=== PATIENT | male | born 1950 | race Caucasian/White ===

== ENCOUNTER 2016-05-10 15:39 | Inpatient (IN) | payer MEDICARE, BC, OTHER ==
[2016-05-10 16:14] LABS: Glucose,Whole Blood 120 mg/dL (75-99)
[2016-05-10 16:14] LABS: Anisocytosis Slight; Basophils # (A) 0.1 k/uL (0-0.2); Basophils % (A) 1 %; CH 34.3; CHCM 34.1; Eosinophils # (A) 0.4 k/uL (0-0.7); Eosinophils % (A) 4 %; HCT 32.7 % (39.0-53.0); HDW 3.28; HGB 10.9 gm/dL (13.0-17.5); Luc # (Auto) 0.22; Luc % (Auto) 2; Lymphocytes % (A) 28 %; MCHC 33.5 g/dL (31.0-37.0); MCV 101.4 fL (80.0-100.0); Macrocytosis Moderate; Mean Platelet Volume 7.7; Monocytes # (A) 0.9 k/uL (0-1.0); Monocytes % (A) 8 %; Neutrophils # (A) 6.2 k/uL (1.3-7.7); Neutrophils % (A) 57 %; RBC 3.22 m/uL (4.30-5.90); RDW 17.3 % (11.5-15.5); WBC 10.8 k/uL (3.8-10.6); WBC (Perox) 11.79
[2016-05-10] MEDS ORDERED: DOCUSATE 100 MG CAP PO PRN (16:26)
[2016-05-10] MEDS ORDERED: NALOXONE 0.4 MG/ML 1 ML VIAL IV PRN (16:26)
[2016-05-10 16:28] LABS: Calcium 9.7 mg/dL (8.4-10.2); Magnesium 2.4 mg/dL (1.6-2.3); Potassium 5.1 mmol/L (3.5-5.1); Total Bilirubin 0.7 mg/dL (0.2-1.3); Total Protein 8.8 g/dL (6.3-8.2)
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
[2016-05-10] MEDS ORDERED: LORazepam 0.5 MG TAB PO PRN (18:02)
[2016-05-10] MEDS ORDERED: BISACODYL 5 MG TABLET.DR PO PRN (18:02)
[2016-05-10] MEDS ORDERED: ALPRAZolam 0.25 MG TAB PO PRN (18:04)
[2016-05-10] MEDS ORDERED: ACETAMINOPHEN TAB 500 MG TAB PO PRN (18:04)
[2016-05-10] MEDS ORDERED: LIDOCAINE-PRILOCAINE 2.5-2.5% CREAM 5 GM TUBE TOPICAL PRN (18:15)
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
[2016-05-10] MEDS ORDERED: LEVOFLOXACIN 500MG-D5W PMX 500 MG in DEXTROSE/WATER 1 100ML.BAG IVPB SCH (19:00)
[2016-05-10] MEDS ORDERED: VANCOMYCIN 1,000 MG in SODIUM CHLORIDE 0.9% 250 ML IVPB STA (20:49)
[2016-05-10] MEDS: INSULIN NPH/REG INSULIN 70/30 300 UNIT/3 ML VIAL SQ SCH (21:06)
[2016-05-10] MEDS: HYDROcodone/APAP 5-325MG 1 EACH TAB PO SCH ×2 (21:06→22:56)
[2016-05-10] MEDS: MELATONIN 3 MG TABLET PO SCH (21:08)
[2016-05-10] MEDS: MONTELUKAST 10 MG TAB PO SCH (21:08)
[2016-05-10] MEDS: FINASTERIDE 5 MG TAB PO SCH (21:08)
[2016-05-10] MEDS: FUROSEMIDE 40 MG TAB PO SCH (21:08)
[2016-05-10] MEDS: GABAPENTIN 300 MG CAP PO SCH (21:09)
[2016-05-10] MEDS: DIVALPROEX SPRINKLE 125 MG CAP.SPRINK PO SCH (21:09)
[2016-05-10 21:10] LABS: Glucose,Whole Blood 142 mg/dL (75-99)
[2016-05-11 04:29] LABS: Anisocytosis Slight; Basophils # (A) 0.1 k/uL (0-0.2); Basophils % (A) 1 %; CH 33.9; CHCM 32.7; Eosinophils # (A) 0.6 k/uL (0-0.7); Eosinophils % (A) 6 %; HCT 28.9 % (39.0-53.0); HDW 3.22; Luc # (Auto) 0.28; Luc % (Auto) 3; Lymphocytes % (A) 20 %; MCH 33.5 pg (25.0-35.0); MCHC 32.1 g/dL (31.0-37.0); MCV 104.4 fL (80.0-100.0); Macrocytosis Moderate; Mean Platelet Volume 7.4; Monocytes % (A) 10 %; Neutrophils % (A) 60 %; RBC 2.77 m/uL (4.30-5.90); RDW 17.4 % (11.5-15.5); WBC 9.9 k/uL (3.8-10.6); WBC (Perox) 9.63
[2016-05-11 04:33] LABS: HGB 9.3 gm/dL (13.0-17.5)
[2016-05-11 05:19] LABS: Calcium 9.5 mg/dL (8.4-10.2); Potassium 5.1 mmol/L (3.5-5.1)
[2016-05-11] MEDS: INSULIN NPH/REG INSULIN 70/30 300 UNIT/3 ML VIAL SQ SCH ×2 (06:21→17:02)
[2016-05-11 06:50] LABS: Glucose,Whole Blood 137 mg/dL (75-99)
--- NOTE | 2016-05-11 08:10 | XR ---
EXAMINATION TYPE: XR chest 1V portable DATE OF EXAM: 05/11/2016 8:05 AM CLINICAL HISTORY: Difficulty breathing progress and CHF study. TECHNIQUE: Single AP portable frontal view of the chest is obtained. COMPARISON: Outside Chest x-ray from one day earlier and older study August 07, 2015 FINDINGS: There is right apical scarring and left basilar atelectasis. No suspicious focal infiltrat e, pleural effusion, or pneumothorax is seen bilaterally. Cardiac silhouette size is within normal li mits with atherosclerotic change in the aortic knob. Osseous structures are intact. IMPRESSION: Right apical scarring and/or atelectasis with left basilar atelectasis. No cardiomegaly o r significant congestion identified.
--- NOTE | 2016-05-11 08:12 | US ---
EXAMINATION TYPE: US carotid duplex BILAT DATE OF EXAM: 05/11/2016 7:58 AM COMPARISON: NONE CLINICAL HISTORY: stroke. Acute onset weakness. EXAM MEASUREMENTS: RIGHT: Peak Systolic Velocity (PSV) cm/sec ----- Right CCA: 77.3 ----- Right ICA: 84.0 ----- Right ECA: 80.6 ICA/CCA ratio: 1.1 RIGHT: End Diastole cm/sec ----- Right CCA: 15.2 ----- Right ICA: 20.9 ----- Right ECA: 0.0 LEFT: Peak Systolic Velocity (PSV) cm/sec ----- Left CCA: 80.1 ----- Left ICA: 102.8 ----- Left ECA: 70.9 ICA/CCA ratio: 1.3 LEFT: End Diastole cm/sec ----- Left CCA: 21.9 ----- Left ICA: 33.0 ----- Left ECA: 0.0 VERTEBRALS (direction of flow): Right Vertebral: Antegrade Left Vertebral: Antegrade TECHNOLOGIST IMPRESSION: Patient has high bifurcation of vessels and at times had trouble holding st ill for examiner. Mild plaque and no significant velocity elevations. Exam suboptimal due to high bifurcation of the carotid bulb bilaterally as well as patient noncoopera tion difficulty holding still. There is mild eccentric mixed plaque at right carotid bulb on grayscal e images. Mild eccentric cord plaque is seen at left carotid bulb. Velocity measurements and ratios r emain within normal limits bilaterally. IMPRESSION: There is no hemodynamically significant stenosis seen in either internal carotid artery.
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
[2016-05-11] MEDS: ASPIRIN 81 MG CHEW PO SCH (08:52)
[2016-05-11] MEDS: SERTRALINE 50 MG TAB PO SCH (08:52)
[2016-05-11] MEDS: HYDROcodone/APAP 5-325MG 1 EACH TAB PO SCH ×4 (08:52→23:09)
[2016-05-11] MEDS: ARIPiprazole 15 MG TAB PO SCH (08:53)
[2016-05-11] MEDS: FUROSEMIDE 40 MG TAB PO SCH ×2 (08:53→16:07)
[2016-05-11] MEDS: GABAPENTIN 300 MG CAP PO SCH ×3 (08:53→20:37)
[2016-05-11] MEDS: FAMOTIDINE 20 MG TAB PO SCH (08:53)
[2016-05-11] MEDS: DIVALPROEX SPRINKLE 125 MG CAP.SPRINK PO SCH ×3 (08:53→20:36)
[2016-05-11] MEDS: SEVELAMER 800 MG TAB PO SCH (08:54)
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
[2016-05-11 11:07] LABS: Glucose,Whole Blood 156 mg/dL (75-99)
[2016-05-11 11:30] LABS: Hemoglobin A1C 5.4 % (4.2-6.1)
[2016-05-11] MEDS: THIAMINE 100 MG TAB PO SCH (12:43)
[2016-05-11] MEDS: MULTIVITAMINS, THERA 1 EACH TAB PO SCH (12:43)
[2016-05-11] MEDS: FOLIC ACID 1 MG TAB PO SCH (12:43)
--- NOTE | 2016-05-11 13:41 | CT ---
EXAMINATION TYPE: CT brain wo con DATE OF EXAM: 05/11/2016 1:25 PM COMPARISON: Prior head CT December HISTORY: Syncope CT DLP: 1121 mGycm Automated exposure control for dose reduction was used. Helical imaging through the brain FINDINGS: There is no acute intracranial hemorrhage, mass effect, or midline shift identified. The ventricles and sulci are within normal limits in size. Cortical atrophy is present. Cerebral vascular calcificat ions are present. White matter demyelination is present in the periventricular location, suspect lacu harshad infarct within the basal ganglia on the left as on prior exam The globes are intact and the visu alized sinuses are remarkable for inflammatory change in the maxillary sinus, ethmoid air cells, post op change noted to the sinus. IMPRESSION: No acute intracranial hemorrhage, mass effect, or midline shift is seen. Age-related atrophy and geochemical manager anna small vessel ischemia suspected. Sinus disease. Follow-up as indicated
--- NOTE | 2016-05-11 14:59 | ECHOF ---
Referral Reason:Stroke MEASUREMENTS -------- HEIGHT: 170.2 cm WEIGHT: 82.1 kg BP: RVIDd: 2.9 cm (< 3.3) IVSd: 1.3 cm (0.6 - 1.1) LVIDd: 3.3 cm (3.9 - 5.3) LVPWd: 1.4 cm (0.6 - 1.1) IVSs: 1.6 cm LVIDs: 2.5 cm LVPWs: 1.3 cm LA Diam: 3.6 cm (2.7 - 3.8) Ao Diam: 3.5 cm (2.0 - 3.7) AV Cusp: 2.4 cm (1.5 - 2.6) LA Diam: 3.1 cm (2.7 - 3.8) MV E Garry: 0.45 m/s MV DecT: 297 ms MV A Garry: 1.11 m/s MV E/A Ratio: 0.41 RAP: 5.00 mmHg RVSP: 15.92 mmHg FINDINGS -------- Sinus rhythm. Pt. not compliant. There is mild concentric left ventricular hypertrophy. Overall left ventricular systolic function is low-normal with, an EF between 50 - 55 %. The right ventricle is normal in size. The left atrial size is normal. The right atrial size is normal. There is mild aortic valve sclerosis. There is no evidence of aortic regurgitation. Mild mitral annular calcification present. Mild mitral regurgitation is present. Mild tricuspid regurgitation present. There is no evidence of pulmonary hypertension. The right ventricular systolic pressure, as measured by Doppler, is 15.92mmHg. There is no pulmonic regurgitation present. There is no pericardial effusion. CONCLUSIONS -------- 1. Pt. not compliant. 2. There is mild concentric left ventricular hypertrophy. 3. Overall left ventricular systolic function is low-normal with, an EF between 50 - 55 %. 4. There is mild aortic valve sclerosis. 5. Mild mitral annular calcification present. 6. Mild mitral regurgitation is present. 7. Mild tricuspid regurgitation present. 8. There is no evidence of pulmonary hypertension. 9. The right ventricular systolic pressure, as measured by Doppler, is 15.92mmHg. POULTRY FEED SUPERVISOR: Colette Durán RDCS
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
[2016-05-11 16:48] LABS: Glucose,Whole Blood 140 mg/dL (75-99)
[2016-05-11 20:29] LABS: Glucose,Whole Blood 152 mg/dL (75-99)
[2016-05-11] MEDS: FINASTERIDE 5 MG TAB PO SCH (20:35)
[2016-05-11] MEDS: LEVOFLOXACIN 250 MG TAB PO SCH (20:35)
[2016-05-11] MEDS: MONTELUKAST 10 MG TAB PO SCH (20:36)
--- NOTE | 2016-05-11 20:38 | PN ---
DATE OF SERVICE: 05/11/2016 This 66-year-old gentleman admitted with syncope as well as hypotension due to hemodialysis, being closely monitored. Cardiology is following the patient closely at this time. Otherwise, the patient is not orthostatically hypertensive, even though the blood pressure systolic is around 100. The patient is being closely monitored. The patient also underwent a carotid Doppler study showed no hemodynamically significant stenosis and a CAT scan of the brain which showed no other acute abnormality also. PAST MEDICAL HISTORY: Reviewed. REVIEW OF SYSTEMS: CARDIOVASCULAR: No angina or palpitations. RESPIRATORY: As mentioned earlier. GI: As mentioned earlier. : No dysuria. NERVOUS: As mentioned earlier. The current medications are reviewed and include: 1. Tylenol 500 mg every 6 hours p.r.n. 2. [place] 5 mg q.8 p.r.n. 3. Xanax 0.25 t.i.d. 5. Aspirin 160 mg daily. 7. Depakote 500 mg daily. 8. Colace 100 mg b.i.d. 9. Pepcid 20 mg q.a.m. 10. Proscar 5 mg q.h.s. 11. Lasix. 12. Neurontin. 13. Humulin 70/30 60 units b.i.d. 14. Ativan 0.5 mg every 6 hours p.r.n. 15. Singulair 10 mg q.h.s. 16. Multivitamin 1 p.o. daily. 17. Narcan 0.2 q.2 p.r.n. 18. Zoloft 150 mg p.o. daily. 20. Vitamin B 100 mg p.o. daily. PHYSICAL EXAM: Patient alert and oriented x3. Pulse 90, blood pressure is 140/60, respirations 12, temperature is 97.8, pulse ox 93% on room air. HEENT: Conjunctivae normal. NECK: No jugular venous distension. CARDIAC: S1 and S2 muffled. RESPIRATORY: Breath sounds diminished at the bases. A few scattered rhonchi. No crackles. Abdomen is soft, nontender. No mass palpable. LEGS: No edema. NERVOUS SYSTEM: Higher functions as mentioned. Moves all 4 limbs. No focal motor or sensory deficits. LYMPHATICS: No lymph nodes palpable in axillae or groin. SKIN: No ulcer, rash or bleeding. LABS: WBC 9.8, hemoglobin is 9.3. Creatinine is 1. Plasma lactic acid is 2.4. ASSESSMENT: 1. Syncope for evaluation, possibly hypotension related to hemodialysis, rule out cardiac arrhythmia. 2. Increased plasma lactic acid. 3. Increased WBC. Rule out sepsis. 4. Anemia, microcytic, possibly secondary to renal failure. 5. Chronic renal failure, chronic kidney disease, staged on hemodialysis. 6. History of atrial fibrillation, chronic. 7. History of coronary artery disease. 8. History of congestive heart failure. 9. History of chronic obstructive pulmonary disease. 10. History of cerebrovascular accident and transient ischemic attack. 11. History of dementia. 12. History of diabetes mellitus type 2. 13. Hypertension. 14. Hyperlipidemia. 15. History of memory impairment. 16. History of degenerative joint disease. 17. Sleep apnea. 18. History of head injury and closed head injury, dizziness. 19. History of right foot diabetic ulcer. 20. History of methicillin-resistant Staphylococcus aureus. 21. History of laparoscopic cholecystectomy. 22. History of anxiety. 23. History of gait dysfunction. 24. FULL CODE. RECOMMENDATIONS AND DISCUSSION: In this 66-year-old gentleman who presented with multiple complex medical issues, we will monitor the patient closely, continue the current medications, continue symptomatic treatment. Otherwise at this time, I would recommend monitoring the blood pressure closely. The white count is normal, 9.9. Cultures are negative so far; however, will continue the current medications, including empiric antibiotics and the rest of the medications and dose of vancomycin was also given by Nephrology. Guarded prognosis because of multiple complex medical issues. Further recommendations to follow. DARNELLD
[2016-05-11] MEDS: MELATONIN 3 MG TABLET PO SCH ×2 (22:19→22:22)
[2016-05-12 06:21] LABS: Anisocytosis Slight; Basophils # (A) 0.1 k/uL (0-0.2); Basophils % (A) 1 %; CH 33.5; CHCM 32.2; Eosinophils # (A) 0.8 k/uL (0-0.7); Eosinophils % (A) 10 %; HCT 27.9 % (39.0-53.0); HDW 3.17; HGB 9.2 gm/dL (13.0-17.5); Hypochromasia Slight; Luc # (Auto) 0.34; Luc % (Auto) 4; Lymphocytes # (A) 2.9 k/uL (1.0-4.8); Lymphocytes % (A) 36 %; MCH 34.5 pg (25.0-35.0); MCHC 32.9 g/dL (31.0-37.0); Macrocytosis Moderate; Mean Platelet Volume 6.8; Monocytes # (A) 0.8 k/uL (0-1.0); Monocytes % (A) 9 %; Neutrophils # (A) 3.2 k/uL (1.3-7.7); Neutrophils % (A) 40 %; RBC 2.66 m/uL (4.30-5.90); RDW 17.5 % (11.5-15.5); WBC (Perox) 8.19
[2016-05-12 06:26] LABS: Glucose,Whole Blood 91 mg/dL (75-99)
[2016-05-12 06:31] LABS: Calcium 9.5 mg/dL (8.4-10.2)
[2016-05-12 06:39] LABS: Potassium 6.3 mmol/L (3.5-5.1)
[2016-05-12] MEDS ORDERED: SODIUM POLYSTYRENE SULFONATE 15 GM/60 ML BOTTLE PO STA (06:56)
[2016-05-12] MEDS: INSULIN NPH/REG INSULIN 70/30 300 UNIT/3 ML VIAL SQ SCH ×2 (07:05→17:24)
--- NOTE | 2016-05-12 09:46 | P.PN ---
Subjective Principal diagnosis: This is a 66-year-old male, ESRD on dialysis Friday who had a syncopal episode during dialysis on Friday to 2016. He was brought into the emergency room after having had some resuscitation performed in the dialysis unit. I spoke with the dialysis nurse at [facility] dialysis unit, he became unresponsive, BP at the time of the event was 113/89 at 11:49 AM. At this time he had 2300 mL taken off. He was unresponsive although his pressure was a stable. Subsequently his pressure went down to 70. Then the pulse was lost and he had a 32 second CPR with return of pulse and blood pressure 94/57 at 11:54 AM CPR was terminated. He was given 850 mL of fluid. He was transferred here to the emergency room. He was brought in with normal vital signs and normal mentation. He is continuing to do very well since then over the weekend and the on Friday today he is awake alert. He has dementia. He is able to identify the hospital but unable to tell me the month year or date. He was able to substract 10 from 100. He says he has a good appetite has no complaints at all. No chest pain dizziness cough fever chills shortness of breath nausea vomiting diarrhea abdominal pain. Workup has shown no positive blood cultures, troponins have been normal. There has been no significant electrolyte abnormalities on his admission labs He is known with dementia, atrial fibrillation, coronary artery disease, COPD, diabetes and sleep apnea on BiPAP. His has had a fall and close head injury in 2001 and has had problems with his mental status since then. Objective - Vital Signs Vital signs: Vital Signs Temp 97.7 F 05/12/16 04:00 Pulse 76 05/12/16 04:00 Resp 18 05/12/16 04:00 BP 120/58 05/12/16 04:00 Pulse Ox 100 05/12/16 04:00 Intake & Output 05/11/16 05/12/16 05/12/16 18:59 06:59 18:59 Intake Total 970 200 Balance 970 200 Weight 79.5 kg Intake: Oral 970 200 Other: # Voids 0 0 Currently on exam he is awake alert but somewhat disoriented as described above. He was sitting out on a chair at the time of this exam HEENT exam no JVP is noted at is supple no facial asymmetry. No card bruit. Carotid Doppler was unremarkable as well. Lungs are clear to auscultation percussion good air entry bilaterally. Chest x-ray was unremarkable. Heart sounds are unremarkable for any murmur rub gallop. Abdomen soft nontender Extremity exam was no edema Neurologically awake alert but disoriented. No focal motor deficit - Labs CBC & Chem 7: 05/12/16 05:33 05/12/16 05:33 Labs: Abnormal Lab Results - Last 24 Hours (Table) 05/11/16 05/11/16 05/11/16 Range/Units 11:04 16:30 20:11 RBC (4.30-5.90) m/uL Hgb (13.0-17.5) gm/dL Hct (39.0-53.0) % MCV (80.0-100.0) fL RDW (11.5-15.5) % Eosinophils # (0-0.7) k/uL Potassium (3.5-5.1) mmol/L Carbon Dioxide (22-30) mmol/L BUN (9-20) mg/dL Creatinine (0.66-1.25) mg/dL Glucose (74-99) mg/dL POC Glucose (mg/dL) 156 H 140 H 152 H (75-99) mg/dL 05/12/16 05/12/16 Range/Units 05:33 05:33 RBC 2.66 L (4.30-5.90) m/uL Hgb 9.2 L (13.0-17.5) gm/dL Hct 27.9 L (39.0-53.0) % MCV 105.0 H (80.0-100.0) fL RDW 17.5 H (11.5-15.5) % Eosinophils # 0.8 H (0-0.7) k/uL Potassium 6.3 H* (3.5-5.1) mmol/L Carbon Dioxide 18 L (22-30) mmol/L BUN 54 H (9-20) mg/dL Creatinine 10.30 H* (0.66-1.25) mg/dL Glucose 103 H (74-99) mg/dL POC Glucose (mg/dL) (75-99) mg/dL Assessment and Plan Plan: Impression. 1. Syncopal episode during dialysis. Although his pressure is documented to be normal and 113/89 with heart rate in the 70s likely this is a cerebrovascular perfusion issue with possible vasovagal. His troponins have been normal. His carotid study is normal and his white count and clinical course is not suggestive of any sepsis. Blood cultures so far negative. Blood cultures are so far negative and troponins are normal 2. ESRD on dialysis Friday. Earlier this week on Friday he missed his dialysis as he was not feeling well. Supposedly, came on Friday was dialyzed with blood pressure going down needing emergency room visit where he was given IV fluid. 3 Recent problems with access bleeding. Under the care of [facility] surgeon and going for further surgery. 4. History of diabetes, atrial fibrillation, COPD BiPAP, dementia, 5. History of dementia after a fall in 2001 secondary to closed head injury. 6. longterm resident. 7. Anemia with hemoglobin of 9.3, etiology is ESRD and possible iron deficiency. 8. Hyperkalemia today potassium went up to 6.3. Blood sugar is 103. Because of hyperkalemia is from diet and ESRD Recommendation. We will give him Kayexalate 15 g now and 15 g 6 hours later. I would recommend that we dialyze him tomorrow here in the hospital before discharging so that we can monitor him closely
[2016-05-12] MEDS: HYDROcodone/APAP 5-325MG 1 EACH TAB PO SCH ×2 (11:04→17:24)
[2016-05-12] MEDS: ARIPiprazole 15 MG TAB PO SCH (11:37)
[2016-05-12] MEDS: DIVALPROEX SPRINKLE 125 MG CAP.SPRINK PO SCH ×4 (11:38→22:31)
[2016-05-12] MEDS: ASPIRIN 81 MG CHEW PO SCH (11:38)
[2016-05-12] MEDS: FAMOTIDINE 20 MG TAB PO SCH (11:39)
[2016-05-12] MEDS: FUROSEMIDE 40 MG TAB PO SCH ×2 (11:39→17:25)
[2016-05-12] MEDS: GABAPENTIN 300 MG CAP PO SCH ×4 (11:39→22:32)
[2016-05-12] MEDS: SERTRALINE 50 MG TAB PO SCH (11:39)
[2016-05-12] MEDS: FOLIC ACID 1 MG TAB PO SCH (11:40)
[2016-05-12] MEDS: THIAMINE 100 MG TAB PO SCH (11:40)
[2016-05-12] MEDS: SEVELAMER 800 MG TAB PO SCH (11:40)
[2016-05-12] MEDS: MULTIVITAMINS, THERA 1 EACH TAB PO SCH (11:40)
[2016-05-12 12:17] LABS: Glucose,Whole Blood 158 mg/dL (75-99)
[2016-05-12] MEDS ORDERED: SODIUM POLYSTYRENE SULFONATE 15 GM/60 ML BOTTLE PO ONE (13:00)
--- NOTE | 2016-05-12 14:07 | PN ---
A gentleman who is 66 years of age, end-stage renal disease, doing well today. Blood pressure is better controlled. No evidence of any syncope or arrhythmia. He has previous history of paroxysmal A. fib. He is now on Eliquis. I am recommending that we continue current medical regimen. Nephrology feels he should go home after dialysis tomorrow which is fine. Cardiac-mejia no intervention. Vital signs are stable. S1, S2 heard normally. Short systolic murmur noted. Lungs reveal improved air entry. Abdomen and lower extremity exam is unchanged. The patient can be discharged tomorrow after dialysis and advised to be on apixaban 2.5 mg b.i.d.
[2016-05-12 17:35] LABS: Glucose,Whole Blood 102 mg/dL (75-99)
[2016-05-12 20:41] LABS: Glucose,Whole Blood 143 mg/dL (75-99)
[2016-05-12] MEDS: MELATONIN 3 MG TABLET PO SCH (22:19)
[2016-05-12] MEDS: FINASTERIDE 5 MG TAB PO SCH (22:21)
[2016-05-12] MEDS: MONTELUKAST 10 MG TAB PO SCH (22:28)
[2016-05-12] MEDS: APIXABAN 2.5 MG TABLET PO SCH (22:28)
[2016-05-13 06:18] LABS: Anisocytosis Slight; Basophils # (A) 0.1 k/uL (0-0.2); Basophils % (A) 1 %; CH 33.7; CHCM 32.2; Eosinophils # (A) 0.7 k/uL (0-0.7); Eosinophils % (A) 9 %; HDW 3.11; Luc # (Auto) 0.27; Luc % (Auto) 4; Lymphocytes # (A) 2.6 k/uL (1.0-4.8); Lymphocytes % (A) 34 %; MCH 33.9 pg (25.0-35.0); MCHC 32.1 g/dL (31.0-37.0); MCV 105.4 fL (80.0-100.0); Macrocytosis Moderate; Mean Platelet Volume 6.8; Monocytes # (A) 0.6 k/uL (0-1.0); Monocytes % (A) 8 %; Neutrophils # (A) 3.4 k/uL (1.3-7.7); Neutrophils % (A) 45 %; RBC 2.66 m/uL (4.30-5.90); RDW 17.6 % (11.5-15.5); WBC 7.7 k/uL (3.8-10.6); WBC (Perox) 8.33
[2016-05-13 06:24] LABS: Calcium 9.2 mg/dL (8.4-10.2); Potassium 5.2 mmol/L (3.5-5.1)
[2016-05-13 07:01] LABS: Glucose,Whole Blood 105 mg/dL (75-99)
[2016-05-13] MEDS: INSULIN NPH/REG INSULIN 70/30 300 UNIT/3 ML VIAL SQ SCH ×2 (07:02→17:13)
[2016-05-13] MEDS: HYDROcodone/APAP 5-325MG 1 EACH TAB PO SCH ×4 (07:02→16:17)
[2016-05-13] MEDS: APIXABAN 2.5 MG TABLET PO SCH ×2 (08:30→22:00)
[2016-05-13] MEDS: GABAPENTIN 300 MG CAP PO SCH ×4 (08:34→22:01)
[2016-05-13] MEDS: ARIPiprazole 15 MG TAB PO SCH (08:34)
[2016-05-13] MEDS: SERTRALINE 50 MG TAB PO SCH (08:34)
[2016-05-13] MEDS: SEVELAMER 800 MG TAB PO SCH (08:34)
[2016-05-13] MEDS: FOLIC ACID 1 MG TAB PO SCH (08:34)
[2016-05-13] MEDS: ASPIRIN 81 MG CHEW PO SCH (08:35)
[2016-05-13] MEDS: FUROSEMIDE 40 MG TAB PO SCH ×3 (08:35→16:18)
[2016-05-13] MEDS: THIAMINE 100 MG TAB PO SCH (08:35)
[2016-05-13] MEDS: MULTIVITAMINS, THERA 1 EACH TAB PO SCH (08:36)
[2016-05-13] MEDS: FAMOTIDINE 20 MG TAB PO SCH (08:36)
[2016-05-13] MEDS: DIVALPROEX SPRINKLE 125 MG CAP.SPRINK PO SCH ×4 (08:36→22:02)
--- NOTE | 2016-05-13 09:46 | PN ---
DATE OF SERVICE: 05/12/2016 This 66-year-old gentleman with a past medical history of multiple medical problems admitted with syncope, possibly hypotension. The patient is being closely monitored. The patient also had hyperkalemia also. Nephrology is following the patient closely. PAST MEDICAL HISTORY: Reviewed. REVIEW OF SYSTEMS: CARDIOVASCULAR: No angina, no palpitations. RESPIRATORY: As mentioned earlier. GI: As mentioned earlier. : No dysuria. NERVOUS SYSTEM: No numbness or weakness. Current medications are: 1. Tylenol 500 mg q.6 p.r.n. 2. [place] 5 mg q.8. 3. Xanax 0.5 t.i.d. 4. Eliquis 2.5 mg daily. 5. Ability 50 mg. 6. Aspirin 162 mg daily. 7. Dulcolax. 8. Depakote. 9. Colace. 10. Pepcid. 11. Proscar. 12. Folic acid. 13. Lasix. 14. Neurontin. 15. Humulin 70/30 sixteen units a.c. t.i.d. 16. Levaquin. 17. Ativan. 18. Melatonin. 19. Singular. 20. Narcan. 21. Zoloft. 22. Renvela. 23. Vitamin B1. PHYSICAL EXAMINATION: Patient is alert and oriented x3. Pulse 76, blood pressure 103/62, respirations 12, temperature 98.1, pulse ox 98% on room air. HEENT: Conjunctivae normal. NECK: No jugular venous distension. CARDIOVASCULAR SYSTEM: S1, S2, muffled. RESPIRATORY: Breath sounds diminished at the bases. A few bilateral scattered rhonchi, no crackles. Abdomen is soft, nontender. No mass palpable. EXTREMITIES: Legs no edema, no swelling. NERVOUS SYSTEM: Higher functions as mentioned, moves all 4 limbs, no motor or sensory deficits. LYMPHATICS: No lymph node enlargement in the neck, axillae or groin. SKIN: No ulcer, rash or bleeding. LABS: WBC 8, hemoglobin 9.2, sodium 138, potassium 6.3, creatinine is 10.3. ASSESSMENT: 1. Syncope for evaluation, possibly hypotension related to hemodialysis, rule out cardiac arrhythmia. 2. Increased plasma lactic acid. 3. Increased WBC, rule out sepsis. 4. Anemia, microcytic, possibly secondary to renal failure. 5. Chronic renal failure, chronic kidney disease, stage V on hemodialysis. 6. History for atrial fibrillation, chronic, on Eliquis. 7. History of coronary artery disease. 8. History of congestive heart failure, chronic obstructive pulmonary disease. 9. Cerebrovascular accident, transient ischemic attack. 10. History of dementia. 11. History of diabetes mellitus type 2. 12. Hypertension. 13. Hyperlipidemia. 14. Memory impairment. 15. History of degenerative joint disease. 16. History of sleep apnea. 17. History of closed head injury and dizziness. 18. History of right foot diabetic ulcer. 19. History of methicillin-resistant Staphylococcus aureus. 20. History of laparoscopic cholecystectomy. 21. History of anxiety. 22. History of gait dysfunction. 23. Congestive heart failure with chronic diastolic dysfunction, ejection fraction 50% to 55%. 24. FULL CODE. RECOMMENDATION AND DISCUSSION: Recommend to continue with current medications, continue with symptomatic treatment. Will continue with empiric antibiotics. The cultures are negative so far. Low potassium diet, Kayexalate has been given. Otherwise, repeat labs. Hemodialysis. Guarded prognosis because of multiple complex medical issues. Further recommendations to follow.
[2016-05-13 12:08] LABS: Glucose,Whole Blood 81 mg/dL (75-99)
--- NOTE | 2016-05-13 16:00 | PN ---
Patient is seen for follow-up for end-stage renal disease. He is maintained on a Friday, Friday, Friday schedule. He will be dialyzed today. On examination, the patient is comfortable. Blood pressure 124/55, heart rate 76 per minute. He is afebrile. Examination of the heart S1 and S2. Examination of the lungs: Bilateral breath sounds are heard. ABDOMEN: Soft, nontender. Examination of lower extremities shows no significant edema. Labs show potassium 5.2. Hemoglobin 9.0 g/dL. ASSESSMENT: 1. End-stage renal disease on hemodialysis on a Friday, Friday, Friday schedule, patient will be dialyzed today. 2. Status post, syncope and significant hypotension at the dialysis unit, status post short CPR and unclear if he actually had a cardiac arrest. 3. Type 2 diabetes. 4. Underlying dementia. PLAN: Hemodialysis today, need to adjust dry weight at the dialysis unit and try to avoid hypotension. No evidence of ongoing infection at this time. Blood pressures still remain slightly on the lower side. He is not on any significant antihypertensive medications. He may need Midodrine prior to treatment on dialysis days. We will start this as outpatient, depending on his blood pressures.
--- NOTE | 2016-05-13 16:06 | DS ---
DATE OF ADMISSION: 05/12/2016 DATE OF DISCHARGE: FINAL DIAGNOSES: 1. Syncope for evaluation possibly hypotension related to hemodialysis, cardiac arrhythmia ruled out. 2. Increased plasma lactic acid, possible sepsis on empiric antibiotics. No source identified. 3. Increased WBC improved. 4. Anemia, macrocytic, possibly secondary to renal failure. 5. Chronic renal failure with chronic kidney disease, stage V on hemodialysis. 6. History of atrial fibrillation, chronic on Eliquis. 7. History of coronary artery disease. 8. History of congestive heart failure. 9. History of chronic obstructive pulmonary disease. 10. History of cerebrovascular accident, transient ischemic attack. 11. Dementia. 12. History of diabetes type 2. 13. Hypertension. 14. Hyperlipidemia. 15. History of memory impairment. 16. History of degenerative joint disease . 17. History of sleep apnea. 18. History of closed head injury and dizziness. 19. Right foot diabetic ulcer. 20. History of Methicillin-resistant Staph aureus. 21. History of laparoscopic cholecystectomy. 22. History of anxiety. 23. History of gait dysfunction. 24. History of congestive heart failure with chronic diastolic dysfunction, ejection fraction 50 to 55%. 25. FULL CODE. DISCHARGE DISPOSITION: The patient will be discharged in stable condition with guarded prognosis. Total time taken 35 minutes. HISTORY OF PRESENT ILLNESS: This 66-year-old gentleman with a past history of multiple medical problems was admitted with syncope. The patient was thought to have orthostatic hypotension. The blood pressure was fluctuating at this time. Otherwise, cardiac arrhythmias are not noted. The patient was seen by cardiology and nephrology and neurology, recommended outpatient follow-up. On exam, vitals are stable. CARDIOVASCULAR SYSTEM: S1, S2 muffled. RESPIRATORY: A few rhonchi. ABDOMEN: Soft. Nervous system: No focal deficits. LABS: Potassium 5.2, hemoglobin is 9, creatinine is 12.8. DISCHARGE ADVICE AND MEDICATIONS: 1. Discharge diet is cardiac low potassium, renal. 2. Activity limited until follow up. 3. Follow-up CBC, BMP in 2 to [address] [facility] [address] Jesus Ordaz. 4. Follow up with nephrology as advised. 5. Follow with cardiology and neurology as advised. 6. Renvela 2.4 daily. 7. Xanax 0.25 t.i.d. p.r.n. 8. Abilify 50 mg p.o. daily. 9. Tylenol 500 mg q.6 p.r.n. 10. Eliquis 2.5 mg b.i.d. 11. Aspirin 160 mg p.o. daily. 12. Dulcolax 10 mg p.o. daily. 13. Depakote 500 mg p.o. t.i.d. 14. Pepcid 20 mg p.o. daily. 15. Proscar 5 mg q.h.s. 16. Folic acid 1 mg p.o. daily. 17. Lasix 40 mg p.o. b.i.d. 18. Neurontin 300 mg p.o. t.i.d. 19. Hydrocodone 5 mg q.8 p.r.n. 20. Humalog scale 1 to 200 = 2 units, 201 to 250 = 4 units, 250 to 300 6 units, 301 to 350 8 units, 350 to 400 10 units; more than 400 call. 21. Insulin NPH 16 units subcu b.i.d. 22. Ativan 0.5 mg q.6 p.r.n. 23. Levaquin 250 mg q.48 hours for 4 more days. 24. Emla cream one application topically daily. 25. Singulair 10 mg q.h.s. 26. Multivitamins one p.o. daily. 27. Zoloft 150 mg p.o. daily. 28. Vitamin B 100 mg p.o. daily. One again, the patient will be discharged in stable condition with guarded prognosis.
[2016-05-13 16:44] LABS: Glucose,Whole Blood 107 mg/dL (75-99)
--- NOTE | 2016-05-13 17:01 | P.PN ---
Subjective Principal diagnosis: Syncope This is a 66-year-old male continuing be evaluated by the neurology service for a syncopal episode during his dialysis. He's had no recurrence during his admission. At the time my exam he is undergoing dialysis. Recall that he is currently on Depakote for a distant history of seizures and for mood stabilization. He and his deny significant seizure activity for many years. CT of the brain showed no acute intracranial abnormalities. An EEG was normal. His carotid Doppler showed no hemodynamically significant stenosis. Cardiology has evaluated and given a diagnosis of likely vasovagal syncope. Objective - Vital Signs Vital signs: Vital Signs Temp 97.8 F 05/13/16 16:00 Pulse 75 05/13/16 16:00 Resp 16 05/13/16 16:00 BP 104/47 05/13/16 16:00 Pulse Ox 98 05/13/16 16:00 Intake & Output 05/12/16 05/13/16 05/13/16 18:59 06:59 18:59 Intake Total 660 Output Total 0 Balance 0 660 Weight 79.5 kg Intake: Oral 660 Output: Urine 0 Other: # Voids 0 0 - Constitutional General appearance: Present: cooperative, no acute distress - EENT Eyes: Present: EOMI, PERRLA. Absent: abnormal pupil, ptosis ENT: Present: hearing grossly normal - Neck Neck: Present: normal ROM - Respiratory Respiratory: negative: prolonged expiration, prolonged inspiration - Cardiovascular Rhythm: regular - Neurologic Neurologic Comment(s): Is alert awake and oriented 2, as he continues to have problems with the date. There is no facial asymmetry. Speech-language are normal. There is no lateralizing weakness. There is no tremor or seizure-like activity seen. He is currently undergoing dialysis. - Labs CBC & Chem 7: 05/13/16 05:36 05/13/16 05:36 Labs: Abnormal Lab Results - Last 24 Hours (Table) 05/12/16 05/12/16 05/13/16 Range/Units 17:15 20:39 05:36 RBC 2.66 L (4.30-5.90) m/uL Hgb 9.0 L (13.0-17.5) gm/dL Hct 28.0 L (39.0-53.0) % MCV 105.4 H (80.0-100.0) fL RDW 17.6 H (11.5-15.5) % Potassium (3.5-5.1) mmol/L Carbon Dioxide (22-30) mmol/L BUN (9-20) mg/dL Creatinine (0.66-1.25) mg/dL Glucose (74-99) mg/dL POC Glucose (mg/dL) 102 H 143 H (75-99) mg/dL 05/13/16 05/13/16 05/13/16 Range/Units 05:36 06:47 16:42 RBC (4.30-5.90) m/uL Hgb (13.0-17.5) gm/dL Hct (39.0-53.0) % MCV (80.0-100.0) fL RDW (11.5-15.5) % Potassium 5.2 H (3.5-5.1) mmol/L Carbon Dioxide 19 L (22-30) mmol/L BUN 71 H (9-20) mg/dL Creatinine 12.80 H* (0.66-1.25) mg/dL Glucose 105 H (74-99) mg/dL POC Glucose (mg/dL) 105 H 107 H (75-99) mg/dL Assessment and Plan (1) Head injury Status: Chronic (2) Episode of syncope Status: Acute (3) Renal failure, chronic Status: Chronic (4) Atrial fib/flutter, transient Status: Chronic (5) Confusion Status: Chronic (6) Diabetes Status: Chronic (7) Seizure disorder Status: Acute Plan: His episode was likely cardiogenic in nature. Continue workup and treatment from cardiology standpoint. His EEG was normal. Continue neurological checks. We may be consulted on as-needed basis for any changes neurological condition. I have reviewed the history and physical on the above patient. I have reviewed the above note, and agree.
[2016-05-13] MEDS ORDERED: GELATIN SPONGE,ABSORB (SMALL) 1 EACH SPONGE ONE (19:00)
[2016-05-13 20:50] LABS: Glucose,Whole Blood 102 mg/dL (75-99)
[2016-05-13 21:05] VITALS: RESP 18
[2016-05-13] MEDS: FINASTERIDE 5 MG TAB PO SCH (22:01)
[2016-05-13] MEDS: LEVOFLOXACIN 250 MG TAB PO SCH (22:01)
[2016-05-14 03:58] VITALS: TEMP 97.4
[2016-05-14 05:59] LABS: Anisocytosis Slight; Basophils # (A) 0.1 k/uL (0-0.2); Basophils % (A) 1 %; CH 33.8; CHCM 32.4; Eosinophils # (A) 0.5 k/uL (0-0.7); Eosinophils % (A) 9 %; HCT 29.8 % (39.0-53.0); HDW 3.15; HGB 9.4 gm/dL (13.0-17.5); Luc # (Auto) 0.25; Luc % (Auto) 4; Lymphocytes % (A) 33 %; MCH 33.2 pg (25.0-35.0); MCHC 31.7 g/dL (31.0-37.0); MCV 104.8 fL (80.0-100.0); Macrocytosis Moderate; Mean Platelet Volume 6.6; Monocytes # (A) 0.6 k/uL (0-1.0); Monocytes % (A) 9 %; Neutrophils # (A) 2.8 k/uL (1.3-7.7); Neutrophils % (A) 45 %; RBC 2.84 m/uL (4.30-5.90); RDW 17.4 % (11.5-15.5); WBC 6.2 k/uL (3.8-10.6); WBC (Perox) 6.95
[2016-05-14 06:09] LABS: Glucose,Whole Blood 111 mg/dL (75-99)
[2016-05-14 06:10] LABS: Calcium 9.6 mg/dL (8.4-10.2)
[2016-05-14] MEDS: MONTELUKAST 10 MG TAB PO SCH (06:54)
[2016-05-14] MEDS: MELATONIN 3 MG TABLET PO SCH (06:54)
[2016-05-14] MEDS: HYDROcodone/APAP 5-325MG 1 EACH TAB PO SCH ×2 (06:54→08:10)
[2016-05-14] MEDS: INSULIN NPH/REG INSULIN 70/30 300 UNIT/3 ML VIAL SQ SCH (07:29)
[2016-05-14] MEDS: APIXABAN 2.5 MG TABLET PO SCH (08:10)
[2016-05-14] MEDS: SEVELAMER 800 MG TAB PO SCH (08:14)
[2016-05-14] MEDS: DIVALPROEX SPRINKLE 125 MG CAP.SPRINK PO SCH (08:14)
[2016-05-14] MEDS: ARIPiprazole 15 MG TAB PO SCH (08:15)
[2016-05-14] MEDS: MULTIVITAMINS, THERA 1 EACH TAB PO SCH (08:15)
[2016-05-14] MEDS: SERTRALINE 50 MG TAB PO SCH (08:15)
[2016-05-14] MEDS: FOLIC ACID 1 MG TAB PO SCH (08:15)
[2016-05-14] MEDS: FAMOTIDINE 20 MG TAB PO SCH (08:16)
[2016-05-14] MEDS: THIAMINE 100 MG TAB PO SCH (08:16)
[2016-05-14] MEDS: GABAPENTIN 300 MG CAP PO SCH (08:16)
[2016-05-14] MEDS: FUROSEMIDE 40 MG TAB PO SCH (08:16)
[2016-05-14] MEDS: ASPIRIN 81 MG CHEW PO SCH (08:16)
[2016-05-14 09:50] VITALS: BP 94/52; PULSE 80
--- NOTE | 2016-05-14 10:41 | PN ---
DATE OF SERVICE: 05/13/2016 This 66-year-old gentleman who was admitted with syncope possibly hypotension related to dialysis, being closely monitored. No chest pain or palpitation. No fever. On exam, alert and oriented x3. Pulse is 75, blood pressure 104/47, respirations 16., temperature 97.8, pulse ox 98% on room air. HEENT: Conjunctivae normal. NECK: No jugular venous distention. CARDIOVASCULAR: S1 and S2, muffled. RESPIRATORY: Breath sounds diminished at the bases. A few scattered rhonchi and crackles. ABDOMEN: Soft, nontender. LEGS: No edema, no swelling. NERVOUS SYSTEM: No focal deficits. LABS: Hemoglobin 9. Creatinine is 12.80. ASSESSMENT: 1. Syncope for evaluation, possible hypotension related to hemodialysis. 2. Increased plasma lactic acidosis. 3. Possible sepsis on empiric IV antibiotics. 4. Increased WBC. 5. Anemia microcytic, possibly secondary to renal failure. 6. Chronic renal failure and chronic kidney disease stage V on hemodialysis. 7. History of atrial fibrillation, chronic on Eliquis. 8. History of coronary artery disease. 9. History of congestive heart failure. 10. History of chronic obstructive pulmonary disease. 11. History of cerebrovascular accident, transient ischemic attack. 12. Dementia. 13. History of diabetes mellitus type 2. 14. Hypertension. 15. Hyperlipidemia. 16. Memory impairment. 17. History of degenerative joint disease. 18. History of sleep apnea. 19. History of closed head injury and dizziness. 20. Right foot diabetic ulcer. 21. History of methicillin-resistant Staphylococcus aureus. 22. History of laparoscopic cholecystectomy. 23. History of anxiety. 24. History of gait dysfunction. 25. History of congestive heart failure with chronic diastolic dysfunction with ejection fraction 50% to 55% . 26. FULL CODE. RECOMMENDATIONS AND DISCUSSION: In this 66-year-old gentleman who presented with multiple complex medical issues, we will monitor the patient closely. Continue the current medications. Will provide hemodialysis this afternoon and continue to monitor. Guarded prognosis. Further recommendations to follow.
--- NOTE | 2016-05-14 11:05 | EEG ---
DATE OF SERVICE: 05/13/2016 REASON FOR TESTING: Altered mental status. AGE: 66Y DESCRIPTION OF THE PROCEDURE: This EEG was performed using a 21-channel digital electroencephalograph, following the international 10 to 20 system. DESCRIPTION OF THE RECORDING: From the beginning of the tracing, and with the patient's eyes closed, the background rhythm was mostly consisting of 8 to 9 Hz alpha frequency in the posterior occipital leads. No obvious asymmetry is seen. Photic stimulation was performed with a minimal driving response seen. No pathological waves were elicited. Hyperventilation was not performed. Rare movement and muscle artifacts are seen. The patient does reach stage II of sleep during the tracing and occasional sleep spindles are seen. No epileptiform discharges were noticed. His EKG lead showed a regular rate and rhythm. INTERPRETATION: This asleep and awake EEG can be considered within normal limits. There was no asymmetry seen. No epileptiform discharges were noticed. The absence of epileptiform discharges does not rule out the diagnosis of epilepsy, therefore, clinical correlation is recommended.
--- NOTE | 2016-05-14 13:39 | PN ---
Patient is seen for followup for end-stage renal disease. He is dialyzed on a Friday, Friday, Friday schedule. He is probably going to be discharged today. He is comfortable, not in any acute distress. On examination, blood pressure is 118/61, heart rate is 79 per minute. He is afebrile. EXAMINATION OF THE HEART: S1 and S2. EXAMINATION OF THE LUNGS: Bilateral breath sounds are heard. ABDOMEN: Soft, nontender. Examination of the lower extremities shows no evidence of edema. 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 Patient is moving all 4 extremities. Labs are reviewed. Hemoglobin 9.4. Potassium is 5.0. ASSESSMENT: 1. End-stage renal disease on hemodialysis on a Friday, Friday, Friday schedule. 2. Status post syncope with hypotension. 3. Baseline dementia. 4. History of atrial fibrillation on Eliquis. 5. History of coronary artery disease. 6. Type 2 diabetes. PLAN: The patient is stable for discharge from nephrology standpoint. Follow up as outpatient for hemodialysis tomorrow.
--- NOTE | 2016-05-15 10:37 | DS ---
DATE OF ADMISSION: 05/12/2016 DATE OF DISCHARGE: 05/14/2016 This 66-year-old gentleman who was admitted with syncope, possibly hypotension during dialysis, was monitored closely, treated symptomatically. The patient improved significantly. Recommended to continue the hemodialysis, follow closely with Dr. Jesus Ordaz. Otherwise, the patient improved significantly. On exam, vitals are stable. CARDIOVASCULAR: S1 and S2 muffled. ABDOMEN: Soft. NERVOUS SYSTEM: No focal deficits. Please see my previous dictation and previous notes for list of medications and list of diagnoses. The prognosis guarded. The patient improved significantly. Total time taken 35 mts. MTDD
== END 2016-05-14 10:54 | DRG 312 ==
LOC: EC 15:39 → 6SEL 16:29 → OBSVTOIN 05-12 15:45
PROVIDERS: ADMIT Internal Medicine; ATTEND Internal Medicine
PROC: 5A1D00Z (ICD-10-PCS; principal; 2016-05-13)
DX: I95.3 Hypotension of hemodialysis (principal); I13.2 Hypertensive heart and chronic kidney disease with heart failure and with stage 5 chronic kidney disease, or end stage renal disease; A41.9 Sepsis, unspecified organism; E87.2 Acidosis; N18.6 End stage renal disease; I27.2 Other secondary pulmonary hypertension; E11.22 Type 2 diabetes mellitus with diabetic chronic kidney disease; I50.32 Chronic diastolic (congestive) heart failure; J98.11 Atelectasis; F03.90 Unspecified dementia, unspecified severity, without behavioral disturbance, psychotic disturbance, mood disturbance, and anxiety; I48.0 Paroxysmal atrial fibrillation; I48.2 Chronic atrial fibrillation; E87.5 Hyperkalemia; G47.30 Sleep apnea, unspecified; I25.10 Atherosclerotic heart disease of native coronary artery without angina pectoris; D53.9 Nutritional anemia, unspecified; E78.5 Hyperlipidemia, unspecified; D50.9 Iron deficiency anemia, unspecified; J44.9 Chronic obstructive pulmonary disease, unspecified; I67.9 Cerebrovascular disease, unspecified; G40.909 Epilepsy, unspecified, not intractable, without status epilepticus; R53.1 Weakness; D63.1 Anemia in chronic kidney disease; F41.9 Anxiety disorder, unspecified; R26.9 Unspecified abnormalities of gait and mobility; M19.90 Unspecified osteoarthritis, unspecified site; Z86.14 Personal history of Methicillin resistant Staphylococcus aureus infection; Z99.2 Dependence on renal dialysis; Z87.820 Personal history of traumatic brain injury; Z90.49 Acquired absence of other specified parts of digestive tract; Z86.73 Personal history of transient ischemic attack (TIA), and cerebral infarction without residual deficits; Z82.49 Family history of ischemic heart disease and other diseases of the circulatory system; Z79.82 Long term (current) use of aspirin; Z87.891 Personal history of nicotine dependence; Z87.828 Personal history of other (healed) physical injury and trauma; Z83.3 Family history of diabetes mellitus; Z91.14 Patient's other noncompliance with medication regimen; Z16.24 Resistance to multiple antibiotics; Z79.4 Long term (current) use of insulin; Z79.891 Long term (current) use of opiate analgesic; Z79.899 Other long term (current) drug therapy; Z91.81 History of falling
CPT/HCPCS: 36415; 70450; 71010; 80048; 80053; 80164; 83036; 83605; 83735; 84484; 85025; 87040; 90935; 93306; 93880; 95819; 96365; 96366; 96375; 99285

== ENCOUNTER 2016-05-24 00:17 | Inpatient (IN) | payer MEDICARE, BC, OTHER ==
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
[2016-05-24] MEDS ORDERED: LORazepam 0.5 MG TAB PO PRN (02:15)
[2016-05-24] MEDS ORDERED: ERGOCALCIFEROL 50,000 UNIT CAP PO SCH (02:15)
[2016-05-24] MEDS ORDERED: LEVOFLOXACIN 250 MG TAB PO SCH (02:15)
[2016-05-24] MEDS ORDERED: LORazepam 2 MG/ML SYRINGE IM PRN (02:15)
[2016-05-24] MEDS ORDERED: ACETAMINOPHEN IV (For NPO) 1,000 MG in EMPTY BAG 1 BAG IVPB STA (03:04)
[2016-05-24 05:42] LABS: Glucose,Whole Blood 235 mg/dL (75-99)
[2016-05-24] MEDS ORDERED: INSULIN REGULAR 100 UNIT/ML VIAL IV ONE (05:44)
[2016-05-24] MEDS ORDERED: CALCIUM GLUCONATE 1,000 MG in SODIUM CHLORIDE 0.9% 100 ML IVPB ONE (05:45)
[2016-05-24] MEDS: SODIUM CHLORIDE 0.9% 1,000 ML IV SCH (06:00)
[2016-05-24] MEDS: HYDROcodone/APAP 5-325MG 1 EACH TAB PO SCH ×3 (06:01→18:31)
[2016-05-24] MEDS: FUROSEMIDE 10 MG/ML 4 ML VIAL IV SCH ×3 (06:04→17:06)
[2016-05-24 06:52] LABS: Glucose,Whole Blood 208 mg/dL (75-99)
[2016-05-24 07:18] LABS: Anisocytosis Slight; Basophils % (A) 0 %; CH 32.9; CHCM 31.6; Eosinophils % (A) 0 %; HCT 26.2 % (39.0-53.0); HDW 3.15; HGB 8.3 gm/dL (13.0-17.5); Hypochromasia Slight; Luc # (Auto) 0.29; Luc % (Auto) 2; Lymphocytes # (A) 1.5 k/uL (1.0-4.8); Lymphocytes % (A) 11 %; MCHC 31.5 g/dL (31.0-37.0); MCV 104.6 fL (80.0-100.0); Macrocytosis Moderate; Monocytes # (A) 1.2 k/uL (0-1.0); Monocytes % (A) 9 %; Neutrophils # (A) 10.6 k/uL (1.3-7.7); Neutrophils % (A) 78 %; RDW 16.1 % (11.5-15.5); WBC 13.6 k/uL (3.8-10.6)
[2016-05-24 07:31] LABS: Calcium 9.3 mg/dL (8.4-10.2); Potassium 5.8 mmol/L (3.5-5.1)
[2016-05-24] MEDS ORDERED: PIPERACILLIN-TAZOBACTAM 3.375 GM in DEXTROSE/WATER 1 50ML.BAG IVPB SCH (08:00)
--- NOTE | 2016-05-24 09:44 | CONS ---
DATE OF CONSULTATION: 05/24/2016 REASON FOR CONSULTATION: End-stage renal disease. HISTORY OF PRESENT ILLNESS: Patient is a 66-year-old white male with history of end-stage renal disease on hemodialysis on a Friday, Friday, Friday schedule. He was admitted to the hospital with history of shortness of breath, altered mentation with hypoxia and some drooling noted at the detention for which he was taken to [facility]. Patient was transferred from [facility] to [facility]. At the dialysis unit, patient had issues with blood pressure and therefore we had decreased ultrafiltration to avoid significant hypotension. Patient's potassium this admission was at 6.8 mEq/L. He has received IV medications. It is now down to 5.8. His chest x-ray shows showed evidence of CHF pulmonary vascular congestion. Currently patient is maintained on BiPAP. I have discussed with his regarding hospice in view of recurrent hospitalizations and poor quality of life. She stated that she has discussed it with her daughter and they will reach a final decision after further discussion with their sons. At least to start with no code, no CPR code status. PAST MEDICAL HISTORY: End-stage renal disease, CKD bone mineral disorder, hypertension, diabetes, neuropathy, dementia, recent pneumonia. Medications at home include Depakote, Dulcolax, Abilify, aspirin, Pepcid, insulin, Zoloft, vitamin D, Lasix, midodrine, Singulair, Proscar, Eliquis, Ativan, Levaquin. ALLERGIES: None. On examination, the patient is comfortable. He is arousable, but does not communicate much. He is not in any acute distress. Blood pressure 117/56, heart rate 92 per minute. He is afebrile. EXAMINATION OF THE HEART: S1 and S2. EXAMINATION OF THE LUNGS: Bilateral breath sounds are heard. Examination of lower extremities shows edema 1+ bilaterally. REPAIR MILLER exam is not easily examined today. Labs show potassium 5.8, sodium 138, creatinine 9.0. Plasma lactic acid 2.8. ASSESSMENT: 1. End-stage renal disease on hemodialysis on a Friday, Friday, Friday schedule at [place]. Patient missed his dialysis on Friday. He is currently being dialyzed. We will dialyze him again tomorrow. 2. Severe hyperkalemia secondary to noncompliance with dialysis expect improvement with treatment today. 3. Fever on admission, rule out underlying infection, possible pneumonia. 4. Anemia of chronic disease. No active bleeding noted. Previous hemoglobin was about 9.4 g/dL. 5. Congestive heart failure, volume overload. We will dialyze him again tomorrow with goal UF of about 2 L as tolerated. The pressure remains on the lower side. PLAN: Repeat dialysis tomorrow. Further discussion regarding hospice care or at least no code, no intubation code status with the family after they decide among themselves. Thank you for this consultation. SURESH
[2016-05-24 10:32] LABS: Hemoglobin A1C 5.2 % (4.2-6.1)
[2016-05-24] MEDS: INSULIN NPH/REG INSULIN 70/30 300 UNIT/3 ML VIAL SQ SCH ×2 (10:48→22:46)
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
[2016-05-24] MEDS ORDERED: IPRATROPIUM-ALBUTEROL 3 ML NEB INHALATION PRN (10:56)
[2016-05-24] MEDS ORDERED: GELATIN SPONGE,ABSORB (SMALL) 1 EACH SPONGE ONE (11:15)
[2016-05-24 11:23] VITALS: BMI 31.7
[2016-05-24 12:00] LABS: Glucose,Whole Blood 124 mg/dL (75-99)
[2016-05-24] MEDS: IPRATROPIUM-ALBUTEROL 3 ML NEB INHALATION SCH ×3 (12:09→20:11)
[2016-05-24] MEDS: ARIPiprazole 15 MG TAB PO SCH (14:39)
[2016-05-24] MEDS: APIXABAN 2.5 MG TABLET PO SCH ×2 (14:39→22:17)
[2016-05-24] MEDS: DIVALPROEX 500 MG TABLET.DR PO SCH ×3 (14:40→22:18)
[2016-05-24] MEDS: FAMOTIDINE 20 MG TAB PO SCH (14:40)
[2016-05-24] MEDS: NITROGLYCERIN OINT 1 INCH/GM PACKET TOPICAL SCH ×3 (14:40→22:18)
[2016-05-24] MEDS: SERTRALINE 50 MG TAB PO SCH (14:40)
[2016-05-24] MEDS: ASPIRIN 81 MG CHEW PO SCH (14:40)
[2016-05-24] MEDS: GABAPENTIN 300 MG CAP PO SCH ×3 (14:40→22:18)
[2016-05-24] MEDS: SEVELAMER 800 MG TAB PO SCH (14:41)
--- NOTE | 2016-05-24 14:58 | XR ---
EXAMINATION TYPE: XR chest 1V portable DATE OF EXAM: 05/24/2016 11:53 AM COMPARISON: Prior chest x-ray 11 May 2016 HISTORY: Congestive heart failure, shortness of breath TECHNIQUE: Single frontal view of the chest is obtained. FINDINGS: There is no focal air space opacity, pleural effusion, or pneumothorax seen. The cardiac silhouette size is within normal limits. Old posterior rib fracture on the right at the fourth and f ifth, sixth and seventh ribs are again noted. Patient is rotated. There are overlying cardiac leads a nd artifact. These appear healed. The osseous structures are otherwise intact. IMPRESSION: No acute process.
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
[2016-05-24 16:58] LABS: Glucose,Whole Blood 179 mg/dL (75-99)
[2016-05-24 20:38] LABS: Glucose,Whole Blood 223 mg/dL (75-99)
[2016-05-24] MEDS: FINASTERIDE 5 MG TAB PO SCH (22:17)
[2016-05-24] MEDS: MONTELUKAST 10 MG TAB PO SCH (22:17)
[2016-05-24] MEDS: PIPERACILLIN-TAZOBACTAM 3.375 GM in DEXTROSE/WATER 1 50ML.BAG IVPB SCH (22:46)
[2016-05-25] MEDS: FUROSEMIDE 10 MG/ML 4 ML VIAL IV SCH ×3 (04:10→17:30)
[2016-05-25] MEDS: HYDROcodone/APAP 5-325MG 1 EACH TAB PO SCH ×3 (04:10→09:37)
[2016-05-25] MEDS: SODIUM CHLORIDE 0.9% 1,000 ML IV SCH (04:17)
[2016-05-25 06:05] LABS: Glucose,Whole Blood 121 mg/dL (75-99)
[2016-05-25 06:40] LABS: Calcium 9.2 mg/dL (8.4-10.2); Potassium 4.9 mmol/L (3.5-5.1); Total Bilirubin 0.6 mg/dL (0.2-1.3)
[2016-05-25 06:43] LABS: Aty Lym Flag Slight; CH 32.8; CHCM 31.7; HCT 23.9 % (39.0-53.0); HDW 3.22; HGB 7.5 gm/dL (13.0-17.5); Hypochromasia Slight; MCH 32.5 pg (25.0-35.0); MCHC 31.2 g/dL (31.0-37.0); MCV 104.1 fL (80.0-100.0); Macrocytosis Moderate; Mean Platelet Volume 7.1; RDW 15.8 % (11.5-15.5); WBC 11.7 k/uL (3.8-10.6); WBC (Perox) 12.38
[2016-05-25 07:20] LABS: Add Differential Manual Differential
[2016-05-25 07:22] LABS: Manual Review Performed; Nucleated Red Blood Cells 0 /100 WBC (0-0); Total Cells Counted 100
--- NOTE | 2016-05-25 07:56 | XR ---
EXAMINATION TYPE: XR chest 1V portable DATE OF EXAM: 05/25/2016 7:12 AM COMPARISON: 05/24/2016 INDICATION: CHF, difficulty breathing TECHNIQUE: Single frontal view of the chest is obtained. FINDINGS: The heart size is normal. The pulmonary vasculature is normal. The lungs are clear. IMPRESSION: 1. No acute pulmonary process.
[2016-05-25] MEDS: IPRATROPIUM-ALBUTEROL 3 ML NEB INHALATION SCH ×4 (07:59→19:51)
[2016-05-25] MEDS: ARIPiprazole 15 MG TAB PO SCH (08:21)
[2016-05-25] MEDS: SERTRALINE 50 MG TAB PO SCH (08:22)
[2016-05-25] MEDS: APIXABAN 2.5 MG TABLET PO SCH ×4 (08:22→22:12)
[2016-05-25] MEDS: NITROGLYCERIN OINT 1 INCH/GM PACKET TOPICAL SCH (08:23)
[2016-05-25] MEDS: FAMOTIDINE 20 MG TAB PO SCH (08:26)
[2016-05-25] MEDS: ASPIRIN 81 MG CHEW PO SCH (08:26)
[2016-05-25] MEDS: GABAPENTIN 300 MG CAP PO SCH ×3 (08:27→19:58)
[2016-05-25] MEDS: INSULIN NPH/REG INSULIN 70/30 300 UNIT/3 ML VIAL SQ SCH ×2 (08:27→21:35)
[2016-05-25] MEDS: DIVALPROEX 500 MG TABLET.DR PO SCH ×3 (08:27→19:58)
[2016-05-25] MEDS: SEVELAMER 800 MG TAB PO SCH (08:29)
[2016-05-25] MEDS: PIPERACILLIN-TAZOBACTAM 3.375 GM in DEXTROSE/WATER 1 50ML.BAG IVPB SCH (09:32)
--- NOTE | 2016-05-25 10:29 | P.PN ---
Subjective She does seen in follow-up for end-stage renal disease. He is maintained on hemodialysis on a Friday schedule. Patient presented with dyspnea. He did miss his dialysis on Friday. He underwent hemodialysis yesterday and is scheduled to undergo hemodialysis today as well. He is not a very reliable historian. Currently resting in bed. Denies any active chest pain or shortness of breath. Vital signs are stable. General: The patient appeared well nourished and normally developed. HEENT: Head exam is unremarkable. Neck is without jugular venous distension. LUNGS: Lungs are clear to auscultation and percussion. Breath sounds decreased. HEART: Rate and Rhythm are regular. First and second heart sounds normal. No murmurs, rubs or gallops. ABDOMEN: Abdominal exam reveals normal bowel sounds. Non-tender and non- distended. No evidence of peritonitis. EXTREMITITES: Trace edema. Objective - Vital Signs Vital signs: Vital Signs Temp 99.9 F H 05/25/16 08:00 Pulse 83 05/25/16 08:00 Resp 18 05/25/16 08:00 BP 108/51 05/25/16 08:00 Pulse Ox 92 L 05/25/16 08:00 Intake & Output 05/24/16 05/25/16 05/25/16 18:59 06:59 18:59 Intake Total 270 350 488 Balance 270 350 488 Weight 92 kg 86.5 kg Intake: IV 488 Invasive Line 1 438 Piperacillin-Tazobactam 3 50 .375 gm In Dextrose/Water 1 50ml.bag @ 12.5 mls/hr IVPB Q12HR [facility] Rx#: [id number] Intake, IV Titration 150 Amount Calcium Gluconate 1,000 100 mg In Sodium Chloride 0.9 % 100 ml @ 100 mls/hr IVPB ONCE ONE Rx#: [id number] Piperacillin-Tazobactam 3 50 .375 gm In Dextrose/Water 1 50ml.bag @ 12.5 mls/hr IVPB Q12HR [facility] Rx#: [id number] Oral 120 350 Other: Voiding Method Toilet Diaper Diaper Diaper Incontinent Incontinent Incontinent # Voids 1 - Labs CBC & Chem 7: 05/25/16 05:33 05/25/16 05:33 Labs: Abnormal Lab Results - Last 24 Hours (Table) 05/24/16 05/24/16 05/24/16 Range/Units 11:58 16:57 20:37 WBC (3.8-10.6) k/uL RBC (4.30-5.90) m/uL Hgb (13.0-17.5) gm/dL Hct (39.0-53.0) % MCV (80.0-100.0) fL RDW (11.5-15.5) % Monocytes # (Manual) (0-1.0) k/uL BUN (9-20) mg/dL Creatinine (0.66-1.25) mg/dL Glucose (74-99) mg/dL POC Glucose (mg/dL) 124 H 179 H 223 H (75-99) mg/dL Total Protein (6.3-8.2) g/dL Albumin (3.5-5.0) g/dL 05/25/16 05/25/16 05/25/16 Range/Units 05:33 05:33 06:04 WBC 11.7 H (3.8-10.6) k/uL RBC 2.30 L (4.30-5.90) m/uL Hgb 7.5 L (13.0-17.5) gm/dL Hct 23.9 L (39.0-53.0) % MCV 104.1 H (80.0-100.0) fL RDW 15.8 H (11.5-15.5) % Monocytes # (Manual) 1.9 H (0-1.0) k/uL BUN 39 H (9-20) mg/dL Creatinine 7.29 H* (0.66-1.25) mg/dL Glucose 114 H (74-99) mg/dL POC Glucose (mg/dL) 121 H (75-99) mg/dL Total Protein 6.0 L (6.3-8.2) g/dL Albumin 3.1 L (3.5-5.0) g/dL Assessment and Plan Plan: Assessment: #1. End-stage renal disease maintained on hemodialysis on a Friday schedule. #2. Hyperkalemia secondary to missed dialysis. Improved. #3. Anemia of chronic kidney disease. #4. Chronic kidney disease mineral bone disease. #5. Dyspnea related to fluid overload. Questionable pneumonia. Improved. Plan: Hemodialysis today with goal 2 L ultrafiltration. Check iron studies. Start Aranesp. Check phosphorus level. Maintain Renvela with meals.
[2016-05-25] MEDS ORDERED: DARBEPOETIN ALFA 40 MCG/0.4 ML SYRINGE SQ SCH (11:00)
[2016-05-25 11:01] LABS: Phosphorous 5.3 mg/dL (2.5-4.5)
--- NOTE | 2016-05-25 11:07 | P.PN ---
Subjective Principal diagnosis: Acute on chronic diastolic congestive heart failure and fluid overload secondary to end-stage renal disease and missed dialysis. This is a 66-year-old gentleman who resides at [facility]. He has a history of closed head injury, end-stage renal failure receiving dialysis Friday. He also has a history of coronary artery disease, atrial fibrillation anticoagulated with apixaban, diastolic congestive heart failure, chronic obstructive pulmonary disease, obstructive sleep apnea utilizing CPAP in the outpatient setting, CVA/TIA, dementia, diabetes mejia, hypertension. He was recently discharged from here on 05/14/2016 after being treated for the syncope secondary to hypotension during dialysis. He re- presented here yesterday from [facility] after being transferred there from [facility] as staff found him short of breath and some frothing at the mouth. He had undergone a fistulogram yesterday and was short of breath since that time. He is found to be hyperkalemic with a potassium of 6.8. Creatinine 9.03. White count 13.6. He's had a T-max of 101.8. He's been hemodynamically stable. He was treated for fluid volume overload and is maintained on BiPAP currently at 35% FiO2. A chest x-ray from [place] revealed evidence of congestive heart failure with pulmonary vascular congestion.. He is seen on the selective care unit in consultation today. He does arouse to verbal stimuli. He is currently receiving hemodialysis with the plans to take 2-2-1/2 L today and repeat dialysis tomorrow. Patient was seen today on 05/25/2016, doing much better, had apparently dialysis yesterday, and denies any specific pulmonary symptoms. No cough no wheezing no shortness of breath. Labs were reviewed WBC count is 11.7 hemoglobin is 7.5 electrolytes were reviewed BUN is 39 creatinine is 7.29. Objective - Vital Signs Vital signs: Vital Signs Temp 99.9 F H 05/25/16 08:00 Pulse 83 05/25/16 08:00 Resp 18 05/25/16 08:00 BP 108/51 05/25/16 08:00 Pulse Ox 92 L 05/25/16 08:00 Intake & Output 05/24/16 05/25/16 05/25/16 18:59 06:59 18:59 Intake Total 270 350 488 Balance 270 350 488 Weight 92 kg 86.5 kg Intake: IV 488 Invasive Line 1 438 Piperacillin-Tazobactam 3 50 .375 gm In Dextrose/Water 1 50ml.bag @ 12.5 mls/hr IVPB Q12HR [facility] Rx#: [id number] Intake, IV Titration 150 Amount Calcium Gluconate 1,000 100 mg In Sodium Chloride 0.9 % 100 ml @ 100 mls/hr IVPB ONCE ONE Rx#: [id number] Piperacillin-Tazobactam 3 50 .375 gm In Dextrose/Water 1 50ml.bag @ 12.5 mls/hr IVPB Q12HR [facility] Rx#: [id number] Oral 120 350 Other: Voiding Method Toilet Diaper Diaper Diaper Incontinent Incontinent Incontinent # Voids 1 - Exam GENERAL EXAM: Obese. Arousable, appears comfortable in no apparent distress. HEAD: Normocephalic. EYES: Normal reaction of pupils, equal size. NOSE: Clear with pink turbinates. THROAT: There is crowding of the posterior pharynx. No erythema or exudates. NECK: Short. No masses, no JVD. CHEST: No chest wall deformity. LUNGS: Equal air entry with crackles in the posterior bases. CVS: S1 and S2 normal with no audible murmurs, regular rhythm. ABDOMEN: Soft, normal bowel sounds, no guarding or rigidity. Extremities: There is 1-2+ lower extremity peripheral edema. No clubbing, no cyanosis. Peripheral pulses are intact. - Labs CBC & Chem 7: 05/25/16 05:33 05/25/16 05:33 Labs: Abnormal Lab Results - Last 24 Hours (Table) 05/24/16 05/24/16 05/24/16 Range/Units 11:58 16:57 20:37 WBC (3.8-10.6) k/uL RBC (4.30-5.90) m/uL Hgb (13.0-17.5) gm/dL Hct (39.0-53.0) % MCV (80.0-100.0) fL RDW (11.5-15.5) % Monocytes # (Manual) (0-1.0) k/uL BUN (9-20) mg/dL Creatinine (0.66-1.25) mg/dL Glucose (74-99) mg/dL POC Glucose (mg/dL) 124 H 179 H 223 H (75-99) mg/dL Total Protein (6.3-8.2) g/dL Albumin (3.5-5.0) g/dL 05/25/16 05/25/16 05/25/16 Range/Units 05:33 05:33 06:04 WBC 11.7 H (3.8-10.6) k/uL RBC 2.30 L (4.30-5.90) m/uL Hgb 7.5 L (13.0-17.5) gm/dL Hct 23.9 L (39.0-53.0) % MCV 104.1 H (80.0-100.0) fL RDW 15.8 H (11.5-15.5) % Monocytes # (Manual) 1.9 H (0-1.0) k/uL BUN 39 H (9-20) mg/dL Creatinine 7.29 H* (0.66-1.25) mg/dL Glucose 114 H (74-99) mg/dL POC Glucose (mg/dL) 121 H (75-99) mg/dL Total Protein 6.0 L (6.3-8.2) g/dL Albumin 3.1 L (3.5-5.0) g/dL Assessment and Plan Plan: #1 Acute exacerbation of diastolic congestive heart failure secondary to fluid volume overload from possible missed dialysis. #2 Hyperkalemia secondary to renal failure. #3 End-stage renal failure requiring hemodialysis on a Friday schedule. #4 Febrile illness of unclear etiology. #5 History of closed head injury. #6 Obstructive sleep apnea, utilizing CPAP in the outpatient setting. #7 Morbid obesity. #8 Atrial fibrillation, anticoagulated with apixaban. #9 History of CVA/TIA. #10 Hyperlipidemia. #11 Hypertension. #12 Diabetes mellitus. #13 History of MRSA infection in the right foot. #14 Poor overall functional performance based on the above-mentioned multiple comorbidities. Recommendation: Continue present treatment plan, patient is presently on room air, denying any shortness of breath, continue bronchodilators, continue dialysis, continue antibiotics, discharge planning probably in the next 2 days, we'll see the patient on when necessary basis. Time with Patient: Less than 30
[2016-05-25 11:10] LABS: % Iron Saturation 20.3 % (20-50)
[2016-05-25 11:48] LABS: Glucose,Whole Blood 145 mg/dL (75-99)
--- NOTE | 2016-05-25 12:24 | P.PN ---
Subjective Mr Abdiel Currently resides at [facility] due to a closed head injury, ESRD, COPD, advanced dementia is sent to the hospital due to syncope from hypotension during hemodialysis. Patient was apparently not very arousable and sent into the hospital for further care. Patient apparently had a fistulogram and has been short of breath since then. Patient was noted to be hyperkalemic and slight degree of fluid overload on the chest x-ray and initial physical exam findings. Patient was started on BiPAP. During the time of my examination patient was arousable with verbal stimuli patient is seen status post dialysis in inpatient setting. Is currently on 35% FiO2 with a pressure support of 10 on BiPAP. So the history is obtained from chart review. Patient does have multiple comorbidities 05/25/2016 Patient is more awake today answering questions appropriately. Patient undergoing hemodialysis at this time. Patient's blood pressure was slightly suboptimal. However patient had a nitro patch placed which was started for accelerated hypertension on admission.. Denies having any cough dizziness chest pain difficulty breathing abdominal pain urinary urgency or frequency or change in bowel habits. Objective - Vital Signs Vital signs: Vital Signs Temp 99.9 F H 05/25/16 08:00 Pulse 83 05/25/16 08:00 Resp 18 05/25/16 08:00 BP 108/51 05/25/16 08:00 Pulse Ox 92 L 05/25/16 08:00 Intake & Output 05/24/16 05/25/16 05/25/16 18:59 06:59 18:59 Intake Total 270 350 488 Balance 270 350 488 Weight 92 kg 86.5 kg Intake: IV 488 Invasive Line 1 438 Piperacillin-Tazobactam 3 50 .375 gm In Dextrose/Water 1 50ml.bag @ 12.5 mls/hr IVPB Q12HR [facility] Rx#: [id number] Intake, IV Titration 150 Amount Calcium Gluconate 1,000 100 mg In Sodium Chloride 0.9 % 100 ml @ 100 mls/hr IVPB ONCE ONE Rx#: [id number] Piperacillin-Tazobactam 3 50 .375 gm In Dextrose/Water 1 50ml.bag @ 12.5 mls/hr IVPB Q12HR [facility] Rx#: [id number] Oral 120 350 Other: Voiding Method Toilet Diaper Diaper Diaper Incontinent Incontinent Incontinent # Voids 1 - Exam Physical exam Gen. Answers questions appropriately more alert Neck is supple Left arm palpable thrill Lungs good air entry clear to auscultation no rhonchi or wheezing Heart S1-S2 heard regular rate and rhythm no murmurs appreciated Abdomen is soft nontender no organomegaly bowel sounds are intact Neurologically cranial nerves II-12 grossly intact no focal motor or sensory deficits noted Skin no abnormalities appreciated - Labs CBC & Chem 7: 05/25/16 05:33 05/25/16 05:33 Labs: Abnormal Lab Results - Last 24 Hours (Table) 05/24/16 05/24/16 05/25/16 Range/Units 16:57 20:37 05:33 WBC 11.7 H (3.8-10.6) k/uL RBC 2.30 L (4.30-5.90) m/uL Hgb 7.5 L (13.0-17.5) gm/dL Hct 23.9 L (39.0-53.0) % MCV 104.1 H (80.0-100.0) fL RDW 15.8 H (11.5-15.5) % Monocytes # (Manual) 1.9 H (0-1.0) k/uL BUN (9-20) mg/dL Creatinine (0.66-1.25) mg/dL Glucose (74-99) mg/dL POC Glucose (mg/dL) 179 H 223 H (75-99) mg/dL Phosphorus (2.5-4.5) mg/dL Iron (49-181) ug/dL TIBC (261-462) ug/dL Ferritin (18-464) ng/mL Total Protein (6.3-8.2) g/dL Albumin (3.5-5.0) g/dL 05/25/16 05/25/16 05/25/16 Range/Units 05:33 05:33 06:04 WBC (3.8-10.6) k/uL RBC (4.30-5.90) m/uL Hgb (13.0-17.5) gm/dL Hct (39.0-53.0) % MCV (80.0-100.0) fL RDW (11.5-15.5) % Monocytes # (Manual) (0-1.0) k/uL BUN 39 H (9-20) mg/dL Creatinine 7.29 H* (0.66-1.25) mg/dL Glucose 114 H (74-99) mg/dL POC Glucose (mg/dL) 121 H (75-99) mg/dL Phosphorus 5.3 H (2.5-4.5) mg/dL Iron 40 L (49-181) ug/dL TIBC 197 L (261-462) ug/dL Ferritin 625 H (18-464) ng/mL Total Protein 6.0 L (6.3-8.2) g/dL Albumin 3.1 L (3.5-5.0) g/dL 05/25/16 Range/Units 11:46 WBC (3.8-10.6) k/uL RBC (4.30-5.90) m/uL Hgb (13.0-17.5) gm/dL Hct (39.0-53.0) % MCV (80.0-100.0) fL RDW (11.5-15.5) % Monocytes # (Manual) (0-1.0) k/uL BUN (9-20) mg/dL Creatinine (0.66-1.25) mg/dL Glucose (74-99) mg/dL POC Glucose (mg/dL) 145 H (75-99) mg/dL Phosphorus (2.5-4.5) mg/dL Iron (49-181) ug/dL TIBC (261-462) ug/dL Ferritin (18-464) ng/mL Total Protein (6.3-8.2) g/dL Albumin (3.5-5.0) g/dL Assessment and Plan Plan: Acute Exacerbation of diastolic heart failure secondary to volume overload from hemodialysis. 2. HyperKalemia is secondary to above #3 ESRD and hemodialysis #4 fever of unknown origin #5.Obstructive sleep apnea on CPAP #6 history of MRSA infection of the right foot #7 dyslipidemia #8 hypertension. #9 history of CVA. #10 atrial fibrillation that is chronic and currently on anticoagulation #11 chronic anemia likely secondary to ESRD Plan Significantly improved. Continue ongoing care. Monitor hemoglobin. Iron studies were ordered. Undergoing hemodialysis at this time. We'll discontinue antibiotics at this time. Patient will likely be clearly discharged in the next 24 hours.
[2016-05-25] MEDS: FOLIC ACID-VIT B COMPLEX-VIT C 1 CAP PO SCH (14:25)
[2016-05-25] MEDS: HYDROcodone/APAP 5-325MG 1 EACH TAB PO PRN ×2 (15:44→20:18)
[2016-05-25 16:31] LABS: Glucose,Whole Blood 206 mg/dL (75-99)
[2016-05-25] MEDS: FINASTERIDE 5 MG TAB PO SCH (19:57)
[2016-05-25] MEDS: MONTELUKAST 10 MG TAB PO SCH (19:58)
[2016-05-25] MEDS ORDERED: DILTIAZEM 5 MG/ML 5 ML VIAL IVP STA (20:54)
[2016-05-25] MEDS ORDERED: MORPHINE SULFATE 2 MG/ML SYRINGE IVP PRN (20:55)
[2016-05-25 21:30] LABS: Glucose,Whole Blood 290 mg/dL (75-99)
[2016-05-25] MEDS ORDERED: DILTIAZEM 125 MG in SODIUM CHLORIDE 0.9% 100 ML IV SCH (21:30)
[2016-05-25] MEDS: LORazepam 2 MG/ML SYRINGE IV PRN (21:33)
[2016-05-26] MEDS: FUROSEMIDE 10 MG/ML 4 ML VIAL IV SCH ×3 (02:51→18:55)
[2016-05-26] MEDS: SODIUM CHLORIDE 0.9% 1,000 ML IV SCH (02:53)
[2016-05-26 06:23] LABS: Aty Lym Flag Slight; CH 32.9; CHCM 31.6; HCT 24.3 % (39.0-53.0); HDW 3.39; HGB 7.6 gm/dL (13.0-17.5); Hypochromasia Slight; MCH 32.5 pg (25.0-35.0); MCHC 31.1 g/dL (31.0-37.0); MCV 104.4 fL (80.0-100.0); Macrocytosis Moderate; Mean Platelet Volume 6.9; RBC 2.33 m/uL (4.30-5.90); RDW 15.7 % (11.5-15.5); WBC (Perox) 10.03
[2016-05-26 06:30] LABS: Calcium 8.9 mg/dL (8.4-10.2); Potassium 4.1 mmol/L (3.5-5.1); Total Bilirubin 0.4 mg/dL (0.2-1.3); Total Protein 6.1 g/dL (6.3-8.2)
[2016-05-26 06:36] LABS: Glucose,Whole Blood 80 mg/dL (75-99)
[2016-05-26] MEDS: LORazepam 2 MG/ML SYRINGE IV PRN (07:02)
[2016-05-26 07:03] LABS: Add Differential Manual Differential
[2016-05-26 07:07] LABS: Manual Review Performed; Nucleated Red Blood Cells 1 /100 WBC (0-0); Polychromasia Present; Total Cells Counted 200; WBC 9.3 k/uL (3.8-10.6)
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
[2016-05-26] MEDS: IPRATROPIUM-ALBUTEROL 3 ML NEB INHALATION SCH ×5 (08:42→19:25)
--- NOTE | 2016-05-26 08:45 | P.PN ---
Subjective She does seen in follow-up for end-stage renal disease. He is maintained on hemodialysis on a Friday schedule. Patient presented with dyspnea. He did miss his dialysis on Friday. He underwent hemodialysis the past 2 days and tolerated it well. He is not a very reliable historian. Currently resting in bed. Denies any active chest pain or shortness of breath. Vital signs are stable. General: The patient appeared well nourished and normally developed. HEENT: Head exam is unremarkable. Neck is without jugular venous distension. LUNGS: Lungs are clear to auscultation and percussion. Breath sounds decreased. HEART: Rate and Rhythm are regular. First and second heart sounds normal. No murmurs, rubs or gallops. ABDOMEN: Abdominal exam reveals normal bowel sounds. Non-tender and non- distended. No evidence of peritonitis. EXTREMITITES: Trace edema. Objective - Vital Signs Vital signs: Vital Signs Temp 97.7 F 05/26/16 04:00 Pulse 76 05/26/16 04:00 Resp 16 05/26/16 04:00 BP 118/58 05/26/16 04:00 Pulse Ox 95 05/26/16 04:00 Intake & Output 05/25/16 05/26/16 05/26/16 18:59 06:59 18:59 Intake Total 1092 370 360 Balance 1092 370 360 Weight 83.5 kg Intake: IV 612 120 120 Invasive Line 1 438 Piperacillin-Tazobactam 3 174 .375 gm In Dextrose/Water 1 50ml.bag @ 12.5 mls/hr IVPB Q12HR [facility] Rx#: [id number] Sodium Chloride 0.9% 1, 120 120 000 ml @ 20 mls/hr IV . Q24H [facility] Rx#:[id number] Oral 480 250 240 Other: Voiding Method Diaper Diaper Incontinent Incontinent # Voids 2 - Labs CBC & Chem 7: 05/26/16 05:34 05/26/16 05:34 Labs: Abnormal Lab Results - Last 24 Hours (Table) 05/25/16 05/25/16 05/25/16 Range/Units 05:33 11:46 16:29 RBC (4.30-5.90) m/uL Hgb (13.0-17.5) gm/dL Hct (39.0-53.0) % MCV (80.0-100.0) fL RDW (11.5-15.5) % Monocytes # (Manual) (0-1.0) k/uL Eosinophils # (Manual) (0-0.7) k/uL Nucleated RBCs (0-0) /100 WBC BUN (9-20) mg/dL Creatinine (0.66-1.25) mg/dL POC Glucose (mg/dL) 145 H 206 H (75-99) mg/dL Phosphorus 5.3 H (2.5-4.5) mg/dL Iron 40 L (49-181) ug/dL TIBC 197 L (261-462) ug/dL Ferritin 625 H (18-464) ng/mL Total Protein (6.3-8.2) g/dL Albumin (3.5-5.0) g/dL 05/25/16 05/26/16 05/26/16 Range/Units 21:28 05:34 05:34 RBC 2.33 L (4.30-5.90) m/uL Hgb 7.6 L (13.0-17.5) gm/dL Hct 24.3 L (39.0-53.0) % MCV 104.4 H (80.0-100.0) fL RDW 15.7 H (11.5-15.5) % Monocytes # (Manual) 1.9 H (0-1.0) k/uL Eosinophils # (Manual) 0.8 H (0-0.7) k/uL Nucleated RBCs 1 H (0-0) /100 WBC BUN 29 H (9-20) mg/dL Creatinine 6.00 H* (0.66-1.25) mg/dL POC Glucose (mg/dL) 290 H (75-99) mg/dL Phosphorus (2.5-4.5) mg/dL Iron (49-181) ug/dL TIBC (261-462) ug/dL Ferritin (18-464) ng/mL Total Protein 6.1 L (6.3-8.2) g/dL Albumin 3.2 L (3.5-5.0) g/dL Assessment and Plan Plan: Assessment: #1. End-stage renal disease maintained on hemodialysis on a Friday schedule. #2. Hyperkalemia secondary to missed dialysis. Improved. #3. Anemia of chronic kidney disease. Iron deficiency present as well. #4. Chronic kidney disease mineral bone disease. #5. Dyspnea related to fluid overload. Questionable pneumonia. Improved. Plan: Hemodialysis tomorrow with goal 2 L ultrafiltration. IV Ferrlecit 125 mg IV daily for 3 days. Maintain Aranesp. Maintain Renvela with meals. Stable to be discharged from nephrology standpoint.
[2016-05-26] MEDS ORDERED: ERGOCALCIFEROL 50,000 UNIT CAP PO SCH (09:00)
[2016-05-26] MEDS: SODIUM FERRIC GLUCONAT-SUCROSE 125 MG in SODIUM CHLORIDE 0.9% 100 ML IVPB SCH (09:35)
[2016-05-26] MEDS: APIXABAN 2.5 MG TABLET PO SCH ×2 (09:41→23:45)
[2016-05-26] MEDS: METOPROLOL TARTRATE 12.5 MG TAB PO SCH ×2 (09:41→23:45)
[2016-05-26] MEDS: INSULIN NPH/REG INSULIN 70/30 300 UNIT/3 ML VIAL SQ SCH ×2 (09:41→23:44)
[2016-05-26] MEDS: SEVELAMER 800 MG TAB PO SCH (09:43)
[2016-05-26] MEDS: ARIPiprazole 15 MG TAB PO SCH (09:44)
[2016-05-26] MEDS: DIVALPROEX 500 MG TABLET.DR PO SCH ×3 (09:44→23:45)
[2016-05-26] MEDS: FAMOTIDINE 20 MG TAB PO SCH (09:45)
[2016-05-26] MEDS: SERTRALINE 50 MG TAB PO SCH (09:45)
[2016-05-26] MEDS: GABAPENTIN 300 MG CAP PO SCH ×3 (09:45→23:45)
[2016-05-26 11:51] LABS: Glucose,Whole Blood 122 mg/dL (75-99)
[2016-05-26] MEDS: FOLIC ACID-VIT B COMPLEX-VIT C 1 CAP PO SCH (12:24)
--- NOTE | 2016-05-26 15:26 | P.PN ---
Subjective Mr Abdiel Currently resides at [facility] due to a closed head injury, ESRD, COPD, advanced dementia is sent to the hospital due to syncope from hypotension during hemodialysis. Patient was apparently not very arousable and sent into the hospital for further care. Patient apparently had a fistulogram and has been short of breath since then. Patient was noted to be hyperkalemic and slight degree of fluid overload on the chest x-ray and initial physical exam findings. Patient was started on BiPAP. During the time of my examination patient was arousable with verbal stimuli patient is seen status post dialysis in inpatient setting. Is currently on 35% FiO2 with a pressure support of 10 on BiPAP. So the history is obtained from chart review. Patient does have multiple comorbidities 05/25/2016 Patient is more awake today answering questions appropriately. Patient undergoing hemodialysis at this time. Patient's blood pressure was slightly suboptimal. However patient had a nitro patch placed which was started for accelerated hypertension on admission.. Denies having any cough dizziness chest pain difficulty breathing abdominal pain urinary urgency or frequency or change in bowel habits. 05/26/2069 Patient awake denies having any additional problems at this time. Hemoglobin is stable no new overnight events reported. Objective - Vital Signs Vital signs: Vital Signs Temp 98.5 F 05/26/16 12:00 Pulse 85 05/26/16 12:00 Resp 16 05/26/16 12:00 BP 129/61 05/26/16 12:00 Pulse Ox 97 05/26/16 12:00 Intake & Output 05/25/16 05/26/16 05/26/16 18:59 06:59 18:59 Intake Total 1092 370 893 Balance 1092 370 893 Weight 83.5 kg Intake: IV 612 120 533 Invasive Line 1 438 Piperacillin-Tazobactam 3 174 38 .375 gm In Dextrose/Water 1 50ml.bag @ 12.5 mls/hr IVPB Q12HR [facility] Rx#: [id number] Sodium Chloride 0.9% 1, 120 495 000 ml @ 20 mls/hr IV . Q24H [facility] Rx#:[id number] Oral 480 250 360 Other: Voiding Method Diaper Diaper Diaper Incontinent Incontinent Incontinent # Voids 2 - Exam Physical exam Gen. Answers questions appropriately more alert Neck is supple Left arm palpable thrill Lungs good air entry clear to auscultation no rhonchi or wheezing Heart S1-S2 heard regular rate and rhythm no murmurs appreciated Abdomen is soft nontender no organomegaly bowel sounds are intact Neurologically cranial nerves II-12 grossly intact no focal motor or sensory deficits noted Skin no abnormalities appreciated - Labs CBC & Chem 7: 05/26/16 05:34 05/26/16 05:34 Labs: Abnormal Lab Results - Last 24 Hours (Table) 05/25/16 05/25/16 05/26/16 Range/Units 16:29 21:28 05:34 RBC 2.33 L (4.30-5.90) m/uL Hgb 7.6 L (13.0-17.5) gm/dL Hct 24.3 L (39.0-53.0) % MCV 104.4 H (80.0-100.0) fL RDW 15.7 H (11.5-15.5) % Monocytes # (Manual) 1.9 H (0-1.0) k/uL Eosinophils # (Manual) 0.8 H (0-0.7) k/uL Nucleated RBCs 1 H (0-0) /100 WBC BUN (9-20) mg/dL Creatinine (0.66-1.25) mg/dL POC Glucose (mg/dL) 206 H 290 H (75-99) mg/dL Total Protein (6.3-8.2) g/dL Albumin (3.5-5.0) g/dL 05/26/16 05/26/16 Range/Units 05:34 11:50 RBC (4.30-5.90) m/uL Hgb (13.0-17.5) gm/dL Hct (39.0-53.0) % MCV (80.0-100.0) fL RDW (11.5-15.5) % Monocytes # (Manual) (0-1.0) k/uL Eosinophils # (Manual) (0-0.7) k/uL Nucleated RBCs (0-0) /100 WBC BUN 29 H (9-20) mg/dL Creatinine 6.00 H* (0.66-1.25) mg/dL POC Glucose (mg/dL) 122 H (75-99) mg/dL Total Protein 6.1 L (6.3-8.2) g/dL Albumin 3.2 L (3.5-5.0) g/dL Assessment and Plan Plan: Acute Exacerbation of diastolic heart failure secondary to volume overload from hemodialysis. 2. HyperKalemia is secondary to above #3 ESRD and hemodialysis #4 fever of unknown origin #5.Obstructive sleep apnea on CPAP #6 history of MRSA infection of the right foot #7 dyslipidemia #8 hypertension. #9 history of CVA. #10 atrial fibrillation that is chronic and currently on anticoagulation #11 chronic anemia likely secondary to ESRD Plan Likely be discharged tomorrow after hemodialysis. 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 Repeat labs and discharge to [facility] in the am
[2016-05-26 16:33] LABS: Glucose,Whole Blood 107 mg/dL (75-99)
[2016-05-26 20:30] LABS: Glucose,Whole Blood 136 mg/dL (75-99)
[2016-05-26] MEDS: FINASTERIDE 5 MG TAB PO SCH (23:45)
[2016-05-26] MEDS: MONTELUKAST 10 MG TAB PO SCH (23:45)
[2016-05-27] MEDS: FUROSEMIDE 10 MG/ML 4 ML VIAL IV SCH ×2 (03:00→10:24)
[2016-05-27 06:05] VITALS: RESP 18
[2016-05-27 06:38] LABS: Glucose,Whole Blood 57 mg/dL (75-99)
[2016-05-27] MEDS: SODIUM CHLORIDE 0.9% 1,000 ML IV SCH (06:59)
[2016-05-27 08:08] LABS: Glucose,Whole Blood 75 mg/dL (75-99)
[2016-05-27 08:08] LABS: Glucose,Whole Blood 65 mg/dL (75-99)
[2016-05-27 08:08] LABS: Glucose,Whole Blood 61 mg/dL (75-99)
[2016-05-27] MEDS: IPRATROPIUM-ALBUTEROL 3 ML NEB INHALATION SCH ×3 (08:26→16:19)
[2016-05-27] MEDS: INSULIN NPH/REG INSULIN 70/30 300 UNIT/3 ML VIAL SQ SCH (09:07)
[2016-05-27] MEDS: SEVELAMER 800 MG TAB PO SCH (09:08)
[2016-05-27] MEDS: METOPROLOL TARTRATE 12.5 MG TAB PO SCH (09:08)
[2016-05-27] MEDS: ARIPiprazole 15 MG TAB PO SCH (09:08)
[2016-05-27] MEDS: DIVALPROEX 500 MG TABLET.DR PO SCH ×2 (09:09→15:59)
[2016-05-27] MEDS: SERTRALINE 50 MG TAB PO SCH (09:09)
[2016-05-27] MEDS: APIXABAN 2.5 MG TABLET PO SCH (09:09)
[2016-05-27] MEDS: FAMOTIDINE 20 MG TAB PO SCH (09:09)
[2016-05-27] MEDS: GABAPENTIN 300 MG CAP PO SCH ×2 (09:10→15:59)
[2016-05-27] MEDS: SODIUM FERRIC GLUCONAT-SUCROSE 125 MG in SODIUM CHLORIDE 0.9% 100 ML IVPB SCH (09:12)
[2016-05-27 09:17] LABS: CH 32.7; CHCM 31.7; HCT 28.2 % (39.0-53.0); HDW 3.39; HGB 8.9 gm/dL (13.0-17.5); Hypochromasia Slight; MCH 32.8 pg (25.0-35.0); MCHC 31.6 g/dL (31.0-37.0); Macrocytosis Moderate; Mean Platelet Volume 7.8; RBC 2.71 m/uL (4.30-5.90); RDW 15.8 % (11.5-15.5); WBC 13.4 k/uL (3.8-10.6)
[2016-05-27 09:43] LABS: Calcium 9.1 mg/dL (8.4-10.2); Potassium 4.7 mmol/L (3.5-5.1)
[2016-05-27 11:40] LABS: Glucose,Whole Blood 120 mg/dL (75-99)
[2016-05-27] MEDS ORDERED: GELATIN SPONGE,ABSORB (SMALL) 1 EACH SPONGE ONE (13:00)
--- NOTE | 2016-05-27 14:36 | P.PN ---
Subjective Principal diagnosis: This is a pleasant 66-year-old gentleman with past medical history for end-stage renal disease on hemodialysis, diabetes, hyperlipidemia, hypertension, sleep apnea, COPD, prior CVA, obstructive sleep apnea, paroxysmal atrial fibrillation, on Eliquis, Alzheimer's dementia, prior closed head injury , who was transferred here from [facility]. Patient was recently discharged home from the hospital on May 14 after being admitted to the hospital for syncope secondary to hypotension during dialysis. Readmitted to the hospital with symptoms of shortness of breath. Patient continues to be on IV Lasix, he did receive dialysis again today. Breathing is improving every day. BUN this morning 41, creatinine 8.8. Hemoglobin 8.9. Objective - Vital Signs Vital signs: Vital Signs Temp 97.1 F L 05/27/16 08:00 Pulse 66 05/27/16 11:26 Resp 18 05/27/16 11:26 BP 146/61 05/27/16 11:26 Pulse Ox 99 05/27/16 11:26 Intake & Output 05/26/16 05/27/16 05/27/16 18:59 06:59 18:59 Intake Total 1191 540 Balance 1191 540 Weight 82.6 kg Intake: IV 711 80 Piperacillin-Tazobactam 3 38 .375 gm In Dextrose/Water 1 50ml.bag @ 12.5 mls/hr IVPB Q12HR [facility] Rx#: [id number] Sodium Chloride 0.9% 1, 673 80 000 ml @ 20 mls/hr IV . Q24H [facility] Rx#:[id number] Intake, IV Titration 100 Amount Sodium Ferric Gluconat- 100 Sucrose 125 mg In Sodium Chloride 0.9% 100 ml @ 100 mls/hr IVPB DAILY [facility] Rx#:[id number] Oral 480 360 Other: Voiding Method Diaper Diaper Diaper Incontinent Incontinent Incontinent # Voids 2 # Bowel Movements 2 0 - Exam PHYSICAL EXAMINATION: HEENT: Head is atraumatic, normocephalic. Pupils equal, round. Neck is supple. There is no elevated jugular venous pressure. HEART EXAMINATION: Heart S1 and S2 systolic murmur is heard. CHEST EXAMINATION: Lungs reveal coarse crackles bilaterally. ABDOMEN: Soft, nontender. Bowel sounds are heard. No organomegaly noted. EXTREMITIES: 2+ peripheral pulses with 1+ evidence of peripheral edema and no calf tenderness noted. NEUROLOGIC patient is awake, alert and oriented -2. - Labs CBC & Chem 7: 05/27/16 09:00 05/27/16 08:57 Labs: Abnormal Lab Results - Last 24 Hours (Table) 05/26/16 05/26/16 05/27/16 Range/Units 16:32 20:26 06:27 WBC (3.8-10.6) k/uL RBC (4.30-5.90) m/uL Hgb (13.0-17.5) gm/dL Hct (39.0-53.0) % MCV (80.0-100.0) fL RDW (11.5-15.5) % BUN (9-20) mg/dL Creatinine (0.66-1.25) mg/dL Glucose (74-99) mg/dL POC Glucose (mg/dL) 107 H 136 H 57 L (75-99) mg/dL 05/27/16 05/27/16 05/27/16 Range/Units 07:11 07:33 08:57 WBC (3.8-10.6) k/uL RBC (4.30-5.90) m/uL Hgb (13.0-17.5) gm/dL Hct (39.0-53.0) % MCV (80.0-100.0) fL RDW (11.5-15.5) % BUN 41 H (9-20) mg/dL Creatinine 8.83 H* (0.66-1.25) mg/dL Glucose 151 H (74-99) mg/dL POC Glucose (mg/dL) 61 L 65 L (75-99) mg/dL 05/27/16 05/27/16 Range/Units 09:00 11:30 WBC 13.4 H (3.8-10.6) k/uL RBC 2.71 L (4.30-5.90) m/uL Hgb 8.9 L (13.0-17.5) gm/dL Hct 28.2 L (39.0-53.0) % MCV 104.0 H (80.0-100.0) fL RDW 15.8 H (11.5-15.5) % BUN (9-20) mg/dL Creatinine (0.66-1.25) mg/dL Glucose (74-99) mg/dL POC Glucose (mg/dL) 120 H (75-99) mg/dL Assessment and Plan Plan: Assessment and plan #1 diastolic congestive heart failure acute on chronic. Most recent echocardiogram with Doppler study was performed last month which revealed an ejection fraction of 50-55%. #2 end-stage renal disease on hemodialysis #3 hypertension #4 diabetes # 5 hyperlipidemia #6 paroxysmal atrial fibrillation on Eliquis #7 history of CVA/TIA #8 history of closed head injury #9 obstructive sleep apnea, on CPAP as an outpatient Plan From cardiology's perspective, we will recommend to continue current medications. Lasix dosing as per nephrology. Upon discharge and make the patient discharge. DNP note has been reviewed, I agree with a documented findings and plan of care. Patient was seen and examined.
[2016-05-27] MEDS: FOLIC ACID-VIT B COMPLEX-VIT C 1 CAP PO SCH (14:41)
[2016-05-27 15:56] VITALS: BP 157/72; TEMP 98.2
--- NOTE | 2016-05-27 16:23 | P.DS ---
Providers Date of admission: 05/24/16 02:11 Attending physician: Titus Farnsworth Consults: 05/24/16 02:12 Consult Physician Routine Consulting Provider: Shyanne Mireles Consult Reason/Comments: Dialysis Do you want consulting provider notified?: Yes 05/24/16 08:26 Consult Physician Routine Consulting Provider: Darron Benedict Consult Reason/Comments: decrease oxcygenation requiring bipap Do you want consulting provider notified?: Yes 05/25/16 20:56 Consult Physician Routine Consulting Provider: [facility] Consult Reason/Comments: paroxysmal a-fib Do you want consulting provider notified?: Yes, Notify in am Primary care physician: Jesus Ordaz [facility] Course: leslie Meadows Currently resides at [facility] due to a closed head injury, ESRD, COPD, advanced dementia is sent to the hospital due to syncope from hypotension during hemodialysis. Patient was apparently not very arousable and sent into the hospital for further care. Patient apparently had a fistulogram and has been short of breath since then. Patient was noted to be hyperkalemic and slight degree of fluid overload on the chest x-ray and initial physical exam findings. Patient was started on BiPAP. During the time of my examination patient was arousable with verbal stimuli patient is seen status post dialysis in inpatient setting. Is currently on 35% FiO2 with a pressure support of 10 on BiPAP. So the history is obtained from chart review. Patient does have multiple comorbidities 05/25/2016 Patient is more awake today answering questions appropriately. Patient undergoing hemodialysis at this time. Patient's blood pressure was slightly suboptimal. However patient had a nitro patch placed which was started for accelerated hypertension on admission.. Denies having any cough dizziness chest pain difficulty breathing abdominal pain urinary urgency or frequency or change in bowel habits. 05/26/2069 Patient awake denies having any additional problems at this time. Hemoglobin is stable no new overnight events reported. 05/27/2069 Patient is awake and is able to answer questions appropriately Patient is status post hemodialysis status post 2 L of ultrafiltration. Vitals are stable. No overnight events on telemetry. - Exam Physical exam Gen. Answers questions appropriately more alert Neck is supple Left arm palpable thrill Lungs good air entry clear to auscultation no rhonchi or wheezing Heart S1-S2 heard regular rate and rhythm no murmurs appreciated Abdomen is soft nontender no organomegaly bowel sounds are intact Neurologically cranial nerves II-12 grossly intact no focal motor or sensory deficits noted Skin no abnormalities appreciated Assessment and Plan Plan: Acute Exacerbation of diastolic heart failure secondary to volume overload from hemodialysis. 2. HyperKalemia is secondary to above #3 ESRD and hemodialysis #4 fever of unknown origin #5.Obstructive sleep apnea on CPAP #6 history of MRSA infection of the right foot #7 dyslipidemia #8 hypertension. #9 history of CVA. #10 atrial fibrillation that is chronic and currently on anticoagulation #11 chronic anemia likely secondary to ESRD Discharge back to . No new medications. Patient Condition at Discharge: Stable Plan - Discharge Summary Discharge Medication List Finasteride [Proscar] 5 mg PO HS tab 06/23/14 [Rx] Lidocaine-Prilocaine Cream [Emla Cream 2.5%/2.5%] 1 applic TOPICAL MOWEFR [History] ARIPiprazole [Abilify] 15 mg PO DAILY@0900 05/10/16 [History] Aspirin 162 mg PO DAILY 05/10/16 [History] Bisacodyl [Dulcolax] 10 mg PO DAILY PRN 05/10/16 [History] Divalproex Sodium [Depakote Sprinkle] 500 mg PO TID@0700,1400,2100 05/10/16 [ History] Famotidine [Pepcid] 20 mg PO DAILY@0600 05/10/16 [History] Gabapentin [Neurontin] 300 mg PO BID@0900,2100 05/10/16 [History] Renvela 2.4gm/Packet 2.4 gm PO TID@0700,1100,1600 05/10/16 [History] Sertraline [Zoloft] 150 mg PO DAILY 05/10/16 [History] Apixaban [Eliquis] 2.5 mg PO BID tablet 05/13/16 [Rx] LORazepam [Ativan] 0.5 mg PO Q6H PRN #10 tab 05/13/16 [Rx] B Complex & C No.20/Folic Acid [Nephrocaps Softgel] 1 mg PO DAILY@1400 05/24/16 [History] Bisacodyl [Dulcolax] 10 mg RECTAL DAILY PRN 05/24/16 [History] Ergocalciferol [Vitamin D2 (DRISDOL)] 50,000 unit PO TH 05/24/16 [History] Folic Acid 1 mg PO DAILY 05/24/16 [History] Furosemide [Lasix] 40 mg PO DAILY@1700 05/24/16 [History] Furosemide [Lasix] 40 mg PO SUTUTHSA@0700 05/24/16 [History] HYDROcodone/APAP 5-325MG [[place] 5-325] 1 tab PO Q6HR PRN 05/24/16 [History] HYDROcodone/APAP 5-325MG [[place] 5-325] 1 tab PO TID@0900,1400,2100 05/24/16 [ History] Insulin NPH Hum/Reg Insulin Hm [humuLIN 70/30 Kwikpen] 16 unit SQ BID@0600,1700 05/24/16 [History] LORazepam Vial [Ativan Vial] 0.5 mg IM Q6H PRN 05/24/16 [History] LORazepam [Ativan] 0.5 mg PO MOWEFR@1030 05/24/16 [History] Loperamide HCl [Loperamide] 2 tab PO Q6HR PRN 05/24/16 [History] Magnesium Hydroxide [Milk of Magnesia] 2,400 mg PO DAILY PRN 05/24/16 [History] Midodrine HCl [ProAmatine] 5 mg PO MOWEFR PRN 05/24/16 [History] Montelukast [Singulair] 10 mg PO HS@2100 05/24/16 [History] Follow up Appointment(s)/Referral(s): Titus Farnsworth MD [STAFF PHYSICIAN] - 1-2 days Discharge Disposition: TRANSFER TO SNF/ECF
[2016-05-27 16:42] VITALS: PULSE 88
[2016-05-27] MEDS: LORazepam 2 MG/ML SYRINGE IV PRN (16:47)
[2016-05-27 16:58] LABS: Glucose,Whole Blood 150 mg/dL (75-99)
--- NOTE | 2016-05-27 20:09 | PN ---
Patient is seen on dialysis, tolerating his treatment fairly well. He is resting comfortably but has been arousable. On examination, blood pressure is 157/72, heart rate 78 per minute. He is afebrile. Examination shows patient has edema 1+ bilaterally in his lower extremities. Abdomen is soft, nontender. Breath sounds are decreased at the bases. Labs show hemoglobin 8.9, sodium 144, potassium 4.7. ASSESSMENT: End-stage renal disease, on hemodialysis on a Friday, Friday, Friday schedule, currently being dialyzed. Patient can be discharged and we will follow up as outpatient on dialysis with very cautious increase in ultrafiltration as tolerated to avoid significant hypotension.
== END 2016-05-27 17:53 | DRG 291 ==
LOC: EC 00:17 → 6SEL 02:11
PROVIDERS: ADMIT Internal Medicine; ATTEND Internal Medicine
DX: I13.2 Hypertensive heart and chronic kidney disease with heart failure and with stage 5 chronic kidney disease, or end stage renal disease (principal); N18.6 End stage renal disease; I95.3 Hypotension of hemodialysis; E11.22 Type 2 diabetes mellitus with diabetic chronic kidney disease; E87.5 Hyperkalemia; I50.33 Acute on chronic diastolic (congestive) heart failure; E11.40 Type 2 diabetes mellitus with diabetic neuropathy, unspecified; E66.01 Morbid (severe) obesity due to excess calories; I48.0 Paroxysmal atrial fibrillation; J44.9 Chronic obstructive pulmonary disease, unspecified; G30.9 Alzheimer's disease, unspecified; F02.80 Dementia in other diseases classified elsewhere, unspecified severity, without behavioral disturbance, psychotic disturbance, mood disturbance, and anxiety; Z99.2 Dependence on renal dialysis; Z66 Do not resuscitate; Z82.49 Family history of ischemic heart disease and other diseases of the circulatory system; I25.10 Atherosclerotic heart disease of native coronary artery without angina pectoris; E78.5 Hyperlipidemia, unspecified; Z86.73 Personal history of transient ischemic attack (TIA), and cerebral infarction without residual deficits; M19.90 Unspecified osteoarthritis, unspecified site; G47.33 Obstructive sleep apnea (adult) (pediatric); F41.9 Anxiety disorder, unspecified; D63.1 Anemia in chronic kidney disease; E61.1 Iron deficiency; Z71.3 Dietary counseling and surveillance; Z68.28 Body mass index [BMI] 28.0-28.9, adult; Z87.01 Personal history of pneumonia (recurrent); Z86.14 Personal history of Methicillin resistant Staphylococcus aureus infection; Z87.891 Personal history of nicotine dependence; Z79.01 Long term (current) use of anticoagulants; Z79.82 Long term (current) use of aspirin; Z79.4 Long term (current) use of insulin; Z79.891 Long term (current) use of opiate analgesic; Z79.899 Other long term (current) drug therapy
CPT/HCPCS: 71010; 80048; 80053; 82728; 83036; 83540; 83550; 83605; 84100; 84132; 85025; 85027; 90935; 93005; 94640; 94660; 96374; 99285

== ENCOUNTER 2016-07-29 18:06 | Inpatient (IN) | payer MEDICARE, BC, OTHER ==
[2016-07-29 20:37] VITALS: BMI 26.0
[2016-07-29] MEDS ORDERED: HYDROcodone/APAP 5-325MG 1 EACH TAB PO PRN (21:14)
[2016-07-29] MEDS ORDERED: ACETAMINOPHEN SUPPOSITORY 650 MG SUPP RECTAL PRN (21:14)
[2016-07-29 21:46] LABS: Anisocytosis Slight; CH 30.8; HCT 34.3 % (39.0-53.0); HDW 3.42; HGB 11.2 gm/dL (13.0-17.5); Immature Gran Flag Marked; MCH 30.4 pg (25.0-35.0); MCHC 32.6 g/dL (31.0-37.0); Mean Platelet Volume 6.5; Poikilocytosis Slight; RBC 3.67 m/uL (4.30-5.90); WBC (Perox) 16.42
[2016-07-29] MEDS: PIPERACILLIN-TAZOBACTAM 3.375 GM in DEXTROSE/WATER 1 50ML.BAG IVPB SCH (21:55)
[2016-07-29 21:57] LABS: MCV 93.4 fL (80.0-100.0)
[2016-07-29 21:58] LABS: Calcium 9.2 mg/dL (8.4-10.2); Potassium 4.5 mmol/L (3.5-5.1)
[2016-07-29 22:33] LABS: Add Differential Manual Differential
[2016-07-29 22:37] LABS: Large Platelets Present; Manual Review Performed; Nucleated Red Blood Cells 0 /100 WBC (0-0); Polychromasia Present; Total Cells Counted 200
[2016-07-30 00:05] LABS: Glucose,Whole Blood 335 mg/dL (75-99)
[2016-07-30] MEDS: INSULIN LISPRO (humaLOG) 300 UNIT/3 ML VIAL SQ SCH ×5 (00:17→21:30)
[2016-07-30 02:58] LABS: Hemoglobin A1C 5.7 % (4.2-6.1)
[2016-07-30 06:10] LABS: Glucose,Whole Blood 244 mg/dL (75-99)
[2016-07-30] MEDS ORDERED: BISACODYL 5 MG TABLET.DR PO PRN (08:23)
[2016-07-30] MEDS ORDERED: MIDODRINE 5 MG TAB PO PRN (08:23)
[2016-07-30] MEDS: GABAPENTIN 300 MG CAP PO SCH ×2 (09:40→21:26)
[2016-07-30] MEDS: APIXABAN 2.5 MG TABLET PO SCH ×2 (09:40→21:26)
[2016-07-30] MEDS: PIPERACILLIN-TAZOBACTAM 3.375 GM in DEXTROSE/WATER 1 50ML.BAG IVPB SCH ×2 (09:40→21:30)
[2016-07-30] MEDS: ASPIRIN 81 MG CHEW PO SCH (09:40)
[2016-07-30] MEDS: FOLIC ACID-VIT B COMPLEX-VIT C 1 CAP PO SCH (09:40)
[2016-07-30] MEDS: INSULIN NPH/REG INSULIN 70/30 300 UNIT/3 ML VIAL SQ SCH ×2 (09:55→21:27)
[2016-07-30] MEDS ORDERED: BISACODYL 10 MG SUPP RECTAL PRN (09:56)
[2016-07-30 10:16] LABS: CH 30.4; CHCM 31.8; HCT 33.5 % (39.0-53.0); HDW 3.23; HGB 10.8 gm/dL (13.0-17.5); Hypochromasia Slight; Immature Gran Flag Slight; MCHC 32.3 g/dL (31.0-37.0); MCV 95.8 fL (80.0-100.0); Mean Platelet Volume 7.7; RDW 15.9 % (11.5-15.5); WBC 18.9 k/uL (3.8-10.6); WBC (Perox) 19.02
--- NOTE | 2016-07-30 10:16 | XR ---
EXAMINATION TYPE: XR chest 1V portable DATE OF EXAM: 07/30/2016 10:09 AM COMPARISON: Prior chest x-ray four May 2016 HISTORY: Pneumonia TECHNIQUE: Single frontal view of the chest is obtained. FINDINGS: Lung volumes are low and the patient is rotated. Suspect the heart is enlarged. Patchy den sity present in the right upper lobe, perihilar region and retrocardiac region. No pneumothorax or pleural effusion. There are overlying cardiac leads. IMPRESSION: There may be atelectasis or pneumonia, correlate to exclude perihilar edema. Expiratory rotated exam. Follow-up recommended.
[2016-07-30 11:48] LABS: Glucose,Whole Blood 134 mg/dL (75-99)
[2016-07-30 12:03] LABS: Add Differential Manual Differential
[2016-07-30 12:07] LABS: Band Neutrophils % 14.5 %; Myelocytes % 0.5 %; Nucleated Red Blood Cells 0 /100 WBC (0-0); Total Cells Counted 200
[2016-07-30 12:08] LABS: Polychromasia Present; Toxic Granulation Present
--- NOTE | 2016-07-30 12:35 | CONS ---
DATE OF CONSULTATION: This is a 66-year-old male who apparently was transferred down from ( ) sometime last night. He was admitted with a diagnosis of possible pneumonia. He apparently had fever and maybe some chills up in that area. He apparently was undergoing dialysis at the time. The patient is completely inappropriate. Does not know where he is at, how he got here, completely confused. Awake and alert though. The patient is unable to tell me who his doctor is. He denies any complaints or symptoms at this time. I had to talk to the nurse to get all the information. There is no H&P on the chart at this time. Allergies are denied. His home medications apparently include Zoloft, Renvela, montelukast, midodrine, loperamide, Ativan, insulin, gabapentin, Lasix, folic acid, Proscar, Pepcid, vitamin D 2, Depakote, Dulcolax, B complex vitamin, Nephrocaps, aspirin, Eliquis and Abilify. Medical history is not known, but based on the medications I suspect it is end-stage renal disease requiring hemodialysis, diabetes with possible diabetic end-organ involvement, neuropathy, possibly from diabetes, gastroesophageal reflux disease. Again, I do not know any of his additional history. SOCIAL HISTORY, OCCUPATIONAL HISTORY, FAMILY HISTORY: All unknown or unable to be obtained. He apparently did have a previous admission with a consultation by my partner. According to Dr. Benedict's note and summary, he has a history of a closed head injury, end-stage renal disease requiring 3 time a week hemodialysis, history of CAD, atrial fibrillation, diastolic CHF, COPD, sleep apnea utilizing CPAP, CVA/TIA, dementia, diabetes, hypertension. Review of systems cannot be reliably obtained. Vital signs are reviewed. Temperature 97.6, heart rate 83, respirations 16, blood pressure 117/58, mean 77, room air saturation 96%. Appears in no acute distress. HEENT examination is grossly unremarkable. Nasal O2 in place. NECK: Supple. No adenopathy. Cardiovascular examination reveals ( ) rhythm and rate. Heart rate 83. Soft systolic murmur is heard. S1, S2 normal. Lungs reveal relatively clear breath sounds. No adventitious lung sounds. ABDOMEN: Soft. Bowel sounds are heard. Extremities are intact. There is no edema. Skin is without rash. Neurologic examination cannot be performed accurately. Lab data is reviewed. There was a white count of 18.9 up from 15, hemoglobin 10.8, hematocrit 33.5, platelet count 277,000. There is an electrolyte profile probably on admission, sodium 137, potassium 4.5, chloride 96, CO2 of 27. BUN and creatinine were 30 and 6.39. Glucose 202. Lactic acid was 2.3, then follow up was 1.9. N-terminal proBNP was 24,500. Chest x-ray shows small lung volumes. Small bilateral pleural effusion, some mild cephalization, some fluid in the minor fissure and possibly some atelectasis loculated fluid or infiltrates in the right perihilar right basilar area. Current medications are reviewed. In terms of antibiotics, he is on Zosyn as monotherapy, which I think is appropriate. ASSESSMENT: 1. Possible pneumonia right lung, although the history is very vague. 2. Probable component of fluid overload/congestive heart failure. 3. History of end-stage renal disease requiring 3 time a week hemodialysis at [facility]. 4. History of closed head injury. 5. History of coronary artery disease. 6. History of atrial fibrillation. 7. History of diastolic congestive heart failure. 8. History of chronic obstructive pulmonary disease. 9. History of sleep apnea, requiring CPAP. 10. History of cerebrovascular accident/transient ischemic attack. 11. History of dementia. 12. History of diabetes with diabetic end organ involvement. 13. History of essential hypertension. 14. Previous history of methicillin-resistant Staphylococcus aureus infection, right foot. PLAN: The antibiotic for now is fine. No additional recommendations are made. He probably needs to get back on his regular dialysis regimen. We will continue to follow. Blood cultures if not already done should have been done. No additional recommendations are made. He is currently on piperacillin tazobactam which is Zosyn, which is appropriate. This could represent an healthcare acquired pneumonia. In addition, the chest x-ray just could be consistent with asymmetric pulmonary edema and the appearance of an infiltrate at the right lung base.
--- NOTE | 2016-07-30 12:52 | CONS ---
DATE OF CONSULTATION: 07/30/16 REASON FOR CONSULTATION: Endstage renal disease. HISTORY OF PRESENT ILLNESS: Patient is a 66-year-old male with a history of endstage renal disease on hemodialysis on a Friday, Friday, Friday schedule at [facility] via left arm AV graft. Patient was admitted to the hospital with mental status changes and significant shaking movements, possibly chills. He did not really have significant elevation in his temperature. There was no significant drop in his blood pressure either. We have been using his arm which has not been red with no evidence of drainage. Patient had a Perm-A-Cath previously, it has now been discontinued. There was no significant abdominal pain, nausea, vomiting or diarrhea. Chest x-ray from this admission showed patchy density in the right upper lobe in the perihilar region and retrocardiac region. Currently patient is awake, comfortable. He is not in any acute distress. PAST MEDICAL HISTORY: Endstage renal disease, underlying dementia, coronary artery disease, CKD bone mineral disorder, history of A. fib, cardiomyopathy, COPD, CVA/TIA, hyperlipidemia, obstructive sleep apnea, history of diabetic ulcer with MRSA infection in his foot. PAST SURGICAL HISTORY: Laparoscopic cholecystectomy, rotator cuff surgery, AV graft placement, recent intervention on his left arm AV graft. Medications are reviewed. ALLERGIES: None. REVIEW OF SYSTEMS: As per HPI. Other systems negative. On examination, patient is comfortable, awake. He is not in any acute distress. Blood pressure is 117/58, heart rate 83 per minute, he is afebrile. Examination of the heart, S1 and S2. Examination of the lungs, decreased breath sounds at the bases. Abdomen is soft, nontender. Examination of lower extremities shows no evidence of edema. [employer] exam is grossly intact. Patient is moving all 4 extremities. Labs show hemoglobin 10.8, potassium was 4.5 yesterday, sodium 137. BNP was 24,500. ASSESSMENT: 1. Endstage renal disease on hemodialysis on a Friday, Friday, Friday schedule. Will arrange for hemodialysis in a.m. 2. Mild volume overload. Will increase UF as tolerated tomorrow with dialysis. 3. Anemia of chronic disease. 4. Possible pneumonia, maintained on antibiotics. 5. Dementia. 6. Chronic kidney disease bone mineral disorder, maintained on Renvela. 7. Atrial fibrillation, maintained on anticoagulation. 8. Benign prostatic hypertrophy, currently on Proscar. PLAN: Hemodialysis in a.m. Continue current medications. Continue empiric antibiotics. MTDD
[2016-07-30] MEDS: DIVALPROEX SPRINKLE 125 MG CAP.SPRINK PO SCH ×2 (12:56→21:27)
[2016-07-30] MEDS: SEVELAMER 800 MG TAB PO SCH ×2 (12:57→18:13)
[2016-07-30] MEDS: FOLIC ACID 1 MG TAB PO SCH (12:58)
[2016-07-30 16:33] LABS: Glucose,Whole Blood 170 mg/dL (75-99)
[2016-07-30] MEDS: PANTOPRAZOLE 40 MG TABLET PO SCH (18:13)
[2016-07-30 21:01] LABS: Glucose,Whole Blood 147 mg/dL (75-99)
[2016-07-30] MEDS: FINASTERIDE 5 MG TAB PO SCH (21:26)
[2016-07-30] MEDS: SERTRALINE 100 MG TAB PO SCH (21:27)
[2016-07-30] MEDS: SERTRALINE 50 MG TAB PO SCH (21:27)
[2016-07-30] MEDS: MONTELUKAST 10 MG TAB PO SCH (21:27)
--- NOTE | 2016-07-30 21:55 | HP ---
DATE OF ADMISSION: CHIEF COMPLAINT: Change in mental status and pneumonia. HISTORY OF PRESENT ILLNESS: This 66-year-old gentleman with a past medical history of atrial fibrillation, history of CAD, CHF, CVA, TIA, dementia, history of chronic kidney failure, on hemodialysis, history of cholecystectomy, history of DJD, being followed by Dr. Jesus Ordaz in [facility] [place], also sees Dr. Farnsworth as the family doctor. Currently the patient was sent to [facility] as a transfer and direct admission for some change in mental status as well as pneumonia, predominantly on the right side. The patient is admitted for further evaluation and treatment. The patient is confused, unable to give a coherent history. Most of the history was taken from my discussion with the staff as well as review of the chart. The patient was started on broad-spectrum IV antibiotics and also Dr. Jaramillo and nephrology evaluation in progress. There is no history of any fever, rigor, or chills. No history of any headache, loss of consciousness or trauma. PAST MEDICAL HISTORY: 1. History of atrial fibrillation. 2. History of CAD. 3. History of CHF. 4. CVA, TIA. 5. Dementia. 6. History of diabetes mellitus, type 2. 7. History of hemodialysis. 8. Hyperlipidemia. 9. Hypertension. 10. History of memory impairment. 11. Sleep apnea. HOME MEDICATIONS: 1. Zoloft 100 mg p.o. daily and 50 mg p.o. daily. 2. Renvela 2.4 grams p.o. t.i.d. 3. Singulair 10 mg at bedtime. 4. ProAmatine 10 mg Friday, Friday, Friday. 5. Loperamide 2 tablets q.6 p.r.n. 6. Ativan 0.5 mg q.6 p.r.n. and 0.5 mg Friday, Friday, Friday. 7. Ativan 0.5 mg q.6 p.r.n. 8. Insulin NPH 16 units subcutaneously b.i.d. 9. [place] 5 mg p.o. t.i.d. p.r.n. 10. Neurontin 300 mg p.o. b.i.d. 11. Lasix 40 mg Friday, Friday, , Friday. 12. Folic acid 1 mg p.o. daily. 13. Proscar 5 mg p.o. at bedtime. 14. Pepcid 20 mg p.o. daily. 15. D2 50,000 units p.o. . 16. Depakote Sprinkle 500 mg p.o. t.i.d. 17. Dulcolax 20 mg daily p.r.n. and 10 mg p.o. daily p.r.n. 18. Nephrocaps 1 capsule daily. 19. Aspirin 160 mg p.o. daily. 20. Eliquis 2.5 mg p.o. b.i.d. 21. Abilify 15 mg p.o. daily. ALLERGIES: NONE. FAMILY HISTORY: History of CAD, hypertension and aortic aneurysm. SOCIAL HISTORY: Previous history of smoking. No current smoking or alcohol intake. REVIEW OF SYSTEMS: Could not be taken because of the patient's mental status changes. PHYSICAL EXAMINATION: Pulse 71, blood pressure 121/50, respiratory rate 16, temperature 97.6, pulse ox 97% on 2 L. T-max 101.1. HEENT: Conjunctivae normal. Oral mucosa moist. NECK: No jugular venous distention. No carotid bruit. No lymph node enlargement. CARDIOVASCULAR SYSTEM: S1, S2 muffled. No S3. No S4. RESPIRATORY: Breath sounds diminished at the bases. Bilateral scattered rhonchi and crackles. Expiratory wheezing also present, especially on right lower part. ABDOMEN: Soft, nontender. No mass palpable. LEGS: No edema. No swelling. NERVOUS SYSTEM: Higher functions as mentioned earlier. Moves all 4 limbs. No focal motor or sensory deficit. LYMPHATICS: No lymph node palpable in neck, axillae or groin. SKIN: No ulcer, rash, bleeding. JOINTS: deforming arthropathy. LABS: WBC 18.9, hemoglobin 10.8. Sodium 137, potassium 4.5, creatinine 6.39. Accu-Cheks 335. Plasma lactic acid 2.3. ASSESSMENT: 1. Acute right lower lobe pneumonia, possibly aspiration with sepsis, present on admission. 2. Change in mental status, metabolic encephalopathy, possibly secondary to sepsis. 3. Increased white count, possibly secondary to sepsis. 4. Anemia, normocytic, possibly anemia of chronic disease. 5. Chronic renal failure. 6. Hemodialysis. 7. Increased plasma lactic acid. 8. History of atrial fibrillation, paroxysmal. 9. History of coronary artery disease. 10. History of congestive heart failure. 11. History of cerebrovascular accident, transient ischemic attack. 12. History of dementia. 13. History of diabetes mellitus, type 2. 14. History of chronic renal failure, on hemodialysis with chronic kidney disease, stage V. 15. Hypertension, essential. 16. Hyperlipidemia. 17. History of degenerative joint disease. 18. History of sleep apnea. 19. History of laparoscopic cholecystectomy. 20. History of orthopedic surgery. 21. Anxiety not otherwise specified. 22. Remote history of nicotine dependence. RECOMMENDATIONS AND DISCUSSION: In this 66-year-old gentleman who presented with multiple complex medical issues, we will monitor the patient closely, continue the symptomatic treatment, continue the broad-spectrum IV antibiotics and bronchodilators. Resume the home medications. Guarded prognosis because of multiple complex medical issues. Further recommendations to follow. A copy of this dictation is being forwarded to Dr. Jesus Ordaz, who is the primary physician, as well as Dr. Farnsworth. SURESH
[2016-07-31] MEDS ORDERED: FAMOTIDINE 20 MG TAB PO SCH (06:00)
[2016-07-31 06:18] LABS: Glucose,Whole Blood 99 mg/dL (75-99)
[2016-07-31] MEDS: INSULIN LISPRO (humaLOG) 300 UNIT/3 ML VIAL SQ SCH ×4 (06:31→21:57)
[2016-07-31 06:54] LABS: Anisocytosis Slight; Basophils # (A) 0.1 k/uL (0-0.2); Basophils % (A) 0 %; CH 30.9; CHCM 32.7; Eosinophils # (A) 1.8 k/uL (0-0.7); Eosinophils % (A) 12 %; HCT 32.3 % (39.0-53.0); HDW 3.22; HGB 10.6 gm/dL (13.0-17.5); Luc # (Auto) 0.27; Luc % (Auto) 2; Lymphocytes # (A) 1.6 k/uL (1.0-4.8); Lymphocytes % (A) 11 %; MCH 30.9 pg (25.0-35.0); MCHC 32.7 g/dL (31.0-37.0); MCV 94.6 fL (80.0-100.0); Mean Platelet Volume 6.6; Monocytes # (A) 0.8 k/uL (0-1.0); Monocytes % (A) 6 %; Neutrophils % (A) 69 %; RBC 3.41 m/uL (4.30-5.90); RDW 16.1 % (11.5-15.5); WBC 14.6 k/uL (3.8-10.6); WBC (Perox) 14.87
[2016-07-31 06:57] LABS: Calcium 9.6 mg/dL (8.4-10.2); Potassium 4.7 mmol/L (3.5-5.1)
[2016-07-31 11:56] LABS: Glucose,Whole Blood 186 mg/dL (75-99)
[2016-07-31] MEDS: SEVELAMER 800 MG TAB PO SCH ×3 (12:18→18:22)
[2016-07-31] MEDS: PANTOPRAZOLE 40 MG TABLET PO SCH (12:28)
[2016-07-31] MEDS: FOLIC ACID-VIT B COMPLEX-VIT C 1 CAP PO SCH (12:28)
[2016-07-31] MEDS: ASPIRIN 81 MG CHEW PO SCH (12:28)
[2016-07-31] MEDS: DIVALPROEX SPRINKLE 125 MG CAP.SPRINK PO SCH ×3 (12:29→21:56)
[2016-07-31] MEDS: APIXABAN 2.5 MG TABLET PO SCH ×2 (12:30→21:56)
[2016-07-31] MEDS: INSULIN NPH/REG INSULIN 70/30 300 UNIT/3 ML VIAL SQ SCH ×2 (12:30→21:57)
[2016-07-31] MEDS: FOLIC ACID 1 MG TAB PO SCH (12:30)
[2016-07-31] MEDS: GABAPENTIN 300 MG CAP PO SCH ×2 (12:30→21:57)
[2016-07-31] MEDS: PIPERACILLIN-TAZOBACTAM 3.375 GM in DEXTROSE/WATER 1 50ML.BAG IVPB SCH ×2 (12:32→22:12)
[2016-07-31] MEDS: ARIPiprazole 15 MG TAB PO SCH (12:32)
--- NOTE | 2016-07-31 14:14 | PN ---
Patient is seen on hemodialysis. He is tolerating his treatment fairly well. He is awake, comfortable, not in any acute distress. Blood pressure is 147/78, heart rate 85 per minute. Patient is afebrile. Examination of the heart, S1 and S2. Examination of lungs, bilateral breath sounds are heard. Abdomen is soft, nontender. Examination of the lower extremities shows no evidence of edema. [employer] exam shows patient is moving all 4 extremities. Labs show sodium 141, potassium 4.7, hemoglobin 10.6 g/dL. ASSESSMENT: 1. End-stage renal disease on hemodialysis on a Friday, Friday, Friday schedule via right arm AV fistula. 2. Possible pneumonia in the right upper lobe, maintained on antibiotics. 3. Mild fluid overload. Will try for about 2 to 3 L as tolerated with hemodialysis today. 4. Chronic kidney bone mineral disorder. PLAN: UF of about 2 to 3 L as tolerated for today. Currently, patient has been fairly well.
[2016-07-31 16:44] LABS: Glucose,Whole Blood 156 mg/dL (75-99)
--- NOTE | 2016-07-31 18:04 | PN ---
DATE OF PROCEDURE: This is a 66-year-old gentleman who I saw yesterday in consultation. He came in with a possible pneumonia right lung. Does not really appear that he has a significant pneumonia and I believe his chest x-ray findings are more consistent with asymmetric pulmonary edema. He does have a history of end-stage renal disease requiring 3 time a week hemodialysis at [facility]. Anyway, he is doing much better today. He is much more calm. Yesterday he was very agitated and angry. Not wearing any supplemental oxygen. In addition to history of the end-stage renal disease requiring 3 times a week hemodialysis, he has a history of closed head injury, CAD, atrial fibrillation, diastolic CHF, COPD, sleep apnea syndrome requiring CPAP, CVA/TIA, dementia, diabetes with diabetic and organ involvement, essential hypertension and a previous history of right foot infection secondary to MRSA. Again, anyway he is doing much better. Seems much better. Much more alert and awake. Denies any cough. No fever, no chills. No phlegm production. No shortness of breath. Temperature 97.1, heart rate 88, respirations 16, blood pressure 52/67, mean 95, room air saturation 98%. Appears in no acute distress. HEENT examination is grossly unremarkable. Mucous membranes are moist. No oral lesions. Neck is supple. Full range of motion. No adenopathy or thyromegaly. Neck veins are flat. Cardiovascular examination reveals regular rhythm rate. S1, S2 normal. No S3, S4 or murmur. Lungs reveal mostly clear breath sounds. A few scattered crackles. No rhonchi or wheezes. Abdomen is soft. Bowel sounds are heard. Extremities are intact. No cyanosis, clubbing or edema. Skin is without rash. Neurologic examination is nonfocal. Labs are reviewed. White count 14.6, hemoglobin 10.6, hematocrit 32.3, platelet count 283,000. Sodium 141, potassium 4.7, chloride 99, CO2 of 26, BUN and creatinine were 52 and 9.57 compared to 30 and 6.39 on the eighth. The rest of the labs are reviewed. His admission N-terminal proBNP was 24,500. Chest x-ray was noted on the ninth. Microbiology is currently pending or negative. Medications are reviewed. The patient is on Zosyn. ASSESSMENT: 1. Possible pneumonia right lung versus asymmetric pulmonary edema. 2. Fluid overload/congestive heart failure. 3. History of end-stage renal disease, requiring 3 time a week hemodialysis at [facility]. 4. History of closed head injury. 5. Coronary artery disease. 6. History of atrial fibrillation. 7. History of diastolic congestive heart failure. 8. History of chronic obstructive pulmonary disease. 9. History of sleep apnea requiring CPAP. 10. History of cerebrovascular accident/transient ischemic attack. 11. History of dementia. 12. History of diabetes mellitus with diabetic and organ involvement. 13. History of essential hypertension. 14. Previous history of methicillin-resistant Staphylococcus aureus infection involving the right foot. PLAN: Mr. Meadows is doing relatively well. Will continue to follow. He can be transitioned to an oral antibiotic on discharge. No additional recommendations are made. Prognosis is reasonable. He seems to have done very, very well known in the last 24 hours.
--- NOTE | 2016-07-31 19:09 | PN ---
DATE OF SERVICE: 07/31/2016 This 66-year-old gentleman who was admitted with change in mental status and as well as pneumonia had a possible acute right lower lobe pneumonia. The patient is mildly confused and complains weakness, but slightly better compared to yesterday. The patient is on broad spectrum IV antibiotics. The patient also received hemodynamics also. PAST MEDICAL HISTORY: Reviewed. REVIEW OF SYSTEMS: CARDIOVASCULAR: No angina. RESPIRATORY: As mentioned earlier. GI: As mentioned earlier. : No dysuria. NERVOUS SYSTEM: No numbness or weakness. Current medications are reviewed and include: 1. Tylenol 650 q.6 p.r.n. 2. [place] 5 mg b.i.d. 3. Eliquis 2.5 mg b.i.d. 5. Aspirin. 6. Dulcolax. 7. Depakote 500 mg t.i.d. 8. Vitamin D2 50,000 daily. 9. Proscar 5 mg daily. 10. Folic acid 1 mg b.i.d. 11. Lasix 40 mg. 12. Neurontin 300 mg p.o. b.i.d. 13. Novolin 70/30 60 units subcu b.i.d. 14. Humalog before meals and at bedtime. 15. ProAmatine 10 mg Friday, Friday and Friday. 16. Singulair 10 mg q.h.s. 17. Multivitamins. 18. Protonix 40 mg daily. 19. Zosyn 3.375 IV b.i.d. 20. Zoloft 100 mg p.o. daily. 21. Renvela 2.4 mg t.i.d. PHYSICAL EXAMINATION: Patient is alert and oriented x3. Pulse is 88, blood pressure 150/66, respirations 16 , temperature 97.1, pulse ox 93% on room air. HEENT: Conjunctivae normal. NECK: No jugular venous distention. CARDIOVASCULAR: S1, S2. RESPIRATORY: Breath sounds diminished in the bases. A few scattered rhonchi, no crackles. ABDOMEN: Soft, obese, nontender, no mass palpable. LEGS: Minimal edema. NERVOUS SYSTEM: Diffusely weak. LABS: WBC 14.5, hemoglobin 10.6. Creatinine 9.5. Cultures are pending. ASSESSMENT: 1. Acute right lower lobe pneumonia, possibly aspiration with sepsis, present on admission. 2. Change in mental status, metabolic encephalopathy, possibly secondary to sepsis. 3. Increased WBC, possibly secondary to sepsis. 4. Anemia, normocytic, possibly anemia of chronic disease. 5. Chronic kidney disease, stage V, on hemodialysis. 6. Increased plasma lactic acid. 7. History of atrial fibrillation, paroxysmal. 8. History of coronary artery disease. 9. History of congestive heart failure with chronic diastolic dysfunction, ejection fraction 50% to 55%. 10. History of cerebrovascular accident, transient ischemic attack. 11. History of dementia. 12. History of diabetes type 2. 13. Hypertension, essential. 14. Hyperlipidemia. 15. History of degenerative joint disease. 16. History of sleep apnea. 17. History of laparoscopic cholecystectomy. 18. History of orthopedic surgery. 19. Anxiety, not otherwise specified. 20. Remote history of nicotine dependence. 21. FULL CODE. RECOMMENDATIONS AND DISCUSSION: This 66-year-old gentleman who presented with multiple complex medical issues, we will monitor the patient closely. Continue the current medications. Continue symptomatic treatment. Continue with broad-spectrum IV antibiotics. I would also recommend barium swallow along with speech pathology. Otherwise, continue to monitor. Repeat labs. Broad-spectrum IV antibiotics as mentioned earlier. Continue bronchodilators, DVT prophylaxis. Prognosis guarded. Further recommendations to follow. [facility]
[2016-07-31 20:26] LABS: Glucose,Whole Blood 127 mg/dL (75-99)
[2016-07-31] MEDS: FINASTERIDE 5 MG TAB PO SCH (21:57)
[2016-07-31] MEDS: MONTELUKAST 10 MG TAB PO SCH (21:58)
[2016-07-31] MEDS: SERTRALINE 50 MG TAB PO SCH (21:58)
[2016-07-31] MEDS: SERTRALINE 100 MG TAB PO SCH (21:58)
[2016-08-01] MEDS: SEVELAMER 800 MG TAB PO SCH ×2 (06:28→12:33)
[2016-08-01] MEDS: DIVALPROEX SPRINKLE 125 MG CAP.SPRINK PO SCH (06:28)
[2016-08-01] MEDS ORDERED: FUROSEMIDE 40 MG TAB PO SCH (07:00)
[2016-08-01] MEDS: INSULIN LISPRO (humaLOG) 300 UNIT/3 ML VIAL SQ SCH ×2 (07:23→12:32)
[2016-08-01 07:32] LABS: Glucose,Whole Blood 72 mg/dL (75-99)
[2016-08-01 07:38] VITALS: BP 105/71; PULSE 103; RESP 20; TEMP 97.8
[2016-08-01] MEDS: APIXABAN 2.5 MG TABLET PO SCH (08:11)
[2016-08-01] MEDS: PANTOPRAZOLE 40 MG TABLET PO SCH (08:11)
[2016-08-01] MEDS: ASPIRIN 81 MG CHEW PO SCH (08:12)
[2016-08-01] MEDS: ARIPiprazole 15 MG TAB PO SCH (08:12)
[2016-08-01] MEDS: FOLIC ACID-VIT B COMPLEX-VIT C 1 CAP PO SCH (08:14)
[2016-08-01] MEDS: INSULIN NPH/REG INSULIN 70/30 300 UNIT/3 ML VIAL SQ SCH (08:15)
[2016-08-01] MEDS: GABAPENTIN 300 MG CAP PO SCH (08:15)
[2016-08-01 08:50] LABS: Basophils # (A) 0.1 k/uL (0-0.2); Basophils % (A) 1 %; CH 30.5; CHCM 32.7; Eosinophils # (A) 2.7 k/uL (0-0.7); Eosinophils % (A) 13 %; HCT 39.6 % (39.0-53.0); HDW 3.43; HGB 12.8 gm/dL (13.0-17.5); Hypochromasia Slight; Luc # (Auto) 0.31; Luc % (Auto) 2; Lymphocytes % (A) 10 %; MCH 30.3 pg (25.0-35.0); MCHC 32.3 g/dL (31.0-37.0); MCV 93.7 fL (80.0-100.0); Mean Platelet Volume 6.6; Monocytes # (A) 1.3 k/uL (0-1.0); Monocytes % (A) 6 %; Neutrophils % (A) 69 %; Poikilocytosis Slight; RBC 4.23 m/uL (4.30-5.90); RDW 15.9 % (11.5-15.5); WBC 20.4 k/uL (3.8-10.6); WBC (Perox) 18.95
[2016-08-01] MEDS ORDERED: ERGOCALCIFEROL 50,000 UNIT CAP PO SCH (09:00)
[2016-08-01 09:02] LABS: Calcium 10.3 mg/dL (8.4-10.2); Potassium 4.1 mmol/L (3.5-5.1)
[2016-08-01] MEDS: PIPERACILLIN-TAZOBACTAM 3.375 GM in DEXTROSE/WATER 1 50ML.BAG IVPB SCH (09:14)
--- NOTE | 2016-08-01 11:09 | XR ---
EXAMINATION TYPE: XR chest 1V portable DATE OF EXAM: 08/01/2016 11:01 AM COMPARISON: 07/30/2016 HISTORY: Follow-up CHF TECHNIQUE: Single frontal view of the chest is obtained. FINDINGS: Subsegmental changes are seen bilaterally. Heart is enlarged and atherosclerotic change ao rta with no pneumothorax. Perihilar interstitial changes are seen. IMPRESSION: 1. Subsegmental atelectasis or early infiltrate. No overt failure.
[2016-08-01] MEDS ORDERED: IPRATROPIUM-ALBUTEROL 3 ML NEB INHALATION SCH (12:00)
[2016-08-01 12:17] LABS: Glucose,Whole Blood 212 mg/dL (75-99)
[2016-08-01] MEDS: FOLIC ACID 1 MG TAB PO SCH (12:33)
--- NOTE | 2016-08-01 14:13 | PN ---
A 66-year-old gentleman transferred down from [facility]. He is there as a permanent resident. Has end-stage renal disease with Friday, Friday, Friday hemodialysis. Was transferred down on Friday for what appeared to be some mental status changes. The patient was thought to also have pneumonia in the right lung. In retrospect, probably some atelectasis and/or asymmetric pulmonary edema in the right lower lobe. He is doing well from the pulmonary standpoint. His room-air saturations are mid-90s. The patient looks well and he may be discharged back to [facility] either today or tomorrow. Not sure. He is feeling well. No major complaints. When I first saw him, he was very agitated and confused and very angry. In addition, he has a history of closed head injury, CAD, atrial fibrillation, diastolic CHF, COPD, sleep apnea syndrome, CVA, diabetes with diabetic and organ involvement, essential hypertension and a previous MRSA right foot infection. Current vital signs include temperature 97.8, heart rate 69, respiratory rate 17, blood pressure 105/71, mean 82, room air saturation 96%. Appears in no acute distress. HEENT examination is grossly unremarkable. Mucous membranes are moist. Neck is supple. Full range of motion. No adenopathy or thyromegaly. Neck veins are flat. Cardiovascular examination reveals regular rhythm and rate. S1, S2 normal. No S3, S4. A soft systolic murmur is noted. Lungs reveal mostly clear breath sounds. A few scattered mild rhonchi. No wheezes or crackles. Abdomen is soft. Bowel sounds are heard. No masses. Extremities are intact. No cyanosis, clubbing or edema. Skin is without rash. Neurologic examination is difficult to perform but appears to be nonfocal. Lab data is reviewed. White count 20.4, hemoglobin 12.8, hematocrit 39.6, platelet count 370,000. Sodium and potassium normal. Chloride is 94, CO2 of 29, BUN and creatinine were 36 and 8.01. Anion gap is 19. Calcium 10.4. Chest x-ray from 08/01 shows some minimal atelectasis at the right lung base. ASSESSMENT: 1. Atelectasis versus possible pneumonia versus asymmetric pulmonary edema, right lung base. 2. Fluid overload/congestive heart failure in a patient requiring 3-time a week hemodialysis for end-stage renal disease. 3. History of end-stage renal disease. 4. History of closed head injury. 5. Coronary artery disease. 6. History of atrial fibrillation. 7. History of diastolic congestive heart failure. 8. History of chronic obstructive pulmonary disease. 9. History of sleep apnea, requiring CPAP. 10. History of cerebrovascular accident/transient ischemic attack. 11. History of dementia. 12. History of diabetes with diabetic and organ involvement. 13. History of essential hypertension. 14. Previous history of methicillin-resistant Staphylococcus aureus infection involving the right foot. PLAN: Medications are reviewed. Possible discharge tomorrow. No additional recommendations are made. Will continue to follow. Prognosis is guarded.
--- NOTE | 2016-08-01 14:24 | DS ---
DATE OF ADMISSION: 07/29/2016 DATE OF DISCHARGE: FINAL DIAGNOSES: 1. Acute right lobe pneumonia, possibly aspiration with sepsis present on admission, improved. 2. Change in mental status with acute metabolic encephalopathy, possible secondary to sepsis. 3. Increased WBC possibly secondary to sepsis. 4. Anemia, normocytic, possibly anemia of chronic disease. 5. Chronic kidney disease stage V on hemodialysis. 6. Increased lactic acid. 7. History of atrial fibrillation, paroxysmal. 8. History of coronary artery disease. 9. History of congestive heart failure with chronic diastolic dysfunction, ejection fraction 50% to 55%. 10. History of cerebrovascular accident, transient ischemic attack. 11. History of dementia. 12. History of diabetes mellitus type 2. 13. Hypertension, essential. 14. Hyperlipidemia. 15. History of degenerative joint disease. 16. History of sleep apnea. 17. History of laparoscopic cholecystectomy. 18. Some anxiety, not otherwise specified. 19. Remote history of nicotine dependence. 20. FULL CODE. DISCHARGE DISPOSITION: The patient will be discharged in a stable condition with guarded prognosis. Total time taken 35 minutes. HISTORY OF PRESENT ILLNESS: This 66-year-old gentleman with a past medical history of multiple medical problems admitted with change in mental status, features of pneumonia, treated with antibiotics, hemodialysis continue. Patient improved significantly, bronchodilators added to the current regimen. On exam, vitals are stable. CARDIOVASCULAR SYSTEM: S1, S2. RESPIRATORY: A few scattered rhonchi. ABDOMEN: Soft. NERVOUS SYSTEM: No focal deficits. WBC 20.4, creatinine is 8.01. Recommend outpatient follow up. Dr. Jaramillo saw the patient and cleared patient for discharged. Discharge advice: 1. Diet is cardiac. 2. Activity limited until followup. 3. Follow up with Dr. Jesus Ordaz in 2 to 3 days. 4. CBC, BMP in 2 to 3 days. 5. Follow up with Dr. Mireles as advised. 6. Follow up with Dr. Jaramillo as recommended. The medications are: 1. Renvela 2.4 t.i.d. 2. Ability 15 mg daily. 3. Augmentin 875 mg p.o. b.i.d. for 5 days. 4. Eliquis 2.5 mg p.o. b.i.d. 5. Aspirin 162 mg p.o. daily. 6. Vitamin B complex 1 p.o. daily. 7. Dulcolax 10 mg p.o. daily and 20 mg rectally. 8. Depakote 500 mg p.o. t.i.d. 9. Vitamin D2 fifty thousand p.o. . 10. Pepcid 20 mg p.o. daily. 11. Proscar 5 mg p.o. q.h.s. 12. Folic acid 1 mg p.o. daily. 13. Lasix 40 mg Friday, Friday, , Friday as before. 14. Neurontin 300 mg p.o. b.i.d. 15. [place] 5 mg t.i.d. p.r.n. for pain. 16. Accu-Cheks a.c. and at bedtime. 17. NovoLog scale 150 to 200 = 2 units, 201 to 250 = 4 units, 251 to 300 = 6 units, 301 to 350 = 8 units, 351 to 400 = 10 units, more than 400 call. 18. Novolin 70/30 sixteen units subQ b.i.d. 19. Albuterol, Atrovent updrafts q.i.d. and p.r.n. 20. Ativan 0.5 mg q.6 p.r.n. 21. ProAmatine 10 mg Friday, Friday. 22. Singulair 10 mg q.h.s. 23. Zoloft 50 mg p.o. daily. 24. Zoloft 100 mg p.o. daily. Once again, the patient will be discharged in a stable condition with guarded prognosis.
--- NOTE | 2016-08-01 14:52 | FL ---
Modified barium swallow. HISTORY: Dysphagia. Modified barium swallow was performed with the department of speech pathology. The patient was prese nted with various consistencies of barium. There is no evidence for aspiration or penetration. Full report is to follow from the department of speech pathology. Impression: Normal study.
== END 2016-08-01 14:12 | DRG 871 ==
LOC: 6SEL 19:45 → 4MS4W 07-31 23:14
PROVIDERS: ADMIT Internal Medicine; ATTEND Internal Medicine
PROC: 5A1D00Z (ICD-10-PCS; principal; 2016-07-31)
DX: A41.9 Sepsis, unspecified organism (principal); G93.41 Metabolic encephalopathy; J69.0 Pneumonitis due to inhalation of food and vomit; I13.2 Hypertensive heart and chronic kidney disease with heart failure and with stage 5 chronic kidney disease, or end stage renal disease; N18.6 End stage renal disease; E11.40 Type 2 diabetes mellitus with diabetic neuropathy, unspecified; E11.22 Type 2 diabetes mellitus with diabetic chronic kidney disease; I42.9 Cardiomyopathy, unspecified; I50.32 Chronic diastolic (congestive) heart failure; D63.8 Anemia in other chronic diseases classified elsewhere; I48.0 Paroxysmal atrial fibrillation; F03.90 Unspecified dementia, unspecified severity, without behavioral disturbance, psychotic disturbance, mood disturbance, and anxiety; E78.5 Hyperlipidemia, unspecified; K21.9 Gastro-esophageal reflux disease without esophagitis; D72.829 Elevated white blood cell count, unspecified; M19.90 Unspecified osteoarthritis, unspecified site; R01.1 Cardiac murmur, unspecified; J44.9 Chronic obstructive pulmonary disease, unspecified; N40.0 Benign prostatic hyperplasia without lower urinary tract symptoms; G47.33 Obstructive sleep apnea (adult) (pediatric); F41.9 Anxiety disorder, unspecified; I25.10 Atherosclerotic heart disease of native coronary artery without angina pectoris; Z99.2 Dependence on renal dialysis; Z90.49 Acquired absence of other specified parts of digestive tract; Z86.73 Personal history of transient ischemic attack (TIA), and cerebral infarction without residual deficits; Z87.891 Personal history of nicotine dependence; Z79.01 Long term (current) use of anticoagulants; Z79.82 Long term (current) use of aspirin; Z79.4 Long term (current) use of insulin; Z79.899 Other long term (current) drug therapy; Z82.49 Family history of ischemic heart disease and other diseases of the circulatory system; Z86.14 Personal history of Methicillin resistant Staphylococcus aureus infection; Z79.891 Long term (current) use of opiate analgesic; Z87.820 Personal history of traumatic brain injury; Z86.19 Personal history of other infectious and parasitic diseases
CPT/HCPCS: 71010; 74230; 80048; 83036; 83605; 83880; 85025; 90935

== ENCOUNTER 2016-10-07 18:27 | Inpatient (IN) | payer MEDICARE, BC, OTHER ==
[2016-10-07] MEDS ORDERED: IV VANCOMYCIN PER PHARMACY 1 EACH MISC MISCELLANE PRN (20:36)
[2016-10-07] MEDS ORDERED: NALOXONE 0.4 MG/ML 1 ML VIAL IV PRN (20:37)
[2016-10-07] MEDS ORDERED: ONDANSETRON 4 MG/2 ML VIAL IVP PRN (20:37)
[2016-10-07] MEDS ORDERED: VANCOMYCIN 1,500 MG in SODIUM CHLORIDE 0.9% 250 ML IVPB STA (20:40)
[2016-10-07] MEDS ORDERED: SODIUM CHLORIDE 0.9% 1,000 ML IV SCH (20:45)
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
[2016-10-07] MEDS ORDERED: INSULIN NPH/REG INSULIN 70/30 300 UNIT/3 ML VIAL SQ SCH (21:00)
[2016-10-07] MEDS ORDERED: ACETAMINOPHEN TAB 325 MG TAB PO STA (21:16)
[2016-10-07 22:33] LABS: Glucose,Whole Blood 279 mg/dL (75-99)
--- NOTE | 2016-10-07 22:40 | XR ---
EXAM: XR Chest, 1 View CLINICAL HISTORY: Reason: Pain TECHNIQUE: Frontal view of the chest. COMPARISON: Chest radiograph 10/07/2016 at 1554 hrs. FINDINGS: Lungs: Mild increased opacity in the left retrocardiac region suggesting mild left lower lobe infiltrate or partial atelectasis. Pleural space: Findings suggesting minimal left pleural effusion. No pneumothorax identified. Heart: Heart size is within normal limits. Mediastinum: Mediastinal structures are unremarkable. Bones/joints: Increased opacity projecting to right upper lung zone most likely related to multiple old right posterior fourth through sixth rib fractures with associated callus formation. Lungs are otherwise clear. Tubes, lines and devices: Indwelling right-sided central venous catheter extending to region of superior vena cava with tip projecting to just above level of cavoatrial junction. IMPRESSION: Mild left lower lobe infiltrate or partial atelectasis. Minimal left pleural effusion. Multiple old right rib fractures.
[2016-10-07] MEDS ORDERED: INSULIN LISPRO (humaLOG) 300 UNIT/3 ML VIAL SQ ONE (23:02)
[2016-10-07] MEDS ORDERED: INSULIN GLARGINE 100 UNIT/ML 10 ML VIAL SQ ONE (23:09)
[2016-10-08] MEDS ORDERED: PIPERACILLIN-TAZOBACTAM 2.25 GM in DEXTROSE/WATER 1 50ML.BAG IVPB SCH
[2016-10-08 00:48] LABS: Glucose,Whole Blood 242 mg/dL (75-99)
[2016-10-08] MEDS: SODIUM CHLORIDE 0.9% 1,000 ML IV SCH ×2 (00:55→08:00)
[2016-10-08] MEDS: PIPERACILLIN-TAZOBACTAM 3.375 GM in DEXTROSE/WATER 1 50ML.BAG IVPB SCH ×2 (00:56→10:56)
[2016-10-08] MEDS: DIVALPROEX SPRINKLE 125 MG CAP.SPRINK PO SCH ×4 (01:06→22:49)
[2016-10-08] MEDS: ACETAMINOPHEN TAB 325 MG TAB PO SCH ×4 (01:06→23:02)
[2016-10-08 01:19] VITALS: BMI 27.5
[2016-10-08 04:01] LABS: Glucose,Whole Blood 150 mg/dL (75-99)
[2016-10-08 06:24] LABS: Glucose,Whole Blood 122 mg/dL (75-99)
[2016-10-08] MEDS: INSULIN LISPRO (humaLOG) 300 UNIT/3 ML VIAL SQ SCH ×4 (06:28→22:56)
[2016-10-08 06:44] LABS: Anisocytosis Slight; Basophils # (A) 0.1 k/uL (0-0.2); Basophils % (A) 0 %; CHCM 32.3; Eosinophils # (A) 0.7 k/uL (0-0.7); Eosinophils % (A) 3 %; HCT 33.6 % (39.0-53.0); HDW 3.34; Hypochromasia Slight; Luc # (Auto) 0.27; Luc % (Auto) 1; Lymphocytes # (A) 1.7 k/uL (1.0-4.8); Lymphocytes % (A) 9 %; MCH 30.5 pg (25.0-35.0); MCHC 32.7 g/dL (31.0-37.0); MCV 93.3 fL (80.0-100.0); Mean Platelet Volume 7.1; Monocytes # (A) 1.5 k/uL (0-1.0); Monocytes % (A) 8 %; Neutrophils # (A) 15.1 k/uL (1.3-7.7); Neutrophils % (A) 79 %; RDW 17.8 % (11.5-15.5); WBC 19.2 k/uL (3.8-10.6); WBC (Perox) 19.72
[2016-10-08 06:58] LABS: Calcium 9.6 mg/dL (8.4-10.2); Magnesium 2.6 mg/dL (1.6-2.3); Phosphorous 4.8 mg/dL (2.5-4.5); Total Bilirubin 0.6 mg/dL (0.2-1.3); Total Protein 6.2 g/dL (6.3-8.2)
[2016-10-08] MEDS: ARIPiprazole 15 MG TAB PO SCH (07:53)
[2016-10-08] MEDS: ASPIRIN 81 MG CHEW PO SCH (07:53)
[2016-10-08] MEDS ORDERED: INSULIN NPH/REG INSULIN 70/30 300 UNIT/3 ML VIAL SQ SCH (09:00)
[2016-10-08] MEDS ORDERED: VANCOMYCIN 1,500 MG in SODIUM CHLORIDE 0.9% 250 ML IVPB ONE (09:00)
[2016-10-08 11:54] LABS: Glucose,Whole Blood 220 mg/dL (75-99)
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
[2016-10-08 14:14] LABS: Hemoglobin A1C 6.5 % (4.2-6.1)
[2016-10-08] MEDS ORDERED: BISACODYL 5 MG TABLET.DR PO PRN (14:36)
[2016-10-08] MEDS ORDERED: LORazepam 0.5 MG TAB PO PRN ×2 (14:36)
[2016-10-08] MEDS ORDERED: HYDROcodone/APAP 5-325MG 1 EACH TAB PO PRN (14:36)
[2016-10-08] MEDS ORDERED: LORazepam 2 MG/ML SYRINGE IM PRN (14:36)
[2016-10-08] MEDS: HYDROcodone/APAP 5-325MG 1 EACH TAB PO SCH ×2 (16:12→23:02)
[2016-10-08] MEDS: SEVELAMER 800 MG TAB PO SCH (16:13)
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
[2016-10-08 16:44] LABS: Glucose,Whole Blood 160 mg/dL (75-99)
[2016-10-08 22:38] LABS: Glucose,Whole Blood 143 mg/dL (75-99)
[2016-10-08] MEDS: FINASTERIDE 5 MG TAB PO SCH (22:50)
[2016-10-08] MEDS: GABAPENTIN 300 MG CAP PO SCH (22:50)
[2016-10-08] MEDS: FAMOTIDINE 20 MG TAB PO SCH (22:50)
[2016-10-09 06:24] LABS: Glucose,Whole Blood 122 mg/dL (75-99)
[2016-10-09] MEDS: INSULIN LISPRO (humaLOG) 300 UNIT/3 ML VIAL SQ SCH ×4 (06:25→20:39)
[2016-10-09] MEDS: SEVELAMER 800 MG TAB PO SCH ×3 (06:26→17:42)
[2016-10-09] MEDS: SYMBICORT 80-4.5 MCG INHALER INHALATION SCH ×2 (09:16→20:12)
[2016-10-09] MEDS: SERTRALINE 50 MG TAB PO SCH (09:37)
[2016-10-09] MEDS: DIVALPROEX SPRINKLE 125 MG CAP.SPRINK PO SCH ×3 (09:37→20:38)
[2016-10-09] MEDS: SERTRALINE 100 MG TAB PO SCH (09:37)
[2016-10-09] MEDS: GABAPENTIN 300 MG CAP PO SCH ×2 (09:37→20:38)
[2016-10-09] MEDS: ARIPiprazole 15 MG TAB PO SCH (09:38)
[2016-10-09] MEDS: MIDODRINE 5 MG TAB PO SCH (09:38)
[2016-10-09] MEDS: ASPIRIN 81 MG CHEW PO SCH (09:38)
[2016-10-09] MEDS: ACETAMINOPHEN TAB 325 MG TAB PO SCH ×3 (09:38→20:36)
[2016-10-09] MEDS: HYDROcodone/APAP 5-325MG 1 EACH TAB PO SCH ×3 (09:38→20:37)
[2016-10-09 11:44] LABS: Anisocytosis Slight; CH 29.7; CHCM 32.6; HCT 29.4 % (39.0-53.0); HDW 3.44; Hypochromasia Slight; MCH 30.9 pg (25.0-35.0); MCHC 33.9 g/dL (31.0-37.0); MCV 91.3 fL (80.0-100.0); Mean Platelet Volume 7.1; Poikilocytosis Slight; RBC 3.22 m/uL (4.30-5.90); RDW 17.3 % (11.5-15.5); WBC 15.7 k/uL (3.8-10.6)
--- NOTE | 2016-10-09 11:47 | CONS ---
DATE OF SERVICE: 10/08/2016 REASON FOR CONSULTATION: Sepsis. HISTORY OF PRESENT ILLNESS: The patient is a 66-year-old male with past medical history significant for endstage renal disease on hemodialysis. Patient usually has dialysis through the left arm AV fistula. 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 Patient did get PermCath in the right chest wall and was getting dialysis through that. The patient apparently did have episode of hypertension during dialysis yesterday and subsequently when the patient went to long-term the patient started having rigors and chills along with fever. For these symptoms, the patient apparently was evaluated in the onsite facility and the patient did have blood cultures obtained. He received dose of Vancomycin and Zosyn and subsequently has been transferred to [facility] for further evaluation. On arrival to the ER, the patient did have a fever of 102 degrees Fahrenheit and did have elevated white count. The patient was continued on vancomycin and ID was consulted for further recommendations. The patient denies any headache and apparently no sore throat. No significant chest pain. No shortness of breath. Minimal cough. No abdominal pain and no diarrhea. the patient did have erythema and nonhealing wound to the left arm AV fistula site and apparently they were told that no further treatment could be done for the same fistula. REVIEW OF SYSTEM: CONSTITUTIONAL: Positive for weakness along with fever. EYES: No complaint. ENT: No complaint. RESPIRATORY: As per HPI. CARDIOVASCULAR: No complaint. GENITOURINARY: No complaint. GASTROINTESTINAL: No complaint. MUSCULOSKELETAL: No complaint. INTEGUMENTARY: As per HPI. PSYCHOLOGICAL: No complaint. ENDOCRINE: No complaint. NEUROLOGICAL: No complaint. PAST MEDICAL HISTORY: Significant for atrial fibrillation, coronary artery disease, heart failure, CVA, TIA, diabetes mellitus, endstage renal disease on hemodialysis, hypertension, hyperlipidemia, sleep apnea. PAST SURGICAL HISTORY: Left arm AV fistula status post ligation, laparoscopic cholecystectomy, bilateral rotator cuff repair, PermCath placement. SOCIAL HISTORY: Remote history of smoking. Occasional drinks. No drug use. , lives with . FAMILY HISTORY: Father with history of coronary artery disease and hypertension. ( ) aortic aneurysm. Mother with history of diabetes and hypertension. ALLERGIES: No known drug allergies. MEDICATIONS: The patient is currently on Tylenol, [place], Abilify, aspirin, Symbicort, Depakote, vitamin D2, Pepcid, Proscar, Lasix, Neurontin, Novolin 70/ 30, Ativan, vancomycin pharmacy to dose, Zofran, and Zoloft. On examination, blood pressure is 137/60 with pulse of 76. Temperature 96.7. He is 98% on 3-liters nasal cannula. General description is an elderly male lying in bed in no distress. No tachypnea or accessory muscle of respiration use. HEENT examination shows pallor. No scleral icterus. Oral mucosa membrane dry. NECK: Trachea central. No thyromegaly. LUNGS: Unlabored breathing. Clear to auscultation anteriorly. No wheeze or crackles. HEART: S1, S2 regular rate and rhythm. ABDOMEN: Soft, no tenderness. No guarding, no rigidity. EXTREMITIES: No edema feet. SKIN: No rash or masses palpable. NEUROLOGICAL: The patient is awake, alert, oriented. Mood and affect normal. Examination of the left upper extremity did show fistula which is swollen and red with some superficial wound. Cultures were obtained. LABS: Hemoglobin is 11, white count 19.2 with BUN 34, creatinine 7.7. DIAGNOSTIC IMPRESSION: Patient admitted to hospital with sepsis and patient did have fever of 102 degrees Fahrenheit and did have elevated white count of 19,000. Source likely left AV fistula site infection with question of possible abscess of patient's AV fistula status post ligation with redness and superficial ulceration and more likely positive Gram-positive skin carlos and especially need to cover for the ( ) MRSA. PLAN: 1. Wound culture has been obtained to guide the antibiotic therapy and blood culture already obtained. 2. Recommend obtaining Vascular Surgery evaluation for possible evaluation for possible exploration and drainage if underlying abscess. 3. Vancomycin pharmacy to dose, target of 15. 4. We will follow up on clinical condition and cultures to further adjust medications if needed. Thank you for this consultation. Will follow this patient along with you. SURESH
[2016-10-09] MEDS: FOLIC ACID 1 MG TAB PO SCH (11:51)
[2016-10-09 11:55] LABS: Glucose,Whole Blood 160 mg/dL (75-99)
[2016-10-09 11:55] LABS: Calcium 9.2 mg/dL (8.4-10.2); Potassium 5.6 mmol/L (3.5-5.1)
[2016-10-09 16:59] LABS: Glucose,Whole Blood 130 mg/dL (75-99)
--- NOTE | 2016-10-09 16:59 | P.PN ---
Subjective patient was admitted for possible sepsis secondary to central line infection as a dialysis catheter infection. So far blood cultures are negative. Patient on IV vancomycin. Wound cultures are negative as well. REVIEW OF SYSTEMS: CARDIOVASCULAR: No chest pain, no orthopnea, no PND, no palpitations. PULMONARY: Denied any shortness of breath. No cough or hemoptysis. GASTROINTESTINAL: No diarrhea, nausea or vomiting. No abdominal pain. Normoactive bowel sounds. NEUROLOGIC: No headaches, no weakness, no numbness. Objective - Vital Signs Vital signs: Vital Signs Temp 98.2 F 10/09/16 12:00 Pulse 79 10/09/16 12:00 Resp 18 10/09/16 12:00 BP 155/71 10/09/16 12:00 Pulse Ox 96 10/09/16 12:00 Intake & Output 10/08/16 10/09/16 10/09/16 18:59 06:59 18:59 Intake Total 718 0 418 Output Total 0 Balance 718 0 418 Weight 70 kg Intake: IV 0 Sodium Chloride 0.9% 1, 0 000 ml @ 100 mls/hr IV . Q10H [facility] Rx#:[id number] Intake, IV Titration 600 Amount Piperacillin-Tazobactam 3 50 .375 gm In Dextrose/Water 1 50ml.bag @ 12.5 mls/hr IVPB Q12HR [facility] Rx#: [id number] Sodium Chloride 0.9% 1, 250 000 ml @ 50 mls/hr IV . Q20H [facility] Rx#:[id number] Vancomycin 1,500 mg In 250 Sodium Chloride 0.9% 250 ml @ 125 mls/hr IVPB ONCE ONE Rx#:[id number] cefTRIAXone 1,000 mg In 50 Sodium Chloride 0.9% 50 ml @ 100 mls/hr IVPB Q24HR [facility] Rx#:[id number] Oral 118 418 Output: Urine 0 Other: # Bowel Movements 1 - Exam GENERAL: The patient is alert and oriented x3, not in any acute distress. Well developed, well nourished. The right-sided permacath along with left hand fistula with skin breakdown. HEENT: Pupils are round and equally reacting to light. EOMI. No scleral icterus. No conjunctival pallor. Normocephalic, atraumatic. No pharyngeal erythema. No thyromegaly. CARDIOVASCULAR: S1 and S2 present. No murmurs, rubs, or gallops. PULMONARY: Chest is clear to auscultation, no wheezing or crackles. ABDOMEN: Soft, nontender, nondistended, normoactive bowel sounds. No palpable organomegaly. MUSCULOSKELETAL: No joint swelling or deformity. EXTREMITIES: No cyanosis, clubbing, or pedal edema. NEUROLOGICAL: Gross neurological examination did not reveal any focal deficits. SKIN: No rashes. - Labs CBC & Chem 7: 10/09/16 11:31 10/09/16 11:31 Labs: Abnormal Lab Results - Last 24 Hours (Table) 10/08/16 10/09/16 10/09/16 Range/Units 22:36 06:22 11:31 WBC 15.7 H (3.8-10.6) k/uL RBC 3.22 L (4.30-5.90) m/uL Hgb 10.0 L (13.0-17.5) gm/dL Hct 29.4 L (39.0-53.0) % RDW 17.3 H (11.5-15.5) % Sodium (137-145) mmol/L Potassium (3.5-5.1) mmol/L Carbon Dioxide (22-30) mmol/L BUN (9-20) mg/dL Creatinine (0.66-1.25) mg/dL Glucose (74-99) mg/dL POC Glucose (mg/dL) 143 H 122 H (75-99) mg/dL 10/09/16 10/09/16 Range/Units 11:31 11:42 WBC (3.8-10.6) k/uL RBC (4.30-5.90) m/uL Hgb (13.0-17.5) gm/dL Hct (39.0-53.0) % RDW (11.5-15.5) % Sodium 134 L (137-145) mmol/L Potassium 5.6 H (3.5-5.1) mmol/L Carbon Dioxide 20 L (22-30) mmol/L BUN 53 H (9-20) mg/dL Creatinine 10.58 H* (0.66-1.25) mg/dL Glucose 157 H (74-99) mg/dL POC Glucose (mg/dL) 160 H (75-99) mg/dL Microbiology - Last 24 Hours (Table) 10/08/16 09:40 Gram Stain - Preliminary Arm - Left Wound Culture - Preliminary Presumptive MRSA Assessment and Plan Plan: #1 sepsis: Possibility of hemodialysis catheter line infection. Patient was started on Vancomycin blood cultures were obtained infectious disease was consulted. 2 end-stage renal disease hemodialysis on Friday and Friday 3 hypotension possibly due to sepsis as patient is hemodialysis patient his IV fluids were discontinued at this time patient blood pressure is doing okay now 4 history of atrial fibrillation on anti-coagulation at this time. #5 type 2 diabetes mellitus continue her home regimen titrate the insulin depending on his blood sugars #6 diabetes nephropathy and end-stage renal disease 7 coronary artery disease 8 hypertension patient is presently hypotensive secondary to sepsis 9 sleep apnea on CPAP machine which will be continued Severe osteoarthritis.
--- NOTE | 2016-10-09 17:04 | PN ---
DATE OF SERVICE: 10/09/2016 REASON FOR FOLLOWUP: Sepsis with infected left arm AV graft. INTERVAL HISTORY: The patient is afebrile. He is breathing comfortably. He denies significant chest pain or shortness of breath. Occasional cough. No worsening pain in the left upper arm area. On examination, blood pressure is 155/71 with a pulse of 67, temperature 98.2. He is 96% on room air. General description is an elderly male lying in bed in no distress. RESPIRATORY SYSTEM: Unlabored breathing. Clear to auscultation anteriorly. HEART: S1, S2. Regular rate and rhythm. ABDOMEN: Soft. No tenderness. Left upper arm AV fistula site looks inflamed with some drainage. LABS: Hemoglobin is 10 with a white count of 15.7. Cultures currently pending. DIAGNOSTIC IMPRESSION AND PLAN: Patient admitted to hospital with sepsis. Source is left AV fistula site infection. Awaiting surgical exploration and possible deep culture. Continue the patient on vancomycin, to which his fever responded. Will continue supportive care. SURESH
[2016-10-09 20:36] LABS: Glucose,Whole Blood 147 mg/dL (75-99)
[2016-10-09] MEDS ORDERED: ACETAMINOPHEN TAB 325 MG TAB PO PRN (20:37)
[2016-10-09] MEDS: FAMOTIDINE 20 MG TAB PO SCH (20:38)
[2016-10-09] MEDS: FINASTERIDE 5 MG TAB PO SCH (20:38)
[2016-10-10 05:57] LABS: Glucose,Whole Blood 117 mg/dL (75-99)
[2016-10-10] MEDS ORDERED: VANCOMYCIN TROUGH DUE 1 EACH MISC MISCELLANE ONE (06:00)
[2016-10-10] MEDS: INSULIN LISPRO (humaLOG) 300 UNIT/3 ML VIAL SQ SCH ×4 (06:58→21:19)
[2016-10-10] MEDS: SEVELAMER 800 MG TAB PO SCH ×3 (06:59→16:41)
[2016-10-10 07:33] LABS: Anisocytosis Slight; CH 29.8; CHCM 33.2; HCT 30.7 % (39.0-53.0); HDW 3.53; HGB 10.4 gm/dL (13.0-17.5); Hypochromasia Slight; MCH 30.6 pg (25.0-35.0); MCHC 33.9 g/dL (31.0-37.0); MCV 90.1 fL (80.0-100.0); Mean Platelet Volume 7.2; Poikilocytosis Slight; RDW 17.2 % (11.5-15.5); WBC 13.7 k/uL (3.8-10.6)
[2016-10-10 07:52] LABS: Calcium 9.3 mg/dL (8.4-10.2); Potassium 4.8 mmol/L (3.5-5.1)
--- NOTE | 2016-10-10 08:38 | CONS ---
Date of consultation: 10/09/2016 This is a 66-year-old gentleman who has been admitted with endstage renal disease. Patient has a dialysis catheter in the intrajugular vein. He has been having dialysis through the dialysis catheter. Patient also had a left upper arm fistular graft. This was placed at ( ) [facility] and patient was [facility] and [place] and this fistula has been ligated. Patient is having dialysis outside [place]. Patient also has been seen by Infectious Disease and IV antibiotic cultures are pending. MEDICAL HISTORY: History of atrial fibrillation, coronary artery disease, heart failure, history of CVA, history of dementia, history of diabetes mellitus. On examination, patient was seen in his room. His neck is supple, has a right IJ catheter. Chest is clear. Abdomen is soft. Left arm fistula was evaluated. There is some slight redness noted on the upper arm. No local ( ) noticed. There is a small drainage from the puncture site of the graft. Graft has no ( ), is occluded and has been tied up when patient was in [place]. Plan is we are waiting for a culture report and we continue with IV antibiotic and follow up with you. SURESH
[2016-10-10] MEDS ORDERED: FUROSEMIDE 40 MG TAB PO SCH (09:00)
[2016-10-10] MEDS: SYMBICORT 80-4.5 MCG INHALER INHALATION SCH ×2 (09:04→20:57)
--- NOTE | 2016-10-10 09:11 | P.PN ---
Subjective Patient is seen in follow-up for end-stage renal disease. He is maintained on hemodialysis on a Friday schedule. Permacath. He does have a left upper extremity AV graft which is occluded. There also appears to be an infection at the graft site with cultures positive for MRSA. Patient's currently resting in bed. Denies chest pain or shortness of breath. No vomiting or diarrhea. Vital signs are stable. General: The patient appeared well nourished and normally developed. HEENT: Head exam is unremarkable. Neck is without jugular venous distension. LUNGS: Lungs are clear to auscultation and percussion. Breath sounds decreased. HEART: Rate and Rhythm are regular. First and second heart sounds normal. No murmurs, rubs or gallops. ABDOMEN: Abdominal exam reveals normal bowel sounds. Non-tender and non- distended. No evidence of peritonitis. EXTREMITITES: No clubbing, cyanosis, or edema. No obvious drainage from the graft site. Objective - Vital Signs Vital signs: Vital Signs Temp 97.3 F L 10/10/16 04:00 Pulse 73 10/10/16 04:00 Resp 16 10/10/16 04:00 BP 155/83 10/10/16 04:00 Pulse Ox 96 10/10/16 04:00 Intake & Output 10/09/16 10/10/16 10/10/16 18:59 06:59 18:59 Intake Total 418 Balance 418 Weight 59.5 kg Intake: Oral 418 Other: # Voids 0 # Bowel Movements 1 - Labs CBC & Chem 7: 10/10/16 07:10 10/10/16 07:10 Labs: Abnormal Lab Results - Last 24 Hours (Table) 10/09/16 10/09/16 10/09/16 Range/Units 11:31 11:31 11:42 WBC 15.7 H (3.8-10.6) k/uL RBC 3.22 L (4.30-5.90) m/uL Hgb 10.0 L (13.0-17.5) gm/dL Hct 29.4 L (39.0-53.0) % RDW 17.3 H (11.5-15.5) % Sodium 134 L (137-145) mmol/L Potassium 5.6 H (3.5-5.1) mmol/L Carbon Dioxide 20 L (22-30) mmol/L BUN 53 H (9-20) mg/dL Creatinine 10.58 H* (0.66-1.25) mg/dL Glucose 157 H (74-99) mg/dL POC Glucose (mg/dL) 160 H (75-99) mg/dL 10/09/16 10/09/16 10/10/16 Range/Units 16:53 20:32 05:56 WBC (3.8-10.6) k/uL RBC (4.30-5.90) m/uL Hgb (13.0-17.5) gm/dL Hct (39.0-53.0) % RDW (11.5-15.5) % Sodium (137-145) mmol/L Potassium (3.5-5.1) mmol/L Carbon Dioxide (22-30) mmol/L BUN (9-20) mg/dL Creatinine (0.66-1.25) mg/dL Glucose (74-99) mg/dL POC Glucose (mg/dL) 130 H 147 H 117 H (75-99) mg/dL 10/10/16 10/10/16 Range/Units 07:10 07:10 WBC 13.7 H (3.8-10.6) k/uL RBC 3.40 L (4.30-5.90) m/uL Hgb 10.4 L (13.0-17.5) gm/dL Hct 30.7 L (39.0-53.0) % RDW 17.2 H (11.5-15.5) % Sodium (137-145) mmol/L Potassium (3.5-5.1) mmol/L Carbon Dioxide (22-30) mmol/L BUN 34 H (9-20) mg/dL Creatinine 7.54 H* (0.66-1.25) mg/dL Glucose 122 H (74-99) mg/dL POC Glucose (mg/dL) (75-99) mg/dL Microbiology - Last 24 Hours (Table) 10/08/16 19:10 Blood Culture - Preliminary Blood No Growth after 24 hours 10/08/16 09:40 Gram Stain - Preliminary Arm - Left Wound Culture - Preliminary Presumptive MRSA Assessment and Plan Plan: Assessment: #1. End-stage renal disease maintained on hemodialysis on a Friday schedule via right chest permacath. #2. Hypotension. Possibly related to underlying sepsis. Resolved. #3. Insulin-dependent diabetes mellitus. #4. Left upper extremity AV graft infection with culture positive for MRSA. Plan: Hemodialysis tomorrow. Antibiotics per infectious disease recommendations. Vascular surgery also following. Maintain Renvela with meals.
[2016-10-10] MEDS: HYDROcodone/APAP 5-325MG 1 EACH TAB PO SCH ×3 (09:23→21:22)
[2016-10-10] MEDS: ARIPiprazole 15 MG TAB PO SCH (09:24)
[2016-10-10] MEDS: ASPIRIN 81 MG CHEW PO SCH (09:24)
[2016-10-10] MEDS: DIVALPROEX SPRINKLE 125 MG CAP.SPRINK PO SCH ×3 (09:24→21:19)
[2016-10-10] MEDS: GABAPENTIN 300 MG CAP PO SCH ×2 (09:24→21:19)
[2016-10-10] MEDS: SERTRALINE 50 MG TAB PO SCH (09:24)
[2016-10-10] MEDS: SERTRALINE 100 MG TAB PO SCH (09:24)
[2016-10-10] MEDS ORDERED: ERGOCALCIFEROL 50,000 UNIT CAP PO SCH (12:00)
[2016-10-10] MEDS: FOLIC ACID 1 MG TAB PO SCH (12:06)
[2016-10-10 12:07] LABS: Glucose,Whole Blood 158 mg/dL (75-99)
[2016-10-10 16:56] LABS: Glucose,Whole Blood 128 mg/dL (75-99)
--- NOTE | 2016-10-10 20:47 | PN ---
DATE OF SERVICE: 10/10/2016 REASON FOR FOLLOWUP: Left arm AV fistula site infection with MRSA. INTERVAL HISTORY: The patient is afebrile. Overall pain to the left arm is currently controlled. Patient denies significant chest pain or shortness of breath or cough. No abdominal pain or any diarrhea. On examination, blood pressure 159/82 with a pulse of 65, temperature 97.6. He is 94% on room air. General description is an elderly male lying in bed; no distress. RESPIRATORY SYSTEM: Unlabored breathing. Clear to auscultation anteriorly. HEART: S1, S2. Regular rate and rhythm. ABDOMEN: Soft. No tenderness. Left arm AV fistula site overall swelling and redness have slightly improved. No drainage was noticed. LABS: White count down to 13.7. DIAGNOSTIC IMPRESSION AND PLAN: Patient admitted to hospital with sepsis with a left arm AV fistula site infection. Cultures are positive for MRSA. Will discuss with the vascular surgeon for further exploration to make sure there is no evidence of any deep infection. Antibiotics will be continued in the form of vancomycin. The patient will likely need to continue on IV vancomycin in the outpatient setting for at least 2 to 3 weeks, depending on his clinical response. Continue supportive care. MTDD
[2016-10-10 21:07] LABS: Glucose,Whole Blood 187 mg/dL (75-99)
[2016-10-10] MEDS: FAMOTIDINE 20 MG TAB PO SCH (21:19)
[2016-10-10] MEDS: FINASTERIDE 5 MG TAB PO SCH (21:19)
[2016-10-11] MEDS: SEVELAMER 800 MG TAB PO SCH ×2 (06:22→07:53)
[2016-10-11 06:50] LABS: Calcium 9.7 mg/dL (8.4-10.2); Potassium 4.7 mmol/L (3.5-5.1)
[2016-10-11 06:55] LABS: Glucose,Whole Blood 106 mg/dL (75-99)
[2016-10-11] MEDS: INSULIN LISPRO (humaLOG) 300 UNIT/3 ML VIAL SQ SCH ×2 (06:59→11:43)
[2016-10-11] MEDS: SYMBICORT 80-4.5 MCG INHALER INHALATION SCH (07:10)
[2016-10-11] MEDS: HYDROcodone/APAP 5-325MG 1 EACH TAB PO SCH (07:52)
[2016-10-11] MEDS: DIVALPROEX SPRINKLE 125 MG CAP.SPRINK PO SCH ×2 (07:52→14:27)
[2016-10-11] MEDS: SERTRALINE 50 MG TAB PO SCH (07:52)
[2016-10-11] MEDS: GABAPENTIN 300 MG CAP PO SCH (07:52)
[2016-10-11] MEDS: MIDODRINE 5 MG TAB PO SCH (07:52)
[2016-10-11] MEDS: SERTRALINE 100 MG TAB PO SCH (07:52)
[2016-10-11] MEDS: FOLIC ACID 1 MG TAB PO SCH (07:52)
[2016-10-11] MEDS: ASPIRIN 81 MG CHEW PO SCH (07:53)
[2016-10-11] MEDS: ARIPiprazole 15 MG TAB PO SCH (07:53)
[2016-10-11] MEDS ORDERED: hydrALAZINE HCL 25 MG TAB PO SCH (09:00)
--- NOTE | 2016-10-11 09:05 | P.PN ---
Subjective Patient is seen in follow-up for end-stage renal disease. He is maintained on hemodialysis on a Friday schedule via permacath. He does have a left upper extremity AV graft which is occluded. There also appears to be an infection at the graft site with cultures positive for MRSA. Patient's currently resting in bed. Denies chest pain or shortness of breath. No vomiting or diarrhea. Hemodynamically stable. No major events overnight. Vital signs are stable. General: The patient appeared well nourished and normally developed. HEENT: Head exam is unremarkable. Neck is without jugular venous distension. LUNGS: Lungs are clear to auscultation and percussion. Breath sounds decreased. HEART: Rate and Rhythm are regular. First and second heart sounds normal. No murmurs, rubs or gallops. ABDOMEN: Abdominal exam reveals normal bowel sounds. Non-tender and non- distended. No evidence of peritonitis. EXTREMITITES: No clubbing, cyanosis, or edema. No obvious drainage from the graft site. Objective - Vital Signs Vital signs: Vital Signs Temp 97.7 F 10/11/16 07:00 Pulse 61 10/11/16 07:00 Resp 16 10/11/16 07:00 BP 183/83 10/11/16 07:00 Pulse Ox 93 L 10/11/16 07:10 Intake & Output 10/10/16 10/11/16 10/11/16 18:59 06:59 18:59 Intake Total 360 200 Balance 360 200 Weight 68.5 kg Intake: Oral 360 200 Other: # Voids 0 # Bowel Movements 1 0 - Labs CBC & Chem 7: 10/10/16 07:10 10/11/16 06:10 Labs: Abnormal Lab Results - Last 24 Hours (Table) 10/10/16 10/10/16 10/10/16 Range/Units 11:36 16:52 21:04 BUN (9-20) mg/dL Creatinine (0.66-1.25) mg/dL Glucose (74-99) mg/dL POC Glucose (mg/dL) 158 H 128 H 187 H (75-99) mg/dL 10/11/16 10/11/16 Range/Units 06:10 06:48 BUN 49 H (9-20) mg/dL Creatinine 9.30 H* (0.66-1.25) mg/dL Glucose 109 H (74-99) mg/dL POC Glucose (mg/dL) 106 H (75-99) mg/dL Microbiology - Last 24 Hours (Table) 10/08/16 19:10 Blood Culture - Preliminary Blood No Growth after 48 hours 10/08/16 09:40 Gram Stain - Final Arm - Left Wound Culture - Final Methicillin resist S. aureus Assessment and Plan Plan: Assessment: #1. End-stage renal disease maintained on hemodialysis on a Friday schedule via right chest permacath. #2. Hypotension. Possibly related to underlying sepsis. Resolved. Patient is now hypertensive. #3. Insulin-dependent diabetes mellitus. #4. Left upper extremity AV graft infection with culture positive for MRSA. Plan: Hemodialysis today with goal 2-3 L ultrafiltration. Antibiotics per infectious disease recommendations. Vascular surgery also following. No plans for surgical intervention at this time. Maintain Renvela with meals. Add short acting antihypertensive - hydralazine 25 mg 3 times daily. Hold if systolic blood pressure less than 120. Potential discharge today.
[2016-10-11 11:39] LABS: Glucose,Whole Blood 110 mg/dL (75-99)
--- NOTE | 2016-10-11 14:43 | P.DS ---
Providers Date of admission: 10/07/16 20:38 Expected date of discharge: 10/11/16 Attending physician: Jareth Martinez Consults: 10/07/16 20:41 Consult Physician Urgent Consulting Provider: Daniel Castro Consult Reason/Comments: Hemodialysis access, concern for line sepsis Do you want consulting provider notified?: Yes, Notify in am 10/07/16 22:58 Consult Physician Urgent Consulting Provider: Curtis Kirby Consult Reason/Comments: sepsis Do you want consulting provider notified?: Yes, Notify in am 10/07/16 22:59 Consult Physician Urgent Consulting Provider: Ivan Saravia Consult Reason/Comments: dialysis Do you want consulting provider notified?: Yes, Notify in am Primary care physician: Jesus Ordaz Hospital Course: Final Diagnoses: #1 sepsis: Left upper extremity AV graft infection with MRSA. Wound culture positive for MRSA, repeat cultures currently negative 2 end-stage renal disease hemodialysis on Friday and Friday via permacath 3 hypotension possibly due to sepsis, resolved 4 history of atrial fibrillation on anti-coagulation at this time. #5 type 2 diabetes mellitus continue her home regimen titrate the insulin depending on his blood sugars #6 diabetes nephropathy and end-stage renal disease 7 coronary artery disease 8 hypertension patient is presently hypotensive secondary to sepsis 9 sleep apnea on CPAP machine which will be continued Severe osteoarthritis. Hospital course: This is a 66-year-old gentleman admitted for possible sepsis secondary to arm AV fistula site infection, possible abscess. Evaluated by nephrology, infectious disease and vascular surgery. Maintained on IV vancomycin. (Initial wound cultures from [facility] currently unavailable. ) Wound cultures positive for MRSA,repeat blood cultures is currently negative. Evaluated bibasilar surgery with no surgical intervention recommended at this time. Antibiotics as per infectious disease. Cleared by consults for discharge to [facility]. The impression and plan of care has been dictated as directed as a scribe.. : I performed a H&P examination of this patient and discussed the same with the dictator. I agree with the dictator's note. Any additional findings/opinions/ etc. will be noted. Patient Condition at Discharge: Stable Plan - Discharge Summary New Discharge Prescriptions: New hydrALAZINE HCL [Apresoline] 25 mg PO TID tab Continue Sertraline [Zoloft] 50 mg PO DAILY Gabapentin [Neurontin] 300 mg PO BID@0900,2100 Famotidine [Pepcid] 20 mg PO DAILY@2100 Divalproex Sodium [Depakote Sprinkle] 500 mg PO TID@0900,1300,2100 Bisacodyl [Dulcolax] 10 mg PO Q48H PRN PRN Reason: Constipation Aspirin 162 mg PO DAILY ARIPiprazole [Abilify] 15 mg PO DAILY@0900 Renvela 2.4gm/Packet 2.4 gm PO TID@0630,1100,1600 Ergocalciferol [Vitamin D2 (DRISDOL)] 50,000 unit PO TH Folic Acid 1 mg PO DAILY Furosemide [Lasix] 40 mg PO SUTUTHSA@0900 Insulin NPH Hum/Reg Insulin Hm [NovoLIN 70-30 100 UNIT/ML VIAL] 10 unit SQ QAM Sertraline [Zoloft] 100 mg PO DAILY Finasteride [Proscar] 5 mg PO DAILY@2100 Fluticasone/Vilanterol [Breo Ellipta 100-25 Mcg Inhaler] 1 puff INHALATION RT -DAILY Insulin NPH Hum/Reg Insulin Hm [NovoLIN 70-30 100 UNIT/ML VIAL] 12 unit SQ DAILY@2100 Lorazepam Solution 2mg/Ml 0.5 mg IM Q6H PRN PRN Reason: Anxiety Midodrine HCl [ProAmatine] 10 mg PO MOWEFR Renal Multivitamin Fomula 1 tab PO DAILY HYDROcodone/APAP 5-325MG [[place] 5-325] 1 tab PO Q8H PRN #20 PRN Reason: Pain LORazepam [Ativan] 0.5 mg PO Q6H PRN #20 PRN Reason: Anxiety Discontinued HYDROcodone/APAP 5-325MG [[place] 5-325] 1 tab PO TID LORazepam [Ativan] 0.5 mg PO MOWEFR PRN PRN Reason: Anxiety Discharge Medication List ARIPiprazole [Abilify] 15 mg PO DAILY@0900 05/10/16 [History] Aspirin 162 mg PO DAILY 05/10/16 [History] Bisacodyl [Dulcolax] 10 mg PO Q48H PRN 05/10/16 [History] Divalproex Sodium [Depakote Sprinkle] 500 mg PO TID@0900,1300,2100 05/10/16 [ History] Famotidine [Pepcid] 20 mg PO DAILY@209905/10/16 [History] Gabapentin [Neurontin] 300 mg PO BID@0900,209905/10/16 [History] Renvela 2.4gm/Packet 2.4 gm PO TID@0630,1100,1600 05/10/16 [History] Sertraline [Zoloft] 50 mg PO DAILY 05/10/16 [History] Ergocalciferol [Vitamin D2 (DRISDOL)] 50,000 unit PO TH 05/24/16 [History] Folic Acid 1 mg PO DAILY 05/24/16 [History] Furosemide [Lasix] 40 mg PO SUTUTHSA@0905/24/16 [History] Insulin NPH Hum/Reg Insulin Hm [NovoLIN 70-30 100 UNIT/ML VIAL] 10 unit SQ QAM 07/29/16 [History] Sertraline [Zoloft] 100 mg PO DAILY 07/29/16 [History] Finasteride [Proscar] 5 mg PO DAILY@209910/07/16 [History] Fluticasone/Vilanterol [Breo Ellipta 100-25 Mcg Inhaler] 1 puff INHALATION RT- DAILY 10/07/16 [History] Insulin NPH Hum/Reg Insulin Hm [NovoLIN 70-30 100 UNIT/ML VIAL] 12 unit SQ DAILY @209910/07/16 [History] Lorazepam Solution 2mg/Ml 0.5 mg IM Q6H PRN 10/07/16 [History] Midodrine HCl [ProAmatine] 10 mg PO MOWEFR 10/07/16 [History] Renal Multivitamin Fomula 1 tab PO DAILY 10/07/16 [History] HYDROcodone/APAP 5-325MG [[place] 5-325] 1 tab PO Q8H PRN #20 10/11/16 [Rx] LORazepam [Ativan] 0.5 mg PO Q6H PRN #10/11/16 [Rx] hydrALAZINE HCL [Apresoline] 25 mg PO TID tab 10/11/16 [Rx] Follow up Appointment(s)/Referral(s): Jesus Ordaz MD [Primary Care Provider] - 3 Days Patient Instructions/Handouts: Heart Failure (DC), Type 2 Diabetes in Adults ( DC) Activity/Diet/Wound Care/Special Instructions: Antibiotics as per infectious disease please note parameters placed on hydralazine;hold if systolic blood pressure less than 120 Hemodialysis as per nephrology Diet: Renal Anticoagulation:
[2016-10-11 14:58] VITALS: BP 155/88; PULSE 88; RESP 17; TEMP 97
--- NOTE | 2016-10-11 17:15 | PN ---
DATE OF SERVICE: 10/11/2016 Reason for follow up is left arm AV fistula site infection, MRSA. INTERVAL HISTORY: The patient is afebrile. He is breathing comfortably. The patient denies any significant chest pain, shortness of breath, cough. No abdominal pain. Mildly worsening pain in the left arm area. On examination, blood pressure is 183/83 with a pulse of 51. Temperature 97.7, he is 97% on room air. General description is an elderly male lying in the bed in no distress. Respiratory system unlabored breathing. Clear to auscultation anteriorly. Heart S1, S2 regular rate and rhythm. Abdomen soft, no tenderness. Labs are BUN 49, creatinine 9.3, blood culture remains to be negative. DIAGNOSTIC IMPRESSION AND PLAN: The patient admitted to the hospital, source left arm, AV fistula site infection. Surgery not recommending any surgical aspiration at this point and wants the patient to follow with their own surgeon in [place]. The patient will be continued on Vancomycin pharmacy to dose ( ) the patient evaluated there. Continue supportive care. MTDD
--- NOTE | 2016-10-11 18:29 | P.PN ---
Subjective Date of service 10/10/2016. Progress note being dictated for Dr. Martinez Interval history:patient was admitted for possible sepsis secondary to central line infection as a dialysis catheter infection. So far blood cultures are negative. Patient on IV vancomycin. Wound cultures are negative as well. 10/10/2016 graft site Cultures Positive for MRSA, blood cultures pending. Maintained on vancomycin. Breathing improved. Denies any chest pain palpitations or increasing shortness of breath. Complains of mild left arm pain. Vascular surgery in recommending surgical intervention at this time and patient to follow with own surgeon. Objective - Vital Signs Vital signs: Vital Signs Temp 97.6 F 10/10/16 12:00 Pulse 78 10/10/16 16:00 Resp 16 10/10/16 16:00 BP 159/82 10/10/16 12:00 Pulse Ox 94 L 10/10/16 12:00 Intake & Output 10/09/16 10/10/16 10/10/16 18:59 06:59 18:59 Intake Total 418 360 Balance 418 360 Weight 59.5 kg Intake: Oral 418 360 Other: # Voids 0 # Bowel Movements 1 1 - Exam GENERAL: The patient is alert and oriented x3, not in any acute distress. Well developed, well nourished. The right-sided permacath along with left hand fistula with skin breakdown. HEENT: Pupils are round and equally reacting to light. EOMI. No scleral icterus. No conjunctival pallor. Normocephalic, atraumatic. No pharyngeal erythema. No thyromegaly. CARDIOVASCULAR: S1 and S2 present. No murmurs, rubs, or gallops. PULMONARY: Chest is clear to auscultation, no wheezing or crackles. ABDOMEN: Soft, nontender, nondistended, normoactive bowel sounds. No palpable organomegaly. MUSCULOSKELETAL: No joint swelling or deformity. EXTREMITIES: No cyanosis, clubbing, or pedal edema. NEUROLOGICAL: Gross neurological examination did not reveal any focal deficits. SKIN: No rashes. - Labs CBC & Chem 7: 10/10/16 07:10 10/11/16 06:10 Labs: Abnormal Lab Results - Last 24 Hours (Table) 10/09/16 10/10/16 10/10/16 Range/Units 20:32 05:56 07:10 WBC (3.8-10.6) k/uL RBC (4.30-5.90) m/uL Hgb (13.0-17.5) gm/dL Hct (39.0-53.0) % RDW (11.5-15.5) % BUN 34 H (9-20) mg/dL Creatinine 7.54 H* (0.66-1.25) mg/dL Glucose 122 H (74-99) mg/dL POC Glucose (mg/dL) 147 H 117 H (75-99) mg/dL 10/10/16 10/10/16 10/10/16 Range/Units 07:10 11:36 16:52 WBC 13.7 H (3.8-10.6) k/uL RBC 3.40 L (4.30-5.90) m/uL Hgb 10.4 L (13.0-17.5) gm/dL Hct 30.7 L (39.0-53.0) % RDW 17.2 H (11.5-15.5) % BUN (9-20) mg/dL Creatinine (0.66-1.25) mg/dL Glucose (74-99) mg/dL POC Glucose (mg/dL) 158 H 128 H (75-99) mg/dL Microbiology - Last 24 Hours (Table) 10/08/16 09:40 Gram Stain - Final Arm - Left Wound Culture - Final Methicillin resist S. aureus 10/08/16 19:10 Blood Culture - Preliminary Blood No Growth after 24 hours Assessment and Plan Plan: #1 sepsis: Left upper extremity AV graft infection with MRSA. Wound culture positive for MRSA, repeat cultures currently negative 2 end-stage renal disease hemodialysis on Friday and Friday via permacath 3 hypotension possibly due to sepsis, resolved 4 history of atrial fibrillation on anti-coagulation at this time. #5 type 2 diabetes mellitus continue her home regimen titrate the insulin depending on his blood sugars #6 diabetes nephropathy and end-stage renal disease 7 coronary artery disease 8 hypertension patient is presently hypotensive secondary to sepsis 9 sleep apnea on CPAP machine which will be continued Severe osteoarthritis. Plan: Continue on current medication regime ,monitoring and symptomatic treatment. Vascular surgery recommendations noted-surgical intervention as mentioned above at this time ,patient to follow with own surgeon. Antibiotics as per infectious disease. Hemodialysis tomorrow. Discharge planning in progress for return to ECF rehab tomorrow. The impression and plan of care has been dictated as directed. : I performed a H&P examination of this patient and discussed the same with the dictator. I agree with the dictator's note. Any additional findings/opinions/ etc. will be noted.
== END 2016-10-11 16:26 | DRG 314 ==
LOC: EC 18:27 → 6SEL 20:38 → 4MS4W 10-10 16:59
PROVIDERS: ADMIT Hospitalist; ATTEND Hospitalist
DX: T82.7XXA Infection and inflammatory reaction due to other cardiac and vascular devices, implants and grafts, initial encounter (principal); A41.02 Sepsis due to Methicillin resistant Staphylococcus aureus; N18.6 End stage renal disease; I13.2 Hypertensive heart and chronic kidney disease with heart failure and with stage 5 chronic kidney disease, or end stage renal disease; E11.21 Type 2 diabetes mellitus with diabetic nephropathy; I48.91 Unspecified atrial fibrillation; J98.11 Atelectasis; F03.90 Unspecified dementia, unspecified severity, without behavioral disturbance, psychotic disturbance, mood disturbance, and anxiety; E11.22 Type 2 diabetes mellitus with diabetic chronic kidney disease; E78.5 Hyperlipidemia, unspecified; F41.9 Anxiety disorder, unspecified; G47.30 Sleep apnea, unspecified; I25.10 Atherosclerotic heart disease of native coronary artery without angina pectoris; I50.9 Heart failure, unspecified; M19.90 Unspecified osteoarthritis, unspecified site; Y83.2 Surgical operation with anastomosis, bypass or graft as the cause of abnormal reaction of the patient, or of later complication, without mention of misadventure at the time of the procedure; Z79.4 Long term (current) use of insulin; Z79.82 Long term (current) use of aspirin; Z79.899 Other long term (current) drug therapy; Z82.49 Family history of ischemic heart disease and other diseases of the circulatory system; Z83.3 Family history of diabetes mellitus; Z86.73 Personal history of transient ischemic attack (TIA), and cerebral infarction without residual deficits; Z87.891 Personal history of nicotine dependence; Z99.2 Dependence on renal dialysis
CPT/HCPCS: 71010; 80048; 80053; 80202; 83036; 83605; 83735; 84100; 85025; 85027; 87040; 87070; 87077; 87186; 87205; 90935; 94640; 94760; 99291

== ENCOUNTER 2017-09-05 09:26 | Inpatient (IN) | payer MEDICARE, BC, OTHER ==
[2017-09-05] MEDS ORDERED: NALOXONE 0.4 MG/ML 1 ML VIAL IV PRN ×2 (09:49→11:21)
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
[2017-09-05] MEDS ORDERED: IPRATROPIUM-ALBUTEROL 3 ML NEB INHALATION STA (11:14)
[2017-09-05] MEDS ORDERED: ONDANSETRON 4 MG/2 ML VIAL IVP PRN (11:21)
[2017-09-05] MEDS ORDERED: SODIUM CHLORIDE 0.9% 1,000 ML IV STA (11:36)
[2017-09-05] MEDS ORDERED: VANCOMYCIN IV PER PHARMACY 1 EACH MISC MISCELLANE PRN (11:36)
[2017-09-05] MEDS ORDERED: VANCOMYCIN 1,250 MG in SODIUM CHLORIDE 0.9% 250 ML IVPB ONE (11:44)
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
[2017-09-05 11:54] LABS: Glucose,Whole Blood 313 mg/dL (75-99)
[2017-09-05] MEDS ORDERED: VANCOMYCIN 1,500 MG in SODIUM CHLORIDE 0.9% 250 ML IVPB ONE (12:00)
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
[2017-09-05] MEDS: PIPERACILLIN-TAZOBACTAM 3.375 GM in DEXTROSE/WATER 1 50ML.BAG IVPB SCH ×2 (12:27→23:40)
[2017-09-05] MEDS: INSULIN ASPART 100 UNIT/ML 1 ML 10 ML VIAL SQ SCH ×3 (12:28→21:15)
--- NOTE | 2017-09-05 13:09 | XR ---
EXAMINATION TYPE: XR chest 1V portable DATE OF EXAM: 09/05/2017 COMPARISON: Prior chest x-ray 10/07/2016 HISTORY: Pneumonia, abnormal chest x-ray TECHNIQUE: Single frontal view of the chest is obtained. FINDINGS: The right jugular central venous catheter has been removed. Lung volumes are low and the p atient is rotated. Heart size is stable accounting for differences in technique. Bibasilar increased density is present. There are overlying cardiac leads. Persistent increased density seen over the rig ht upper chest may be related to previous trauma. IMPRESSION: Basilar atelectasis, correlate to exclude pneumonia. Follow-up suggested.
[2017-09-05 16:50] LABS: Glucose,Whole Blood 128 mg/dL (75-99)
[2017-09-05 20:43] LABS: Glucose,Whole Blood 179 mg/dL (75-99)
[2017-09-06 06:13] LABS: Glucose,Whole Blood 229 mg/dL (75-99)
[2017-09-06] MEDS: INSULIN ASPART 100 UNIT/ML 1 ML 10 ML VIAL SQ SCH ×4 (06:40→20:58)
[2017-09-06 06:42] LABS: Anisocytosis Slight; Basophils % (A) 0 %; Eosinophils # (A) 0.5 k/uL (0-0.7); Eosinophils % (A) 5 %; HCT 35.5 % (39.0-53.0); HGB 11.8 gm/dL (13.0-17.5); Lymphocytes # (A) 1.2 k/uL (1.0-4.8); Lymphocytes % (A) 12 %; MCH 32.4 pg (25.0-35.0); MCHC 33.2 g/dL (31.0-37.0); MCV 97.5 fL (80.0-100.0); Macrocytosis Slight; Mean Platelet Volume 7.2; Monocytes # (A) 0.9 k/uL (0-1.0); Monocytes % (A) 10 %; Neutrophils # (A) 6.6 k/uL (1.3-7.7); Neutrophils % (A) 70 %; Platelet Count 173 k/uL (150-450); RBC 3.64 m/uL (4.30-5.90); RDW 17.9 % (11.5-15.5); WBC 9.4 k/uL (3.8-10.6)
[2017-09-06 06:55] LABS: Albumin 3.7 g/dL (3.5-5.0); Calcium 9.3 mg/dL (8.4-10.2); Magnesium 2.1 mg/dL (1.6-2.3); Phosphorus 5.1 mg/dL (2.5-4.5); Potassium 5.1 mmol/L (3.5-5.1); Total Bilirubin 0.6 mg/dL (0.2-1.3); Total Protein 6.4 g/dL (6.3-8.2)
[2017-09-06] MEDS ORDERED: VANCOMYCIN 1,500 MG in SODIUM CHLORIDE 0.9% 250 ML IVPB ONE (09:00)
--- NOTE | 2017-09-06 09:25 | P.PN ---
Subjective Patient is seen in follow-up for end-stage renal disease. He is maintained on hemodialysis on a Friday schedule. Patient presented with hypotension and tachycardia at the dialysis center. He tolerated hemodialysis well yesterday. Oral intake is good. Denies chest pain or shortness of breath. He is maintained on empiric antibiotics. Cultures are pending. Vital signs are stable. General: The patient appeared well nourished and normally developed. HEENT: Head exam is unremarkable. Neck is without jugular venous distension. LUNGS: Lungs are clear to auscultation and percussion. Breath sounds decreased. HEART: Rate and Rhythm are regular. First and second heart sounds normal. No murmurs, rubs or gallops. ABDOMEN: Abdominal exam reveals normal bowel sounds. Non-tender and non- distended. No evidence of peritonitis. EXTREMITITES: No clubbing, cyanosis, or edema. Objective - Vital Signs Vital signs: Vital Signs Temp 100.1 F H 09/06/17 03:30 Pulse 104 H 09/06/17 03:30 Resp 18 09/06/17 03:30 BP 109/51 09/06/17 03:30 Pulse Ox 91 L 09/06/17 03:30 Intake & Output 09/05/17 09/06/17 09/06/17 18:59 06:59 18:59 Weight 83.007 kg 84 kg Other: # Voids 0 - Labs CBC & Chem 7: 09/06/17 06:08 09/06/17 06:08 Labs: Abnormal Lab Results - Last 24 Hours (Table) 09/05/17 09/05/17 09/05/17 Range/Units 11:21 12:28 12:28 RBC (4.30-5.90) m/uL Hgb (13.0-17.5) gm/dL Hct (39.0-53.0) % RDW (11.5-15.5) % Sodium (137-145) mmol/L Chloride (98-107) mmol/L BUN (9-20) mg/dL Creatinine (0.66-1.25) mg/dL Glucose (74-99) mg/dL POC Glucose (mg/dL) 313 H (75-99) mg/dL Plasma Lactic Acid Olman 2.6 H* (0.7-2.0) mmol/L Phosphorus (2.5-4.5) mg/dL Troponin I 0.038 H* (0.000-0.034) ng/mL 09/05/17 09/05/17 09/05/17 Range/Units 16:42 18:02 20:38 RBC (4.30-5.90) m/uL Hgb (13.0-17.5) gm/dL Hct (39.0-53.0) % RDW (11.5-15.5) % Sodium (137-145) mmol/L Chloride (98-107) mmol/L BUN (9-20) mg/dL Creatinine (0.66-1.25) mg/dL Glucose (74-99) mg/dL POC Glucose (mg/dL) 128 H 179 H (75-99) mg/dL Plasma Lactic Acid Olman (0.7-2.0) mmol/L Phosphorus (2.5-4.5) mg/dL Troponin I 0.037 H* (0.000-0.034) ng/mL 09/06/17 09/06/17 09/06/17 Range/Units 06:08 06:08 06:10 RBC 3.64 L (4.30-5.90) m/uL Hgb 11.8 L (13.0-17.5) gm/dL Hct 35.5 L (39.0-53.0) % RDW 17.9 H (11.5-15.5) % Sodium 136 L (137-145) mmol/L Chloride 96 L (98-107) mmol/L BUN 37 H (9-20) mg/dL Creatinine 9.00 H* (0.66-1.25) mg/dL Glucose 211 H (74-99) mg/dL POC Glucose (mg/dL) 229 H (75-99) mg/dL Plasma Lactic Acid Olman (0.7-2.0) mmol/L Phosphorus 5.1 H (2.5-4.5) mg/dL Troponin I (0.000-0.034) ng/mL Assessment and Plan Plan: Assessment: 1. End-stage renal disease maintained on hemodialysis on a Friday schedule via AV graft. 2. Bilateral infiltrates with concern for pneumonia. 3. Hypertension with chronic kidney disease. Controlled. 4. Acute hypoxic respiratory failure secondary to pneumonia. 5. Insulin-dependent diabetes mellitus. Plan: Hemodialysis Friday. Maintain normal saline at 50 mL an hour. Follow-up cultures. Check UA and urine culture as well. Phosphorus level near goal at 5.1. Empiric antibiotics. Case discussed with primary team. Monitor vancomycin levels closely - target level of 15.
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
[2017-09-06 12:19] LABS: Glucose,Whole Blood 176 mg/dL (75-99)
[2017-09-06] MEDS: PIPERACILLIN-TAZOBACTAM 3.375 GM in DEXTROSE/WATER 1 50ML.BAG IVPB SCH ×2 (13:02→23:22)
[2017-09-06] MEDS ORDERED: HYDROcodone/APAP 5-325MG 1 EACH TAB PO PRN (13:59)
[2017-09-06] MEDS ORDERED: BISACODYL 5 MG TABLET.DR PO PRN (13:59)
[2017-09-06] MEDS: hydrALAZINE HCL 25 MG TAB PO SCH ×2 (15:16→20:45)
[2017-09-06] MEDS: SERTRALINE 50 MG TAB PO SCH (15:16)
[2017-09-06] MEDS: ASPIRIN 81 MG PO SCH (15:16)
[2017-09-06] MEDS: FOLIC ACID 1 MG TAB PO SCH (15:17)
[2017-09-06] MEDS: FAMOTIDINE 20 MG TAB PO SCH (15:17)
[2017-09-06] MEDS: MAGNESIUM HYDROXIDE 2,400 MG/10 ML CUP PO SCH (15:17)
[2017-09-06] MEDS: FOLIC ACID-VIT B COMPLEX-VIT C 1 CAP PO SCH (15:18)
[2017-09-06 17:06] LABS: Glucose,Whole Blood 285 mg/dL (75-99)
--- NOTE | 2017-09-06 17:20 | P.PN ---
Subjective Progress Note Date: 09/06/17 Principal diagnosis: Hypoxia Patient had a low-grade temperature last night. Today he has not had any fevers. He denied having any shortness of breath or chest pain. Objective - Vital Signs Vital signs: Vital Signs Temp 97.9 F 09/06/17 16:00 Pulse 89 09/06/17 16:00 Resp 18 09/06/17 16:00 BP 120/70 09/06/17 16:00 Pulse Ox 96 09/06/17 16:00 Intake & Output 09/05/17 09/06/17 09/06/17 18:59 06:59 18:59 Intake Total 100 Output Total 0 Balance 100 Weight 83.007 kg 84 kg Intake: Oral 100 Output: Urine 0 Other: # Voids 0 - Exam Constitutional: Awake, no acute distress Eyes:Anicteric sclerae, moist conjunctiva, no lid-lag, PERRLA, ENMT: Oropharynx clear, no erythema, exudates Neck: Supple, FROM, no masses, or JVD, No carotid bruits, No thyromegaly Lungs: Clear to auscultation, Clear to percussion, Normal respiratory effort, no accessory muscle use Cardiovascular: Heart regular in rate and rhythm, No murmurs, gallops, or rubs, No peripheral edema Abdominal: Soft, Nontender, no guarding, rebound or rigidity, Normoactive bowel sounds, No hepatomegaly, No splenomegaly, No palpable mass Skin: Normal temperature, tone, texture, turgor, no induration, No subcutaneous nodules, No rash, lesions, No ulcers Extremities: No digital cyanosis, No clubbing, Pedal pulses intact and symmetrical, Radial pulses intact and symmetrical, No calf tenderness Neuro:general weakness, focal sensory deficits - Labs CBC & Chem 7: 09/06/17 06:08 09/06/17 06:08 Labs: Abnormal Lab Results - Last 24 Hours (Table) 09/05/17 09/05/17 09/06/17 Range/Units 18:02 20:38 06:08 RBC 3.64 L (4.30-5.90) m/uL Hgb 11.8 L (13.0-17.5) gm/dL Hct 35.5 L (39.0-53.0) % RDW 17.9 H (11.5-15.5) % Sodium (137-145) mmol/L Chloride (98-107) mmol/L BUN (9-20) mg/dL Creatinine (0.66-1.25) mg/dL Glucose (74-99) mg/dL POC Glucose (mg/dL) 179 H (75-99) mg/dL Phosphorus (2.5-4.5) mg/dL Troponin I 0.037 H* (0.000-0.034) ng/mL 09/06/17 09/06/17 09/06/17 Range/Units 06:08 06:10 12:16 RBC (4.30-5.90) m/uL Hgb (13.0-17.5) gm/dL Hct (39.0-53.0) % RDW (11.5-15.5) % Sodium 136 L (137-145) mmol/L Chloride 96 L (98-107) mmol/L BUN 37 H (9-20) mg/dL Creatinine 9.00 H* (0.66-1.25) mg/dL Glucose 211 H (74-99) mg/dL POC Glucose (mg/dL) 229 H 176 H (75-99) mg/dL Phosphorus 5.1 H (2.5-4.5) mg/dL Troponin I (0.000-0.034) ng/mL 09/06/17 Range/Units 16:52 RBC (4.30-5.90) m/uL Hgb (13.0-17.5) gm/dL Hct (39.0-53.0) % RDW (11.5-15.5) % Sodium (137-145) mmol/L Chloride (98-107) mmol/L BUN (9-20) mg/dL Creatinine (0.66-1.25) mg/dL Glucose (74-99) mg/dL POC Glucose (mg/dL) 285 H (75-99) mg/dL Phosphorus (2.5-4.5) mg/dL Troponin I (0.000-0.034) ng/mL Microbiology - Last 24 Hours (Table) 09/05/17 12:28 Blood Culture - Preliminary Blood No Growth after 24 hours Assessment and Plan Plan: Acute hypoxic respiratory failure/shortness of breath Likely sec to aspiration pneumonia versus healthcare associated pneumonia Continue Zosyn, was given 1 dose of vancomycin yesterday Blood cultures follow-up. Acute sepsis: Resolved UA and urine cultures if indicated. Zosyn and Vanco as above Gentle IV fluids hydration Blood cultures obtained, follow Lactic acid was initially elevated at 2.6, normalized later source of infection likely pneumonia ESRD On dialysis M, W, F Hemodialysis Friday Atrial Fibrillation, Coronary Artery Disease (CAD), Heart Failure, Hx of CVA/TIA , Dementia, Diabetes Mellitus type 2, Hyperlipidemia, Hypertension, Memory Impairment, Osteoarthritis (OA), Sleep Apnea/CPAP/BIPAP, HX R FOOT DIABETIC ULCER WITH MRSA WHICH WAS TX AND HEALED: Stable Resume meds. DVT prophylaxis: Heparin sq
[2017-09-06] MEDS: GABAPENTIN 300 MG CAP PO SCH (17:46)
[2017-09-06] MEDS: SEVELAMER 800 MG TAB PO SCH (17:46)
[2017-09-06] MEDS: DIVALPROEX SPRINKLE 125 MG CAP.SPRINK PO SCH (20:44)
[2017-09-06] MEDS: FINASTERIDE 5 MG TAB PO SCH (20:45)
[2017-09-06 20:54] LABS: Glucose,Whole Blood 194 mg/dL (75-99)
[2017-09-06] MEDS: INSULIN DETEMIR 100 UNIT/ML 10 ML VIAL SQ SCH (20:58)
[2017-09-07 06:13] LABS: Glucose,Whole Blood 115 mg/dL (75-99)
[2017-09-07] MEDS: INSULIN ASPART 100 UNIT/ML 1 ML 10 ML VIAL SQ SCH ×4 (06:15→21:06)
[2017-09-07] MEDS: DIVALPROEX SPRINKLE 125 MG CAP.SPRINK PO SCH ×3 (06:20→20:57)
[2017-09-07] MEDS: SEVELAMER 800 MG TAB PO SCH ×3 (06:21→17:53)
[2017-09-07 06:27] LABS: Calcium 9.7 mg/dL (8.4-10.2)
[2017-09-07 06:32] LABS: Vancomycin,Random 38.8 ug/mL
[2017-09-07] MEDS: SYMBICORT 80-4.5 MCG INHALER INHALATION SCH ×2 (07:21→20:13)
[2017-09-07] MEDS: FOLIC ACID-VIT B COMPLEX-VIT C 1 CAP PO SCH (07:46)
[2017-09-07] MEDS: FOLIC ACID 1 MG TAB PO SCH (07:46)
[2017-09-07] MEDS: GABAPENTIN 300 MG CAP PO SCH ×2 (07:46→17:53)
[2017-09-07] MEDS: ASPIRIN 81 MG PO SCH (07:46)
[2017-09-07] MEDS: FAMOTIDINE 20 MG TAB PO SCH (07:46)
[2017-09-07] MEDS: SERTRALINE 50 MG TAB PO SCH (07:46)
[2017-09-07] MEDS: hydrALAZINE HCL 25 MG TAB PO SCH ×3 (07:46→20:57)
[2017-09-07] MEDS: MAGNESIUM HYDROXIDE 2,400 MG/10 ML CUP PO SCH (07:47)
[2017-09-07] MEDS: ARIPiprazole 15 MG TAB PO SCH (07:47)
--- NOTE | 2017-09-07 09:15 | P.PN ---
Subjective Patient is seen in follow-up for end-stage renal disease. He is maintained on hemodialysis on a Friday schedule. Patient presented with hypotension and tachycardia at the dialysis center. Oral intake is good. Denies chest pain or shortness of breath. He is maintained on antibiotics for pneumonia. Cultures negative so far. Does admit to a nonproductive cough. Vital signs are stable. General: The patient appeared well nourished and normally developed. HEENT: Head exam is unremarkable. Neck is without jugular venous distension. LUNGS: Lungs are clear to auscultation and percussion. Breath sounds decreased. HEART: Rate and Rhythm are regular. First and second heart sounds normal. No murmurs, rubs or gallops. ABDOMEN: Abdominal exam reveals normal bowel sounds. Non-tender and non- distended. No evidence of peritonitis. EXTREMITITES: No clubbing, cyanosis, or edema. Objective - Vital Signs Vital signs: Vital Signs Temp 98.5 F 09/07/17 07:54 Pulse 75 09/07/17 07:54 Resp 16 09/07/17 07:54 BP 120/63 09/07/17 07:54 Pulse Ox 96 09/07/17 07:54 Intake & Output 09/06/17 09/07/17 09/07/17 18:59 06:59 18:59 Intake Total 300 Output Total 0 Balance 300 Weight 82.5 kg Intake: Oral 300 Output: Urine 0 Other: # Voids 0 # Bowel Movements 1 - Labs CBC & Chem 7: 09/06/17 06:08 09/07/17 05:55 Labs: Abnormal Lab Results - Last 24 Hours (Table) 09/06/17 09/06/17 09/06/17 Range/Units 12:16 16:52 20:51 Chloride (98-107) mmol/L BUN (9-20) mg/dL Creatinine (0.66-1.25) mg/dL Glucose (74-99) mg/dL POC Glucose (mg/dL) 176 H 285 H 194 H (75-99) mg/dL 09/07/17 09/07/17 Range/Units 05:55 06:12 Chloride 96 L (98-107) mmol/L BUN 50 H (9-20) mg/dL Creatinine 11.00 H* (0.66-1.25) mg/dL Glucose 117 H (74-99) mg/dL POC Glucose (mg/dL) 115 H (75-99) mg/dL Microbiology - Last 24 Hours (Table) 09/05/17 12:28 Blood Culture - Preliminary Blood No Growth after 24 hours Assessment and Plan Plan: Assessment: 1. End-stage renal disease maintained on hemodialysis on a Friday schedule via AV graft. 2. Bilateral infiltrates with concern for pneumonia maintained on IV antibiotics. 3. Hypertension with chronic kidney disease. Controlled. 4. Acute hypoxic respiratory failure secondary to pneumonia. 5. Insulin-dependent diabetes mellitus. Plan: Hemodialysis Friday. Follow-up cultures. Phosphorus level near goal at 5.1. Monitor vancomycin levels closely - target level of 15.
--- NOTE | 2017-09-07 09:19 | P.PN ---
Subjective Progress Note Date: 09/07/17 Principal diagnosis: Hypoxemia Progress note dated 09/07/2017 67-year-old white male was admitted with a diagnosis of possible hypoxemia although when he arrived here on room air saturations were in the mid 90s. Transient desaturation may relate to mild fluid overload and possible right lower lobe infiltrate. He has a history of end-stage renal disease with 3 time a week hemodialysis head injury atrial fibrillation CAD CHF CVA diabetes dementia hyperlipidemia hypertension and a history of sleep apnea. The patient is a poor historian but he appears to be doing relatively well. The patient really does not voice any current medical issues. From our perspective, the patient could be sent back to [facility]. Objective - Vital Signs Vital signs: Vital Signs Temp 98.5 F 09/07/17 07:54 Pulse 75 09/07/17 07:54 Resp 16 09/07/17 07:54 BP 120/63 09/07/17 07:54 Pulse Ox 96 09/07/17 07:54 Intake & Output 09/06/17 09/07/17 09/07/17 18:59 06:59 18:59 Intake Total 300 Output Total 0 Balance 300 Weight 82.5 kg Intake: Oral 300 Output: Urine 0 Other: # Voids 0 # Bowel Movements 1 - Exam No acute distress, oriented 3. Very poor historian. HEENT examination is grossly unremarkable. Mucous membranes are moist. No oral lesions. Neck supple. Full range of motion. No adenopathy thyromegaly or neck vein distention. Cardiovascular examination reveals regular rhythm rate. S1-S2 normal. No S3 or S4. No discernible murmur noted. Lungs reveal very mild bibasilar crackles. A few scattered mild rhonchi. No wheezes. Breath sounds equal bilaterally. Abdomen soft bowel sounds are heard. No masses or tenderness. Extremities are intact. No cyanosis clubbing or edema. Skin is without rash or lesion. Neurologic examination is brief but nonfocal. - Labs CBC & Chem 7: 09/06/17 06:08 09/07/17 05:55 Labs: Abnormal Lab Results - Last 24 Hours (Table) 09/06/17 09/06/17 09/06/17 Range/Units 12:16 16:52 20:51 Chloride (98-107) mmol/L BUN (9-20) mg/dL Creatinine (0.66-1.25) mg/dL Glucose (74-99) mg/dL POC Glucose (mg/dL) 176 H 285 H 194 H (75-99) mg/dL 09/07/17 09/07/17 Range/Units 05:55 06:12 Chloride 96 L (98-107) mmol/L BUN 50 H (9-20) mg/dL Creatinine 11.00 H* (0.66-1.25) mg/dL Glucose 117 H (74-99) mg/dL POC Glucose (mg/dL) 115 H (75-99) mg/dL Microbiology - Last 24 Hours (Table) 09/05/17 12:28 Blood Culture - Preliminary Blood No Growth after 24 hours Assessment and Plan Assessment: Assessment Possible hypoxemia, although here, his saturations on room air are 94-96%, possibly related to fluid overload given this was his dialysis day. End-stage renal disease, with caloric hemodialysis A possible right lower lobe infiltrate although this may represent just areas of atelectasis secondary to not taking deep breaths. History of closed head injury History of atrial fibrillation History of CAD History of CHF History of CVA Diabetes mellitus Dementia Hyperlipidemia Hypertension History of sleep apnea syndrome, currently on CPAP Plan: Plan dated 09/05/2017 I chest x-ray will be ordered. I don't believe the patient needs an arterial blood gas. The patient looks very stable. Labs and x-rays are reviewed. Medications are reviewed. Prognosis is guarded. Plan dated 09/07/2017 The patient is doing very well. We'll repeat a chest x-ray in the morning. It will be a portable. From our perspective the patient could be discharged. No additional recommendations are made. Lab data are reviewed. Microbiology is still negative. Time with Patient: Less than 30
--- NOTE | 2017-09-07 10:45 | P.PN ---
Subjective Progress Note Date: 09/07/17 Principal diagnosis: Hypoxia Patient was going to be discharged today, called the long-term staff and I was told that they cannot obtain new medications on the weekend. Patient does need a new prescription for antibiotics. Discharge was held. Patient is doing well, no fevers or chills, no shortness of breath or chest pain. Objective - Vital Signs Vital signs: Vital Signs Temp 98.5 F 09/07/17 07:54 Pulse 75 09/07/17 07:54 Resp 16 09/07/17 07:54 BP 120/63 09/07/17 07:54 Pulse Ox 96 09/07/17 07:54 Intake & Output 09/06/17 09/07/17 09/07/17 18:59 06:59 18:59 Intake Total 300 Output Total 0 Balance 300 Weight 82.5 kg Intake: Oral 300 Output: Urine 0 Other: # Voids 0 # Bowel Movements 1 - Exam Constitutional: Awake, no acute distress Eyes:Anicteric sclerae, moist conjunctiva, no lid-lag, PERRLA, ENMT: Oropharynx clear, no erythema, exudates Neck: Supple, FROM, no masses, or JVD, No carotid bruits, No thyromegaly Lungs: Clear to auscultation, Clear to percussion, Normal respiratory effort, no accessory muscle use Cardiovascular: Heart regular in rate and rhythm, No murmurs, gallops, or rubs, No peripheral edema Abdominal: Soft, Nontender, no guarding, rebound or rigidity, Normoactive bowel sounds, No hepatomegaly, No splenomegaly, No palpable mass Skin: Normal temperature, tone, texture, turgor, no induration, No subcutaneous nodules, No rash, lesions, No ulcers Extremities: No digital cyanosis, No clubbing, Pedal pulses intact and symmetrical, Radial pulses intact and symmetrical, No calf tenderness Neuro:general weakness, focal sensory deficits - Labs CBC & Chem 7: 09/06/17 06:08 09/07/17 05:55 Labs: Abnormal Lab Results - Last 24 Hours (Table) 09/06/17 09/06/17 09/06/17 Range/Units 12:16 16:52 20:51 Chloride (98-107) mmol/L BUN (9-20) mg/dL Creatinine (0.66-1.25) mg/dL Glucose (74-99) mg/dL POC Glucose (mg/dL) 176 H 285 H 194 H (75-99) mg/dL 09/07/17 09/07/17 Range/Units 05:55 06:12 Chloride 96 L (98-107) mmol/L BUN 50 H (9-20) mg/dL Creatinine 11.00 H* (0.66-1.25) mg/dL Glucose 117 H (74-99) mg/dL POC Glucose (mg/dL) 115 H (75-99) mg/dL Microbiology - Last 24 Hours (Table) 09/05/17 12:28 Blood Culture - Preliminary Blood No Growth after 24 hours Assessment and Plan Plan: Acute hypoxic respiratory failure/shortness of breath Likely sec to aspiration pneumonia versus healthcare associated pneumonia Continue Zosyn, was given 1 dose of vancomycin on Friday. Blood cultures follow-up--negative so far. Acute sepsis: Resolved Blood cultures so far negative. Zosyn and Vanco as above Gentle IV fluids hydration Lactic acid was initially elevated at 2.6, normalized later Source of infection likely pneumonia ESRD On dialysis M, W, F Hemodialysis Friday Atrial Fibrillation, Coronary Artery Disease (CAD), Heart Failure, Hx of CVA/TIA , Dementia, Diabetes Mellitus type 2, Hyperlipidemia, Hypertension, Memory Impairment, Osteoarthritis (OA), Sleep Apnea/CPAP/BIPAP, HX R FOOT DIABETIC ULCER WITH MRSA WHICH WAS TX AND HEALED: Stable Resume meds. DVT prophylaxis: Heparin sq Disposition: Back to the long-term Anticipated discharge: 1 day
[2017-09-07] MEDS: PIPERACILLIN-TAZOBACTAM 3.375 GM in DEXTROSE/WATER 1 50ML.BAG IVPB SCH ×2 (11:24→23:01)
[2017-09-07] MEDS: HEPARIN SODIUM,PORCINE 5,000 UNIT/ML 1 ML VIAL SQ SCH ×3 (11:24→23:01)
[2017-09-07 11:39] LABS: Glucose,Whole Blood 130 mg/dL (75-99)
[2017-09-07 16:55] LABS: Glucose,Whole Blood 170 mg/dL (75-99)
[2017-09-07] MEDS: FINASTERIDE 5 MG TAB PO SCH (20:57)
[2017-09-07 21:03] LABS: Glucose,Whole Blood 118 mg/dL (75-99)
[2017-09-07] MEDS: INSULIN DETEMIR 100 UNIT/ML 10 ML VIAL SQ SCH (21:06)
[2017-09-08] MEDS: SEVELAMER 800 MG TAB PO SCH ×3 (05:56→16:21)
[2017-09-08] MEDS: DIVALPROEX SPRINKLE 125 MG CAP.SPRINK PO SCH ×2 (05:56→15:12)
[2017-09-08] MEDS ORDERED: LORazepam 0.5 MG TAB PO SCH (06:00)
[2017-09-08 06:25] LABS: Glucose,Whole Blood 130 mg/dL (75-99)
[2017-09-08] MEDS: INSULIN ASPART 100 UNIT/ML 1 ML 10 ML VIAL SQ SCH ×3 (06:26→17:39)
[2017-09-08] MEDS: SYMBICORT 80-4.5 MCG INHALER INHALATION SCH (08:43)
[2017-09-08] MEDS ORDERED: LIDOCAINE-PRILOCAINE 2.5-2.5% CREAM 5 GM TUBE TOPICAL SCH (09:00)
[2017-09-08] MEDS: hydrALAZINE HCL 25 MG TAB PO SCH ×2 (09:35→16:21)
[2017-09-08] MEDS: GABAPENTIN 300 MG CAP PO SCH ×2 (09:35→16:21)
[2017-09-08] MEDS: ASPIRIN 81 MG PO SCH (09:35)
[2017-09-08] MEDS: HEPARIN SODIUM,PORCINE 5,000 UNIT/ML 1 ML VIAL SQ SCH ×2 (09:35→16:22)
[2017-09-08] MEDS: MAGNESIUM HYDROXIDE 2,400 MG/10 ML CUP PO SCH (09:35)
[2017-09-08] MEDS: SERTRALINE 50 MG TAB PO SCH (09:36)
[2017-09-08] MEDS: FOLIC ACID 1 MG TAB PO SCH (09:36)
[2017-09-08] MEDS: ARIPiprazole 15 MG TAB PO SCH (09:36)
[2017-09-08] MEDS: FOLIC ACID-VIT B COMPLEX-VIT C 1 CAP PO SCH (09:36)
[2017-09-08] MEDS: FAMOTIDINE 20 MG TAB PO SCH (09:36)
[2017-09-08 11:10] VITALS: BMI 28.1
[2017-09-08] MEDS: PIPERACILLIN-TAZOBACTAM 3.375 GM in DEXTROSE/WATER 1 50ML.BAG IVPB SCH (11:36)
[2017-09-08 11:40] LABS: Glucose,Whole Blood 240 mg/dL (75-99)
--- NOTE | 2017-09-08 11:54 | P.DS ---
Providers Date of admission: 09/05/17 09:49 Expected date of discharge: 09/08/17 Attending physician: Mauro Doe MD Consults: 09/05/17 09:49 Consult Physician Routine Consulting Provider: Shyanne Mireles Consult Reason/Comments: ESRD Do you want consulting provider notified?: Yes 09/05/17 11:13 Consult Physician Routine Consulting Provider: Rolan Jaramillo Consult Reason/Comments: hypoxia Do you want consulting provider notified?: Yes Primary care physician: Titus Farnsworth - Discharge Diagnosis(es) (1) Acute respiratory failure with hypoxemia Current Visit: Yes Status: Acute (2) Healthcare-associated pneumonia Current Visit: Yes Status: Acute (3) ESRD (end stage renal disease) Current Visit: Yes Status: Acute (4) Atrial fibrillation Current Visit: No Status: Acute (5) Diabetes mellitus with renal complications Current Visit: No Status: Acute Hospital Course: The patient is a 67-year-old white male was admitted with a diagnosis of acute respiratory failure with hypoxemia likely thought to be multifactorial secondary to fluid overload from his end-stage renal disease superimposed on a right lower lobe healthcare associated pneumonia although when he arrived here on room air saturations were in the mid 90s. The patient did not have any leukocytosis or bandemia but was febrile on presentation He was started on empiric IV antibiotics with vancomycin and Zosyn, cultures are drawn but were negative. He has a history of end-stage renal disease with 3 time a week hemodialysis head injury atrial fibrillation CAD CHF CVA diabetes dementia hyperlipidemia hypertension and a history of sleep apnea. The patient is a poor historian but he appears to be doing relatively well. He was subsequently discharged back to [facility] in stable condition with a new prescription for Augmentin to be continued for another 5 days. This discharge process took approximately 35 minutes Focused exam Constitutional: No acute distress, conversant, pleasant Eyes: Anicteric sclerae, moist conjunctiva, no lid-lag, PERRLA ENMT: NC/AT,Oropharynx clear, no erythema, exudates Neck:Supple, FROM, no masses, or JVD, No carotid bruits; No thyromegaly Lungs: Clear to auscultation, Clear to percussion, Normal respiratory effort, no accessory muscle use Cardiovascular: Heart regular in rate and rhythm, No murmurs, gallops, or rubs no peripheral edema Patient Condition at Discharge: Good Plan - Discharge Summary New Discharge Prescriptions: New Amoxicillin/Potassium Clav [Augmentin 875-125 Tablet] 1 tab PO Q12HR #10 tab Continue Sertraline [Zoloft] 50 mg PO DAILY Gabapentin [Neurontin] 300 mg PO BID@0900,1700 Famotidine [Pepcid] 20 mg PO DAILY Divalproex Sodium [Depakote Sprinkle] 500 mg PO TID@0600,1300,2100 Bisacodyl [Dulcolax] 10 mg PO Q48H PRN PRN Reason: Constipation Aspirin 162 mg PO DAILY ARIPiprazole [Abilify] 15 mg PO DAILY@0900 Renvela 2.4gm/Packet 2.4 gm PO TID@0600,1200,1700 Ergocalciferol [Vitamin D2 (DRISDOL)] 50,000 unit PO TH Sertraline [Zoloft] 100 mg PO DAILY Finasteride [Proscar] 5 mg PO DAILY@2100 Fluticasone/Vilanterol [Breo Ellipta 100-25 Mcg Inhaler] 1 puff INHALATION RT -DAILY hydrALAZINE HCL [Apresoline] 25 mg PO TID tab HYDROcodone/APAP 5-325MG [[place] 5-325] 1 tab PO Q8H PRN #20 PRN Reason: Pain Magnesium Hydroxide [Milk of Magnesia] 2,400 mg PO DAILY HYDROcodone/APAP 5-325MG [[place] 5-325] 1 tab PO Q4HR PRN PRN Reason: Moderate Pain LORazepam [Ativan] 0.5 mg PO MOWEFR@0600 Folic Acid-Vit B Complex-Vit C [Nephrocaps] 1 mg PO DAILY Lidocaine-Prilocaine Cream [Emla Cream 2.5%/2.5%] 1 applic TOPICAL MOWEFR Insulin Glargine [Lantus] 20 unit SQ HS Folic Acid 0.8 mg PO DAILY Discharge Medication List ARIPiprazole [Abilify] 15 mg PO DAILY@0900 05/10/16 [History] Aspirin 162 mg PO DAILY 05/10/16 [History] Bisacodyl [Dulcolax] 10 mg PO Q48H PRN 05/10/16 [History] Divalproex Sodium [Depakote Sprinkle] 500 mg PO TID@0600,1300,2100 05/10/16 [ History] Famotidine [Pepcid] 20 mg PO DAILY 05/10/16 [History] Gabapentin [Neurontin] 300 mg PO BID@0900,1700 05/10/16 [History] Renvela 2.4gm/Packet 2.4 gm PO TID@0600,1200,1700 05/10/16 [History] Sertraline [Zoloft] 50 mg PO DAILY 05/10/16 [History] Ergocalciferol [Vitamin D2 (DRISDOL)] 50,000 unit PO TH 05/24/16 [History] Sertraline [Zoloft] 100 mg PO DAILY 07/29/16 [History] Finasteride [Proscar] 5 mg PO DAILY@2100 10/07/16 [History] Fluticasone/Vilanterol [Breo Ellipta 100-25 Mcg Inhaler] 1 puff INHALATION RT- DAILY 10/07/16 [History] HYDROcodone/APAP 5-325MG [[place] 5-325] 1 tab PO Q8H PRN #20 10/11/16 [Rx] hydrALAZINE HCL [Apresoline] 25 mg PO TID tab 10/11/16 [Rx] Folic Acid 0.8 mg PO DAILY 09/05/17 [History] Folic Acid-Vit B Complex-Vit C [Nephrocaps] 1 mg PO DAILY 09/05/17 [History] HYDROcodone/APAP 5-325MG [[place] 5-325] 1 tab PO Q4HR PRN 09/05/17 [History] Insulin Glargine [Lantus] 20 unit SQ HS 09/05/17 [History] LORazepam [Ativan] 0.5 mg PO MOWEFR@0600 09/05/17 [History] Lidocaine-Prilocaine Cream [Emla Cream 2.5%/2.5%] 1 applic TOPICAL MOWEFR [History] Magnesium Hydroxide [Milk of Magnesia] 2,400 mg PO DAILY 09/05/17 [History] Amoxicillin/Potassium Clav [Augmentin 875-125 Tablet] 1 tab PO Q12HR #10 tab [Rx] Follow up Appointment(s)/Referral(s): Rolan Jaramillo DO [Doctor of Osteopathic Medicine] - 1 Week Titus Farnsworth MD [Primary Care Provider] - 09/11/17 10:30 am Patient Instructions/Handouts: Pneumonia (DC) Discharge Disposition: TRANSFER TO SNF/ECF
--- NOTE | 2017-09-08 12:59 | P.PN ---
Subjective Progress Note Date: 09/08/17 Principal diagnosis: Acute hypoxic respiratory failure possibly related to fluid overload and possible right lower lobe infiltrate, healthcare acquired versus aspiration pneumonia Progress note dated 09/07/2017 67-year-old white male was admitted with a diagnosis of possible hypoxemia although when he arrived here on room air saturations were in the mid 90s. Transient desaturation may relate to mild fluid overload and possible right lower lobe infiltrate. He has a history of end-stage renal disease with 3 time a week hemodialysis head injury atrial fibrillation CAD CHF CVA diabetes dementia hyperlipidemia hypertension and a history of sleep apnea. The patient is a poor historian but he appears to be doing relatively well. The patient really does not voice any current medical issues. From our perspective, the patient could be sent back to [facility]. On 09/08/2017 patient seen in follow-up on selective care unit. In the chair, room air pulse ox 98%. Patient is afebrile, vital signs are stable. Denies any chest congestion, denies any chest wall tenderness, no cough, wheezing. No dyspnea, no chest pain. No fever, no chills, repeat chest x-ray has been reviewed by Dr. Kaur, and compared to previous chest x-rays, patient is evidence of multiple old right posterior fourth through 6 rib fractures with associated callus formation. Patient has been treated with a combination of vancomycin and Zosyn, and has clinically improved. Discharge planning is in progress with discharge back to [facility] today. Objective - Vital Signs Vital signs: Vital Signs Temp 96.8 F L 09/08/17 11:15 Pulse 76 09/08/17 11:15 Resp 18 09/08/17 11:15 BP 129/70 09/08/17 11:15 Pulse Ox 98 09/08/17 11:15 Intake & Output 09/07/17 09/08/17 09/08/17 18:59 06:59 18:59 Intake Total 380 600 Output Total 0 Balance 380 600 Weight 81.5 kg 81.5 kg Intake: Oral 380 600 Output: Urine 0 Other: # Voids 4 # Bowel Movements 1 2 - Exam No acute distress, oriented 3. Very poor historian. HEENT examination is grossly unremarkable. Mucous membranes are moist. No oral lesions. Neck supple. Full range of motion. No adenopathy thyromegaly or neck vein distention. Cardiovascular examination reveals regular rhythm rate. S1-S2 normal. No S3 or S4. No discernible murmur noted. Lungs reveal very mild bibasilar crackles. A few scattered mild rhonchi. No wheezes. Breath sounds equal bilaterally. Abdomen soft bowel sounds are heard. No masses or tenderness. Extremities are intact. No cyanosis clubbing or edema. Left arm AV fistula with positive bruit and thrill Skin is without rash or lesion. Neurologic examination is brief but nonfocal. - Labs CBC & Chem 7: 09/06/17 06:08 09/07/17 05:55 Labs: Abnormal Lab Results - Last 24 Hours (Table) 09/07/17 09/07/17 09/08/17 Range/Units 16:30 21:02 06:24 POC Glucose (mg/dL) 170 H 118 H 130 H (75-99) mg/dL 09/08/17 Range/Units 11:36 POC Glucose (mg/dL) 240 H (75-99) mg/dL Microbiology - Last 24 Hours (Table) 09/05/17 12:28 Blood Culture - Preliminary Blood No Growth after 48 hours Assessment and Plan Plan: Assessment: Possible hypoxemia, although here, his saturations on room air are 94-96%, possibly related to fluid overload given this was his dialysis day. End-stage renal disease, with caloric hemodialysis A possible right lower lobe infiltrate although this may represent just areas of atelectasis secondary to not taking deep breaths. History of closed head injury History of atrial fibrillation History of CAD History of CHF History of CVA Diabetes mellitus Dementia Hyperlipidemia Hypertension History of sleep apnea syndrome, currently on CPAP Plan: Plan dated 09/05/2017 I chest x-ray will be ordered. I don't believe the patient needs an arterial blood gas. The patient looks very stable. Labs and x-rays are reviewed. Medications are reviewed. Prognosis is guarded. Plan dated 09/07/2017 The patient is doing very well. We'll repeat a chest x-ray in the morning. It will be a portable. From our perspective the patient could be discharged. No additional recommendations are made. Lab data are reviewed. Microbiology is still negative. Plan dated 09/08/2017 Possible hypoxemia, although here, his saturations on room air are 94-96%, possibly related to fluid overload given this was his dialysis day. End-stage renal disease, with caloric hemodialysis A possible right lower lobe infiltrate although this may represent just areas of atelectasis secondary to not taking deep breaths. History of closed head injury History of atrial fibrillation History of CAD History of CHF History of CVA Diabetes mellitus Dementia Hyperlipidemia Hypertension History of sleep apnea syndrome, currently on CPAP Plan: Patient is clinically stable, improving. No dyspnea, no chest pain. No fever, no chills, repeat chest x-ray has been reviewed by Dr. Kaur, and compared to previous chest x-rays, patient is evidence of multiple old right posterior fourth through 6 rib fractures with associated callus formation. Patient has been treated with a combination of vancomycin and Zosyn, and has clinically improved. Discharge planning is in progress with discharge back to [facility] today. Patient can be discharged on 7 day course of outpatient Augmentin 875/125 twice a day. I performed a history & physical examination of the patient and discussed their management with my nurse practitioner, Veronica Anderson. I reviewed the nurse practitioner's note and agree with the documented findings and plan of care. Lung sounds clear. The findings and the impression was discussed with the patient. I attest to the documentation by the nurse practitioner. Time with Patient: Less than 30
--- NOTE | 2017-09-08 13:04 | XR ---
EXAMINATION TYPE: XR chest 1V portable DATE OF EXAM: 09/08/2017 COMPARISON: 09/05/2017 HISTORY: Pneumonia follow-up TECHNIQUE: Single frontal view of the chest is obtained. FINDINGS: A right perihilar and consolidation noted as well as left lower lobe consolidation appear fairly stable. No pleural effusion or pneumothorax. There is prominence of the right hilum. Atheroscl erotic change of the aorta. Diffuse osteopenia. No pneumothorax. IMPRESSION: Stable bilateral atelectasis or infiltrate. Right hilar prominence is noted which could be evaluated with short-term follow-up PA and lateral views of the chest.
--- NOTE | 2017-09-08 14:49 | PN ---
PROGRESS NOTE Patient is seen for followup for end-stage renal disease. He is currently waiting for hemodialysis following which patient will be discharged. PHYSICAL EXAMINATION: Blood pressure is 129/70, heart rate 76 per minute. Patient is afebrile. Examination of the heart S1, S2. Examination of the lungs bilateral breath sounds are heard. Abdomen is soft, nontender. Examination of the lower extremities shows no significant edema. SENIOR TELLER exam is grossly intact. Patient moving all 4 extremities. LABS: From yesterday showed potassium of 5.0. ASSESSMENT: 1. End-stage renal disease, on hemodialysis on Friday, Friday, Friday schedule. The patient is waiting for dialysis following which he will be discharged. 2. Pneumonia with bilateral lung infiltrates, maintained on IV antibiotics and improving. 3. Hypertension with chronic kidney disease. Controlled. 4. Acute hypoxic respiratory failure secondary to pneumonia, currently improved. PLAN: The patient is stable for discharge from Nephrology standpoint. His vancomycin level was a bit on the higher side. This will need to be adjusted prior to discharge. MMODL / IJN: [id number] /
[2017-09-08 16:18] VITALS: BP 137/67; PULSE 85; RESP 20; TEMP 97.8
[2017-09-08 16:28] LABS: Anisocytosis Slight; HCT 34.6 % (39.0-53.0); MCH 32.8 pg (25.0-35.0); MCHC 34.8 g/dL (31.0-37.0); MCV 94.1 fL (80.0-100.0); Mean Platelet Volume 6.9; Platelet Count 225 k/uL (150-450); RBC 3.67 m/uL (4.30-5.90); RDW 16.9 % (11.5-15.5); WBC 11.3 k/uL (3.8-10.6)
[2017-09-08 16:29] LABS: Glucose,Whole Blood 193 mg/dL (75-99)
[2017-09-08 18:13] LABS: Hepatitis B Surface AB- Quant 145.4 mIU/mL
--- NOTE | 2017-09-09 20:20 | CDI ---
Last Revision, February 2017 Documentation Clarification Form Date: 09/09/2017 12:00:00 AM From: SUSANA Talavera Phone: If you have question, contact Jeanna Mireles, Insulation Inspector at [facility] 8:30 am to 6pm. Admit Date: 09/05/2017 9:49:00 AM Patient Name: Giovanny Meadows Visit Number: [id number] Discharge Date: ATTENTION: The Clinical Documentation Specialists (CDI) and [facility] Coding Staff appreciate your assistance in clarifying documentation. Please respond to the clarification below the line at the bottom and electronically sign. The CDI & [facility] Coding staff will review the response and follow-up if needed. Please note: Queries are made part of the Legal Health Record. If you have any questions, please contact the author of this message via ITS. Dr. Mauro Doe Acute sepsis is documented on the H&P and progress notes dated 09/07 and 09/08. The diagnosis of sepsis is not carried to the discharge summary. Documentation per the progress note from 09/07 is as follows, Acute sepsis: resolved, blood cultures so far negative Vital signs on 09/05: T 97.9, Pulse 84, RR 18, BP 90/54, Pulse Ox 94 L Further clarification regarding this diagnosis of sepsis is needed for proper reporting purposes. Please clarify if sepsis was: Ruled in Ruled out Other (please specify) Unknown Thank you for your time. As per my documentation patient did have acute sepsis. SURESH
[2017-09-11] MEDS ORDERED: ERGOCALCIFEROL 50,000 UNIT CAP PO SCH (12:00)
== END 2017-09-08 17:42 | DRG 871 ==
LOC: EC 09:26 → 6SEL 09:49
PROVIDERS: ADMIT Internal Medicine; ATTEND Internal Medicine
DX: A41.9 Sepsis, unspecified organism (principal); J96.01 Acute respiratory failure with hypoxia; J18.9 Pneumonia, unspecified organism; N18.6 End stage renal disease; I13.2 Hypertensive heart and chronic kidney disease with heart failure and with stage 5 chronic kidney disease, or end stage renal disease; E11.22 Type 2 diabetes mellitus with diabetic chronic kidney disease; E78.5 Hyperlipidemia, unspecified; Y95 Nosocomial condition; I48.91 Unspecified atrial fibrillation; I25.10 Atherosclerotic heart disease of native coronary artery without angina pectoris; I50.9 Heart failure, unspecified; G47.30 Sleep apnea, unspecified; F41.9 Anxiety disorder, unspecified; F03.90 Unspecified dementia, unspecified severity, without behavioral disturbance, psychotic disturbance, mood disturbance, and anxiety; F17.290 Nicotine dependence, other tobacco product, uncomplicated; Z99.2 Dependence on renal dialysis; Z86.73 Personal history of transient ischemic attack (TIA), and cerebral infarction without residual deficits; Z83.3 Family history of diabetes mellitus; Z82.49 Family history of ischemic heart disease and other diseases of the circulatory system; Z79.82 Long term (current) use of aspirin; Z79.899 Other long term (current) drug therapy; Z79.4 Long term (current) use of insulin; Z86.14 Personal history of Methicillin resistant Staphylococcus aureus infection; Z87.828 Personal history of other (healed) physical injury and trauma; Z90.49 Acquired absence of other specified parts of digestive tract; Z99.89 Dependence on other enabling machines and devices
CPT/HCPCS: 71045; 80048; 80053; 80202; 83605; 83735; 84100; 84484; 85025; 85027; 86706; 87040; 87340; 90935; 94640; 94760; 99285

== ENCOUNTER 2019-01-20 18:51 | Inpatient (IN) | payer MEDICARE, BC, OTHER ==
[2019-01-20] MEDS ORDERED: fentaNYL (PF) 50 MCG/ML 2 ML AMP IV STA (20:22)
[2019-01-20] MEDS ORDERED: SODIUM CHLORIDE 0.9% 500 ML 500 ML IV ONE (20:30)
[2019-01-20] MEDS ORDERED: HYDROcodone/APAP 5-325MG 1 EACH TAB PO PRN (22:00)
[2019-01-20] MEDS ORDERED: LACTULOSE 20 GM/30 ML CUP PO PRN (22:00)
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
[2019-01-20] MEDS ORDERED: NALOXONE 0.4 MG/ML 1 ML VIAL IV PRN (22:21)
[2019-01-20 22:42] LABS: HCT 37.4 % (39.0-53.0); HGB 11.9 gm/dL (13.0-17.5); MCH 29.9 pg (25.0-35.0); MCHC 31.9 g/dL (31.0-37.0); MCV 93.8 fL (80.0-100.0); Mean Platelet Volume 6.6; Platelet Count 321 k/uL (150-450); RBC 3.99 m/uL (4.30-5.90); RDW 15.3 % (11.5-15.5); WBC 27.6 k/uL (3.8-10.6)
[2019-01-20 22:49] LABS: Albumin 4.3 g/dL (3.5-5.0); Calcium 9.6 mg/dL (8.4-10.2); Potassium 5.4 mmol/L (3.5-5.1); Total Bilirubin 0.4 mg/dL (0.2-1.3); Total Protein 8.3 g/dL (6.3-8.2)
--- NOTE | 2019-01-20 23:00 | HP ---
HISTORY AND PHYSICAL CHIEF COMPLAINTS: Hypotension as well as change in mental status. HISTORY OF PRESENT ILLNESS: This 68-year-old gentleman with a past medical history of atrial fibrillation, CAD, CHF, CVA, TIA, dementia, diabetes mellitus, hemodialysis, hypertension, hyperlipidemia, being followed by Dr. Narciso Low and is a resident of [facility] in [place]. The patient was having hemodialysis today which had to be stopped long-term between because of hypotension. Blood pressure was in the 70s, 80s systolic. The patient has taken to [facility] ER and one liter of IV fluids was given. However, subsequently patient was found to be confused at the F and the patient was evaluated in the ER, at which point the blood pressure improved but was fluctuating between 90s. The possibility of sepsis also was suspected. The patient also has a wound on the left heel which is being followed by the wound care clinic. Because of the multiple medical issues, [facility] ER physician discussed the case at length with me and the patient was transferred to [facility] for further evaluation and treatment. There is no history of any fever, rigor or chills. The patient is slightly stuporous at this time, unable to give coherent history. Most of the history is taken from my discussion with staff and ER physician as well as discussion with the patient's family at the bedside. PAST MEDICAL HISTORY: 1. History of atrial fibrillation. 2. History of CAD. 3. History of CHF. 4. CVA, TIA. 5. Dementia. 6. Diabetes mellitus, type 2. 7. Hemodialysis. 8. Hypertension. 9. Hyperlipidemia. 10.Memory impairment. 11.DJD. 12.History of sleep apnea. 13.History of kidney failure. HOME MEDICATIONS: Reviewed. They include: 1. Apresoline 25 mg p.o. t.i.d. 2. Robitussin 200 mg q.6 p.r.n. 3. Renagel 2.4 t.i.d. 4. Zoloft 100 mg daily and 50 mg daily and 25 mg daily. 5. EMLA cream. 6. Lactulose 15 p.o. daily p.r.n. 7. Basaglar 20 units subcutaneously at bedtime. 8. Hydrocodone 5 mg t.i.d. p.r.n. 9. Neurontin 200 mg p.o. daily and 200 mg Friday, Friday, Friday. 10.Folic acid. 11.Fluticasone. 12.Breo Ellipta 100/25 one puff daily. 13.Proscar 5 mg p.o. at bedtime. 14.Pepcid 20 mg p.o. daily. 15.Vitamin D 50,000 daily. 16.Depakote 500 mg p.o. daily. 17.Plavix 75 mg p.o. daily. 18.Dulcolax 10 mg q.48 p.r.n. 19.Aspirin 162 mg p.o. daily. 20.Abilify 15 mg p.o. daily. ALLERGIES: NONE. FAMILY HISTORY: Per chart, history of CAD, hypertension, history of aortic aneurysm. SOCIAL HISTORY: No history of smoking. No history of alcohol intake. Review of systems could not be taken because the patient is stuporous. PHYSICAL EXAMINATION: The pulse is 110. Blood pressure is 110/63, fluctuating 83/51, respiration 31, temperature 99.4, pulse ox 94% on 12 L Ventimask. HEENT: Conjunctivae pale. Oral mucosa moist. NECK: No jugular venous distention. No carotid bruit. No lymph node enlargement. CARDIOVASCULAR SYSTEM: S1, S2 muffled. No S3. No S4. RESPIRATORY SYSTEM: Breath sounds diminished at the bases. A few scattered rhonchi and crackles. Expiratory wheezing also present. ABDOMEN: Soft, non-tender. No mass palpable. LEGS: No edema. No swelling. Left foot ulcer, grade 2 to 3, present with some discharge. NERVOUS SYSTEM: Higher functions as mentioned earlier. Moves all 4 limbs. No focal deficit. SKIN: As mentioned earlier. JOINTS: No active deforming arthropathy. LYMPHATICS: No lymph node palpable in neck, axillae or groin. LABS: Pending at this time. ASSESSMENT: 1. Hypotension with possible sepsis with a left diabetic foot wound with acute hypoxic respiratory failure which is multifactorial. 2. Rule out pneumonia. 3. Congestive heart failure, acute exacerbation, with ejection fraction 50% to 55%, with possible acute on chronic diastolic dysfunction. 4. Chronic kidney disease, stage IV, on hemodialysis. 5. Change in mental status, metabolic encephalopathy, multifactorial, acute on chronic. 6. History of atrial fibrillation. 7. History of coronary artery disease. 8. Cerebrovascular accident, transient ischemic attack. 9. Dementia. 10.Diabetes mellitus, type 2. 11.Hypertension. 12.Hyperlipidemia. 13.Degenerative joint disease. 14.History of sleep apnea. 15.Possible chronic obstructive pulmonary disease. 16.History of extended-spectrum beta-lactamase and methicillin-resistant Staphylococcus aeruginosa. 17.History of cholecystectomy. 18.History of degenerative joint disease. 19.History of anxiety. 20.Gait dysfunction. RECOMMENDATIONS AND DISCUSSION: In this 68-year-old gentleman who presented with multiple complex medical issues, we will monitor the patient closely, continue the current medications, continue symptomatic treatment. Will initiate broad-spectrum IV antibiotics. Obtain infectious disease consultation. Otherwise, I would also recommend nephrology consultation and consider for possible hemodialysis. Monitor fluid/electrolyte balance closely. Continue the rest of the medications. Hold antihypertensive medications. Cardiology and Pulmonology will also be consulted. Prognosis is extremely guarded because of multiple complex medical issues. Further recommendations to follow. A copy of this dictation is being forwarded to Dr. Narciso Low, who is the primary physician. ROLLY / ANIBALN: [id number] / SURESH
[2019-01-20 23:13] LABS: Band Neutrophils % 14 %; Lymphocytes # (M) 1.38 k/uL (1.0-4.8); Monocytes # (M) 3.04 k/uL (0-1.0); Neutrophils % (M) 70 %; Nucleated Red Blood Cells 0 /100 WBC (0-0); Total Cells Counted 200
[2019-01-20 23:14] LABS: Polychromasia Present; Toxic Vacuolation Present
[2019-01-21 00:24] LABS: Glucose,Whole Blood 267 mg/dL (75-99)
[2019-01-21 00:47] VITALS: BMI 27.1
[2019-01-21] MEDS: IPRATROPIUM-ALBUTEROL 3 ML NEB INHALATION SCH ×2 (01:03→07:52)
[2019-01-21] MEDS: INSULIN DETEMIR (LEVEMIR) 100 UNIT/ML SYR SQ SCH ×2 (01:17→20:31)
[2019-01-21] MEDS ORDERED: SODIUM CHLORIDE 0.9% 1,000 ML IV ONE ×2 (01:28→03:34)
[2019-01-21] MEDS ORDERED: MIDODRINE 5 MG TAB PO ONE (01:45)
[2019-01-21] MEDS: hydrALAZINE HCL 25 MG TAB PO SCH ×3 (05:36→20:17)
[2019-01-21 05:44] LABS: Basophils # (A) 0.2 k/uL (0-0.2); Basophils % (A) 1 %; Eosinophils # (A) 0.1 k/uL (0-0.7); Eosinophils % (A) 1 %; HGB 10.1 gm/dL (13.0-17.5); Lymphocytes # (A) 2.5 k/uL (1.0-4.8); Lymphocytes % (A) 12 %; MCH 30.4 pg (25.0-35.0); MCHC 32.4 g/dL (31.0-37.0); MCV 93.8 fL (80.0-100.0); Mean Platelet Volume 5.9; Monocytes # (A) 1.5 k/uL (0-1.0); Monocytes % (A) 7 %; Neutrophils # (A) 16.9 k/uL (1.3-7.7); Neutrophils % (A) 79 %; Platelet Count 286 k/uL (150-450); RBC 3.31 m/uL (4.30-5.90); RDW 15.3 % (11.5-15.5); WBC 21.5 k/uL (3.8-10.6)
[2019-01-21 06:05] LABS: Calcium 9.3 mg/dL (8.4-10.2)
[2019-01-21 06:40] LABS: Glucose,Whole Blood 153 mg/dL (75-99)
[2019-01-21] MEDS: HYDROcodone/APAP 5-325MG 1 EACH TAB PO SCH ×3 (06:41→20:17)
[2019-01-21] MEDS: DIVALPROEX SPRINKLE 125 MG CAP.SPRINK PO SCH ×3 (06:45→20:14)
[2019-01-21] MEDS: SEVELAMER 800 MG TAB PO SCH ×3 (06:48→17:38)
[2019-01-21] MEDS: INSULIN ASPART (NovoLOG) 100 UNIT/ML VIAL SQ SCH ×4 (06:53→20:16)
[2019-01-21] MEDS: SYMBICORT 80-4.5 MCG INHALER INHALATION SCH ×2 (07:51→08:01)
[2019-01-21] MEDS ORDERED: VANCOMYCIN IV PER PHARMACY 1 EACH MISC MISCELLANE PRN (08:44)
[2019-01-21] MEDS: ASPIRIN 81 MG PO SCH (08:53)
[2019-01-21] MEDS: PIPERACILLIN-TAZOBACTAM 3.375 GM in SODIUM CHLORIDE 0.9% 100 ML IVPB SCH ×2 (08:53→20:14)
[2019-01-21] MEDS: GABAPENTIN 100 MG CAP PO SCH (08:53)
[2019-01-21] MEDS: ARIPiprazole 15 MG TAB PO SCH (08:54)
[2019-01-21] MEDS: CLOPIDOGREL 75 MG TAB PO SCH (08:54)
[2019-01-21] MEDS: FOLIC ACID 1 MG TAB PO SCH (08:54)
[2019-01-21] MEDS: FOLIC ACID-VIT B COMPLEX-VIT C 1 CAP PO SCH (08:54)
[2019-01-21] MEDS ORDERED: ERGOCALCIFEROL 50,000 UNIT CAP PO SCH (09:00)
[2019-01-21] MEDS ORDERED: BISACODYL 5 MG TABLET.DR PO PRN (09:00)
[2019-01-21] MEDS ORDERED: VANCOMYCIN 1,500 MG in SODIUM CHLORIDE 0.9% 250 ML IVPB ONE (09:00)
--- NOTE | 2019-01-21 09:38 | XR ---
EXAMINATION TYPE: XR chest 1V portable DATE OF EXAM: 01/21/2019 COMPARISON: 01/20/2019 HISTORY: Redness of breath TECHNIQUE: Single frontal view of the chest is obtained. FINDINGS: Bilateral areas of consolidation are noted with tiny effusion. Limited inspiration. Heart is mildly enlarged. Vascular stent overlying the left upper extremity. No pneumothorax. Limited inspi ration seen. Surgical clips in the abdomen. IMPRESSION: 1. Bilateral subsegmental consolidation correlate for pneumonia.
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
--- NOTE | 2019-01-21 10:58 | ECHOF ---
Referral Reason:chf MEASUREMENTS -------- HEIGHT: 170.2 cm WEIGHT: 78.5 kg BP: 95/49 RVIDd: 2.8 cm (< 3.3) IVSd: 1.5 cm (0.6 - 1.1) LVIDd: 4.0 cm (3.9 - 5.3) LVPWd: 1.4 cm (0.6 - 1.1) IVSs: 2.2 cm LVIDs: 1.9 cm LVPWs: 1.6 cm LA Diam: 3.2 cm (2.7 - 3.8) LAESV Index (A-L): 28.95 ml/m Ao Diam: 3.7 cm (2.0 - 3.7) AV Cusp: 1.8 cm (1.5 - 2.6) MV EXCURSION: 15.293 mm (> 18.000) MV EF SLOPE: 23 mm/s (70 - 150) EPSS: 0.2 cm MV E Garry: 1.18 m/s MV DecT: 277 ms MV A Garry: 1.42 m/s MV E/A Ratio: 0.83 FINDINGS -------- Sinus rhythm. This was a technically good study. The left ventricular size is normal. There is moderate concentric left ventricular hypertrophy. O verall left ventricular systolic function is normal with, an EF between 60 - 65 %. The right ventricle is normal in size. The left atrial size is normal. The right atrium is normal in size. Interatrial and interventricular septum intact. There is mild aortic valve sclerosis. The mitral valve leaflets are mildly thickened. Mild mitral annular calcification present. There is trace to mild mitral regurgitation. The tricuspid valve appears structurally normal. Trace/mild (physiologic) pulmonic regurgitation. The aortic root size is normal. Normal inferior vena cava with normal inspiratory collapse consistent with estimated right atrial pre ssure of 5 mmHg. There is no pericardial effusion. CONCLUSIONS -------- 1. Sinus rhythm. 2. This was a technically good study. 3. The left ventricular size is normal. 4. There is moderate concentric left ventricular hypertrophy. 5. Overall left ventricular systolic function is normal with, an EF between 60 - 65 %. 6. The right ventricle is normal in size. 7. The left atrial size is normal. 8. The right atrium is normal in size. 9. Interatrial and interventricular septum intact. 10. There is mild aortic valve sclerosis. 11. The mitral valve leaflets are mildly thickened. 12. Mild mitral annular calcification present. 13. There is trace to mild mitral regurgitation. 14. The tricuspid valve appears structurally normal. 15. Trace/mild (physiologic) pulmonic regurgitation. 16. The aortic root size is normal. 17. Normal inferior vena cava with normal inspiratory collapse consistent with estimated right atrial pressure of 5 mmHg. 18. There is no pericardial effusion. R[employer]AL [employer] PORTER: Sarah Rivas RDCS
[2019-01-21 11:56] LABS: Glucose,Whole Blood 126 mg/dL (75-99)
--- NOTE | 2019-01-21 12:58 | CONS ---
CONSULTATION This is a patient who resides up at the [facility] in [place]. PULMONARY/CRITICAL CARE CONSULTATION: DATE OF SERVICE: 01/21/2019 This is a 68-year-old gentleman who resides at [facility] up in [place]. He apparently goes to a free-standing dialysis clinic in that area for his Friday, Friday, Friday dialysis. The patient apparently at dialysis developed some hypotension, some dizziness and lightheadedness, possible increased respiratory rate and some shortness of breath along with some fever. For that reason, he was transferred down to our emergency room. In our emergency room, the patient received some additional fluids 500 mL and he was initially admitted to the ICU as a selective overflow. He apparently was found to be hypotensive and the hospitalist wanted the patient started on Levophed. Because I thought the patient might be fluid deplete given the fact that 2 L of fluid was removed at the dialysis clinic up in [place], I gave him back some additional volume, ie., 2 L. Anyway, the patient is doing much better today. He is currently on 3 L nasal cannula and getting a 0.9 IV at 20 mL an hour. He denies any urinary complaints or GI complaints. He denies any cough, wheezing, shortness of breath or phlegm production. He denies any fever, chills or chest pain. He was suspected to possibly have an infection someplace. Not clear if he does have an infection and if so where the infection is. He does apparently have a heel ulcer on the left foot. He also apparently has a prior history of both MRSA and extended spectrum beta lactamase producing infections. I saw the patient last back in October 2017. At that time, he apparently was evaluated for fluid overload and hypoxemia. He does have a history of closed head injury, atrial fibrillation, CAD, CHF, CVA, diabetes, dementia, hyperlipidemia, hypertension, sleep apnea syndrome, among other things. As mentioned, also, he has a previous history of both MRSA infection and infections with extended spectrum beta lactamase producing bacteria. HOME MEDICATIONS: Include Abilify, aspirin, Dulcolax, Depakote, Pepcid, Zoloft, Drisdol, Proscar, Breo, folic acid, Randolph, EMLA cream, Plavix, gabapentin, insulin, lactulose, Robitussin and Apresoline. ALLERGIES: Denied. MEDICAL HISTORY: Quite extensive and includes atrial fibrillation, CAD, CHF, CVA, dementia, diabetes, end-stage renal disease, currently on 3 time a week hemodialysis on Friday, Friday, Friday, hyperlipidemia, hypertension, dementia, DJD, and sleep apnea syndrome. He also has a chronic dizziness secondary to his previous closed head injury. In addition, he has a diabetic foot ulcer. Again, he has had previous infections both with extended spectrum beta lactamase producing bacteria and MRSA. SURGICAL HISTORY: Includes a cholecystectomy, bilateral rotator cuff repair, UPPP for sleep apnea, fistulogram left upper arm x2, as well as some other minor procedures. SOCIAL HISTORY: Negative for tobacco, alcohol or illicit drug use. FAMILY HISTORY: Significant for father with CAD, hypertension and aortic aneurysm and mother with a history of dementia, diabetes and hypertension. REVIEW OF SYSTEMS: CONSTITUTIONAL: Lightheadedness and dizziness which apparently has not plagued him while he has been here. NEUROLOGIC: Negative. HEENT: Negative. CARDIOVASCULAR: Negative. PULMONARY: Negative. GI: Negative. : Negative. RHEUMATOLOGIC: Negative. IMMUNOLOGIC; Negative. ENDOCRINOLOGIC: Negative. DERMATOLOGIC: Negative. Current vital signs are reviewed. Temperature here is 97.8 and a T-max since being here is only 99.4. Current heart rate 72, respiratory rate 18 to 22, blood pressure is 103/54 with a mean 70 and 3 L saturations between 96%-98%/. GENERAL: Appears in absolutely no distress whatsoever. He is alert and oriented. HEENT: Examination is grossly unremarkable. Mucous membranes are moist. NECK: Supple. Full range of motion. No adenopathy. Neck veins are flat. CARDIOVASCULAR: Examination reveals regular rhythm and rate. Heart rate is 70. S1, S2 normal. LUNGS: Reveal mostly clear breath sounds. A few scattered rhonchi. No wheezes or crackles. ABDOMEN: Soft. EXTREMITIES: Intact. He does have a boot and bandages to the left heel and foot area. SKIN: Without rash. NEUROLOGIC: Examination is brief but nonfocal. LAB DATA: Reviewed. White count 21.5, hemoglobin 10.1, hematocrit 31.0, platelet count 286,000. Sodium 136, potassium 5, chloride 98, CO2 is 27. Anion gap is 11. BUN and creatinine were 33 and 6.97. Albumin 4.3, total protein 8.3. The rest of the labs look okay. Microbiology includes a wound culture from the left foot, which is currently pending. A chest x-ray potentially shows some infiltrate or atelectasis in the right mid lung in the perihilar region. Causative phrenic angles look relatively sharp. There may be small effusions. I really do not see much going on in the lung. Current medications are reviewed. He is on his usual medications. In addition, the patient is currently not on any antibiotics. ASSESSMENT: 1. Rule out occult sepsis. Etiology unclear if in fact he is infected. 2. Prior history of both ESBL and MRSA. 3. History of atrial fibrillation. 4. Coronary artery disease. 5. Congestive heart failure. 6. Cerebrovascular accident. 7. Dementia. 8. Diabetes mellitus. 9. History of end-stage renal disease, currently on Friday, Friday, Friday hemodialysis. 10.Hyperlipidemia. 11.Hypertension. 12.Memory impairment. 13.Degenerative joint disease. 14.Sleep apnea syndrome, currently maintained on CPAP. 15.History of closed head injury. 16.Chronic dizziness secondary to closed head injury. 17.Diabetic foot ulcer, left heel/foot. PLAN: The patient's antibiotics will be broadened a bit. Additional recommendations and suggestions are forthcoming. The patient could be transferred out of the unit later today. No additional recommendations are made. Prognosis is guarded. We will make sure that he has cultures of blood and urine and sputum if he is able to produce sputum. Prognosis is guarded. No additional recommendations are made. MMODL / IJN: [id number] / MTDD
--- NOTE | 2019-01-21 13:57 | P.CON ---
Consult Note - . Consult date: 01/21/19 Assessment/Plan:: 68-year-old male who is known to the wound care center with a nonhealing pressure grade 3 ulceration to the left calcaneus. Patient has had the ulceration for quite some time the wound care center has been applying epifix to the site. The area showing granulation with minimal slough and exudate. Ulceration continues to show improvement. Patient states he still has significant amount of drainage from the site. Review of systems: Integumentary: Reports ulceration Physical exam: Integumentary: See HPI Assessment/plan: 1. Diabetic foot ulceration with pressure component with fatty layer exposure. Versatile to site secured with Steri-Strips, foam, rolled gauze, keep dressing in place for 1 week. If the area saturated, May change the foam dressing only. Thank you for the consultation. Any questions please contact the wound center DNP note has been reviewed and discussed with Dr. Myles and the impression and plan of care has been directed as dictated.
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
--- NOTE | 2019-01-21 15:12 | P.CON ---
Consult Note - . Consult date: 01/21/19 Assessment/Plan:: This is a 68-year-old male who has been residing at [facility] since August 2016. He has a past medical history for end-stage renal disease on hemodialysis Friday and Friday. He was undergoing hemodialysis with removal of 2 L when his blood pressure dropped to systolic of 70s. Patient was then given 2 L of IV fluid with systolic of 80. Patient was transferred to [facility] where blood work revealed a white count of 24, hemoglobin 13.4. Blood culture was obtained and patient was given Rocephin and Zosyn. He had a temperature maximum 100.2 and was given Tylenol and subsequently had an emesis. At the time of discharge from [place] he was placed on Ventimask at 50%, blood pressure was 91/49, heart rate 120 and temperature max was 100.2. Patient was seen in the emergency center and transferred to the intensive care unit. He has received 40 of liters of fluid, no vasopressors. He presented with a stage II coccyx ulcer and left heel ulcer. The patient has underlying dementia and is unable to provide adequate history. He is currently denying any complaints.Please see the consult note as dictated by BEBETO Correa, As noted this 68-year-old male presents from the extended care facility after is dialysis session with concerns to hypotension. Temperature 100.2 was noticed and there was concerns to sepsis given his relative hypotension and he was initiated antibiotic therapy with Zosyn and vancomycin he also received a dose of Rocephin. He has not received fluids of greater than 4 L but has not required vasopressor therapy. We'll support the wound team regarding the t reatment of the left heel diabetic ulceration as well as a stage II pressure ulceration of the sacrum both present on admission. Cultures are process with further help direct and de-escalate antibiotic therapy. He is in ICU bed which is an air surface which should be acceptable given his current situation. With his advanced dementia with contemplate if he has a [facility] of care candidate. I agree with the evaluation assesment and plan as dictated by INTERIOR SPECIALIST Mrs. Edna Correa.
--- NOTE | 2019-01-21 15:49 | PN ---
PROGRESS NOTE DATE OF SERVICE: 01/21/2019. This 68-year-old gentleman who was admitted with hypotension with possible sepsis with left diabetic foot is being closely monitored. The patient is also being evaluated for possible pneumonia also. The most recent chest x-ray done today personally evaluated by me showed features of some CHF with a prominent right hilum. The patient being closely monitored. Dialysis being planned for tomorrow. The wound care/infectious disease evaluation progress at this time. PAST MEDICAL HISTORY: Past medical history reviewed. REVIEW OF SYSTEMS: Cardiovascular system: No angina or palpitations. Respiratory: As mentioned earlier. GI: As mentioned earlier. : No dysuria. CENTRAL NERVOUS SYSTEM: No numbness or weakness. CURRENT MEDICATIONS: Reviewed and include: 1. [place] 5 mg q.4 p.r.n. 2. Abilify 15 mg p.o. daily. 3. Aspirin 160 mg. 4. Dulcolax 10 mg q.48h hours. 5. Plavix 75 mg p.o. daily. 6. Depakote 500 mg p.o. t.i.d. 7. Vitamin D2 50,000 . 8. Proscar 5 mg q.h.s. 9. Folic acid 1 mg p.o. daily. 10.Neurontin 200 mg p.o. daily. 11.Apresoline 25 mg p.o. t.i.d. 12.NovoLog a.c. and at bedtime. 13.Levemir 20 units subcu q.h.s. 14.Cephulac 50 mg p.o. daily. 15.Nephrocaps 1 capsule p.o. daily. 16.Narcan. 17.Zosyn 3.375 IV b.i.d. 18.Renvela 2.4 daily. 19.Vancomycin 1.5. PHYSICAL EXAM: Patient is alert, oriented x3. Pulse 65. Blood pressure 95/51, respiration 21, temperature 98.7, pulse ox 99% on 3 L. HEENT: Conjunctivae pale. Oral mucosa moist. NECK is no jugular venous distention. No carotid bruit. No lymph node enlargement. Cardiovascular systems: S1, S2 muffled. Respiration: Breath sounds diminished in the bases. Bilateral scattered rhonchi and crackles. ABDOMEN: Soft, nontender. No mass palpable. LEGS: Foot ulcer and some edema also present. NERVOUS SYSTEM: No focal deficits. LABS: WBC 21.2, hemoglobin 10.1. Sodium 136, creatinine 6.97. The cultures are negative so far. ASSESSMENT: 1. Hypotension with possible severe sepsis with left diabetic foot wound with acute hypoxic respiratory failure, which is multifactorial. 2. Rule out pneumonia. 3. Congestive heart failure acute exacerbation. Ejection fraction 50-55 percent with acute on chronic diastolic dysfunction. 4. Chronic kidney stage IV, on hemodialysis. 5. Change in mental status, metabolic encephalopathy, multifactorial, acute on chronic. 6. History of atrial fibrillation. 7. History of coronary artery disease. 8. Cerebrovascular accident, transient ischemic attack. 9. Dementia. 10.Diabetes type 2. 11.Hypertension. 12.Hyperlipidemia. 13.Degenerative joint disease. 14.History of sleep apnea. 15.Chronic obstructive pulmonary disease. 16.History of ESBL and MRSA. 17.History of cholecystectomy. 18.History of degenerative joint disease. 19.History of anxiety. 20.Gait dysfunction. RECOMMENDATIONS AND DISCUSSION: Recommend to continue current medications, management and symptomatic treatment. The patient will be started on broad-spectrum IV antibiotic. The CHF appears to be stable at this time but however hemodialysis being planned tomorrow. As mentioned earlier, the exact source of this sepsis is unknown at this time. We will continue to monitor. Obtain cultures and continue to monitor. I would also recommend a bone scan to rule out the possibility of osteomyelitis. MMODL / IJN: [id number] /
--- NOTE | 2019-01-21 16:58 | CONS ---
CONSULTATION CHIEF COMPLAINT: Shortness of breath and hypotension. HISTORY OF PRESENT ILLNESS: Giovanny is a 68-year-old gentleman who is admitted to hospital with hypotension and altered mental status. He has known atrial fibrillation, coronary artery disease, congestive heart failure, CVA, TIA, dementia, and end-stage renal disease and is currently on hemodialysis. The patient is a resident of [facility] in [place] and receives hemodialysis 3 days a week. When he came in, he was hypotensive and was febrile and lactic acid was elevated suggestive of sepsis syndrome. The patient is currently on IV antibiotics and blood cultures have been done. The patient is remains in sinus rhythm this morning. Heart rate is well controlled. Blood pressures are getting better. PAST MEDICAL HISTORY: Significant for atrial fibrillation, CAD, heart failure, CVA, dementia, diabetes, dialysis, end-stage renal disease on hemodialysis. MEDICATIONS: Medications at home include Apresoline 25 t.i.d., Zoloft, lactulose, hydrocodone, Neurontin, folic acid, Pepcid, Depakote, Plavix, Dulcolax, aspirin and Abilify. ALLERGIES: There are no known drug allergies. FAMILY HISTORY: Significant for coronary artery disease, hypertension, and aortic aneurysm. SOCIAL HISTORY: Social history negative for smoking, EtOH abuse, or drug abuse. REVIEW OF SYSTEMS: HEENT is unremarkable. Cardiac as described above. Respiratory as described above. GI negative. Genitourinary significant for end-stage renal disease on hemodialysis. Rest of the system review is not obtainable. This patient is appearing sleepy. PHYSICAL EXAMINATION: On exam, patient is resting comfortably, answering questions. Heart rate is 77 beats per minute. Blood pressure is 103/55, respiratory rate is 18. Chest exam reveals diminished air entry at the bases. Heart exam reveals first and second heart sounds. No gallop. He has a systolic murmur at the left lower sternal border. Abdomen is soft. Exam of extremities reveals bilateral 1+ pitting edema. EKG shows sinus tachycardia. An echocardiogram shows normal LV systolic function. LABS: Labs show that the hemoglobin is 10.1, platelet count is 286, potassium is 5, BUN is 33, creatinine is 6.97. ASSESSMENT: 1. Sepsis syndrome. 2. End-stage renal disease on hemodialysis. 3. Hypotension, probably related to sepsis. 4. Paroxysmal atrial fibrillation. PLAN: The patient is on aspirin, Plavix which will be continued. Please hold Apresoline. IV antibiotics will be continued. We will await blood cultures. Lactic acid is improving. The patient will continue with the hemodialysis. MMODL / IJN: [id number] /
[2019-01-21 17:09] LABS: Glucose,Whole Blood 123 mg/dL (75-99)
[2019-01-21] MEDS: FINASTERIDE 5 MG TAB PO SCH (20:14)
[2019-01-21 20:16] LABS: Glucose,Whole Blood 126 mg/dL (75-99)
[2019-01-21] MEDS ORDERED: INSULIN DETEMIR (LEVEMIR) 100 UNIT/ML SYR SQ SCH (21:00)
[2019-01-22] MEDS: SEVELAMER 800 MG TAB PO SCH ×3 (05:00→17:48)
[2019-01-22] MEDS: DIVALPROEX SPRINKLE 125 MG CAP.SPRINK PO SCH ×3 (05:01→20:45)
[2019-01-22] MEDS: HYDROcodone/APAP 5-325MG 1 EACH TAB PO SCH ×3 (05:01→20:45)
[2019-01-22] MEDS: hydrALAZINE HCL 25 MG TAB PO SCH (05:01)
[2019-01-22 05:31] LABS: Basophils # (A) 0.1 k/uL (0-0.2); Basophils % (A) 0 %; Eosinophils % (A) 6 %; HCT 31.1 % (39.0-53.0); HGB 10.5 gm/dL (13.0-17.5); Lymphocytes # (A) 1.3 k/uL (1.0-4.8); Lymphocytes % (A) 7 %; MCH 30.9 pg (25.0-35.0); MCHC 33.9 g/dL (31.0-37.0); MCV 91.1 fL (80.0-100.0); Mean Platelet Volume 6.5; Monocytes % (A) 5 %; Neutrophils # (A) 14.5 k/uL (1.3-7.7); Neutrophils % (A) 80 %; Platelet Count 243 k/uL (150-450); RBC 3.41 m/uL (4.30-5.90); RDW 15.4 % (11.5-15.5); WBC 18.1 k/uL (3.8-10.6)
[2019-01-22 05:34] LABS: Calcium 9.8 mg/dL (8.4-10.2)
[2019-01-22] MEDS ORDERED: VANCOMYCIN 1,500 MG in SODIUM CHLORIDE 0.9% 250 ML IVPB ONE (06:00)
[2019-01-22 06:58] LABS: Glucose,Whole Blood 125 mg/dL (75-99)
[2019-01-22] MEDS: INSULIN ASPART (NovoLOG) 100 UNIT/ML VIAL SQ SCH ×4 (06:59→20:47)
--- NOTE | 2019-01-22 08:37 | P.PN ---
Subjective Patient is seen in follow-up for end-stage renal disease. He is maintained on hemodialysis on Friday schedule. Denies active chest pain or shortness of breath. Currently on IV antibiotics for left foot ulcer as well as pressure ulcer. Vital signs are stable. General: The patient appeared well nourished and normally developed. HEENT: Head exam is unremarkable. Neck is without jugular venous distension. LUNGS: Lungs are clear to auscultation and percussion. Breath sounds decreased. HEART: Rate and Rhythm are regular. First and second heart sounds normal. No murmurs, rubs or gallops. ABDOMEN: Abdominal exam reveals normal bowel sounds. Non-tender and non- distended. No evidence of peritonitis. EXTREMITITES: Trace edema. No obvious drainage noted. Objective - Vital Signs Vital signs: Vital Signs Temp 98.3 F 01/22/19 04:00 Pulse 78 01/22/19 08:00 Resp 13 01/22/19 08:00 BP 80/37 01/22/19 08:00 Pulse Ox 95 01/22/19 08:00 Intake & Output 01/21/19 01/22/19 01/22/19 18:59 06:59 18:59 Intake Total 650 180 Output Total 0 0 Balance 650 180 Weight 78.6 kg 78.9 kg Intake: IV 200 180 ns 200 180 Intake, IV Titration 350 Amount Piperacillin-Tazobactam 3 100 .375 gm In Sodium Chloride 0.9% 100 ml @ 25 mls/hr IVPB Q12HR [facility] Rx #:[id number] Vancomycin 1,500 mg In 250 Sodium Chloride 0.9% 250 ml @ 125 mls/hr IVPB ONCE ONE Rx#:[id number] Oral 100 Output: Urine 0 0 - Labs CBC & Chem 7: 01/22/19 04:44 01/22/19 06:15 Labs: Abnormal Lab Results - Last 24 Hours (Table) 01/21/19 01/21/19 01/21/19 Range/Units 05:51 11:54 17:07 WBC (3.8-10.6) k/uL RBC (4.30-5.90) m/uL Hgb (13.0-17.5) gm/dL Hct (39.0-53.0) % Neutrophils # (1.3-7.7) k/uL Eosinophils # (0-0.7) k/uL BUN (9-20) mg/dL Creatinine (0.66-1.25) mg/dL POC Glucose (mg/dL) 126 H 123 H (75-99) mg/dL Procalcitonin 16.35 H (0.02-0.09) ng/mL 01/21/19 01/22/19 01/22/19 Range/Units 20:14 04:44 04:44 WBC 18.1 H (3.8-10.6) k/uL RBC 3.41 L (4.30-5.90) m/uL Hgb 10.5 L (13.0-17.5) gm/dL Hct 31.1 L (39.0-53.0) % Neutrophils # 14.5 H (1.3-7.7) k/uL Eosinophils # 1.0 H (0-0.7) k/uL BUN 47 H (9-20) mg/dL Creatinine 8.91 H* (0.66-1.25) mg/dL POC Glucose (mg/dL) 126 H (75-99) mg/dL Procalcitonin (0.02-0.09) ng/mL 01/22/19 Range/Units 06:56 WBC (3.8-10.6) k/uL RBC (4.30-5.90) m/uL Hgb (13.0-17.5) gm/dL Hct (39.0-53.0) % Neutrophils # (1.3-7.7) k/uL Eosinophils # (0-0.7) k/uL BUN (9-20) mg/dL Creatinine (0.66-1.25) mg/dL POC Glucose (mg/dL) 125 H (75-99) mg/dL Procalcitonin (0.02-0.09) ng/mL Microbiology - Last 24 Hours (Table) 01/20/19 22:10 Blood Culture - Preliminary Blood No Growth after 24 hours 01/20/19 22:45 Gram Stain - Preliminary Foot - Left Wound Culture - Preliminary Strep agalactiae - (group b) Presumptive MRSA Assessment and Plan Plan: Assessment: 1. End-stage renal disease maintained on hemodialysis on Friday and Friday schedule. 2. Sepsis likely secondary to left heel ulcer and pressure ulceration. Maintain on IV antibiotics. Infectious disease following. Foot ulcer culture positive for MRSA. 3. Insulin-dependent diabetes mellitus. 4. Anemia of chronic kidney disease. Hemoglobin at goal. 5. Chronic kidney disease mineral bone disease maintained on Renvela. Plan: Hemodialysis today. Follow-up cultures. Monitor vancomycin levels - target level near 15.
[2019-01-22] MEDS: MIDODRINE 5 MG TAB PO SCH ×3 (08:50→17:58)
[2019-01-22] MEDS: GABAPENTIN 100 MG CAP PO SCH ×2 (08:51→17:48)
[2019-01-22] MEDS: CLOPIDOGREL 75 MG TAB PO SCH (08:51)
[2019-01-22] MEDS: FOLIC ACID 1 MG TAB PO SCH (08:52)
[2019-01-22] MEDS: ASPIRIN 81 MG PO SCH (08:52)
[2019-01-22] MEDS: ARIPiprazole 15 MG TAB PO SCH (08:53)
[2019-01-22] MEDS: FOLIC ACID-VIT B COMPLEX-VIT C 1 CAP PO SCH (08:53)
--- NOTE | 2019-01-22 09:21 | PN ---
PROGRESS NOTE DATE OF SERVICE: 01/22/2019 This is a gentleman we saw yesterday in consultation. He is a 68-year-old gentleman who resides at [facility] up in [place]. He apparently goes to [facility] there Friday, Friday, Friday for hemodialysis. Apparently either during dialysis or post dialysis, he developed some hypotension, dizziness and lightheadedness. In addition, he apparently had some increasing respiratory rate, shortness of breath and some fever. For that reason, he was transferred down. He received a bit of fluid in our emergency room and we gave him some additional fluid when he arrived here. Currently, he is doing relatively well. He is awake and alert. His blood pressure this morning is a bit low, maybe about 90 or so systolic. The patient otherwise has no major complaints. Denies any pain or difficulty breathing. The patient does have a wound on his left foot. He has been seen by Infectious Diseases. A bone scan was ordered. Again, today he is feeling well without major complaints. He is not getting any IV fluids. He is on O2 at 2 L. I did ask the nurse to start him on some midodrine at 5 mg 3 times a day for the slight drop in blood pressure. Again, he is awake and alert, lucid, oriented, etc. Current vital signs are reviewed, temperature 98.3, heart rate 85, respiratory rate 21, blood pressure 108/55 mean 72, saturations are 100%. Appears in no acute distress. HEENT: Examination is grossly unremarkable. Mucous membranes are moist. No oral lesions. NECK: Supple. Full range of motion. No adenopathy, thyromegaly or neck vein distention. CARDIOVASCULAR: Examination reveals regular rhythm and rate. Heart rate in the mid 80s. S1, S2 normal. LUNGS: Reveal a few scattered rhonchi. No wheezes or crackles. ABDOMEN: Soft, bowel sounds are heard. EXTREMITIES: Intact. No edema. The left foot and ankle are wrapped. SKIN: Without rash. NEUROLOGIC: Examination is brief but nonfocal. LABS: Reviewed. White count 18.1, hemoglobin 10.5, hematocrit 31.1, platelet count 343,000. Sodium 140, potassium 5.1, chloride 102, CO2 is 24, anion gap is 14. BUN and creatinine were 47 and 8.91. He has an anion gap metabolic acidosis secondary to his renal failure. Calcium 9.8. Microbiology is showing a group B strep and possible MRSA from the wound of the left foot. No additional x-rays to report. CURRENT MEDICATIONS: Reviewed. He is currently on vancomycin and Zosyn as an antibiotic. ASSESSMENT: 1. Possible sepsis, likely related to his foot lesion, culture showing evidence of group B strep and possible methicillin-resistant Staphylococcus aureus. 2. Prior history of both ESBL and methicillin-resistant Staphylococcus aureus infection. 3. History of atrial fibrillation. 4. Coronary artery disease. 5. Congestive heart failure. 6. Cerebrovascular accident. 7. Dementia. 8. Diabetes mellitus. 9. History of end-stage renal disease, currently on Friday, Friday, Friday hemodialysis. 10.Hyperlipidemia. 11.Benign essential hypertension. 12.Memory impairment. 13.Degenerative joint disease. 14.Sleep apnea syndrome, currently maintained on CPAP. 15.History of closed head injury. 16.Chronic dizziness secondary to closed head injury. 17.Diabetic foot ulcer, left heel/foot as a possible source of patient's infection. PLAN: Currently, the patient was seen by Infectious Diseases. Vancomycin was added to the Zosyn that I put him on yesterday. The wound from the left foot is showing evidence of group B strep and possible MRSA. The patient's respiratory status is stable. Blood pressure is a bit low. I added midodrine 5 mg 3 times a day. The patient does have an anion gap metabolic acidosis from chronic renal failure. No additional recommendations are made. Will continue to follow. The patient is very stable. Could be transferred out to the general medical floor in my opinion. Additional recommendations and suggestions are forthcoming. The patient is not receiving any IV fluids. He is receiving O2 at 2 L. MMODL / IJN: [id number] /
[2019-01-22] MEDS: PIPERACILLIN-TAZOBACTAM 3.375 GM in SODIUM CHLORIDE 0.9% 100 ML IVPB SCH ×2 (10:08→20:46)
--- NOTE | 2019-01-22 11:11 | PN ---
PROGRESS NOTE Giovanny is a 68-year-old gentleman with end-stage renal disease on hemodialysis, who is admitted to hospital with sepsis, hypotension and altered mental status. The patient has known atrial fibrillation, coronary artery disease and congestive heart failure. This morning he appears more alert, awake and is able to answer questions. The patient had an echocardiogram that showed an ejection fraction of 60%to 65% percent with mild mitral regurgitation. He has infection involving left foot. PHYSICAL EXAM: Heart rate is 80 beats per minute, blood pressure is 108/54, respiratory rate is 18. Chest exam reveals diminished air entry at the bases. Heart exam reveals first and second heart sounds. No gallop. Exam of extremities reveals mild edema. His blood cultures are negative and wound culture is positive for strep agalactiae. Patient is currently on aspirin, Plavix, Neurontin, insulin. ASSESSMENT: 1. Hypotension. 2. Chronic atrial fibrillation. 3. End-stage renal disease on hemodialysis. 4. Coronary artery disease. 5. Paroxysmal atrial fibrillation. PLAN: Patient will continue with the current medications. MMODL / IJN: [id number] /
[2019-01-22 11:45] LABS: Glucose,Whole Blood 153 mg/dL (75-99)
[2019-01-22] MEDS ORDERED: MIDODRINE 5 MG TAB PO SCH (12:30)
--- NOTE | 2019-01-22 14:51 | P.PN ---
Subjective Progress Note Date: 01/22/19 Principal diagnosis: This is a 68-year-old male sitting up in the chair in no acute distress currently in the ICU and being closely monitored. Patient is awaiting to undergo dialysis today. Multiple medical consultations are following. Infectious disease is following and patient is currently on IV antibiotics in the form of Zosyn and will continue at this time. No acute overnight issues. Per nursing staff patient has been downgraded and is awaiting a bed on the Med[facility] unit. Today patient's blood pressures have been slightly lower and patient was started on Midodrin 3 times daily and will be closely monitored. Patient denies any chest pain, shortness of breath, or palpitations at this time. Patient is afebrile. Patient denies any nausea or vomiting and is tolera ting diet. Patient is also working with PT/OT and is currently still requiring maximum assist for position changes and standing. Patient is a long-term resident of [facility] and will be returning there upon discharge once stabilized. Will continue to monitor closely. Guarded prognosis. REVIEW OF SYSTEMS: ENT: Reports diminished vision and hearing. CARDIOVASCULAR: Denies chest pain or palpitations RESPIRATORY: Denies shortness of breath or cough GI: No nausea, vomiting or diarrhea. : No dysuria or retention. NERVOUS SYSTEM: reports weakness. MUSCULOSKELETAL: As mentioned earlier. HEMATOLOGY/ONCOLOGY: No history of anemia. ENDOCRINE: history of diabetes CONSTITUTIONAL: Denies fatigue or fever. PSYCHIATRY: cooperative, no reports of suicidal ideation Active Medications Hydrocodone Bitart/Acetaminophen ([place] 5-325) 1 each PO TID@0600,1300,2100 [facility] Last Admin: 01/22/19 05:01 Dose: 1 each Documented by: Hydrocodone Bitart/Acetaminophen ([place] 5-325) 1 each PO Q4HR PRN PRN Reason: Moderate Pain Last Admin: 01/20/19 23:18 Dose: 1 each Documented by: Aripiprazole (Abilify) 15 mg PO DAILY@0900 [facility] Last Admin: 01/22/19 08:53 Dose: 15 mg Documented by: Aspirin (Aspirin) 162 mg PO DAILY@0900 [facility] Last Admin: 01/22/19 08:52 Dose: 162 mg Documented by: Bisacodyl (Dulcolax) 10 mg PO Q48H PRN PRN Reason: Constipation Clopidogrel Bisulfate (Plavix) 75 mg PO DAILY@0900 [facility] Last Admin: 01/22/19 08:51 Dose: 75 mg Documented by: Divalproex Sodium (Depakote Sprinkle) 500 mg PO TID@0600,1300,2100 [facility] Last Admin: 01/22/19 05:01 Dose: 500 mg Documented by: Ergocalciferol (Vitamin D2) 50,000 unit PO TH@0900 [facility] Last Admin: 01/21/19 08:54 Dose: 50,000 unit Documented by: Finasteride (Proscar) 5 mg PO HS@2100 [facility] Last Admin: 01/21/19 20:14 Dose: 5 mg Documented by: Folic Acid (Folic Acid) 1 mg PO DAILY@0900 [facility] Last Admin: 01/22/19 08:52 Dose: 1 mg Documented by: Gabapentin (Neurontin) 200 mg PO DAILY@0900 [facility] Last Admin: 01/22/19 08:51 Dose: 200 mg Documented by: Gabapentin (Neurontin) 200 mg PO MOWEFR@1700 [facility] Piperacillin Sod/Tazobactam (Sod 3.375 gm/ Sodium Chloride) 100 mls @ 25 mls/hr IVPB Q12HR [facility] Last Admin: 01/22/19 10:08 Dose: 25 mls/hr Documented by: Insulin Aspart (Novolog) 0 unit SQ [facility]; Protocol Last Admin: 01/22/19 13:40 Dose: 1 unit Documented by: Insulin Detemir (Levemir) 20 unit SQ HS@2100 [facility] Last Admin: 01/21/19 20:31 Dose: Not Given Documented by: Lactulose (Cephulac) 15 gm PO DAILY PRN PRN Reason: Constipation Midodrine (Proamatine) 5 mg PO AC-TID [facility] Last Admin: 01/22/19 13:36 Dose: 5 mg Documented by: Miscellaneous Information (Pharmacy To Dose Iv Vancomycin) 1 each MISCELLANE DIRECTED PRN PRN Reason: Per Protocol Multivit/Ca Carb/B Cmplx/FA/Prenat (Nephrocaps) 1 each PO DAILY@0900 [facility] Last Admin: 01/22/19 08:53 Dose: 1 each Documented by: Naloxone HCl (Narcan) 0.2 mg IV Q2M PRN PRN Reason: Opioid Reversal Sevelamer Carbonate (Renvela) 2,400 mg PO TID@0600,1200,1700 [facility] Last Admin: 01/22/19 13:35 Dose: 2,400 mg Documented by: Objective - Vital Signs Vital signs: Vital Signs Temp 98.3 F 01/22/19 04:00 Pulse 78 01/22/19 08:00 Resp 13 01/22/19 08:00 BP 117/52 01/22/19 14:00 Pulse Ox 95 01/22/19 08:00 Intake & Output 01/21/19 01/22/19 01/22/19 18:59 06:59 18:59 Intake Total 650 180 Output Total 0 0 Balance 650 180 Weight 78.6 kg 78.9 kg Intake: IV 200 180 ns 200 180 Intake, IV Titration 350 Amount Piperacillin-Tazobactam 3 100 .375 gm In Sodium Chloride 0.9% 100 ml @ 25 mls/hr IVPB Q12HR [facility] Rx #:[id number] Vancomycin 1,500 mg In 250 Sodium Chloride 0.9% 250 ml @ 125 mls/hr IVPB ONCE ONE Rx#:[id number] Oral 100 Output: Urine 0 0 - Exam Gen: This is a 68-year-old male sitting up in the chair in no acute distress. Vital signs are stable. HEENT: Head is atraumatic, normocephalic. Pupils equal, round. Sclerae is anicteric. NECK: Supple. No JVD. No lymphadenopathy. No thyromegaly. LUNGS: Diminished breath sounds at the bases with a few scattered rhonchi and crackles noted throughout. No wheezing noted. No intercostal retractions. HEART: S1, S2 are muffled ABDOMEN: Soft. Bowel sounds are present. No masses. No tenderness. EXTREMITIES: Left foot ulcer and edema noted. No calf tenderness. NEUROLOGICAL: Patient is awake, alert and oriented x3. Cranial nerves 2 through 12 are grossly intact. - Labs CBC & Chem 7: 01/22/19 04:44 01/22/19 06:15 Labs: Abnormal Lab Results - Last 24 Hours (Table) 01/21/19 01/21/19 01/21/19 Range/Units 05:51 17:07 20:14 WBC (3.8-10.6) k/uL RBC (4.30-5.90) m/uL Hgb (13.0-17.5) gm/dL Hct (39.0-53.0) % Neutrophils # (1.3-7.7) k/uL Eosinophils # (0-0.7) k/uL BUN (9-20) mg/dL Creatinine (0.66-1.25) mg/dL POC Glucose (mg/dL) 123 H 126 H (75-99) mg/dL Procalcitonin 16.35 H (0.02-0.09) ng/mL 01/22/19 01/22/19 01/22/19 Range/Units 04:44 04:44 06:56 WBC 18.1 H (3.8-10.6) k/uL RBC 3.41 L (4.30-5.90) m/uL Hgb 10.5 L (13.0-17.5) gm/dL Hct 31.1 L (39.0-53.0) % Neutrophils # 14.5 H (1.3-7.7) k/uL Eosinophils # 1.0 H (0-0.7) k/uL BUN 47 H (9-20) mg/dL Creatinine 8.91 H* (0.66-1.25) mg/dL POC Glucose (mg/dL) 125 H (75-99) mg/dL Procalcitonin (0.02-0.09) ng/mL 01/22/19 Range/Units 11:44 WBC (3.8-10.6) k/uL RBC (4.30-5.90) m/uL Hgb (13.0-17.5) gm/dL Hct (39.0-53.0) % Neutrophils # (1.3-7.7) k/uL Eosinophils # (0-0.7) k/uL BUN (9-20) mg/dL Creatinine (0.66-1.25) mg/dL POC Glucose (mg/dL) 153 H (75-99) mg/dL Procalcitonin (0.02-0.09) ng/mL Microbiology - Last 24 Hours (Table) 01/20/19 22:10 Blood Culture - Preliminary Blood No Growth after 24 hours 01/20/19 22:45 Gram Stain - Preliminary Foot - Left Wound Culture - Preliminary Strep agalactiae - (group b) Presumptive MRSA Assessment and Plan Assessment: Hypotension with possible severe sepsis with left diabetic foot wound with acute hypoxic respiratory failure, which is multifactorial Rule out pneumonia Congestive heart failure acute exacerbation. Ejection fraction 50-55% with acute on chronic diastolic dysfunction Chronic kidney stage IV, on hemodialysis Change in mental status, metabolic encephalopathy, multifactorial, acute on chronic History of atrial fibrillation History of coronary artery disease Cerebrovascular accident, transient ischemic attack Dementia Diabetes mellitus type 2 Hypertension Hyperlipidemia and degenerative joint disease History of sleep apnea Chronic obstructive pulmonary disease History of ESBL and MRSA history of cholecystectomy History of degenerative joint disease History of anxiety Gait dysfunction Recommendations and discussion: Recommend continue current medications, management, and symptomatic treatment. Patient is on IV Zosyn at this time for left diabetic foot wound and infectious disease is following. Patient is awaiting for dialysis today and is currently still in the ICU awaiting a transfer to [facility]. Patient's blood pressure is slightly low today and patient was started on Midodrin 3 times daily and will continue to monitor closely. Patient is awaiting a bone scan also to rule out osteomyelitis of the left foot. Multiple medical consultations are following. Once patient is stabilized and discharged, the patient will be returning to [facility] as he is a resident there. Further recommendations to follow. Extremely guarded prognosis.
--- NOTE | 2019-01-22 15:08 | NM ---
EXAMINATION TYPE: NM bone 3 phase DATE OF EXAM: 01/22/2019 COMPARISON: NONE HISTORY: Nonhealing wound left heel Triple phase bone scintigraphy was performed following the injection of 25.1 mCi Tc 99m MDP. Immedia te images and 5.25 hours post injection images acquired. FINDINGS: There is increased perfusion to the left heel. There is increased soft tissue uptake to the left heel compatible cellulitis. Delayed imaging demonstrates increased uptake involving the base of the left calcaneus highly suggest barbra of osteomyelitis. IMPRESSION: 1. Findings are compatible with cellulitis and osteomyelitis of the left heel.
[2019-01-22] MEDS ORDERED: GABAPENTIN 100 MG CAP PO SCH (17:00)
[2019-01-22 17:26] LABS: Glucose,Whole Blood 126 mg/dL (75-99)
[2019-01-22 18:58] LABS: Hepatitis B Surface AB- Quant 75.4 mIU/mL; Hepatitis B Surface Antibody Reactive (Non-Reactive); Hepatitis B Surface Antigen Non-Reactive (Non-Reactive)
[2019-01-22 20:26] LABS: Glucose,Whole Blood 168 mg/dL (75-99)
[2019-01-22] MEDS: FINASTERIDE 5 MG TAB PO SCH (20:45)
[2019-01-22] MEDS: INSULIN DETEMIR (LEVEMIR) 100 UNIT/ML SYR SQ SCH (20:46)
--- NOTE | 2019-01-22 22:30 | P.PN ---
Subjective Progress Note Date: 01/22/19 This is a 68-year-old male who has been residing at [facility] since August 2016. He has a past medical history for end-stage renal disease on hemodialysis Friday and Friday. He was undergoing hemodialysis with removal of 2 L when his blood pressure dropped to systolic of 70s. Patient was then given 2 L of IV fluid with systolic of 80. Patient was transferred to [facility] where blood work revealed a white count of 24, hemoglobin 13.4. Blood culture was obtained and patient was given Rocephin and Zosyn. He had a temperature maximum 100.2 and was given Tylenol and subsequently had an emesis. At the time of discharge from [place] he was placed on Ventimask at 50%, blood pressure was 91/49, heart rate 120 and temperature max was 100.2. Patient was seen in the emergency center and transferred to the intensive care unit. He has received 40 of liters of fluid, no vasopressors. He presented with a stage II coccyx ulcer and left heel ulcer. The patient has underlying dementia and is unable to provide adequate history. He is currently denying any complaints. 01/22/2019, patient has significant dementia but is comfortable, receiving hemodialysis. Objective - Vital Signs Vital signs: Vital Signs Temp 97.0 F L 01/22/19 16:11 Pulse 87 01/22/19 16:11 Resp 16 01/22/19 16:11 BP 117/57 01/22/19 16:11 Pulse Ox 97 01/22/19 16:11 Intake & Output 01/22/19 01/22/19 01/23/19 06:59 18:59 06:59 Intake Total 180 100 Output Total 0 Balance 180 100 Weight 78.9 kg Intake: IV 180 0 ns 180 0 Intake, IV Titration 100 Amount Piperacillin-Tazobactam 3 100 .375 gm In Sodium Chloride 0.9% 100 ml @ 25 mls/hr IVPB Q12HR [facility] Rx #:[id number] Output: Urine 0 - Exam Gen: This is a 68-year-old male. Supine and the general medical unit, comfortable HEENT: Head is atraumatic, normocephalic. Pupils equal, round. Sclerae is anicteric. Conjunctiva pink. Mucous members of the mouth are moist. Dentition is in fair order. NECK: Supple. No JVD. No lymphadenopathy. No thyromegaly. LUNGS: Clear to auscultation. No wheezes or rhonchi. No intercostal retractions. HEART: Regular rate and rhythm. No murmur. ABDOMEN: Soft. Bowel sounds are present. No masses. No tenderness. EXTREMITIES: No pedal edema. No calf tenderness. Dressing to the left heel ulceration is without purulence minimal erythema NEUROLOGICAL: Patient is awake, alert and oriented to person only. - Labs CBC & Chem 7: 01/22/19 04:44 01/22/19 06:15 Labs: Abnormal Lab Results - Last 24 Hours (Table) 01/22/19 01/22/19 01/22/19 Range/Units 04:44 04:44 04:44 WBC 18.1 H (3.8-10.6) k/uL RBC 3.41 L (4.30-5.90) m/uL Hgb 10.5 L (13.0-17.5) gm/dL Hct 31.1 L (39.0-53.0) % Neutrophils # 14.5 H (1.3-7.7) k/uL Eosinophils # 1.0 H (0-0.7) k/uL BUN 47 H (9-20) mg/dL Creatinine 8.91 H* (0.66-1.25) mg/dL POC Glucose (mg/dL) (75-99) mg/dL Hep Bs Antibody Reactive H (Non-Reactive) 01/22/19 01/22/19 01/22/19 Range/Units 06:56 11:44 17:22 WBC (3.8-10.6) k/uL RBC (4.30-5.90) m/uL Hgb (13.0-17.5) gm/dL Hct (39.0-53.0) % Neutrophils # (1.3-7.7) k/uL Eosinophils # (0-0.7) k/uL BUN (9-20) mg/dL Creatinine (0.66-1.25) mg/dL POC Glucose (mg/dL) 125 H 153 H 126 H (75-99) mg/dL Hep Bs Antibody (Non-Reactive) 01/22/19 Range/Units 20:12 WBC (3.8-10.6) k/uL RBC (4.30-5.90) m/uL Hgb (13.0-17.5) gm/dL Hct (39.0-53.0) % Neutrophils # (1.3-7.7) k/uL Eosinophils # (0-0.7) k/uL BUN (9-20) mg/dL Creatinine (0.66-1.25) mg/dL POC Glucose (mg/dL) 168 H (75-99) mg/dL Hep Bs Antibody (Non-Reactive) Microbiology - Last 24 Hours (Table) 01/20/19 22:45 Gram Stain - Final Foot - Left Wound Culture - Final Strep agalactiae - (group b) Methicillin resist S. aureus 01/20/19 22:10 Blood Culture - Preliminary Blood No Growth after 24 hours Laboratory Results WBC 18.1 k/uL (3.8-10.6) H 01/22/19 04:44 RBC 3.41 m/uL (4.30-5.90) L 01/22/19 04:44 Hgb 10.5 gm/dL (13.0-17.5) L 01/22/19 04:44 Hct 31.1 % (39.0-53.0) L 01/22/19 04:44 MCV 91.1 fL (80.0-100.0) 01/22/19 04:44 MCH 30.9 pg (25.0-35.0) 01/22/19 04:44 MCHC 33.9 g/dL (31.0-37.0) 01/22/19 04:44 RDW 15.4 % (11.5-15.5) 01/22/19 04:44 Plt Count 243 k/uL (150-450) 01/22/19 04:44 Neutrophils % 80 % 01/22/19 04:44 Neutrophils % (Manual) 70 % 01/20/19 22:10 Band Neutrophils % 14 % 01/20/19 22:10 Lymphocytes % 7 % 01/22/19 04:44 Lymphocytes % (Manual) 5 % 01/20/19 22:10 Monocytes % 5 % 01/22/19 04:44 Monocytes % (Manual) 11 % 01/20/19 22:10 Eosinophils % 6 % 01/22/19 04:44 Basophils % 0 % 01/22/19 04:44 Neutrophils # 14.5 k/uL (1.3-7.7) H 01/22/19 04:44 Neutrophils # (Manual) 23.10 k/uL (1.3-7.7) H 01/20/19 22:10 Lymphocytes # 1.3 k/uL (1.0-4.8) 01/22/19 04:44 Lymphocytes # (Manual) 1.38 k/uL (1.0-4.8) 01/20/19 22:10 Monocytes # 1.0 k/uL (0-1.0) 01/22/19 04:44 Monocytes # (Manual) 3.04 k/uL (0-1.0) H 01/20/19 22:10 Eosinophils # 1.0 k/uL (0-0.7) H 01/22/19 04:44 Basophils # 0.1 k/uL (0-0.2) 01/22/19 04:44 Nucleated RBCs 0 /100 WBC (0-0) 01/20/19 22:10 Manual Slide Review Performed 01/20/19 22:10 Toxic Vacuolation Present 01/20/19 22:10 Polychromasia Present 01/20/19 22:10 Sodium 140 mmol/L (137-145) 01/22/19 04:44 Potassium 5.1 mmol/L (3.5-5.1) 01/22/19 06:15 Chloride 102 mmol/L (98-107) 01/22/19 04:44 Carbon Dioxide 24 mmol/L (22-30) 01/22/19 04:44 Anion Gap 14 mmol/L 01/22/19 04:44 BUN 47 mg/dL (9-20) H 01/22/19 04:44 Creatinine 8.91 mg/dL (0.66-1.25) H* 01/22/19 04:44 Est GFR (CKD-EPI)AfAm 6 (>60 ml/min/1.73 sqM) 01/22/19 04:44 Est GFR (CKD-EPI)NonAf 5 (>60 ml/min/1.73 sqM) 01/22/19 04:44 Glucose 96 mg/dL (74-99) 01/22/19 04:44 POC Glucose (mg/dL) 168 mg/dL (75-99) H 01/22/19 20:12 POC Glu Plumber'S Assistant ID Milagros Lazar 01/22/19 20:12 Plasma Lactic Acid Olman 1.8 mmol/L (0.7-2.0) 01/21/19 05:51 Calcium 9.8 mg/dL (8.4-10.2) 01/22/19 04:44 Total Bilirubin 0.4 mg/dL (0.2-1.3) 01/20/19 22:10 AST 26 U/L (17-59) 01/20/19 22:10 ALT 11 U/L (21-72) L 01/20/19 22:10 Alkaline Phosphatase 125 U/L (38-126) 01/20/19 22:10 Total Protein 8.3 g/dL (6.3-8.2) H 01/20/19 22:10 Albumin 4.3 g/dL (3.5-5.0) 01/20/19 22:10 Procalcitonin 16.35 ng/mL (0.02-0.09) H 01/21/19 05:51 Hep Bs Antigen Non-Reactive (Non-Reactive) 01/22/19 04:44 Hep Bs Antibody Reactive (Non-Reactive) H 01/22/19 04:44 Hep Bs Antibody, Quant 75.4 mIU/mL 01/22/19 04:44 Microbiology 01/20/19 22:45 Foot - Left Gram Stain - Final 01/20/19 22:45 Foot - Left Wound Culture - Final Strep agalactiae - (group b) Methicillin resist S. aureus 01/20/19 22:10 Blood Blood Culture - Preliminary No Growth after 24 hours Assessment and Plan (1) End stage renal disease on dialysis Current Visit: Yes Status: Acute Code(s): N18.6 - END STAGE RENAL DISEASE; Z99.2 - DEPENDENCE ON RENAL DIALYSIS SNOMED Code(s): 956226914 (2) Chronic renal failure syndrome Current Visit: Yes Status: Acute Code(s): N18.9 - CHRONIC KIDNEY DISEASE, UNSPECIFIED SNOMED Code(s): 03340134 (3) Leukocytosis Current Visit: Yes Status: Acute Code(s): D72.829 - ELEVATED WHITE BLOOD CELL COUNT, UNSPECIFIED SNOMED Code(s): 141863472 (4) Acute osteomyelitis of left calcaneus Narrative/Plan: 68-year-old male presents from the extended care facility after is dialysis s ession with concerns to hypotension. Temperature 100.2 was noticed and there was concerns to sepsis given his relative hypotension and he was initiated antibiotic therapy with Zosyn and vancomycin he also received a dose of Rocephin. He has not received fluids of greater than 4 L but has not required vasopressor therapy. We'll support the wound team regarding the treatment of the left heel diabetic ulceration as well as a stage II pressure ulceration of the sacrum both present on admission. Cultures are process with further help direct and de-escalate antibiotic therapy. 01/22/2019 patient is little change in the status except he is now out of the intensive care unit since he is no longer hypotensive. He has profound dementia and is comfortable. He is tolerating hemodialysis well. The ulceration of the left heel is concerning and a bone scan has now confirmed osteomyelitis to that heel. Wound cultures with MRSA and strep and constantly we'll plan 6 weeks of vancomycin therapy. Hopefully this will be performed while he is receiving his hemodialysis during his stay which is permitted at the extended care facility. Local wound care as offloading and the silver alginate. Continue to protect the coccyx with the foam dressing. Blood cultures are negative. Current Visit: Yes Status: Acute Code(s): M86.172 - OTHER ACUTE OSTEOMYELITIS, LEFT ANKLE AND FOOT SNOMED Code(s): 942921245
[2019-01-23] MEDS: HYDROcodone/APAP 5-325MG 1 EACH TAB PO SCH ×3 (05:46→20:42)
[2019-01-23] MEDS: SEVELAMER 800 MG TAB PO SCH ×4 (05:46→17:30)
[2019-01-23] MEDS: DIVALPROEX SPRINKLE 125 MG CAP.SPRINK PO SCH ×4 (05:46→20:42)
[2019-01-23 07:02] LABS: Glucose,Whole Blood 121 mg/dL (75-99)
[2019-01-23] MEDS: INSULIN ASPART (NovoLOG) 100 UNIT/ML VIAL SQ SCH ×4 (07:14→20:52)
[2019-01-23 07:37] LABS: Basophils # (A) 0.1 k/uL (0-0.2); Basophils % (A) 1 %; Eosinophils # (A) 1.2 k/uL (0-0.7); Eosinophils % (A) 9 %; HGB 9.1 gm/dL (13.0-17.5); Lymphocytes # (A) 1.3 k/uL (1.0-4.8); Lymphocytes % (A) 10 %; MCH 30.5 pg (25.0-35.0); MCHC 32.6 g/dL (31.0-37.0); MCV 93.7 fL (80.0-100.0); Mean Platelet Volume 6.1; Monocytes # (A) 0.9 k/uL (0-1.0); Monocytes % (A) 7 %; Neutrophils # (A) 9.3 k/uL (1.3-7.7); Neutrophils % (A) 71 %; Platelet Count 265 k/uL (150-450); RBC 2.99 m/uL (4.30-5.90); RDW 15.5 % (11.5-15.5); WBC 13.2 k/uL (3.8-10.6)
[2019-01-23] MEDS: CLOPIDOGREL 75 MG TAB PO SCH (09:03)
[2019-01-23] MEDS: FOLIC ACID 1 MG TAB PO SCH (09:03)
[2019-01-23] MEDS: ASPIRIN 81 MG PO SCH (09:03)
[2019-01-23] MEDS: MIDODRINE 5 MG TAB PO SCH ×3 (09:03→15:48)
[2019-01-23] MEDS: GABAPENTIN 100 MG CAP PO SCH (09:03)
[2019-01-23] MEDS: ARIPiprazole 15 MG TAB PO SCH (09:04)
[2019-01-23] MEDS: PIPERACILLIN-TAZOBACTAM 3.375 GM in SODIUM CHLORIDE 0.9% 100 ML IVPB SCH ×2 (09:04→20:42)
[2019-01-23] MEDS: FOLIC ACID-VIT B COMPLEX-VIT C 1 CAP PO SCH (09:04)
[2019-01-23 09:39] LABS: Albumin 3.2 g/dL (3.5-5.0); Calcium 9.3 mg/dL (8.4-10.2); Potassium 4.2 mmol/L (3.5-5.1); Total Bilirubin 0.5 mg/dL (0.2-1.3); Total Protein 6.6 g/dL (6.3-8.2)
[2019-01-23 11:55] LABS: Glucose,Whole Blood 142 mg/dL (75-99)
--- NOTE | 2019-01-23 12:40 | P.PN ---
Subjective Progress Note Date: 01/23/19 Principal diagnosis: The patient is seen today January 23 2019 in follow-up on the regular medical floor. He was admitted with suspected sepsis secondary to a lesion of the right foot which was positive for MRSA and group B strep. He also has a previous history of ESBL and MRSA infections. He is currently resting comfortably in bed. Awake. Maintaining O2 saturations in the mid 90s on 2 L/m per nasal cannula. Currently afebrile. White count 13.2. Hemoglobin 9.1. Creatinine 6.34. He remains on Zosyn and vancomycin. Objective - Vital Signs Vital signs: Vital Signs Temp 98.5 F 01/23/19 05:00 Pulse 73 01/23/19 05:00 Resp 20 01/23/19 05:00 BP 121/68 01/23/19 05:00 Pulse Ox 95 01/23/19 05:00 Intake & Output 01/22/19 01/23/19 01/23/19 18:59 06:59 18:59 Intake Total 100 100 Balance 100 100 Intake: IV 0 ns 0 Intake, IV Titration 100 Amount Piperacillin-Tazobactam 3 100 .375 gm In Sodium Chloride 0.9% 100 ml @ 25 mls/hr IVPB Q12HR [facility] Rx #:[id number] Oral 100 Other: # Voids 0 # Bowel Movements 0 - Exam GENERAL EXAM: Alert, active, 68-year-old gentleman, comfortable in no apparent distress. HEAD: Normocephalic. EYES: Normal reaction of pupils, equal size. NOSE: Clear with pink turbinates. THROAT: No erythema or exudates. NECK: No masses, no JVD. CHEST: No chest wall deformity. LUNGS: Equal air entry with few scattered rhonchi bilaterally. CVS: S1 and S2 normal with no audible murmur, regular rhythm. ABDOMEN: No hepatosplenomegaly, normal bowel sounds, no guarding or rigidity. SPINE: No scoliosis or deformity SKIN: No rashes CENTRAL NERVOUS SYSTEM: No focal deficits, tone is normal in all 4 extremities. EXTREMITIES: Dressing to the left foot. No clubbing, no cyanosis. Peripheral pulses are intact. - Labs CBC & Chem 7: 01/23/19 07:10 01/23/19 07:10 Labs: Abnormal Lab Results - Last 24 Hours (Table) 01/22/19 01/22/19 01/22/19 Range/Units 04:44 17:22 20:12 WBC (3.8-10.6) k/uL RBC (4.30-5.90) m/uL Hgb (13.0-17.5) gm/dL Hct (39.0-53.0) % Neutrophils # (1.3-7.7) k/uL Eosinophils # (0-0.7) k/uL Sodium (137-145) mmol/L Chloride (98-107) mmol/L BUN (9-20) mg/dL Creatinine (0.66-1.25) mg/dL Glucose (74-99) mg/dL POC Glucose (mg/dL) 126 H 168 H (75-99) mg/dL Albumin (3.5-5.0) g/dL Hep Bs Antibody Reactive H (Non-Reactive) 01/23/19 01/23/19 01/23/19 Range/Units 07:00 07:10 07:10 WBC 13.2 H (3.8-10.6) k/uL RBC 2.99 L (4.30-5.90) m/uL Hgb 9.1 L (13.0-17.5) gm/dL Hct 28.0 L (39.0-53.0) % Neutrophils # 9.3 H (1.3-7.7) k/uL Eosinophils # 1.2 H (0-0.7) k/uL Sodium 135 L (137-145) mmol/L Chloride 97 L (98-107) mmol/L BUN 28 H (9-20) mg/dL Creatinine 6.34 H (0.66-1.25) mg/dL Glucose 131 H (74-99) mg/dL POC Glucose (mg/dL) 121 H (75-99) mg/dL Albumin 3.2 L (3.5-5.0) g/dL Hep Bs Antibody (Non-Reactive) 01/23/19 Range/Units 11:54 WBC (3.8-10.6) k/uL RBC (4.30-5.90) m/uL Hgb (13.0-17.5) gm/dL Hct (39.0-53.0) % Neutrophils # (1.3-7.7) k/uL Eosinophils # (0-0.7) k/uL Sodium (137-145) mmol/L Chloride (98-107) mmol/L BUN (9-20) mg/dL Creatinine (0.66-1.25) mg/dL Glucose (74-99) mg/dL POC Glucose (mg/dL) 142 H (75-99) mg/dL Albumin (3.5-5.0) g/dL Hep Bs Antibody (Non-Reactive) Microbiology - Last 24 Hours (Table) 01/20/19 22:10 Blood Culture - Preliminary Blood No Growth after 48 hours 01/20/19 22:45 Gram Stain - Final Foot - Left Wound Culture - Final Strep agalactiae - (group b) Methicillin resist S. aureus Assessment and Plan Assessment: Impression: #1 Sepsis secondary to the foot lesion on the left. Cultures are positive for group B strep and MRSA. On skin was positive for cellulitis and osteomyelitis of the left heel. #2 Previous history of ESBL and MRSA infections. #3 Atrial fibrillation. #4 Coronary artery disease. #5 Congestive heart failure. #6 Cerebrovascular accident. #7 Dementia. #8 Diabetes mellitus. #9 History of end-stage renal disease receiving hemodialysis Friday. #10 Hyperlipidemia. #11 Hypertension. #12 Memory impairment. #13 Degenerative joint disease. #14 Sleep apnea syndrome currently maintained on CPAP. #15 History of closed head injury. 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 Plan: The patient was seen and evaluated by Dr. Jaramillo. He is improved today as compared to yesterday. Bone scan positive for cellulitis and osteomyelitis of the left heel. He is currently on vancomycin and Zosyn. We'll continue to follow make further recommendations based on his clinical status. I, the cosigning physician, performed a history & physical examination of the patient. Lungs sounds with few scattered rhonchi bilaterally. Maintaining good O2 saturations in the 90s on 2 L/m per nasal cannula. I discussed the assessment and plan of care with my nurse practitioner, Jo Snell. I attest to the above note as dictated by her.
--- NOTE | 2019-01-23 14:20 | P.PN ---
Subjective Progress Note Date: 01/23/19 Seen and examined for the follow-up off ESRD. Sleepy today. No nausea vomiting diarrhea. On antibiotics for left foot ulcer. Objective - Vital Signs Vital signs: Vital Signs Temp 98.5 F 01/23/19 05:00 Pulse 73 01/23/19 05:00 Resp 20 01/23/19 05:00 BP 121/68 01/23/19 05:00 Pulse Ox 95 01/23/19 05:00 Intake & Output 01/22/19 01/23/19 01/23/19 18:59 06:59 18:59 Intake Total 100 100 Balance 100 100 Intake: IV 0 ns 0 Intake, IV Titration 100 Amount Piperacillin-Tazobactam 3 100 .375 gm In Sodium Chloride 0.9% 100 ml @ 25 mls/hr IVPB Q12HR [facility] Rx #:[id number] Oral 100 Other: # Voids 0 # Bowel Movements 0 - Exam No acute distress S1-S2 heard Lungs clear Left upper arm aVF Left foot ulcer. - Labs CBC & Chem 7: 01/23/19 07:10 01/23/19 07:10 Labs: Abnormal Lab Results - Last 24 Hours (Table) 01/22/19 01/22/19 01/22/19 Range/Units 04:44 17:22 20:12 WBC (3.8-10.6) k/uL RBC (4.30-5.90) m/uL Hgb (13.0-17.5) gm/dL Hct (39.0-53.0) % Neutrophils # (1.3-7.7) k/uL Eosinophils # (0-0.7) k/uL Sodium (137-145) mmol/L Chloride (98-107) mmol/L BUN (9-20) mg/dL Creatinine (0.66-1.25) mg/dL Glucose (74-99) mg/dL POC Glucose (mg/dL) 126 H 168 H (75-99) mg/dL Albumin (3.5-5.0) g/dL Hep Bs Antibody Reactive H (Non-Reactive) 01/23/19 01/23/19 01/23/19 Range/Units 07:00 07:10 07:10 WBC 13.2 H (3.8-10.6) k/uL RBC 2.99 L (4.30-5.90) m/uL Hgb 9.1 L (13.0-17.5) gm/dL Hct 28.0 L (39.0-53.0) % Neutrophils # 9.3 H (1.3-7.7) k/uL Eosinophils # 1.2 H (0-0.7) k/uL Sodium 135 L (137-145) mmol/L Chloride 97 L (98-107) mmol/L BUN 28 H (9-20) mg/dL Creatinine 6.34 H (0.66-1.25) mg/dL Glucose 131 H (74-99) mg/dL POC Glucose (mg/dL) 121 H (75-99) mg/dL Albumin 3.2 L (3.5-5.0) g/dL Hep Bs Antibody (Non-Reactive) 01/23/19 Range/Units 11:54 WBC (3.8-10.6) k/uL RBC (4.30-5.90) m/uL Hgb (13.0-17.5) gm/dL Hct (39.0-53.0) % Neutrophils # (1.3-7.7) k/uL Eosinophils # (0-0.7) k/uL Sodium (137-145) mmol/L Chloride (98-107) mmol/L BUN (9-20) mg/dL Creatinine (0.66-1.25) mg/dL Glucose (74-99) mg/dL POC Glucose (mg/dL) 142 H (75-99) mg/dL Albumin (3.5-5.0) g/dL Hep Bs Antibody (Non-Reactive) Microbiology - Last 24 Hours (Table) 01/20/19 22:10 Blood Culture - Preliminary Blood No Growth after 48 hours 01/20/19 22:45 Gram Stain - Final Foot - Left Wound Culture - Final Strep agalactiae - (group b) Methicillin resist S. aureus Assessment and Plan Assessment: #1 left foot ulcer with culture positive for MRSA on vancomycin #2 ESRD, MWF #3 anemia with ESRD #4 metabolic bone disease with ESRD #5 hypertension with ESRD Plan: #1 hemodialysis on Friday. #2 antibiotics as per primary team/infectious diseases
[2019-01-23 17:16] LABS: Glucose,Whole Blood 125 mg/dL (75-99)
[2019-01-23] MEDS: FINASTERIDE 5 MG TAB PO SCH (20:41)
[2019-01-23] MEDS: INSULIN DETEMIR (LEVEMIR) 100 UNIT/ML SYR SQ SCH (20:50)
[2019-01-23 20:53] LABS: Glucose,Whole Blood 217 mg/dL (75-99)
--- NOTE | 2019-01-23 21:00 | P.PN ---
Subjective Progress Note Date: 01/23/19 This is a 68-year-old male who has been residing at [facility] since August 2016. He has a past medical history for end-stage renal disease on hemodialysis Friday and Friday. He was undergoing hemodialysis with removal of 2 L when his blood pressure dropped to systolic of 70s. Patient was then given 2 L of IV fluid with systolic of 80. Patient was transferred to [facility] where blood work revealed a white count of 24, hemoglobin 13.4. Blood culture was obtained and patient was given Rocephin and Zosyn. He had a temperature maximum 100.2 and was given Tylenol and subsequently had an emesis. At the time of discharge from [place] he was placed on Ventimask at 50%, blood pressure was 91/49, heart rate 120 and temperature max was 100.2. Patient was seen in the emergency center and transferred to the intensive care unit. He has received 40 of liters of fluid, no vasopressors. He presented with a stage II coccyx ulcer and left heel ulcer. The patient has underlying dementia and is unable to provide adequate history. He is currently denying any complaints. 01/22/2019, patient has significant dementia but is comfortable, receiving hemodialysis. 01/23/2019 the patient is comfortable, tolerating dialysis well. He is resting comfortably today. The patient's status is discussed with his . Objective - Vital Signs Vital signs: Vital Signs Temp 98.0 F 01/23/19 15:00 Pulse 64 01/23/19 15:00 Resp 16 01/23/19 15:00 BP 114/65 01/23/19 15:00 Pulse Ox 100 01/23/19 15:00 Intake & Output 01/23/19 01/23/19 01/24/19 06:59 18:59 05:59 Intake Total 100 Balance 100 Intake: Oral 100 Other: # Voids 0 0 # Bowel Movements 0 - Exam Gen: This is a 68-year-old male. Supine and the general medical unit, comfortable HEENT: Head is atraumatic, normocephalic. Pupils equal, round. Sclerae is anicteric. Conjunctiva pink. Mucous members of the mouth are moist. Dentition is in fair order. NECK: Supple. No JVD. No lymphadenopathy. No thyromegaly. LUNGS: Clear to auscultation. No wheezes or rhonchi. No intercostal retractions. HEART: Regular rate and rhythm. No murmur. ABDOMEN: Soft. Bowel sounds are present. No masses. No tenderness. EXTREMITIES: No pedal edema. No calf tenderness. the full-thickness ulceration to the left heel is without purulence and has only minimal erythema does have ongoing drainage NEUROLOGICAL: Patient is awake, alert and oriented to person only. - Labs CBC & Chem 7: 01/23/19 07:10 01/23/19 07:10 Labs: Abnormal Lab Results - Last 24 Hours (Table) 01/23/19 01/23/19 01/23/19 Range/Units 07:00 07:10 07:10 WBC 13.2 H (3.8-10.6) k/uL RBC 2.99 L (4.30-5.90) m/uL Hgb 9.1 L (13.0-17.5) gm/dL Hct 28.0 L (39.0-53.0) % Neutrophils # 9.3 H (1.3-7.7) k/uL Eosinophils # 1.2 H (0-0.7) k/uL Sodium 135 L (137-145) mmol/L Chloride 97 L (98-107) mmol/L BUN 28 H (9-20) mg/dL Creatinine 6.34 H (0.66-1.25) mg/dL Glucose 131 H (74-99) mg/dL POC Glucose (mg/dL) 121 H (75-99) mg/dL Albumin 3.2 L (3.5-5.0) g/dL 01/23/19 01/23/19 01/23/19 Range/Units 11:54 17:14 20:50 WBC (3.8-10.6) k/uL RBC (4.30-5.90) m/uL Hgb (13.0-17.5) gm/dL Hct (39.0-53.0) % Neutrophils # (1.3-7.7) k/uL Eosinophils # (0-0.7) k/uL Sodium (137-145) mmol/L Chloride (98-107) mmol/L BUN (9-20) mg/dL Creatinine (0.66-1.25) mg/dL Glucose (74-99) mg/dL POC Glucose (mg/dL) 142 H 125 H 217 H (75-99) mg/dL Albumin (3.5-5.0) g/dL Microbiology - Last 24 Hours (Table) 01/20/19 22:10 Blood Culture - Preliminary Blood No Growth after 48 hours 01/20/19 22:45 Gram Stain - Final Foot - Left Wound Culture - Final Strep agalactiae - (group b) Methicillin resist S. aureus Laboratory Results WBC 13.2 k/uL (3.8-10.6) H 01/23/19 07:10 RBC 2.99 m/uL (4.30-5.90) L 01/23/19 07:10 Hgb 9.1 gm/dL (13.0-17.5) L 01/23/19 07:10 Hct 28.0 % (39.0-53.0) L 01/23/19 07:10 MCV 93.7 fL (80.0-100.0) 01/23/19 07:10 MCH 30.5 pg (25.0-35.0) 01/23/19 07:10 MCHC 32.6 g/dL (31.0-37.0) 01/23/19 07:10 RDW 15.5 % (11.5-15.5) 01/23/19 07:10 Plt Count 265 k/uL (150-450) 01/23/19 07:10 Neutrophils % 71 % 01/23/19 07:10 Neutrophils % (Manual) 70 % 01/20/19 22:10 Band Neutrophils % 14 % 01/20/19 22:10 Lymphocytes % 10 % 01/23/19 07:10 Lymphocytes % (Manual) 5 % 01/20/19 22:10 Monocytes % 7 % 01/23/19 07:10 Monocytes % (Manual) 11 % 01/20/19 22:10 Eosinophils % 9 % 01/23/19 07:10 Basophils % 1 % 01/23/19 07:10 Neutrophils # 9.3 k/uL (1.3-7.7) H 01/23/19 07:10 Neutrophils # (Manual) 23.10 k/uL (1.3-7.7) H 01/20/19 22:10 Lymphocytes # 1.3 k/uL (1.0-4.8) 01/23/19 07:10 Lymphocytes # (Manual) 1.38 k/uL (1.0-4.8) 01/20/19 22:10 Monocytes # 0.9 k/uL (0-1.0) 01/23/19 07:10 Monocytes # (Manual) 3.04 k/uL (0-1.0) H 01/20/19 22:10 Eosinophils # 1.2 k/uL (0-0.7) H 01/23/19 07:10 Basophils # 0.1 k/uL (0-0.2) 01/23/19 07:10 Nucleated RBCs 0 /100 WBC (0-0) 01/20/19 22:10 Manual Slide Review Performed 01/20/19 22:10 Toxic Vacuolation Present 01/20/19 22:10 Polychromasia Present 01/20/19 22:10 Sodium 135 mmol/L (137-145) L 01/23/19 07:10 Potassium 4.2 mmol/L (3.5-5.1) 01/23/19 07:10 Chloride 97 mmol/L (98-107) L 01/23/19 07:10 Carbon Dioxide 24 mmol/L (22-30) 01/23/19 07:10 Anion Gap 14 mmol/L 01/23/19 07:10 BUN 28 mg/dL (9-20) H 01/23/19 07:10 Creatinine 6.34 mg/dL (0.66-1.25) H 01/23/19 07:10 Est GFR (CKD-EPI)AfAm 9 (>60 ml/min/1.73 sqM) 01/23/19 07:10 Est GFR (CKD-EPI)NonAf 8 (>60 ml/min/1.73 sqM) 01/23/19 07:10 Glucose 131 mg/dL (74-99) H 01/23/19 07:10 POC Glucose (mg/dL) 217 mg/dL (75-99) H 01/23/19 20:50 POC Glu Secretarial Stenographer NICHO Naty Lockwood 01/23/19 20:50 Plasma Lactic Acid Olman 1.8 mmol/L (0.7-2.0) 01/21/19 05:51 Calcium 9.3 mg/dL (8.4-10.2) 01/23/19 07:10 Total Bilirubin 0.5 mg/dL (0.2-1.3) 01/23/19 07:10 AST 31 U/L (17-59) 01/23/19 07:10 ALT 23 U/L (21-72) 01/23/19 07:10 Alkaline Phosphatase 92 U/L (38-126) 01/23/19 07:10 Total Protein 6.6 g/dL (6.3-8.2) 01/23/19 07:10 Albumin 3.2 g/dL (3.5-5.0) L 01/23/19 07:10 Procalcitonin 16.35 ng/mL (0.02-0.09) H 01/21/19 05:51 Random Vancomycin 23.7 ug/mL 01/23/19 07:10 Hep Bs Antigen Non-Reactive (Non-Reactive) 01/22/19 04:44 Hep Bs Antibody Reactive (Non-Reactive) H 01/22/19 04:44 Hep Bs Antibody, Quant 75.4 mIU/mL 01/22/19 04:44 Microbiology 01/20/19 22:10 Blood Blood Culture - Preliminary No Growth after 48 hours 01/20/19 22:45 Foot - Left Gram Stain - Final 01/20/19 22:45 Foot - Left Wound Culture - Final Strep agalactiae - (group b) Methicillin resist S. aureus - Imaging and Cardiology bone scan with osteomyelitis of the left calcaneu Assessment and Plan (1) End stage renal disease on dialysis Current Visit: Yes Status: Acute Code(s): N18.6 - END STAGE RENAL DISEASE; Z99.2 - DEPENDENCE ON RENAL DIALYSIS SNOMED Code(s): 200215725 (2) Chronic renal failure syndrome Current Visit: Yes Status: Acute Code(s): N18.9 - CHRONIC KIDNEY DISEASE, UNSPECIFIED SNOMED Code(s): 15037493 (3) Leukocytosis Current Visit: Yes Status: Acute Code(s): D72.829 - ELEVATED WHITE BLOOD CELL COUNT, UNSPECIFIED SNOMED Code(s): 011103120 (4) Acute osteomyelitis of left calcaneus Narrative/Plan: 68-year-old male presents from the extended care facility after is dialysis session with concerns to hypotension. Temperature 100.2 was noticed and there was concerns to sepsis given his relative hypotension and he was initiated antibiotic therapy with Zosyn and vancomycin he also received a dose of Rocephin. He has not received fluids of greater than 4 L but has not required vasopressor therapy. We'll support the wound team regarding the treatment of the left heel diabetic ulceration as well as a stage II pressure ulceration of the sacrum both present on admission. Cultures are process with further help direct and de-escalate antibiotic therapy. 01/22/2019 patient is little change in the status except he is now out of the intensive care unit since he is no longer hypotensive. He has profound dementia and is comfortable. He is tolerating hemodialysis well. The ulceration of the left heel is concerning and a bone scan has now confirmed osteomyelitis to that heel. Wound cultures with MRSA and strep and constantly we'll plan 6 weeks of vancomycin therapy. Hopefully this will be performed while he is receiving his hemodialysis during his stay which is permitted at the [facility]. Local wound care as offloading and the silver alginate. Continue to protect the coccyx with the foam dressing. Blood cultures are negative. 01/23/2019 the patient seems to be more stable than admission. He is no longer having difficulty with hypotension. We'll be working with case management to orchestrate his completion of antibiotic therapy which will be vancomycin should be given with his hemodialysis sessions for the 6 weeks of therapy for the osteomyelitis of the left calcaneus. Local wound care as clarified with the nurse. Weight is up-to-date in the condition. Current Visit: Yes Status: Acute Code(s): M86.172 - OTHER ACUTE OSTEOMYELITIS, LEFT ANKLE AND FOOT SNOMED Code(s): 144892326
--- NOTE | 2019-01-23 21:54 | PN ---
PROGRESS NOTE DATE OF SERVICE: 01/23/2019 This 68-year-old gentleman who was admitted with hypotension, possible severe sepsis secondary for diabetic foot ulcer with acute hypoxic respiratory failure is being closely monitored at this time. Patient had a bone scan which showed possible cellulitis and osteomyelitis of the left heel. The patient is being closely monitored. Patient on broad spectrum IV antibiotics at this time. No chest pain. No palpitation. EXAM: The patient is oriented x2. Pulse is 64. Blood pressure 114/60, respirations 16, temperature 98 degrees. Pulse ox 100 percent on 2 L. HEENT is conjunctivae normal. NECK: No jugular venous distention. CARDIOVASCULAR: S1, S2 normal. RESPIRATION: Breath sounds diminished in the bases. A few scattered rhonchi. No crackles. ABDOMEN is soft, nontender. LEGS evidence of osteomyelitis. Nervous System: No focal deficits. LABS: WBC 13.2, hemoglobin 9.2, sodium 135. ASSESSMENT: 1. Culture showing strep agalactiae and MRSA. 2. Hypotension with possible severe sepsis and left decubitus diabetic foot wound with acute osteomyelitis with acute hypoxic respiratory failure possibly multifactorial. 3. Pneumonia unlikely. 4. Congestive heart failure acute exacerbation. Ejection fraction 50-55 percent with acute on chronic diastolic dysfunction. 5. Chronic kidney stage 4 on hemodialysis. 6. Change in mental status, metabolic encephalopathy, multifactorial, acute on chronic. 7. History of atrial fibrillation, chronic. 8. History of coronary artery disease. 9. History of cerebrovascular accident/transient ischemic attack. 10.Dementia. 11.Diabetes type 2. 12.Hypertension. 13.Hyperlipidemia. 14.History of degenerative joint disease. 15.History of sleep apnea. 16.History of chronic obstructive pulmonary disease. 17.History ESBL and MRSA. 18.History of cholecystectomy. 19.History of degenerative joint disease. 20.History of anxiety. 21.Gait dysfunction. RECOMMENDATIONS AND DISCUSSION: Recommend to continue current medications, continue with monitoring, management and symptomatic treatment. Otherwise, at this time, I recommend continue with fluid and electrolytes management. Most recent chest x-ray noted. Otherwise continue with IV antibiotics. The cultures are showing strep agalactiae and MRSA. The overall prognosis guarded. Further recommendations to follow. We will closely follow with Infectious Disease and Nephrology and Pulmonology. MMODL / IJN: [id number] /
[2019-01-24] MEDS: SEVELAMER 800 MG TAB PO SCH ×3 (05:27→16:44)
[2019-01-24] MEDS: HYDROcodone/APAP 5-325MG 1 EACH TAB PO SCH ×3 (05:27→20:34)
[2019-01-24] MEDS: DIVALPROEX SPRINKLE 125 MG CAP.SPRINK PO SCH ×3 (05:27→20:35)
[2019-01-24 07:15] LABS: Glucose,Whole Blood 79 mg/dL (75-99)
[2019-01-24] MEDS: INSULIN ASPART (NovoLOG) 100 UNIT/ML VIAL SQ SCH ×4 (07:54→20:56)
[2019-01-24] MEDS: ARIPiprazole 15 MG TAB PO SCH (08:31)
[2019-01-24] MEDS: MIDODRINE 5 MG TAB PO SCH ×3 (08:31→16:44)
[2019-01-24] MEDS: FOLIC ACID 1 MG TAB PO SCH (08:31)
[2019-01-24] MEDS: CLOPIDOGREL 75 MG TAB PO SCH (08:31)
[2019-01-24] MEDS: FOLIC ACID-VIT B COMPLEX-VIT C 1 CAP PO SCH (08:31)
[2019-01-24] MEDS: ASPIRIN 81 MG PO SCH (08:31)
[2019-01-24] MEDS: GABAPENTIN 100 MG CAP PO SCH (08:32)
[2019-01-24] MEDS: PIPERACILLIN-TAZOBACTAM 3.375 GM in SODIUM CHLORIDE 0.9% 100 ML IVPB SCH ×2 (08:32→20:36)
--- NOTE | 2019-01-24 10:12 | P.PN ---
Subjective Progress Note Date: 01/24/19 Principal diagnosis: Sepsis related to a wound on his left foot, cultures positive for group B strep and MRSA On 01/24/2019 patient seen in follow-up on medical surgical floor. He is awake and alert, in no acute distress, no altered mentation, his vital signs are stable, he remains on 2 L of oxygen with a pulse ox of 97%, denies any cough or congestion, denies any pain, no difficulty breathing. He is on Zosyn and vancomycin for sepsis related to left foot infection, cultures are positive for strep group B, and methicillin-resistant Staphylococcus aureus. Blood culture showed no growth. No new labs today, no acute events overnight, hemodynamically patient is stable, no specific complaints. From pulmonary perspective patient is stable for discharge back to [facility] today or tomorrow. Objective - Vital Signs Vital signs: Vital Signs Temp 98.3 F 01/24/19 05:00 Pulse 64 01/24/19 05:00 Resp 18 01/24/19 05:00 BP 125/70 01/24/19 05:00 Pulse Ox 97 01/24/19 05:00 Intake & Output 01/23/19 01/24/19 01/24/19 19:59 06:59 18:59 Intake Total Balance Intake: Oral Other: # Voids # Bowel Movements - Exam GENERAL EXAM: Alert, very pleasant, 68-year-old white male, on 2 L of oxygen, with a pulse ox of 97% comfortable in no apparent distress. HEAD: Normocephalic/atraumatic. EYES: Normal reaction of pupils, equal size. Conjunctiva pink, sclera white. NOSE: Clear with pink turbinates. THROAT: No erythema or exudates. NECK: No masses, no JVD, no thyroid enlargement, no adenopathy. CHEST: No chest wall deformity. Symmetrical expansion. LUNGS: Equal air entry with clear breath sounds, no crackles, no rhonchi, no wheezing CVS: Regular rate and rhythm, normal S1 and S2, no gallops, no murmurs, no rubs ABDOMEN: Soft, nontender. No hepatosplenomegaly, normal bowel sounds, no guard ing or rigidity. EXTREMITIES: No clubbing, bilateral lower extremities are Shaq wrapped, left foot wound is covered with a dressing, no cyanosis, 2+ pulses and upper and lower extremities. MUSCULOSKELETAL: Muscle strength and tone normal. SPINE: No scoliosis or deformity SKIN: No rashes CENTRAL NERVOUS SYSTEM: Alert and oriented -3. No focal deficits, tone is normal in all 4 extremities. PSYCHIATRIC: Alert and oriented -3. Appropriate affect. Intact judgment and insight. - Labs CBC & Chem 7: 01/23/19 07:10 01/23/19 07:10 Labs: Abnormal Lab Results - Last 24 Hours (Table) 01/23/19 01/23/19 01/23/19 Range/Units 11:54 17:14 20:50 POC Glucose (mg/dL) 142 H 125 H 217 H (75-99) mg/dL Microbiology - Last 24 Hours (Table) 01/20/19 22:10 Blood Culture - Preliminary Blood No Growth after 72 hours Assessment and Plan Plan: Assessment: #1 Sepsis secondary to the foot lesion on the left. Cultures are positive for group B strep and MRSA. On skin was positive for cellulitis and osteomyelitis of the left heel. #2 Previous history of ESBL and MRSA infections. #3 Atrial fibrillation. #4 Coronary artery disease. #5 Congestive heart failure. #6 Cerebrovascular accident. #7 Dementia. #8 Diabetes mellitus. #9 History of end-stage renal disease receiving hemodialysis Friday. #10 Hyperlipidemia. #11 Hypertension. #12 Memory impairment. #13 Degenerative joint disease. #14 Sleep apnea syndrome currently maintained on CPAP. #15 History of closed head injury. 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 Plan: Patient is doing well, stable from pulmonary perspective, antibiotics per ID service recommendations, currently on Zosyn and vancomycin for evidence of group B strep and MRSA in his left wound culture, breathing is stable, vital signs are stable, anticipate discharge back to [facility] today or tomorrow. I performed a history & physical examination of the patient and discussed their management with my nurse practitioner, Veronica Anderson. I reviewed the nurse practitioner's note and agree with the documented findings and plan of care. Lung sounds are positive for clear breath sounds. The findings and the impression was discussed with the patient. I attest to the documentation by the nurse practitioner. Time with Patient: Less than 30
--- NOTE | 2019-01-24 11:04 | P.PN ---
Subjective Progress Note Date: 01/24/19 Seen and examined for the follow-up off ESRD. No nausea vomiting diarrhea. On antibiotics for left foot ulcer. Objective - Vital Signs Vital signs: Vital Signs Temp 98.3 F 01/24/19 05:00 Pulse 64 01/24/19 05:00 Resp 18 01/24/19 05:00 BP 125/70 01/24/19 05:00 Pulse Ox 97 01/24/19 05:00 Intake & Output 01/23/19 01/24/19 01/24/19 19:59 06:59 18:59 Intake Total 120 Balance 120 Intake: Oral 120 Other: # Voids # Bowel Movements - Exam No acute distress S1-S2 heard Lungs clear Left upper arm aVF Left foot ulcer. - Labs CBC & Chem 7: 01/23/19 07:10 01/23/19 07:10 Labs: Abnormal Lab Results - Last 24 Hours (Table) 01/23/19 01/23/19 Range/Units 17:14 20:50 POC Glucose (mg/dL) 125 H 217 H (75-99) mg/dL Microbiology - Last 24 Hours (Table) 01/20/19 22:10 Blood Culture - Preliminary Blood No Growth after 72 hours Assessment and Plan Assessment: #1 left foot ulcer with culture positive for MRSA on vancomycin #2 ESRD, MWF #3 anemia with ESRD #4 metabolic bone disease with ESRD #5 hypertension with ESRD Plan: #1 hemodialysis on Friday. #2 antibiotics as per primary team/infectious diseases
[2019-01-24 11:44] LABS: Glucose,Whole Blood 83 mg/dL (75-99)
[2019-01-24 17:02] LABS: Glucose,Whole Blood 129 mg/dL (75-99)
[2019-01-24 20:09] LABS: Glucose,Whole Blood 148 mg/dL (75-99)
[2019-01-24] MEDS: FINASTERIDE 5 MG TAB PO SCH (20:35)
[2019-01-24] MEDS: INSULIN DETEMIR (LEVEMIR) 100 UNIT/ML SYR SQ SCH (20:35)
--- NOTE | 2019-01-24 21:30 | PN ---
PROGRESS NOTE DATE OF SERVICE: 01/24/2019. This 68-year-old gentleman admitted with hypotension possibly secondary to diabetic foot, also had osteomyelitis. Patient also receiving hemodialysis. The patient improved significantly. PT/OT evaluating the patient for ECF return at this time. EXAM: Alert and oriented x2. Pulse is 60, blood pressure 124/70, respirations 16, temperature 97.9, pulse ox 98% on 2 L. HEENT: Conjunctivae normal. NECK: No JVD. CARDIOVASCULAR: S1, S2 muffled. RESPIRATIONS: Breath sounds diminished in the bases. A few scattered rhonchi. ABDOMEN is soft, nontender. LEGS no edema. No swelling. Otherwise, left diabetic foot. NERVOUS SYSTEM: No focal deficits. LABS: Accu-Cheks 83, 129, WBC 13.2, hemoglobin 9.1. Sodium 135. ASSESSMENT: 1. Acute diabetic foot ulcer on the right foot with acute osteomyelitis with severe sepsis and acute hypoxic respiratory failure possibly multifactorial. 2. Strep agalactiae MRSA from the cultures. 3. Congestive heart failure acute exacerbation. Ejection fraction 50-55 percent with acute on chronic diastolic dysfunction. 4. Chronic kidney disease stage 4 on hemodialysis. 5. Change in mental status metabolic encephalopathy multifactorial acute on chronic. 6. History of atrial fibrillation, chronic. 7. History of coronary artery disease. 8. History of cerebrovascular accident, transient ischemic attack. 9. History of dementia. 10.Diabetes mellitus type 2. 11.Hypertension. 12.Hyperlipidemia. 13.History of degenerative joint disease. 14.History of sleep apnea. 15.History of chronic obstructive pulmonary disease. 16.History ESBL, MRSA. 17.History of cholecystectomy. 18.History of degenerative joint disease. 19.History of anxiety. 20.Gait dysfunction. RECOMMENDATIONS AND DISCUSSION: Recommend to continue current medication, continue to monitor, symptomatic treatment. Otherwise, at this time, I recommend continue with antibiotics and outpatient antibiotics per Infectious Disease. Once Infectious Disease clears the patient, the patient may be able to be sent to ECF rehab in the next 24-48 hours. Guarded prognosis. Further recommendations to follow. MMODL / ANIBALN: [id number] /
[2019-01-25] MEDS: DIVALPROEX SPRINKLE 125 MG CAP.SPRINK PO SCH ×2 (06:13→13:12)
[2019-01-25] MEDS: HYDROcodone/APAP 5-325MG 1 EACH TAB PO SCH ×2 (06:14→12:04)
[2019-01-25] MEDS: SEVELAMER 800 MG TAB PO SCH ×2 (06:15→13:12)
[2019-01-25] MEDS: INSULIN ASPART (NovoLOG) 100 UNIT/ML VIAL SQ SCH ×2 (07:22→12:03)
[2019-01-25] MEDS: CLOPIDOGREL 75 MG TAB PO SCH (09:50)
[2019-01-25] MEDS: GABAPENTIN 100 MG CAP PO SCH (09:51)
[2019-01-25] MEDS: PIPERACILLIN-TAZOBACTAM 3.375 GM in SODIUM CHLORIDE 0.9% 100 ML IVPB SCH (09:51)
[2019-01-25] MEDS: MIDODRINE 5 MG TAB PO SCH ×2 (09:51→13:07)
[2019-01-25] MEDS: ASPIRIN 81 MG PO SCH (09:51)
[2019-01-25] MEDS: ARIPiprazole 15 MG TAB PO SCH (09:51)
[2019-01-25] MEDS: FOLIC ACID-VIT B COMPLEX-VIT C 1 CAP PO SCH (09:51)
[2019-01-25] MEDS: FOLIC ACID 1 MG TAB PO SCH (09:52)
[2019-01-25 11:40] LABS: Glucose,Whole Blood 115 mg/dL (75-99)
--- NOTE | 2019-01-25 14:00 | P.DS ---
Providers Date of admission: 01/20/19 22:23 Expected date of discharge: 01/25/19 Attending physician: Jareth Olivares Consults: 01/20/19 21:49 Consult Physician Routine Consulting Provider: Rolan Jaramillo Consult Reason/Comments: resp failure Do you want consulting provider notified?: Yes 01/20/19 21:50 Consult Physician Routine Consulting Provider: Ras Bolanos Consult Reason/Comments: sepsis Do you want consulting provider notified?: Yes Consult Physician Routine Consulting Provider: Ivan Saravia Consult Reason/Comments: crf Do you want consulting provider notified?: Yes 01/20/19 21:51 Consult Physician Routine Consulting Provider: Linden Bell Consult Reason/Comments: chf Do you want consulting provider notified?: Yes Primary care physician: Jesus Ordaz Hospital Course: Final diagnosis Acute diabetic foot ulcer on the right foot with acute osteomyelitis with severe sepsis and acute hypoxic respiratory failure, possibly multifactorial Strep agalactiae MRSA Congestive heart failure acute exacerbation. Ejection fraction 50-55% with acute on chronic diastolic dysfunction Chronic kidney disease stage IV on hemodialysis Change in mental status, metabolic encephalopathy, multifactorial, acute on chronic History of atrial fibrillation, chronic History of coronary artery disease History of CVA/TIA History of dementia Diabetes mellitus type 2 Hypertension Hyperlipidemia History of degenerative joint disease history of sleep apnea history of chronic obstructive pulmonary disease History of ESBL, MRSA History of cholecystectomy History of degenerative joint disease neck line history of anxiety Gait dysfunction Discharge disposition Patient is being discharged in a stable condition with guarded prognosis to [facility] where he is a resident there. Per infectious disease recommendations patient will continue with IV antibiotics during dialysis and accommodations have been made with infectious disease. Patient will continue with dialysis on his Friday/Friday/Friday schedule. Total time taken is 35 minutes. History of present illness This is a 68-year-old male who was recently admitted with hypotension, possibly secondary to diabetic foot ulcer and also osteomyelitis and is being closely monitored. During hospitalization patient was in the ICU for close monitoring due to hypotension and was later transitioned to [facility] floor. Patient received dialysis during hospitalization and will continue in the outpatient setting on Mondays/Wednesdays/Fridays as he routinely does. Patient was seen by infectious disease and was being followed closely. Patient will continue in the outpatient setting with IV antibiotics for the diabetic foot ulcers and osteomyelitis and will follow-up with them in the outpatient setting. Cultures finalized showing strep agalactiea along with MRSA from the foot cultures and his IV antibiotic therapy will continue for another 6 weeks per infectious disease recommendations. Currently patient's condition is stable with improvement and is ready for discharge to [facility]. Patient denies any chest pain, shortness of breath, or palpitations at this time. Patient is afebrile. Patient denies any nausea or vomiting and is tolerating diet. Patient is currently receiving dialysis at this time and will be discharged. Guarded prognosis. On exam vital signs are stable. Temp is 99.2F, pulse is 79, respirations are 20, blood pressure is 113/68, oxygen saturation is 98% on 2 L via nasal cannula. Cardio S1 and S2 are muffled. Respiratory system shows diminished breath sounds at the bases with a few scattered rhonchi noted throughout. Abdomen is soft and nontender. Nervous system shows no focal deficits. Please refer to medication reconciliation sheet for list of medications. Patient Condition at Discharge: Fair Plan - Discharge Summary New Discharge Prescriptions: New INSULIN ASPART (NovoLOG) [NovoLOG (formulary)] 0 unit SQ ACHS vial Midodrine [ProAmatine] 5 mg PO AC-TID tab Vancomycin 1,000 mg IVPB MOWEFR #18 bag Continue Famotidine [Pepcid] 20 mg PO DAILY@0900 Divalproex Sodium [Depakote Sprinkle] 500 mg PO TID@0600,1300,2100 Bisacodyl [Dulcolax] 10 mg PO Q48H PRN PRN Reason: Constipation Aspirin 162 mg PO DAILY@0900 ARIPiprazole [Abilify] 15 mg PO DAILY@0900 Ergocalciferol [Vitamin D2 (DRISDOL)] 50,000 unit PO TH@0900 Finasteride [Proscar] 5 mg PO HS@2100 Fluticasone/Vilanterol [Breo Ellipta 100-25 Mcg Inhaler] 1 puff INHALATION RT-DAILY@0900 Folic Acid-Vit B Complex-Vit C [Nephrocaps] 1 mg PO DAILY@0900 Lidocaine-Prilocaine Cream [Emla Cream 2.5%/2.5%] 1 applic TOPICAL MOWEFR@0500 Folic Acid 0.8 mg PO DAILY@0900 Clopidogrel Bisulfate [Plavix] 75 mg PO DAILY@0900 Gabapentin [Neurontin] 200 mg PO MOWEFR@1700 Gabapentin [Neurontin] 200 mg PO DAILY@0900 guaiFENesin SYRUP 100MG/5ML [Robitussin] 200 mg PO Q6H PRN PRN Reason: Cough Insulin Glargine,Hum.rec.anlog [Basaglar Kwikpen U-100] 20 unit SQ HS@2099 Lactulose 15 gm PO DAILY PRN PRN Reason: Constipation Sevelamer Carbonate 2.4 gm PO TID@0600,1200,1700 hydrALAZINE HCL [Apresoline] 25 mg PO TID@0600,1300,2100 HYDROcodone/APAP 5-325MG [[place] 5-325] 1 tab PO Q4HR PRN #12 tab PRN Reason: Moderate Pain HYDROcodone/APAP 5-325MG [[place] 5-325] 1 tab PO TID@0600,1300,2100 #6 tab Changed Sertraline [Zoloft] 50 mg PO DAILY@2099 #0 Discontinued Sertraline [Zoloft] 100 mg PO DAILY@0900 Sertraline HCl [Zoloft] 25 mg PO DAILY@0900 Discharge Medication List ARIPiprazole [Abilify] 15 mg PO DAILY@0905/10/16 [History] Aspirin 162 mg PO DAILY@89905/10/16 [History] Bisacodyl [Dulcolax] 10 mg PO Q48H PRN 05/10/16 [History] Divalproex Sodium [Depakote Sprinkle] 500 mg PO TID@0600,1300,2100 05/10/16 [History] Famotidine [Pepcid] 20 mg PO DAILY@89905/10/16 [History] Ergocalciferol [Vitamin D2 (DRISDOL)] 50,000 unit PO TH@89905/24/16 [History] Finasteride [Proscar] 5 mg PO HS@209910/07/16 [History] Fluticasone/Vilanterol [Breo Ellipta 100-25 Mcg Inhaler] 1 puff INHALATION RT- DAILY@89910/07/16 [History] Folic Acid 0.8 mg PO DAILY@0909/05/17 [History] Folic Acid-Vit B Complex-Vit C [Nephrocaps] 1 mg PO DAILY@0900 09/05/17 [History] Lidocaine-Prilocaine Cream [Emla Cream 2.5%/2.5%] 1 applic TOPICAL MOWEFR@0500 09/05/17 [History] Clopidogrel Bisulfate [Plavix] 75 mg PO DAILY@0900 01/20/19 [History] Gabapentin [Neurontin] 200 mg PO DAILY@0900 01/20/19 [History] Gabapentin [Neurontin] 200 mg PO MOWEFR@1700 01/20/19 [History] Insulin Glargine,Hum.rec.anlog [Basaglar Kwikpen U-100] 20 unit SQ HS@2100 01/20/19 [History] Lactulose 15 gm PO DAILY PRN 01/20/19 [History] Sevelamer Carbonate 2.4 gm PO TID@0600,1200,1700 01/20/19 [History] guaiFENesin SYRUP 100MG/5ML [Robitussin] 200 mg PO Q6H PRN 01/20/19 [History] hydrALAZINE HCL [Apresoline] 25 mg PO TID@0600,1300,2100 01/20/19 [History] HYDROcodone/APAP 5-325MG [[place] 5-325] 1 tab PO Q4HR PRN #12 tab 01/25/19 [Rx] HYDROcodone/APAP 5-325MG [[place] 5-325] 1 tab PO TID@0600,1300,2100 #6 tab 01/25/19 [Rx] INSULIN ASPART (NovoLOG) [NovoLOG (formulary)] 0 unit SQ ACHS vial 01/25/19 [Rx] Midodrine [ProAmatine] 5 mg PO AC-TID tab 01/25/19 [Rx] Sertraline [Zoloft] 50 mg PO DAILY@2100 #0 01/25/19 [Rx] Vancomycin 1,000 mg IVPB MOWEFR #18 bag 01/25/19 [Rx] Follow up Appointment(s)/Referral(s): Ras Bolanos MD [STAFF PHYSICIAN] - 3 Weeks Jesus Ordaz MD [Primary Care Provider] - 1-2 days Ambulatory/Diagnostic Orders: Basic Metabolic Panel [LAB.AMB] Location: None Selected C Reactive Protein [LAB.AMB] Location: None Selected Complete Blood Count w/diff [LAB.AMB] Time Frame: 2 Days, Location: None Selected Complete Blood Count w/diff [LAB.AMB] Location: None Selected Erythrocyte Sedimentation Rate [LAB.AMB] Location: None Selected Vancomycin,Trough [LAB.AMB] Location: None Selected Activity/Diet/Wound Care/Special Instructions: MWF dressing change L foot (MRSA +) opticel Ag, moist 4x4, ABD pad, krilex wrap. (Completed 01/25) Hemodialysis M/W/F as scheduled IV Vancomyacin for 6 weeks Renal diabetic diet follow up with primary care provider upon discharge Discharge Disposition: TRANSFER TO SNF/ECF
[2019-01-25 14:08] VITALS: BP 155/81; PULSE 69; RESP 16; TEMP 97.2
--- NOTE | 2019-01-25 16:27 | P.PN ---
Subjective Progress Note Date: 01/25/19 On today's evaluation of 01/25/2019 the patient is resting comfortably in bed. He is undergoing a hemodialysis. His blood pressure has been running slightly low and this being monitored through the solar energy technician. No shortness of breath. He is only on 2 L of oxygen by nasal cannula. No cough or sputum production. No chest tightness or wheezing. No signs of any fluid overload. He is on antibiotics regarding his underlyingas the patient has a strep group B and MRSA in his wound cultures. Objective - Vital Signs Vital signs: Vital Signs Temp 97.2 F L 01/25/19 12:47 Pulse 69 01/25/19 12:47 Resp 16 01/25/19 12:47 BP 155/81 01/25/19 12:47 Pulse Ox 97 01/25/19 12:47 Intake & Output 01/24/19 01/25/19 01/25/19 18:59 06:59 18:59 Intake Total 360 500 790 Output Total 1500 Balance 360 500 -710 Intake: Oral 360 500 790 Output: Hemodialysis 1500 Other: # Voids 0 0 # Bowel Movements 2 - Exam GENERAL EXAM: Alert, very pleasant, 68-year-old white male, on 2 L of oxygen, with a pulse ox of 97% comfortable in no apparent distress. HEAD: Normocephalic/atraumatic. EYES: Normal reaction of pupils, equal size. Conjunctiva pink, sclera white. NOSE: Clear with pink turbinates. THROAT: No erythema or exudates. NECK: No masses, no JVD, no thyroid enlargement, no adenopathy. CHEST: No chest wall deformity. Symmetrical expansion. LUNGS: Equal air entry with clear breath sounds, no crackles, no rhonchi, no wheezing CVS: Regular rate and rhythm, normal S1 and S2, no gallops, no murmurs, no rubs ABDOMEN: Soft, nontender. No hepatosplenomegaly, normal bowel sounds, no guarding or rigidity. EXTREMITIES: No clubbing, bilateral lower extremities are Shaq wrapped, left foot wound is covered with a dressing, no cyanosis, 2+ pulses and upper and lower extremities. MUSCULOSKELETAL: Muscle strength and tone normal. SPINE: No scoliosis or deformity SKIN: No rashes CENTRAL NERVOUS SYSTEM: Alert and oriented -3. No focal deficits, tone is normal in all 4 extremities. PSYCHIATRIC: Alert and oriented -3. Appropriate affect. Intact judgment and insight. - Labs CBC & Chem 7: 01/23/19 07:10 01/23/19 07:10 Labs: Abnormal Lab Results - Last 24 Hours (Table) 01/24/19 01/24/19 01/25/19 Range/Units 17:00 20:05 11:20 POC Glucose (mg/dL) 129 H 148 H 115 H (75-99) mg/dL Microbiology - Last 24 Hours (Table) 01/20/19 22:10 Blood Culture - Preliminary Blood No Growth after 96 hours Assessment and Plan Plan: #1 Sepsis secondary to the foot lesion on the left. Cultures are positive for group B strep and MRSA. On skin was positive for cellulitis and osteomyelitis of the left heel. Patient is improved. The patient is still on antibiotic coverage. Hemodynamically stable. Undergoing hemodialysis today. So on a combination of Zosyn and vancomycin. #2 Previous history of ESBL and MRSA infections. #3 Atrial fibrillation. #4 Coronary artery disease. #5 Congestive heart failure. #6 Cerebrovascular accident. #7 Dementia. #8 Diabetes mellitus. #9 History of end-stage renal disease receiving hemodialysis Friday. #10 Hyperlipidemia. #11 Hypertension. #12 Memory impairment. #13 Degenerative joint disease. #14 Sleep apnea syndrome currently maintained on CPAP. #15 History of closed head injury. 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 Plan No active pulmonary or critical care issue. We'll sign off the case. We will leave the rest of the management to medicine and nephrology. Multiple comorbidities. Prognosis is poor based on above.
--- NOTE | 2019-01-25 16:38 | PN ---
PROGRESS NOTE The patient is seen for followup for end-stage renal disease. He is currently seen on hemodialysis. Tolerating his treatment well. PHYSICAL EXAMINATION: This morning, blood pressure was 113/68, heart rate 79 per minute, he is afebrile. Examination of the heart S1, S2. Examination of the lungs, bilateral breath sounds are heard. Abdomen is soft, non-tender. Examination of lower extremities shows no significant edema. Left heel is currently wrapped. LAB: Show a random vancomycin level of 22.7. Potassium was 4.2 on 01/23/2019. ASSESSMENT: 1. End-stage renal disease, on hemodialysis on a Friday, Friday, Friday schedule at [place]. 2. Left foot osteomyelitis, maintained on vancomycin. The wound cultures grew MRSA and Streptococcus agalactiae. 3. Hypertension. 4. Chronic kidney disease mineral bone disorder. 5. History of seizures. 6. Type 2 diabetes. PLAN: The patient can receive vancomycin as outpatient with dialysis. Continue with the phosphate binders. Decrease goal to about 1 L. Encourage increased oral intake. MMODL / IJN: [id number] /
[2019-01-25] MEDS ORDERED: VANCOMYCIN 1,500 MG in SODIUM CHLORIDE 0.9% 250 ML IVPB ONE (21:00)
--- NOTE | 2019-01-27 06:36 | CDI ---
Documentation Clarification Form Date: 01/27/2019 6:26:13 AM From: Jovanna Valles Phone: If you have a question about this query, please contact Jeanna Mireles Product Development Ecologist at [phone] between 8am and 5pm. Admit Date: 01/20/2019 10:23:00 PM Patient Name: Giovanny Meadows Visit Number: [id number] Discharge Date: 01/25/2019 3:43:00 PM ATTENTION: The Clinical Documentation Specialists (CDI) and [facility] Coding Staff appreciate your assistance in clarifying documentation. Please respond to the clarification below the line at the bottom and electronically sign. The CDI & [facility] Coding staff will review the response and follow-up if needed. Please note: Queries are made part of the Legal Health Record. If you have any questions, please contact the author of this message via ITS. Dr. Jareth Olivares Conflicting documentation has been found in the medical record: Documentation throughout chart supports patient has a left DFU with osteomyelitis. Bone scan done on Left foot. DCS documents patient has right DFU with osteomyelitis. Please clarify if patient's DFU and osteomyelitis is left foot or right foot. History/Risk Factors: DM DFU severe sepsis, ESRD on hemodialysis Treatment:antiotics In your opinion, what is the most clinically appropriate diagnosis for this patient? Left DFU with osteomyelitis Right DFU with osteomyelitis Other explanation of clinical findings Unable to determine (no explanation for clinical findings) Left DFU with osteomyelitis MTDD
== END 2019-01-25 15:43 | DRG 871 ==
LOC: EC 18:51 → 2SICU 22:23 → 4MS4W 01-22 15:34
PROVIDERS: ADMIT Hospitalist; ATTEND Hospitalist
PROC: 5A1D70Z Performance of Urinary Filtration, Intermittent, Less than 6 Hours Per Day (ICD-10-PCS; principal; 2019-01-22)
DX: A41.02 Sepsis due to Methicillin resistant Staphylococcus aureus (principal); G93.41 Metabolic encephalopathy; I50.33 Acute on chronic diastolic (congestive) heart failure; J18.9 Pneumonia, unspecified organism; J96.01 Acute respiratory failure with hypoxia; N18.6 End stage renal disease; M86.172 Other acute osteomyelitis, left ankle and foot; I13.2 Hypertensive heart and chronic kidney disease with heart failure and with stage 5 chronic kidney disease, or end stage renal disease; J44.0 Chronic obstructive pulmonary disease with (acute) lower respiratory infection; L97.429 Non-pressure chronic ulcer of left heel and midfoot with unspecified severity; D63.1 Anemia in chronic kidney disease; E11.22 Type 2 diabetes mellitus with diabetic chronic kidney disease; E11.621 Type 2 diabetes mellitus with foot ulcer; E11.69 Type 2 diabetes mellitus with other specified complication; B95.1 Streptococcus, group B, as the cause of diseases classified elsewhere; B95.62 Methicillin resistant Staphylococcus aureus infection as the cause of diseases classified elsewhere; Z79.4 Long term (current) use of insulin; E78.5 Hyperlipidemia, unspecified; E88.89 Other specified metabolic disorders; F03.90 Unspecified dementia, unspecified severity, without behavioral disturbance, psychotic disturbance, mood disturbance, and anxiety; G47.30 Sleep apnea, unspecified; Z99.89 Dependence on other enabling machines and devices; I25.10 Atherosclerotic heart disease of native coronary artery without angina pectoris; I48.0 Paroxysmal atrial fibrillation; Z87.820 Personal history of traumatic brain injury; R42 Dizziness and giddiness; L89.152 Pressure ulcer of sacral region, stage 2; M19.90 Unspecified osteoarthritis, unspecified site; M89.8X9 Other specified disorders of bone, unspecified site; R65.20 Severe sepsis without septic shock; Z99.2 Dependence on renal dialysis; Z79.02 Long term (current) use of antithrombotics/antiplatelets; Z79.82 Long term (current) use of aspirin; Z79.899 Other long term (current) drug therapy; Z82.49 Family history of ischemic heart disease and other diseases of the circulatory system; Z83.3 Family history of diabetes mellitus; Z86.14 Personal history of Methicillin resistant Staphylococcus aureus infection; Z90.49 Acquired absence of other specified parts of digestive tract; Z86.19 Personal history of other infectious and parasitic diseases; M47.892 Other spondylosis, cervical region; G20 Parkinson's disease
CPT/HCPCS: 36415; 71045; 78315; 80048; 80053; 80202; 83605; 84132; 84145; 85025; 86706; 87040; 87070; 87077; 87186; 87205; 87340; 90935; 93005; 93306; 94640; 94760; 96361; 96374; 99285

== ENCOUNTER 2019-12-24 08:55 | Inpatient (IN) | payer MEDICARE, BC, OTHER ==
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
[2019-12-24 09:46] LABS: Anisocytosis Slight; Basophils # (A) 0.1 k/uL (0-0.2); Basophils % (A) 1 %; Eosinophils # (A) 0.6 k/uL (0-0.7); Eosinophils % (A) 6 %; HCT 34.8 % (39.0-53.0); HGB 10.4 gm/dL (13.0-17.5); Hypochromasia Marked; Lymphocytes # (A) 3.1 k/uL (1.0-4.8); Lymphocytes % (A) 32 %; MCH 24.4 pg (25.0-35.0); MCV 81.3 fL (80.0-100.0); Mean Platelet Volume 6.4; Monocytes # (A) 0.9 k/uL (0-1.0); Monocytes % (A) 9 %; Neutrophils # (A) 5.1 k/uL (1.3-7.7); Neutrophils % (A) 51 %; Platelet Count 330 k/uL (150-450); RBC 4.28 m/uL (4.30-5.90); RDW 16.6 % (11.5-15.5)
[2019-12-24 09:55] LABS: Albumin 3.7 g/dL (3.5-5.0); Calcium 9.7 mg/dL (8.4-10.2); Potassium 4.4 mmol/L (3.5-5.1); Total Bilirubin 0.4 mg/dL (0.2-1.3); Total Protein 7.5 g/dL (6.3-8.2)
[2019-12-24] MEDS ORDERED: VANCOMYCIN 500 MG in SODIUM CHLORIDE 0.9% 100 ML IVPB ONE (16:15)
[2019-12-24] MEDS ORDERED: guaiFENesin SYRUP 100MG/5ML 200 MG/10 ML CUP PO PRN (18:05)
[2019-12-24] MEDS ORDERED: HYDROcodone/APAP 5-325MG 1 EACH TAB PO PRN (18:05)
[2019-12-24] MEDS ORDERED: LACTULOSE 20 GM/30 ML CUP PO PRN (18:05)
[2019-12-24] MEDS ORDERED: bisacodyL 5 MG TABLET.DR PO PRN (18:05)
[2019-12-24] MEDS ORDERED: MAGNESIUM HYDROXIDE 2,400 MG/10 ML CUP PO PRN (18:05)
[2019-12-24 18:08] LABS: Glucose,Whole Blood 88 mg/dL (75-99)
--- NOTE | 2019-12-24 20:08 | CONS ---
CONSULTATION REASON FOR CONSULT: End-stage renal disease. HISTORY OF PRESENT ILLNESS: Patient is a 69-year-old male with history of end-stage renal disease, on hemodialysis on a Friday, Friday, Friday schedule. He was sent into the hospital as he was noticed to have redness at the site of his AV fistula. Patient did have some redness on Friday12/22/2019, and he received a dose of vancomycin. However, when he came to dialysis today the redness appeared worse, and therefore patient was sent into the hospital. He has not had any fever, nausea, vomiting, abdominal pain or diarrhea. PAST MEDICAL HISTORY: End-stage renal disease, anemia of chronic disease, CKD mineral bone disorder, hypertension, coronary artery disease, history of CVA/TIA, hyperlipidemia, dementia, obstructive sleep apnea, osteoarthritis, closed head injury. PAST SURGICAL HISTORY: AV fistula with interventions on the access, history of diabetic foot ulcer with debridements, laparoscopic cholecystectomy, rotator cuff surgery. SOCIAL HISTORY: Negative for smoking, drug abuse or alcohol abuse. Patient resides at a correction. MEDICATIONS: Medications prior to admission included Abilify, aspirin, Depakote, Pepcid, Dulcolax, vitamin D, Proscar, folic acid, Nephrocaps, Neurontin, Plavix, [place], lactulose, Robitussin, hydralazine, Zoloft, [place]. ALLERGIES: NONE. PHYSICAL EXAMINATION: Patient is comfortable, awake, not in any acute distress. Blood pressure 138/74, heart rate 66 per minute. He is afebrile. EXAMINATION OF THE HEART: S1 and S2. EXAMINATION OF LUNGS: Bilateral breath sounds are heard. ABDOMEN: Soft, non-tender. Examination of lower extremities shows no significant edema. MOLDER INFLATED BALL exam cannot be assessed; however, patient did recognize me. He moves all 4 extremities. LABS: Labs show hemoglobin 10.4, sodium 140, potassium 4.4, serum creatinine 6.63. ASSESSMENT: 1. End-stage renal disease, on hemodialysis on a Friday, Friday, Friday schedule. 2. Mild cellulitis noted at the site of the AV fistula. It seems to be worse, according to nursing staff, when compared to 12/22/2019 when he presented to outpatient dialysis. He did get a gram of vancomycin and at this time I will continue antibiotics. Consult Vascular Surgery. We will hold off on dialysis until tomorrow until evaluated by Vascular Surgery. 3. Chronic kidney disease mineral bone disorder. 4. Anemia of chronic disease. PLAN: Resume home medications. Consult Vascular Surgery. Hemodialysis in a.m. I will give him another gram of vancomycin today. Thank you for this consultation. Will continue to follow the patient with you during his hospitalization. MMCRISSL / ANIBALN: [id number] /
[2019-12-24 20:42] LABS: Glucose,Whole Blood 117 mg/dL (75-99)
[2019-12-24] MEDS ORDERED: ATORVASTATIN 20 MG TAB PO SCH (21:00)
[2019-12-24] MEDS ORDERED: FINASTERIDE 5 MG TAB PO SCH (21:00)
[2019-12-24] MEDS ORDERED: SERTRALINE 25 MG TAB PO SCH (21:00)
[2019-12-24] MEDS ORDERED: SERTRALINE 100 MG TAB PO SCH (21:00)
[2019-12-24] MEDS ORDERED: INSULIN DETEMIR (LEVEMIR) 100 UNIT/ML SYR SQ SCH (21:00)
[2019-12-24] MEDS ORDERED: SERTRALINE 50 MG TAB PO SCH (21:00)
[2019-12-24] MEDS: DIVALPROEX SPRINKLE 125 MG CAP.SPRINK PO SCH (21:36)
[2019-12-24] MEDS: hydrALAZINE HCL 25 MG TAB PO SCH (21:36)
[2019-12-24] MEDS: HYDROcodone/APAP 5-325MG 1 EACH TAB PO SCH (21:36)
[2019-12-24] MEDS: INSULIN ASPART (NovoLOG) 100 UNIT/ML VIAL SQ SCH (21:37)
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
[2019-12-25] MEDS: DIVALPROEX SPRINKLE 125 MG CAP.SPRINK PO SCH ×3 (05:43→12:08)
[2019-12-25] MEDS: hydrALAZINE HCL 25 MG TAB PO SCH ×3 (05:43→12:12)
[2019-12-25] MEDS: HYDROcodone/APAP 5-325MG 1 EACH TAB PO SCH ×2 (05:44→12:07)
[2019-12-25] MEDS: SEVELAMER 800 MG TAB PO SCH ×3 (05:44→12:08)
[2019-12-25 07:04] LABS: Glucose,Whole Blood 64 mg/dL (75-99)
[2019-12-25] MEDS: INSULIN ASPART (NovoLOG) 100 UNIT/ML VIAL SQ SCH ×2 (07:15→12:06)
[2019-12-25 07:25] LABS: Glucose,Whole Blood 82 mg/dL (75-99)
[2019-12-25] MEDS ORDERED: SYMBICORT 80-4.5 MCG INHALER INHALATION SCH (08:00)
[2019-12-25 08:35] VITALS: TEMP 97.4
[2019-12-25] MEDS: CHOLECALCIFEROL 1,000 UNIT TAB PO SCH ×2 (09:37→09:46)
[2019-12-25] MEDS: CLOPIDOGREL 75 MG TAB PO SCH ×2 (09:37→09:46)
[2019-12-25] MEDS: FAMOTIDINE 20 MG TAB PO SCH ×2 (09:37→09:46)
[2019-12-25] MEDS: ARIPiprazole 15 MG TAB PO SCH ×2 (09:38→09:46)
[2019-12-25] MEDS: FOLIC ACID 1 MG TAB PO SCH ×2 (09:38→09:48)
[2019-12-25] MEDS: GABAPENTIN 100 MG CAP PO SCH ×2 (09:38→09:49)
[2019-12-25] MEDS: ASPIRIN 81 MG PO SCH ×2 (09:38→09:46)
[2019-12-25] MEDS: FOLIC ACID-VIT B COMPLEX-VIT C 1 CAP PO SCH ×2 (09:40→09:48)
--- NOTE | 2019-12-25 10:02 | P.PN ---
Subjective patient is seen in follow-up for end-stage renal disease. He is maintained on hemodialysis on Friday schedule. Erythema around the fistula site better. He's tolerating dialysis well. No active complaints. Vital signs are stable. General: The patient appeared well nourished and normally developed. HEENT: Head exam is unremarkable. Neck is without jugular venous distension. LUNGS: Breath sounds decreased. HEART: Rate and Rhythm are regular. ABDOMEN: soft, nontender. EXTREMITITES: No clubbing, cyanosis, or edema. Objective - Vital Signs Vital signs: Vital Signs Temp 97.4 F L 12/25/19 07:52 Pulse 73 12/25/19 07:52 Resp 18 12/25/19 07:52 BP 127/69 12/25/19 07:52 Pulse Ox 100 12/25/19 07:52 Intake & Output 12/24/19 12/25/19 12/25/19 18:59 06:59 18:59 Intake Total 500 Balance 500 Weight 81.647 kg Intake: Oral 500 Other: Voiding Method Diaper # Voids 1 - Labs CBC & Chem 7: 12/24/19 09:29 12/24/19 09:29 Labs: Abnormal Lab Results - Last 24 Hours (Table) 12/24/19 12/25/19 Range/Units 20:40 07:02 POC Glucose (mg/dL) 117 H 64 L (75-99) mg/dL Assessment and Plan Plan: assessment: 1. End-stage renal disease maintained on hemodialysis on Friday schedule via left upper extremity AV fistula. 2. Mild cellulitis around AV fistula site. Better. Status post 2 doses of IV vancomycin. 3. chronic kidney disease mineral bone disease maintained on Renvela. 4. Insulin-dependent diabetes mellitus. 5. Hypertension with chronic kidney disease. Stable. Plan: Currently seen while undergoing hemodialysis. Next treatment on Friday. Follow-up cultures.
[2019-12-25 10:29] VITALS: BP 124/66; PULSE 83; RESP 16
[2019-12-25 11:29] LABS: Glucose,Whole Blood 123 mg/dL (75-99)
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
[2019-12-25] MEDS ORDERED: INSULIN ASPART (NovoLOG) 100 UNIT/ML VIAL SQ SCH (17:00)
[2019-12-25] MEDS ORDERED: NON FORMULARY DRUG (Nepro 1 CAN Liquid) PO SCH (17:00)
[2019-12-27] MEDS ORDERED: LIDOCAINE-PRILOCAINE 2.5-2.5% CREAM 5 GM TUBE TOPICAL SCH (05:00)
[2019-12-27] MEDS ORDERED: GABAPENTIN 100 MG CAP PO SCH (17:00)
== END 2019-12-25 14:16 | DRG 314 ==
LOC: EC 08:55 → 4SSUR 10:12
PROVIDERS: ADMIT Hospitalist; ATTEND Hospitalist
PROC: 5A1D70Z Performance of Urinary Filtration, Intermittent, Less than 6 Hours Per Day (ICD-10-PCS; principal; 2019-12-25)
DX: T82.7XXA Infection and inflammatory reaction due to other cardiac and vascular devices, implants and grafts, initial encounter (principal); N18.6 End stage renal disease; I48.19 Other persistent atrial fibrillation; I13.2 Hypertensive heart and chronic kidney disease with heart failure and with stage 5 chronic kidney disease, or end stage renal disease; L03.114 Cellulitis of left upper limb; D63.1 Anemia in chronic kidney disease; E83.9 Disorder of mineral metabolism, unspecified; E11.22 Type 2 diabetes mellitus with diabetic chronic kidney disease; E11.621 Type 2 diabetes mellitus with foot ulcer; L89.629 Pressure ulcer of left heel, unspecified stage; G20 Parkinson's disease; G30.9 Alzheimer's disease, unspecified; F02.80 Dementia in other diseases classified elsewhere, unspecified severity, without behavioral disturbance, psychotic disturbance, mood disturbance, and anxiety; I50.9 Heart failure, unspecified; Z99.2 Dependence on renal dialysis; Z79.4 Long term (current) use of insulin; I25.10 Atherosclerotic heart disease of native coronary artery without angina pectoris; E78.5 Hyperlipidemia, unspecified; G47.33 Obstructive sleep apnea (adult) (pediatric); F41.9 Anxiety disorder, unspecified; M19.91 Primary osteoarthritis, unspecified site; Z79.82 Long term (current) use of aspirin; Z79.02 Long term (current) use of antithrombotics/antiplatelets; Z79.891 Long term (current) use of opiate analgesic; Z79.51 Long term (current) use of inhaled steroids; Z79.899 Other long term (current) drug therapy; Z87.891 Personal history of nicotine dependence; Z86.31 Personal history of diabetic foot ulcer; Z86.14 Personal history of Methicillin resistant Staphylococcus aureus infection; Z86.19 Personal history of other infectious and parasitic diseases; Z87.19 Personal history of other diseases of the digestive system; Z86.73 Personal history of transient ischemic attack (TIA), and cerebral infarction without residual deficits; Z87.820 Personal history of traumatic brain injury; Z90.49 Acquired absence of other specified parts of digestive tract; Z87.39 Personal history of other diseases of the musculoskeletal system and connective tissue; Z98.890 Other specified postprocedural states; Y83.2 Surgical operation with anastomosis, bypass or graft as the cause of abnormal reaction of the patient, or of later complication, without mention of misadventure at the time of the procedure; Y92.129 Unspecified place in nursing home as the place of occurrence of the external cause; Z82.49 Family history of ischemic heart disease and other diseases of the circulatory system; Z83.3 Family history of diabetes mellitus; Z81.8 Family history of other mental and behavioral disorders
CPT/HCPCS: 36415; 80053; 85025; 87040; 90935; 96365; 99285

== ENCOUNTER 2020-02-02 10:42 | Observation (INO) | payer MEDICARE, BC, OTHER ==
[2020-02-02] MEDS ORDERED: NITROGLYCERIN SL TABS 0.4 MG TAB SUBLINGUAL PRN (11:11)
[2020-02-02] MEDS ORDERED: ASPIRIN 81 MG PO STA (11:11)
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
[2020-02-02] MEDS: NITROGLYCERIN OINT 1 INCH/GM PACKET TOPICAL SCH ×2 (12:42→17:41)
[2020-02-02] MEDS ORDERED: LACTULOSE 20 GM/30 ML CUP PO PRN (13:12)
[2020-02-02] MEDS ORDERED: bisacodyL 5 MG TABLET.DR PO PRN (13:12)
[2020-02-02] MEDS ORDERED: guaiFENesin SYRUP 100MG/5ML 200 MG/10 ML CUP PO PRN (13:12)
[2020-02-02 16:28] LABS: Glucose,Whole Blood 164 mg/dL (75-99)
[2020-02-02] MEDS ORDERED: GABAPENTIN 100 MG CAP PO SCH (17:00)
[2020-02-02] MEDS: SEVELAMER 800 MG TAB PO SCH (17:46)
[2020-02-02 20:29] LABS: Glucose,Whole Blood 129 mg/dL (75-99)
[2020-02-02] MEDS: ATORVASTATIN 20 MG TAB PO SCH (20:37)
[2020-02-02] MEDS: FINASTERIDE 5 MG TAB PO SCH (20:37)
[2020-02-02] MEDS: HEPARIN SODIUM,PORCINE 5,000 UNIT/ML 1 ML VIAL SQ SCH (20:38)
[2020-02-02] MEDS: hydrALAZINE HCL 25 MG TAB PO SCH (20:38)
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
[2020-02-03] MEDS: NITROGLYCERIN OINT 1 INCH/GM PACKET TOPICAL SCH ×2 (00:16→06:11)
[2020-02-03 06:00] LABS: Glucose,Whole Blood 76 mg/dL (75-99)
[2020-02-03] MEDS: SEVELAMER 800 MG TAB PO SCH ×3 (06:03→18:03)
[2020-02-03] MEDS: hydrALAZINE HCL 25 MG TAB PO SCH ×3 (06:03→19:52)
[2020-02-03 08:01] LABS: Anisocytosis Slight; Basophils # (A) 0.1 k/uL (0-0.2); Basophils % (A) 1 %; Eosinophils # (A) 0.6 k/uL (0-0.7); Eosinophils % (A) 5 %; HCT 38.2 % (39.0-53.0); HGB 11.5 gm/dL (13.0-17.5); Hypochromasia Marked; Lymphocytes # (A) 2.5 k/uL (1.0-4.8); Lymphocytes % (A) 24 %; MCH 24.3 pg (25.0-35.0); MCHC 30.1 g/dL (31.0-37.0); MCV 80.6 fL (80.0-100.0); Mean Platelet Volume 6.6; Microcytosis Slight; Monocytes % (A) 9 %; Neutrophils # (A) 6.4 k/uL (1.3-7.7); Neutrophils % (A) 60 %; Platelet Count 347 k/uL (150-450); RBC 4.74 m/uL (4.30-5.90); RDW 18.1 % (11.5-15.5); WBC 10.7 k/uL (3.8-10.6)
[2020-02-03 08:17] LABS: Calcium 9.3 mg/dL (8.4-10.2)
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
[2020-02-03] MEDS ORDERED: ASPIRIN 325 MG TAB PO SCH (09:00)
[2020-02-03] MEDS: GABAPENTIN 100 MG CAP PO SCH (09:06)
[2020-02-03] MEDS: HEPARIN SODIUM,PORCINE 5,000 UNIT/ML 1 ML VIAL SQ SCH ×3 (09:06→19:52)
[2020-02-03] MEDS: SERTRALINE 50 MG TAB PO SCH (09:06)
[2020-02-03] MEDS: FAMOTIDINE 20 MG TAB PO SCH (09:06)
[2020-02-03] MEDS: CLOPIDOGREL 75 MG TAB PO SCH (09:06)
[2020-02-03] MEDS: ARIPiprazole 15 MG TAB PO SCH (09:06)
[2020-02-03] MEDS: METOPROLOL TARTRATE 12.5 MG TAB PO SCH (09:09)
[2020-02-03] MEDS: ASPIRIN 81 MG PO SCH (09:09)
[2020-02-03] MEDS ORDERED: GELATIN SPONGE,ABSORB (LARGE) 1 EACH SPONGE ONE (09:52)
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
--- NOTE | 2020-02-03 12:01 | XR ---
EXAMINATION TYPE: XR chest 1V DATE OF EXAM: 02/03/2020 COMPARISON: 01/21/2019 HISTORY: Chest pain TECHNIQUE: Single frontal view of the chest is obtained. FINDINGS: Left-sided vascular stents are seen. The heart size is normal. Atherosclerotic change aort a. No overt failure or pneumothorax. No pleural effusion. Subsegmental infiltrate right perihilar fin dings are markedly improved. IMPRESSION: Near complete resolution of right perihilar and left lower lobe areas of infiltrate.
[2020-02-03 12:43] LABS: Glucose,Whole Blood 137 mg/dL (75-99)
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
[2020-02-03 14:22] VITALS: RESP 18
[2020-02-03 15:17] VITALS: BMI 18.5
[2020-02-03 17:06] LABS: Glucose,Whole Blood 207 mg/dL (75-99)
[2020-02-03] MEDS: CHOLECALCIFEROL 1,000 UNIT TAB PO SCH (17:25)
[2020-02-03] MEDS: ISOSORBIDE MONONITRATE ER 15 MG TAB PO SCH (17:25)
--- NOTE | 2020-02-03 17:27 | CT ---
EXAMINATION TYPE: CT angio chest DATE OF EXAM: 02/03/2020 COMPARISON: 06/16/2014 HISTORY: Shortness of breath CT DLP: 447.7 mGycm Automated exposure control for dose reduction was used. CONTRAST: Performed with IV Contrast, patient injected with 100 mL of Isovue 370. There are 3-D post processed images. There is some patchy scarring and atelectasis in the posterior lower lung souza. There is no pleural effusion. There is no pericardial effusion. Heart size is normal. There is no mediastinal adenopathy. There are no hilar masses. Thoracic aorta is intact. There is no dissection. The ascending aorta measures 4 cm. There is normal contrast opacification of the pulmonary arteries. There are no filling defects. There are numerous posterior old healed right rib fractures. The upper abdominal soft tissues are int act. Thoracic spine is intact. There is no compression fracture. IMPRESSION: There is some scarring and atelectasis at the posterior lung bases. No evidence of pulmonary embolism. 4 cm aneurysm ascending aorta. There is overall improved aeration of the right lung compared to the old CT scan of 06/16/2014. Aortic aneurysm unchanged.
[2020-02-03] MEDS: ATORVASTATIN 20 MG TAB PO SCH (19:52)
[2020-02-03] MEDS: FINASTERIDE 5 MG TAB PO SCH (19:52)
--- NOTE | 2020-02-03 20:00 | ECHOF ---
Referral Reason:chest pain MEASUREMENTS -------- HEIGHT: 157.5 cm WEIGHT: 58.1 kg BP: 114/69 IVSd: 1.4 cm (0.6 - 1.1) LVIDd: 3.4 cm (3.9 - 5.3) LVPWd: 1.5 cm (0.6 - 1.1) IVSs: 1.6 cm LVIDs: 2.4 cm LVPWs: 1.7 cm LA Diam: 3.8 cm (2.7 - 3.8) RVIDd: 3.9 cm (< 3.3) MV E Garry: 0.93 m/s MV DecT: 339 ms MV A Garry: 1.35 m/s MV E/A Ratio: 0.69 FINDINGS -------- Sinus rhythm. This was a technically adequate study. The left ventricular size is normal. There is moderate concentric left ventricular hypertrophy. O verall left ventricular systolic function is low-normal with, an EF between 50 - 55 %. The right ventricle is mildly enlarged. The left atrial size is normal. The right atrial size is normal. There is mild aortic valve sclerosis. There is no evidence of aortic regurgitation. Mild mitral annular calcification present. Mild mitral regurgitation is present. The peak and me an MV gradients are 7.41mmHg 3.22mmHg as measured by doppler. Mild tricuspid regurgitation present. Right ventricular systolic pressure is normal at < 35 mmHg. The pulmonic valve was not well visualized. The aortic root size is normal. There is no pericardial effusion. CONCLUSIONS -------- 1. The left ventricular size is normal. 2. There is moderate concentric left ventricular hypertrophy. 3. Overall left ventricular systolic function is low-normal with, an EF between 50 - 55 %. 4. The right ventricle is mildly enlarged. 5. The left atrial size is normal. 6. The right atrial size is normal. 7. There is mild aortic valve sclerosis. 8. Mild mitral annular calcification present. 9. Mild mitral regurgitation is present. 10. The peak and mean MV gradients are 7.41mmHg 3.22mmHg as measured by doppler. 11. Mild tricuspid regurgitation present. 12. The pulmonic valve was not well visualized. 13. The aortic root size is normal. 14. There is no pericardial effusion. SHELL SIEVE OPERATOR: Colette Durán RDCS
[2020-02-03 21:09] LABS: Glucose,Whole Blood 203 mg/dL (75-99)
[2020-02-04] MEDS: hydrALAZINE HCL 25 MG TAB PO SCH ×2 (05:36→12:47)
[2020-02-04] MEDS: SEVELAMER 800 MG TAB PO SCH ×2 (05:37→12:46)
[2020-02-04] MEDS ORDERED: LIDOCAINE-PRILOCAINE 2.5-2.5% CREAM 5 GM TUBE TOPICAL SCH (06:00)
[2020-02-04 06:29] VITALS: PULSE 62; TEMP 98.1
[2020-02-04 06:38] LABS: Glucose,Whole Blood 117 mg/dL (75-99)
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
[2020-02-04 10:49] LABS: Anisocytosis Slight; Basophils % (A) 0 %; Eosinophils # (A) 0.3 k/uL (0-0.7); Eosinophils % (A) 4 %; HCT 33.8 % (39.0-53.0); HGB 10.4 gm/dL (13.0-17.5); Hypochromasia Slight; Lymphocytes # (A) 2.3 k/uL (1.0-4.8); Lymphocytes % (A) 25 %; MCH 23.8 pg (25.0-35.0); MCHC 30.7 g/dL (31.0-37.0); MCV 77.5 fL (80.0-100.0); Mean Platelet Volume 6.5; Microcytosis Slight; Monocytes # (A) 0.9 k/uL (0-1.0); Monocytes % (A) 10 %; Neutrophils # (A) 5.6 k/uL (1.3-7.7); Neutrophils % (A) 61 %; Platelet Count 348 k/uL (150-450); RBC 4.37 m/uL (4.30-5.90); RDW 18.2 % (11.5-15.5); WBC 9.2 k/uL (3.8-10.6)
[2020-02-04 12:04] LABS: Glucose,Whole Blood 146 mg/dL (75-99)
--- NOTE | 2020-02-04 12:25 | PN ---
PROGRESS NOTE Patient is seen for followup for end-stage renal disease. He is maintained on a Friday, Friday, Friday schedule. Patient was admitted to the hospital with chest pains. He has not had any further chains. Plan is for possible discharge post dialysis today. Chest CTA done yesterday showed no evidence of PE. PHYSICAL EXAMINATION: Today patient is comfortable, awake, he is not in any acute distress. Blood pressure is 147/70, heart rate 62 per minute. He is afebrile. Examination of the heart S1, S2. Examination of the lungs, bilateral breath sounds are heard. Abdomen is soft, nontender. Examination of lower extremities shows no evidence of edema. Left heel is currently dressed. LAB: Show hemoglobin 10.4 g/dL. The sodium was 139, potassium 5.0 yesterday. ASSESSMENT: 1. End-stage renal disease, on hemodialysis on a Friday, Friday, Friday schedule. The patient will be dialyzed today. 2. Chest pain with negative troponins and no evidence of pulmonary embolism, currently resolved. 3. Anemia of chronic disease. 4. CKD mineral bone disorder, maintained on phosphate binders. PLAN: Patient will be dialyzed today and then he will dialyze again on Friday per most likely as outpatient. MMODL / IJN: [id number] /
[2020-02-04 12:38] VITALS: BP 141/61
[2020-02-04] MEDS: ISOSORBIDE MONONITRATE ER 15 MG TAB PO SCH (12:45)
[2020-02-04] MEDS: CHOLECALCIFEROL 1,000 UNIT TAB PO SCH (12:45)
[2020-02-04] MEDS: METOPROLOL TARTRATE 12.5 MG TAB PO SCH (12:45)
[2020-02-04] MEDS: ARIPiprazole 15 MG TAB PO SCH (12:46)
[2020-02-04] MEDS: ASPIRIN 81 MG PO SCH (12:46)
[2020-02-04] MEDS: FAMOTIDINE 20 MG TAB PO SCH (12:46)
[2020-02-04] MEDS: SERTRALINE 50 MG TAB PO SCH (12:47)
[2020-02-04] MEDS: CLOPIDOGREL 75 MG TAB PO SCH (12:47)
[2020-02-04] MEDS: GABAPENTIN 100 MG CAP PO SCH (12:47)
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
[2020-02-04] MEDS: HEPARIN SODIUM,PORCINE 5,000 UNIT/ML 1 ML VIAL SQ SCH (15:38)
== END 2020-02-04 16:43 ==
LOC: EC 10:42 → 3SCARD 11:11
PROVIDERS: ADMIT Internal Medicine; ATTEND Internal Medicine
DX: R07.89 Other chest pain (principal); I48.19 Other persistent atrial fibrillation; I25.10 Atherosclerotic heart disease of native coronary artery without angina pectoris; D63.8 Anemia in other chronic diseases classified elsewhere; H83.90 Unspecified disease of inner ear, unspecified ear; Z86.73 Personal history of transient ischemic attack (TIA), and cerebral infarction without residual deficits; F03.90 Unspecified dementia, unspecified severity, without behavioral disturbance, psychotic disturbance, mood disturbance, and anxiety; I12.0 Hypertensive chronic kidney disease with stage 5 chronic kidney disease or end stage renal disease; E11.22 Type 2 diabetes mellitus with diabetic chronic kidney disease; N18.6 End stage renal disease; E11.621 Type 2 diabetes mellitus with foot ulcer; L97.509 Non-pressure chronic ulcer of other part of unspecified foot with unspecified severity; Z99.2 Dependence on renal dialysis; E78.5 Hyperlipidemia, unspecified; M19.91 Primary osteoarthritis, unspecified site; Z86.14 Personal history of Methicillin resistant Staphylococcus aureus infection; L89.624 Pressure ulcer of left heel, stage 4; M86.172 Other acute osteomyelitis, left ankle and foot; G47.33 Obstructive sleep apnea (adult) (pediatric); Z87.820 Personal history of traumatic brain injury; Z86.19 Personal history of other infectious and parasitic diseases; Z90.49 Acquired absence of other specified parts of digestive tract; Z98.890 Other specified postprocedural states; F41.9 Anxiety disorder, unspecified; Z87.891 Personal history of nicotine dependence; Z82.49 Family history of ischemic heart disease and other diseases of the circulatory system; Z83.3 Family history of diabetes mellitus; Z81.8 Family history of other mental and behavioral disorders; Z79.02 Long term (current) use of antithrombotics/antiplatelets; Z79.4 Long term (current) use of insulin; Z79.899 Other long term (current) drug therapy; Z79.891 Long term (current) use of opiate analgesic; J44.9 Chronic obstructive pulmonary disease, unspecified
CPT/HCPCS: 96372; 99285; 93005; 93306; 85379; 80061; 80048; 84484; 85025 ×2; 87635; 71045; 71275; G0257 ×2; G0378 ×3; S0138; J1644; Q9967; 90935

== ENCOUNTER 2020-03-13 08:12 | Observation (INO) | payer MEDICARE, BC, OTHER ==
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
[2020-03-13] MEDS ORDERED: SODIUM CHLORIDE 0.9% 1,000 ML IV ONE (09:02)
[2020-03-13 09:06] LABS: INR 1.4 (<1.2); Partial Thromboplastin Time 29.9 sec (22.0-30.0); Prothrombin Time 13.6 sec (9.0-12.0)
[2020-03-13 09:11] LABS: Albumin 2.8 g/dL (3.5-5.0); Calcium 9.6 mg/dL (8.4-10.2); Magnesium 2.3 mg/dL (1.6-2.3); Potassium 3.5 mmol/L (3.5-5.1); Total Bilirubin 0.9 mg/dL (0.2-1.3); Total Protein 6.8 g/dL (6.3-8.2)
[2020-03-13 09:13] LABS: Anisocytosis Moderate; Basophils # (A) 0.1 k/uL (0-0.2); Basophils % (A) 1 %; Eosinophils # (A) 0.2 k/uL (0-0.7); Eosinophils % (A) 2 %; HCT 35.5 % (39.0-53.0); HGB 10.6 gm/dL (13.0-17.5); Hypochromasia Marked; Lymphocytes % (A) 21 %; MCH 23.8 pg (25.0-35.0); MCHC 29.8 g/dL (31.0-37.0); MCV 79.9 fL (80.0-100.0); Mean Platelet Volume 6.7; Microcytosis Slight; Monocytes # (A) 0.9 k/uL (0-1.0); Monocytes % (A) 9 %; Neutrophils # (A) 6.3 k/uL (1.3-7.7); Neutrophils % (A) 66 %; Platelet Count 239 k/uL (150-450); RBC 4.45 m/uL (4.30-5.90); WBC 9.6 k/uL (3.8-10.6)
[2020-03-13] MEDS ORDERED: SODIUM CHLORIDE 0.9% 500 ML IV ONE (09:13)
[2020-03-13] MEDS ORDERED: SODIUM CHLORIDE 0.9% 500 ML 500 ML IV ONE (09:15)
--- NOTE | 2020-03-13 09:22 | XR ---
EXAMINATION TYPE: XR chest 1V portable DATE OF EXAM: 03/13/2020 COMPARISON: Prior chest x-ray and CT 01/24/2020 HISTORY: Cough and weakness TECHNIQUE: Single frontal view of the chest is obtained. FINDINGS: Patchy densities present in the right lung base has developed, abnormal density in the rig ht upper lobe is again seen and likely relates to prior fractures and healing of the ribs. Retrocardi ac density obscures the medial aspect of left hemidiaphragm. Left subclavian venous stents are again noted. No evident pneumothorax or pleural effusion. Heart is within normal limits for size. Pulmonary vascularity and omar are unremarkable. The aorta is dense. IMPRESSION: Basilar atelectasis, correlate for possible pneumonia, follow-up suggested.
[2020-03-13] MEDS ORDERED: NALOXONE 0.4 MG/ML 1 ML VIAL IV PRN (09:50)
[2020-03-13] MEDS ORDERED: ACETAMINOPHEN SUPPOSITORY 650 MG SUPP RECTAL PRN (11:50)
[2020-03-13] MEDS ORDERED: guaiFENesin SYRUP 100MG/5ML 200 MG/10 ML CUP PO PRN (11:50)
[2020-03-13] MEDS ORDERED: bisacodyL 10 MG SUPP RECTAL PRN (11:50)
[2020-03-13] MEDS ORDERED: MAGNESIUM HYDROXIDE 2,400 MG/10 ML CUP PO PRN (11:50)
[2020-03-13] MEDS ORDERED: HYDROcodone/APAP 5-325MG 1 EACH TAB PO PRN (11:50)
[2020-03-13] MEDS ORDERED: LACTULOSE 20 GM/30 ML CUP PO PRN (11:50)
[2020-03-13] MEDS ORDERED: LIDOCAINE-PRILOCAINE 2.5-2.5% CREAM 5 GM TUBE TOPICAL ONE (12:01)
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
--- NOTE | 2020-03-13 12:44 | P.DS ---
Providers Date of admission: 03/13/20 09:50 Attending physician: Daniel Martinez Consults: 03/13/20 11:54 Consult Physician Routine Consulting Provider: Ivan Saravia Consult Reason/Comments: ESRD Do you want consulting provider notified?: Yes Primary care physician: Narciso Low Hospital Course: Patient will undergo hemodialysis today discussed with the wheelchair rental clerk patient blood pressures fairly okay now we will discontinue his hydralazine and patient will be discharged today patient the is basically lethargic because of multiple opiates patient is on medications that we usually see in hospice patient's although apparently patient is not hospice and is only DO NOT RESUSCITATE. Because of this reason I'll discontinue Ativan, morphine and will schedule gabapentin teen as well as hydralazine and will be discharged today. Please refer to HPI for further details Patient Condition at Discharge: Fair Plan - Discharge Summary New Discharge Prescriptions: Continue Famotidine [Pepcid] 20 mg PO DAILY@0900 Divalproex Sodium [Depakote Sprinkle] 250 mg PO TID@0900,1300,2100 Aspirin 162 mg PO DAILY@0900 Finasteride [Proscar] 5 mg PO HS@2100 Folic Acid-Vit B Complex-Vit C [Nephrocaps] 1 mg PO DAILY@0900 Lidocaine-Prilocaine Cream [Emla Cream 2.5%/2.5%] 1 applic TOPICAL MOWEFR@0500 Folic Acid 0.8 mg PO DAILY@0900 Clopidogrel Bisulfate [Plavix] 75 mg PO DAILY@0900 Gabapentin [Neurontin] 200 mg PO MOWEFR@1700 guaiFENesin SYRUP 100MG/5ML [Robitussin] 200 mg PO Q6H PRN PRN Reason: Cough Lactulose 15 gm PO DAILY PRN PRN Reason: Constipation Sevelamer Carbonate 2.4 gm PO MOWEFR@,, Cholecalciferol [Vitamin D3 (25 Mcg = 1000 Iu)] 5,000 unit PO DAILY@1300 Nepro 1 can PO DAILY@1700 Atorvastatin [Lipitor] 20 mg PO HS@2100 Magnesium Hydroxide [Milk of Magnesia] 2,400 mg PO DAILY PRN PRN Reason: Constipation Sertraline [Zoloft] 50 mg PO DAILY@0900 bisacodyL [Dulcolax] 10 mg RECTAL DAILY PRN PRN Reason: Constipation Acetaminophen Suppository [Tylenol Suppository] 650 mg RECTAL Q6H PRN PRN Reason: Fever Sevelamer Carbonate 2.4 gm PO SUTUTHSA@,, Sertraline [Zoloft] 100 mg PO DAILY@0900 Sertraline [Zoloft] 25 mg PO DAILY@0900 Zinc 50 mg PO DAILY@1300 Ascorbic Acid [Vitamin C] 2,000 mg PO DAILY@1300 Megestrol [Megace] 400 mg PO DAILY@0900 ARIPiprazole [Abilify] 10 mg PO DAILY@0900 Isosorbide Mononitrate ER [Imdur] 15 mg PO DAILY@0900 House Supplement 1 can PO BID@0900,1700 Changed HYDROcodone/APAP 5-325MG [[place] 5-325] 1 tab PO Q6HR PRN #0 PRN Reason: Breakthrough Pain Discontinued hydrALAZINE HCL [Apresoline] 25 mg PO TID@0600,1300,2099 Gabapentin [Neurontin] 200 mg PO DAILY@0900 #20 cap MORPHINE ORAL JOSE CARLOS CONC 20mg/mL [Roxanol Oral Soln Conc 20MG/ML] 5 mg PO Q6H PRN PRN Reason: Pain LORazepam [Ativan] 0.5 mg PO Q2H PRN PRN Reason: Anxiety Discharge Medication List Aspirin 162 mg PO DAILY@0905/10/16 [History] Divalproex Sodium [Depakote Sprinkle] 250 mg PO TID@0900,1300,209905/10/16 [History] Famotidine [Pepcid] 20 mg PO DAILY@0905/10/16 [History] Finasteride [Proscar] 5 mg PO HS@209910/07/16 [History] Folic Acid 0.8 mg PO DAILY@0909/05/17 [History] Folic Acid-Vit B Complex-Vit C [Nephrocaps] 1 mg PO DAILY@89909/05/17 [History] Lidocaine-Prilocaine Cream [Emla Cream 2.5%/2.5%] 1 applic TOPICAL MOWEFR@0500 09/05/17 [History] Clopidogrel Bisulfate [Plavix] 75 mg PO DAILY@0900 01/20/19 [History] Gabapentin [Neurontin] 200 mg PO MOWEFR@1700 01/20/19 [History] Lactulose 15 gm PO DAILY PRN 01/20/19 [History] Sevelamer Carbonate 2.4 gm PO MOWEFR@,01/20/19 [History] guaiFENesin SYRUP 100MG/5ML [Robitussin] 200 mg PO Q6H PRN 01/20/19 [History] Atorvastatin [Lipitor] 20 mg PO HS@2100 12/24/19 [History] Cholecalciferol [Vitamin D3 (25 Mcg = 1000 Iu)] 5,000 unit PO DAILY@1300 12/24/19 [History] Magnesium Hydroxide [Milk of Magnesia] 2,400 mg PO DAILY PRN 12/24/19 [History] Nepro 1 can PO DAILY@1700 12/24/19 [History] Sertraline [Zoloft] 50 mg PO DAILY@0900 02/02/20 [History] ARIPiprazole [Abilify] 10 mg PO DAILY@0900 03/13/20 [History] Acetaminophen Suppository [Tylenol Suppository] 650 mg RECTAL Q6H PRN 03/13/20 [History] Ascorbic Acid [Vitamin C] 2,000 mg PO DAILY@1300 03/13/20 [History] HYDROcodone/APAP 5-325MG [[place] 5-325] 1 tab PO Q6HR PRN #0 03/13/20 [Rx] House Supplement 1 can PO BID@0900,1700 03/13/20 [History] Isosorbide Mononitrate ER [Imdur] 15 mg PO DAILY@0900 03/13/20 [History] Megestrol [Megace] 400 mg PO DAILY@0900 03/13/20 [History] Sertraline [Zoloft] 25 mg PO DAILY@0900 03/13/20 [History] Sertraline [Zoloft] 100 mg PO DAILY@0900 03/13/20 [History] Sevelamer Carbonate 2.4 gm PO SUTUTHSA@,,03/13/20 [History] Zinc 50 mg PO DAILY@1300 03/13/20 [History] bisacodyL [Dulcolax] 10 mg RECTAL DAILY PRN 03/13/20 [History] Follow up Appointment(s)/Referral(s): Narciso Low MD [Primary Care Provider] - 3 Days Discharge Disposition: HOME SELF-CARE
[2020-03-13] MEDS ORDERED: ASCORBIC ACID 500 MG TAB PO SCH (13:00)
[2020-03-13] MEDS ORDERED: CHOLECALCIFEROL 1,000 UNIT TAB PO SCH (13:00)
[2020-03-13] MEDS ORDERED: DIVALPROEX SPRINKLE 125 MG CAP.SPRINK PO SCH (13:00)
[2020-03-13] MEDS ORDERED: ZINC SULFATE 220 MG CAP PO SCH (13:00)
[2020-03-13 16:48] VITALS: BP 106/57; PULSE 90; RESP 20; TEMP 98
[2020-03-13] MEDS ORDERED: GABAPENTIN 100 MG CAP PO SCH (17:00)
[2020-03-13] MEDS ORDERED: NON FORMULARY DRUG (Nepro 1 CAN Liquid) PO SCH (17:00)
[2020-03-13] MEDS ORDERED: SEVELAMER 800 MG TAB PO SCH (17:00)
[2020-03-13] MEDS ORDERED: HEPARIN SODIUM,PORCINE 5,000 UNIT/ML 1 ML VIAL SQ SCH (21:00)
[2020-03-13] MEDS ORDERED: FINASTERIDE 5 MG TAB PO SCH (21:00)
[2020-03-13] MEDS ORDERED: ATORVASTATIN 20 MG TAB PO SCH (21:00)
[2020-03-14] MEDS ORDERED: SEVELAMER 800 MG TAB PO SCH (08:00)
[2020-03-14] MEDS ORDERED: ASPIRIN 81 MG PO SCH (09:00)
[2020-03-14] MEDS ORDERED: CLOPIDOGREL 75 MG TAB PO SCH (09:00)
[2020-03-14] MEDS ORDERED: FOLIC ACID-VIT B COMPLEX-VIT C 1 CAP PO SCH (09:00)
[2020-03-14] MEDS ORDERED: FAMOTIDINE 20 MG TAB PO SCH (09:00)
[2020-03-14] MEDS ORDERED: GABAPENTIN 100 MG CAP PO SCH (09:00)
[2020-03-14] MEDS ORDERED: SERTRALINE 50 MG TAB PO SCH (09:00)
[2020-03-14] MEDS ORDERED: SERTRALINE 25 MG TAB PO SCH (09:00)
[2020-03-14] MEDS ORDERED: MEGESTROL 400 MG/10 ML CUP PO SCH (09:00)
[2020-03-14] MEDS ORDERED: FOLIC ACID 1 MG TAB PO SCH (09:00)
[2020-03-14] MEDS ORDERED: ARIPiprazole 10 MG TAB PO SCH (09:00)
[2020-03-15] MEDS ORDERED: LIDOCAINE-PRILOCAINE 2.5-2.5% CREAM 5 GM TUBE TOPICAL SCH (05:00)
== END 2020-03-13 17:19 | disposition home or self-care (01) ==
LOC: EC 08:12 → 4SSUR 09:50
PROVIDERS: ADMIT Internal Medicine; ATTEND Internal Medicine
DX: I95.9 Hypotension, unspecified (principal); J98.11 Atelectasis; Z20.828 Contact with and (suspected) exposure to other viral communicable diseases; I48.91 Unspecified atrial fibrillation; I25.10 Atherosclerotic heart disease of native coronary artery without angina pectoris; Z86.73 Personal history of transient ischemic attack (TIA), and cerebral infarction without residual deficits; F03.90 Unspecified dementia, unspecified severity, without behavioral disturbance, psychotic disturbance, mood disturbance, and anxiety; I12.0 Hypertensive chronic kidney disease with stage 5 chronic kidney disease or end stage renal disease; E11.22 Type 2 diabetes mellitus with diabetic chronic kidney disease; N18.6 End stage renal disease; D63.1 Anemia in chronic kidney disease; Z99.2 Dependence on renal dialysis; E78.5 Hyperlipidemia, unspecified; R41.3 Other amnesia; H83.90 Unspecified disease of inner ear, unspecified ear; F32.9 Major depressive disorder, single episode, unspecified; M89.8X9 Other specified disorders of bone, unspecified site; R42 Dizziness and giddiness; M19.90 Unspecified osteoarthritis, unspecified site; G47.30 Sleep apnea, unspecified; Z91.19 Patient's noncompliance with other medical treatment and regimen; Z87.820 Personal history of traumatic brain injury; Z86.14 Personal history of Methicillin resistant Staphylococcus aureus infection; G20 Parkinson's disease; E11.621 Type 2 diabetes mellitus with foot ulcer; L97.529 Non-pressure chronic ulcer of other part of left foot with unspecified severity; Z86.19 Personal history of other infectious and parasitic diseases; Z90.49 Acquired absence of other specified parts of digestive tract; F41.9 Anxiety disorder, unspecified; Z98.890 Other specified postprocedural states; Z82.49 Family history of ischemic heart disease and other diseases of the circulatory system; Z83.3 Family history of diabetes mellitus; Z81.8 Family history of other mental and behavioral disorders; Z79.02 Long term (current) use of antithrombotics/antiplatelets; Z79.82 Long term (current) use of aspirin; Z79.899 Other long term (current) drug therapy; Z79.891 Long term (current) use of opiate analgesic
CPT/HCPCS: 96360; 99285; 36415; 93005; 80053; 83605; 83735; 85025; 85610; 85730; 87635; 71045; G0378; G0257; 90935

== ENCOUNTER 2020-03-18 11:08 | Inpatient (IN) | payer MEDICARE, BC, OTHER ==
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
[2020-03-18 12:17] LABS: Anisocytosis Moderate; Basophils # (A) 0.1 k/uL (0-0.2); Basophils % (A) 0 %; Eosinophils # (A) 0.5 k/uL (0-0.7); Eosinophils % (A) 4 %; HCT 36.6 % (39.0-53.0); HGB 10.9 gm/dL (13.0-17.5); Hypochromasia Marked; Lymphocytes # (A) 1.9 k/uL (1.0-4.8); Lymphocytes % (A) 14 %; MCH 24.1 pg (25.0-35.0); MCHC 29.7 g/dL (31.0-37.0); MCV 81.2 fL (80.0-100.0); Mean Platelet Volume 7.7; Microcytosis Slight; Monocytes # (A) 0.3 k/uL (0-1.0); Monocytes % (A) 2 %; Neutrophils # (A) 10.8 k/uL (1.3-7.7); Neutrophils % (A) 79 %; Platelet Count 332 k/uL (150-450); RBC 4.51 m/uL (4.30-5.90); RDW 20.3 % (11.5-15.5); WBC 13.7 k/uL (3.8-10.6)
[2020-03-18 12:47] LABS: Albumin 2.5 g/dL (3.5-5.0); Calcium 9.8 mg/dL (8.4-10.2); Potassium 4.7 mmol/L (3.5-5.1); Total Bilirubin 1.5 mg/dL (0.2-1.3); Total Protein 6.6 g/dL (6.3-8.2)
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
--- NOTE | 2020-03-18 14:08 | XR ---
EXAMINATION TYPE: XR chest 2V DATE OF EXAM: 03/18/2020 COMPARISON: 03/13/2020 HISTORY: 70 year-old male shortness of breath, difficulty breathing TECHNIQUE: AP and lateral views FINDINGS: Heart normal size. There is retrocardiac and medial right basilar opacity, slightly increased from pr ior. Vascular stents along the left subclavian and axillary veins. Small pleural effusion on the late ral view. IMPRESSION: Retrocardiac and medial right basilar opacity has increased from the 03/13/2020 prior. Small effusion on the lateral view.
[2020-03-18] MEDS ORDERED: PIPERACILLIN-TAZOBACTAM 3.375 GM in SODIUM CHLORIDE 0.9% 100 ML IVPB SCH ×2 (16:00→22:00)
[2020-03-18] MEDS ORDERED: MAGNESIUM HYDROXIDE 2,400 MG/10 ML CUP PO PRN (16:28)
[2020-03-18] MEDS ORDERED: ACETAMINOPHEN SUPPOSITORY 650 MG SUPP RECTAL PRN (16:28)
[2020-03-18] MEDS ORDERED: LACTULOSE 20 GM/30 ML CUP PO PRN (16:28)
[2020-03-18] MEDS ORDERED: MEGESTROL 400 MG/10 ML CUP PO PRN (16:28)
[2020-03-18] MEDS ORDERED: guaiFENesin SYRUP 100MG/5ML 200 MG/10 ML CUP PO PRN (16:28)
[2020-03-18] MEDS ORDERED: bisacodyL 10 MG SUPP RECTAL PRN (16:28)
[2020-03-18] MEDS ORDERED: LORazepam 0.5 MG TAB PO PRN (16:28)
[2020-03-18] MEDS ORDERED: HYDROcodone/APAP 5-325MG 1 EACH TAB PO PRN (16:28)
[2020-03-18] MEDS ORDERED: LIDOCAINE 1% INJ 10MG/ML (20 ML MDV) ONE (16:57)
[2020-03-18] MEDS: ARIPiprazole 10 MG TAB PO SCH (17:31)
[2020-03-18] MEDS: ASPIRIN 81 MG PO SCH (17:31)
[2020-03-18] MEDS: ASCORBIC ACID 500 MG TAB PO SCH (17:31)
[2020-03-18] MEDS: CHOLECALCIFEROL 1,000 UNIT TAB PO SCH (17:31)
[2020-03-18] MEDS: ISOSORBIDE MONONITRATE ER 15 MG TAB PO SCH (17:32)
[2020-03-18] MEDS: FAMOTIDINE 20 MG TAB PO SCH (17:32)
[2020-03-18] MEDS: CLOPIDOGREL 75 MG TAB PO SCH (17:32)
[2020-03-18] MEDS: FOLIC ACID-VIT B COMPLEX-VIT C 1 CAP PO SCH (17:32)
[2020-03-18] MEDS: SERTRALINE 25 MG TAB PO SCH (17:32)
[2020-03-18] MEDS: ZINC SULFATE 220 MG CAP PO SCH (17:32)
[2020-03-18] MEDS: GABAPENTIN 100 MG CAP PO SCH (17:32)
[2020-03-18] MEDS: FOLIC ACID 1 MG TAB PO SCH (17:32)
[2020-03-18] MEDS ORDERED: HEPARIN SODIUM 1,000 UN/ML (10ML VL) ONE (17:42)
[2020-03-18] MEDS ORDERED: IV FLUID CONTINUATION 1,000 ML IV ONE (17:45)
[2020-03-18] MEDS ORDERED: LIDOCAINE 1% INJ 10MG/ML (20 ML MDV) SQ ONE (17:45)
[2020-03-18] MEDS ORDERED: IOPAMIDOL-370 50ML BTL MISCELLANE ONE (17:46)
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
--- NOTE | 2020-03-18 18:19 | P.PCN ---
Description of Procedure: Preoperative diagnoses is acute chronic renal failure infected cephalic brachial fistula postop same Procedure this patient had a dialysis catheter placed in the past ultrasound- guided micropuncture introduced right jugular vein there were some resistant and passing the micropuncture guidewire we did the superior venacavogram and then we passed a Amplatz guidewire was parked at the inferior vena cava a tendon was created through the terminal be brought 90 same dialysis catheter we passed a 10-Dutch and 12-Dutch dilator sequentially noticed and was noted then passed a dilator and the sheath through the sheath we introduced dialysis catheter sheath was removed good flow noted flushed with heparin saline and Hep-Lock secured with 3-0 nylon and dressings applied patient are to the procedure well and transferred to the room we will do the chest x-ray patient going for dialysis today
--- NOTE | 2020-03-18 18:46 | XR ---
EXAMINATION TYPE: XR chest 1V DATE OF EXAM: 03/18/2020 COMPARISON: Today HISTORY: Short of breath TECHNIQUE: Single view FINDINGS: There is mild blunting of the costophrenic angles. There is no heart failure. There is righ t-sided central venous catheter with tip in the superior vena cava. There is infiltrate in the medial right lower lobe. IMPRESSION: Right lower lobe pneumonia. Small pleural effusions. Chest improved on the left side comp ared to exam earlier today.
[2020-03-18] MEDS ORDERED: MIDODRINE 5 MG TAB PO ONE (20:49)
[2020-03-18] MEDS: FINASTERIDE 5 MG TAB PO SCH (21:42)
[2020-03-18] MEDS: DIVALPROEX SPRINKLE 125 MG CAP.SPRINK PO SCH (21:42)
[2020-03-18] MEDS: ATORVASTATIN 20 MG TAB PO SCH (21:42)
[2020-03-18 23:15] LABS: Hepatitis B Surface AB- Quant 127.9 mIU/mL; Hepatitis B Surface Antibody Reactive (Non-Reactive); Hepatitis B Surface Antigen Non-Reactive (Non-Reactive)
[2020-03-18] MEDS ORDERED: VANCOMYCIN IV PER PHARMACY 1 EACH MISC MISCELLANE PRN (23:22)
[2020-03-19] MEDS: VANCOMYCIN 1,000 MG in SODIUM CHLORIDE 0.9% 250 ML IVPB ONE ×2 (01:12→01:40)
--- NOTE | 2020-03-19 07:08 | CONS ---
CONSULTATION DATE OF SERVICE: 03/18/2020 REASON FOR CONSULTATION: 1. Left arm AV fistula infection. 2. Left heel wound. HISTORY OF PRESENT ILLNESS: The patient is a 70-year-old male with a past medical history significant for end-stage renal disease, on hemodialysis to the left arm AV fistula. This patient apparently presented to the [facility] with concern for possible infection of the left AV fistula in this patient who did have small wound on the left AV fistula site and no significant redness or any drainage. The patient also a chronic nonhealing wound to the left heel area. Patient with these symptom was evaluated at that facility and with concern for possible infection has been sent to our facility. On arrival to the ER, the patient has been afebrile. The patient did have a white count of 13.7 with a left shift. Liver enzymes were mildly elevated. The patient did have a chest x-ray with retrocardiac and mid right bibasilar opacity, increased from previous 03/13/2020. The patient was started on Zosyn and Infectious Disease was consulted with concern for left arm fistula site infection. Most information has been obtained from review of the chart and talking to the nursing staff, as the patient is currently not a good historian. REVIEW OF SYMPTOMS: Positive points have been mentioned in HPI. Complete review of systems could not be obtained because of the patient's condition. PAST MEDICAL HISTORY: Significant for atrial fibrillation, coronary artery disease, CVA, TIA, dementia, diabetes mellitus, hypertension, hyperlipidemia, osteoarthritis, end-stage kidney disease, on hemodialysis. PAST SURGICAL HISTORY: Cholecystectomy, left arm AV fistula, rotator cuff repair, left arm. SOCIAL HISTORY: No history of smoking, drinking or drug use. FAMILY HISTORY: Father with history of coronary artery disease and hypertension. Mother with history of dementia . ALLERGIES: No known drug allergies. MEDICATIONS: The patient is currently on Tylenol, Patterson, Abilify, vitamin C, aspirin, Lipitor, Dulcolax, Plavix, Mevacor, Pepcid, Proscar, Neurontin, Robitussin, and Zosyn. PHYSICAL EXAMINATION: VITAL SIGNS: Blood pressure is 99/60 with a pulse of 102, temperature 98.4. He is 95% on 2 L nasal cannula. GENERAL DESCRIPTION: An elderly male lying in bed in no distress. No tachypnea or accessory muscles of respiration use. HEENT: Shows slight pallor. No scleral icterus. Oral mucous membrane is dry. No pharyngeal erythema or thrush. NECK: Trachea central, no thyromegaly. LUNGS: Unlabored breathing, clear to auscultation anteriorly. HEART: S1, S2. Regular rate and rhythm. ABDOMEN: Soft, no tenderness. No guarding or rigidity. EXTREMITIES: No edema of the feet. Examination left heel did have a stage III pressure ulcer, but good granulation tissue. No surrounding swelling or drainage. Left arm AV fistula site does have a small wound with minimal swelling. No significant redness or any drainage was noticed. NEUROLOGICAL: The patient remains to be lethargic. Orientation could not be determined. LABS: Hemoglobin is 10.1, white count 13.7, BUN of 39, creatinine , elevated liver enzymes. DIAGNOSTIC IMPRESSION: 1. Patient with admission to the hospital with left arm AV fistula site wound and concern for secondary cellulitis in this patient who did not have any fever. Did have mild elevated white count, but no significant inflammatory changes or drainage from the fistula site. Underlying infection less likely but not entirely excluded. 2. Left heel wound stage III pressure ulcer, but no evidence of any cellulitis. PLAN: 1. Discontinue Zosyn. 2. Start the patient on vancomycin, Pharmacy to dose. 3. Local culture from the left AV fistula site. 4. Dry Aquacel silver dressing to the left heel wound and keep the pressure off the area. 5. We will follow on clinical condition and culture to further adjust medication if needed. Thank you for this consultation. Will follow this patient along with you. MMODL / IJN: [id number] /
[2020-03-19 08:59] LABS: Anisocytosis Moderate; Basophils # (A) 0.1 k/uL (0-0.2); Basophils % (A) 1 %; Eosinophils # (A) 0.7 k/uL (0-0.7); Eosinophils % (A) 4 %; HCT 31.1 % (39.0-53.0); HGB 9.5 gm/dL (13.0-17.5); Hypochromasia Marked; Lymphocytes # (A) 1.4 k/uL (1.0-4.8); Lymphocytes % (A) 8 %; MCH 24.9 pg (25.0-35.0); MCHC 30.5 g/dL (31.0-37.0); MCV 81.8 fL (80.0-100.0); Mean Platelet Volume 8.2; Microcytosis Slight; Monocytes # (A) 0.6 k/uL (0-1.0); Monocytes % (A) 4 %; Neutrophils # (A) 14.3 k/uL (1.3-7.7); Neutrophils % (A) 82 %; Platelet Count 222 k/uL (150-450); RBC 3.81 m/uL (4.30-5.90); RDW 20.6 % (11.5-15.5); WBC 17.5 k/uL (3.8-10.6)
[2020-03-19] MEDS: INSULIN ASPART (NovoLOG) 100 UNIT/ML VIAL SQ SCH ×4 (09:03→21:02)
[2020-03-19] MEDS: FOLIC ACID 1 MG TAB PO SCH (09:04)
[2020-03-19] MEDS: GABAPENTIN 100 MG CAP PO SCH (09:04)
[2020-03-19] MEDS: CLOPIDOGREL 75 MG TAB PO SCH (09:04)
[2020-03-19] MEDS: DIVALPROEX SPRINKLE 125 MG CAP.SPRINK PO SCH ×3 (09:04→21:03)
[2020-03-19] MEDS: FAMOTIDINE 20 MG TAB PO SCH (09:04)
[2020-03-19] MEDS: ISOSORBIDE MONONITRATE ER 15 MG TAB PO SCH (09:04)
[2020-03-19] MEDS: ASPIRIN 81 MG PO SCH (09:04)
[2020-03-19] MEDS: FOLIC ACID-VIT B COMPLEX-VIT C 1 CAP PO SCH (09:05)
[2020-03-19] MEDS: ARIPiprazole 10 MG TAB PO SCH (09:05)
[2020-03-19] MEDS: SERTRALINE 25 MG TAB PO SCH (09:05)
[2020-03-19 10:20] LABS: Erythrocyte Sedimentation Rate 78 mm/hr (0-15)
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
[2020-03-19 11:43] LABS: Glucose,Whole Blood 214 mg/dL (75-99)
[2020-03-19] MEDS ORDERED: DARBEPOETIN ALFA 40 MCG/0.4 ML SYRINGE SQ SCH (12:00)
[2020-03-19 12:33] LABS: African American GFR (CKD) 13.4 (60.0-200.0); C Reactive Protein 24.4 mg/dL (0.0-0.8); Non-African American GFR(CKD) 11.5 (60.0-200.0)
--- NOTE | 2020-03-19 12:55 | P.PN ---
Subjective 70-year-old male came in with an ulcer and possible superficial infection of the left arm fistula. Patient was started on vancomycin. Patient also has a decubitus ulcer on the left heel. Infectious disease evaluated the patient. Wound Cultures were obtained from the left arm fistula. It is more awake today and able to answer questions. Constitutional: Denied any fatigue denied any fever. Cardio vascular: denied any chest pain, palpitations Gastrointestinal denied any nausea vomiting Pulmonary: Denied any shortness of breath cough Neurologic denied any new focal deficits All inpatient medications were reviewed and appropriate changes in these medications as dictated in the interval history and assessment and plan. Objective - Vital Signs Vital signs: Vital Signs Temp 98.4 F 03/19/20 07:37 Pulse 74 03/19/20 07:37 Resp 16 03/19/20 07:37 BP 99/59 03/19/20 07:37 Pulse Ox 95 03/19/20 07:37 Intake & Output 03/18/20 03/19/20 03/19/20 18:59 06:59 18:59 Intake Total 50 200 Output Total 0 Balance 50 200 Weight 74.8 kg Intake: IV 50 Oral 0 200 Output: Hemodialysis 0 Other: Voiding Method Diaper # Voids 0 - Exam PHYSICAL EXAMINATION: GENERAL: The patient is alert and oriented x3, not in any acute distress. Well developed, well nourished. HEENT: Pupils are round and equally reacting to light. EOMI. No scleral icterus. No conjunctival pallor. Normocephalic, atraumatic. No pharyngeal erythema. No thyromegaly. CARDIOVASCULAR: S1 and S2 present. No murmurs, rubs, or gallops. PULMONARY: Chest is clear to auscultation, no wheezing or crackles. ABDOMEN: Soft, nontender, nondistended, normoactive bowel sounds. No palpable organomegaly. MUSCULOSKELETAL: No joint swelling or deformity. EXTREMITIES: No cyanosis, clubbing, or pedal edema. NEUROLOGICAL: Gross neurological examination did not reveal any focal deficits. SKIN: Stage IV decubitus ulcer on the left heel unsure whether it's infected left hand fistula ulcer has mild redness . - Labs CBC & Chem 7: 03/19/20 08:15 03/19/20 08:15 Labs: Abnormal Lab Results - Last 24 Hours (Table) 03/18/20 03/18/20 03/19/20 Range/Units 12:09 12:09 08:15 WBC (3.8-10.6) k/uL RBC (4.30-5.90) m/uL Hgb (13.0-17.5) gm/dL Hct (39.0-53.0) % MCH (25.0-35.0) pg MCHC (31.0-37.0) g/dL RDW (11.5-15.5) % Neutrophils # (1.3-7.7) k/uL ESR (0-15) mm/hr BUN 39 H (9-20) mg/dL Creatinine 7.75 H* (0.66-1.25) mg/dL Est GFR (CKD-EPI)AfAm (60.0-200.0) Est GFR (CKD-EPI)NonAf (60.0-200.0) Glucose 262 H (74-99) mg/dL POC Glucose (mg/dL) (75-99) mg/dL Total Bilirubin 1.5 H (0.2-1.3) mg/dL AST 194 H (17-59) U/L ALT 55 H (4-49) U/L Alkaline Phosphatase 351 H (38-126) U/L C-Reactive Protein (0.0-0.8) mg/dL Albumin 2.5 L (3.5-5.0) g/dL Procalcitonin 2.38 H (0.02-0.09) ng/mL Hep Bs Antibody Reactive A (Non-Reactive) 03/19/20 03/19/20 03/19/20 Range/Units 08:15 08:15 11:41 WBC 17.5 H (3.8-10.6) k/uL RBC 3.81 L (4.30-5.90) m/uL Hgb 9.5 L (13.0-17.5) gm/dL Hct 31.1 L (39.0-53.0) % MCH 24.9 L (25.0-35.0) pg MCHC 30.5 L (31.0-37.0) g/dL RDW 20.6 H (11.5-15.5) % Neutrophils # 14.3 H (1.3-7.7) k/uL ESR 78 H (0-15) mm/hr BUN (9-20) mg/dL Creatinine 4.7 H (0.66-1.25) mg/dL Est GFR (CKD-EPI)AfAm 13.4 L (60.0-200.0) Est GFR (CKD-EPI)NonAf 11.5 L (60.0-200.0) Glucose (74-99) mg/dL POC Glucose (mg/dL) 214 H (75-99) mg/dL Total Bilirubin (0.2-1.3) mg/dL AST (17-59) U/L ALT (4-49) U/L Alkaline Phosphatase (38-126) U/L C-Reactive Protein 24.4 H (0.0-0.8) mg/dL Albumin (3.5-5.0) g/dL Procalcitonin (0.02-0.09) ng/mL Hep Bs Antibody (Non-Reactive) Assessment and Plan Plan: -Missing hemodialysis leading to probably acute hypoxic respiratory failure chest x-ray is pending patient will undergo hemodialysis yesterday -Decubitus ulcer in the left heel -An ulcer left the arm for with some cellulitis patient was started on vancomycin . -Atrial fibrillation presently rate controlled -coronary artery disease -Dementia etiology is not known -Type 2 diabetes mellitus -Sleep apnea -Hypertension -Hyperlipidemia -End-stage renal disease Patient medications are not verified at once they're verified patient will be started on appropriate home medications.
[2020-03-19 13:07] LABS: % Iron Saturation 13.71 (15.00-50.00)
[2020-03-19] MEDS: CHOLECALCIFEROL 1,000 UNIT TAB PO SCH (13:13)
[2020-03-19] MEDS: ZINC SULFATE 220 MG CAP PO SCH (13:14)
[2020-03-19] MEDS: ASCORBIC ACID 500 MG TAB PO SCH (13:14)
[2020-03-19 14:10] LABS: Ferritin 3207.1 ng/mL (22.0-322.0)
[2020-03-19] MEDS ORDERED: CEFEPIME 2 GM in SODIUM CHLORIDE 0.9% 100 ML IVPB STA (14:11)
[2020-03-19 14:16] VITALS: BMI 23.8
[2020-03-19 15:30] LABS: Glucose,Whole Blood 165 mg/dL (75-99)
[2020-03-19 15:30] LABS: Glucose,Whole Blood 189 mg/dL (75-99)
[2020-03-19 15:30] LABS: Glucose,Whole Blood 205 mg/dL (75-99)
[2020-03-19 15:30] LABS: Glucose,Whole Blood 200 mg/dL (75-99)
[2020-03-19 16:43] LABS: Glucose,Whole Blood 146 mg/dL (75-99)
[2020-03-19 20:38] LABS: Glucose,Whole Blood 275 mg/dL (75-99)
[2020-03-19] MEDS: ATORVASTATIN 20 MG TAB PO SCH (21:03)
[2020-03-19] MEDS: FINASTERIDE 5 MG TAB PO SCH (21:03)
--- NOTE | 2020-03-19 23:36 | PN ---
PROGRESS NOTE DATE OF SERVICE: 03/19/2020 REASON FOR FOLLOWUP: 1. Left arm AV fistula site wound infection. 2. Left heel wound. INTERVAL HISTORY: Patient is currently afebrile. The patient remains to be lethargic and unable to provide any history. The patient did have a dialysis catheter placement yesterday. No vomiting, diarrhea or any other changes reported by nursing staff. PHYSICAL EXAMINATION: Blood pressure is 90/49 with a pulse of 84, temperature 98.4. He is 98% on 2 L nasal cannula. General description is an elderly male lying in bed in no distress. Respiratory system: Unlabored breathing. Clear to auscultation anteriorly. Heart S1, S2. Regular rate and rhythm. ABDOMEN: Soft, no tenderness. Left arm AV fistula site small wound. Minimal swelling. No significant redness or drainage. Left knee wound is currently dressed. LABS: Hemoglobin is 9.5, white count 17.5, blood culture negative. Unfortunately no cultures were done from his AV fistula site. DIAGNOSTIC IMPRESSION AND PLAN: 1. Patient admitted to the hospital with left AV fistula wound with concern for secondary cellulitis. The patient has a dialysis catheter for dialysis. Local cultures obtained to adjust antibiotic further in view of worsening of his white count. Cefepime will be added in addition to the vancomycin. 2. Patient with left heel wound care. Local sounds care to continue with dry Aquacel dressing, keep the area off the pressure. MMODL / IJN: [id number] /
[2020-03-20] MEDS ORDERED: VANCOMYCIN 1,250 MG in SODIUM CHLORIDE 0.9% 250 ML IVPB ONE (06:00)
[2020-03-20 06:18] LABS: Anisocytosis Moderate; HCT 30.5 % (39.0-53.0); HGB 9.1 gm/dL (13.0-17.5); Hypochromasia Marked; MCH 24.5 pg (25.0-35.0); MCV 81.7 fL (80.0-100.0); Mean Platelet Volume 7.2; Microcytosis Slight; Platelet Count 268 k/uL (150-450); RBC 3.73 m/uL (4.30-5.90); RDW 20.5 % (11.5-15.5); WBC 15.7 k/uL (3.8-10.6)
[2020-03-20 07:01] LABS: Glucose,Whole Blood 160 mg/dL (75-99)
[2020-03-20] MEDS: ASPIRIN 81 MG PO SCH (07:48)
[2020-03-20] MEDS: FAMOTIDINE 20 MG TAB PO SCH (07:48)
[2020-03-20] MEDS: GABAPENTIN 100 MG CAP PO SCH (07:49)
[2020-03-20] MEDS: SERTRALINE 25 MG TAB PO SCH (07:49)
[2020-03-20] MEDS: ISOSORBIDE MONONITRATE ER 15 MG TAB PO SCH (07:49)
[2020-03-20] MEDS: FOLIC ACID 1 MG TAB PO SCH (07:49)
[2020-03-20] MEDS: FOLIC ACID-VIT B COMPLEX-VIT C 1 CAP PO SCH (07:49)
[2020-03-20] MEDS: INSULIN ASPART (NovoLOG) 100 UNIT/ML VIAL SQ SCH ×4 (08:02→21:19)
[2020-03-20] MEDS: ARIPiprazole 10 MG TAB PO SCH (08:02)
[2020-03-20] MEDS: CLOPIDOGREL 75 MG TAB PO SCH (08:02)
[2020-03-20] MEDS: DIVALPROEX SPRINKLE 125 MG CAP.SPRINK PO SCH ×3 (08:02→21:19)
[2020-03-20] MEDS: CEFEPIME 1 GM in SODIUM CHLORIDE 0.9% 50 ML IVPB SCH (08:05)
--- NOTE | 2020-03-20 09:18 | IR ---
Fluoroscopy HISTORY: Dialysis catheter placement 9.9 minutes fluoroscopy time supplied to the referring clinician. 414 intraoperative C-arm images do cument the procedure. See dictated report from vascular surgery.
[2020-03-20 09:49] LABS: BUN/Creat Ratio 5.09 Ratio (12.00-20.00); Calcium 9.5 mg/dL (8.7-10.3); Non-African American GFR(CKD) 9.5 (60.0-200.0); Potassium 4.1 mmol/L (3.5-5.5)
[2020-03-20] MEDS: MIDODRINE 5 MG TAB PO SCH (10:41)
[2020-03-20] MEDS: LIDOCAINE-PRILOCAINE 2.5-2.5% CREAM 5 GM TUBE TOPICAL SCH (10:52)
--- NOTE | 2020-03-20 11:09 | P.PN ---
Subjective 70-year-old male came in with an ulcer and possible superficial infection of the left arm fistula. Patient was started on vancomycin. Patient also has a decubitus ulcer on the left heel. Infectious disease evaluated the patient. Wound Cultures were obtained from the left arm fistula. It is more awake today and able to answer questions. 03/20/2020 Awaiting wound cultures once again don't cultures and medics can be decided and patient can be discharged at that time. Constitutional: Denied any fatigue denied any fever. Cardio vascular: denied any chest pain, palpitations Gastrointestinal denied any nausea vomiting Pulmonary: Denied any shortness of breath cough Neurologic denied any new focal deficits All inpatient medications were reviewed and appropriate changes in these medications as dictated in the interval history and assessment and plan. Objective - Vital Signs Vital signs: Vital Signs Temp 98.0 F 03/20/20 07:27 Pulse 76 03/20/20 07:27 Resp 18 03/20/20 07:27 BP 103/42 03/20/20 07:27 Pulse Ox 98 03/20/20 07:27 Intake & Output 03/19/20 03/20/20 03/20/20 18:59 06:59 18:59 Intake Total 540 200 Output Total 0 Balance 540 200 Weight 74.8 kg Intake: Oral 540 200 Output: Urine 0 Other: Voiding Method Diaper # Voids 0 - Exam PHYSICAL EXAMINATION: GENERAL: The patient is alert and oriented x3, not in any acute distress. Well developed, well nourished. HEENT: Pupils are round and equally reacting to light. EOMI. No scleral icterus. No conjunctival pallor. Normocephalic, atraumatic. No pharyngeal erythema. No thyromegaly. CARDIOVASCULAR: S1 and S2 present. No murmurs, rubs, or gallops. PULMONARY: Chest is clear to auscultation, no wheezing or crackles. ABDOMEN: Soft, nontender, nondistended, normoactive bowel sounds. No palpable organomegaly. MUSCULOSKELETAL: No joint swelling or deformity. EXTREMITIES: No cyanosis, clubbing, or pedal edema. NEUROLOGICAL: Gross neurological examination did not reveal any focal deficits. SKIN: Stage IV decubitus ulcer on the left heel unsure whether it's infected left hand fistula ulcer has mild redness . - Labs CBC & Chem 7: 03/20/20 06:03 03/20/20 06:03 Labs: Abnormal Lab Results - Last 24 Hours (Table) 03/18/20 03/18/20 03/18/20 Range/Units 16:46 20:36 20:38 WBC (3.8-10.6) k/uL RBC (4.30-5.90) m/uL Hgb (13.0-17.5) gm/dL Hct (39.0-53.0) % MCH (25.0-35.0) pg MCHC (31.0-37.0) g/dL RDW (11.5-15.5) % BUN (9.0-27.0) mg/dL Creatinine (0.6-1.5) mg/dL Est GFR (CKD-EPI)AfAm (60.0-200.0) Est GFR (CKD-EPI)NonAf (60.0-200.0) BUN/Creatinine Ratio (12.00-20.00) Ratio Glucose (70-110) mg/dL POC Glucose (mg/dL) 205 H 189 H 165 H (75-99) mg/dL Iron (65-175) ug/dL TIBC (228-460) ug/dL % Saturation (15.00-50.00) Ferritin (22.0-322.0) ng/mL C-Reactive Protein (0.0-0.8) mg/dL Procalcitonin (0.02-0.09) ng/mL 03/19/20 03/19/20 03/19/20 Range/Units 06:54 08:15 08:15 WBC (3.8-10.6) k/uL RBC (4.30-5.90) m/uL Hgb (13.0-17.5) gm/dL Hct (39.0-53.0) % MCH (25.0-35.0) pg MCHC (31.0-37.0) g/dL RDW (11.5-15.5) % BUN (9.0-27.0) mg/dL Creatinine 4.7 H (0.6-1.5) mg/dL Est GFR (CKD-EPI)AfAm 13.4 L (60.0-200.0) Est GFR (CKD-EPI)NonAf 11.5 L (60.0-200.0) BUN/Creatinine Ratio (12.00-20.00) Ratio Glucose (70-110) mg/dL POC Glucose (mg/dL) 200 H (75-99) mg/dL Iron (65-175) ug/dL TIBC (228-460) ug/dL % Saturation (15.00-50.00) Ferritin (22.0-322.0) ng/mL C-Reactive Protein 24.4 H (0.0-0.8) mg/dL Procalcitonin 2.38 H (0.02-0.09) ng/mL 03/19/20 03/19/20 03/19/20 Range/Units 08:15 11:41 16:41 WBC (3.8-10.6) k/uL RBC (4.30-5.90) m/uL Hgb (13.0-17.5) gm/dL Hct (39.0-53.0) % MCH (25.0-35.0) pg MCHC (31.0-37.0) g/dL RDW (11.5-15.5) % BUN (9.0-27.0) mg/dL Creatinine (0.6-1.5) mg/dL Est GFR (CKD-EPI)AfAm (60.0-200.0) Est GFR (CKD-EPI)NonAf (60.0-200.0) BUN/Creatinine Ratio (12.00-20.00) Ratio Glucose (70-110) mg/dL POC Glucose (mg/dL) 214 H 146 H (75-99) mg/dL Iron 17 L (65-175) ug/dL TIBC 124 L (228-460) ug/dL % Saturation 13.71 L (15.00-50.00) Ferritin 3207.1 H (22.0-322.0) ng/mL C-Reactive Protein (0.0-0.8) mg/dL Procalcitonin (0.02-0.09) ng/mL 03/19/20 03/20/20 03/20/20 Range/Units 20:25 06:03 06:03 WBC 15.7 H (3.8-10.6) k/uL RBC 3.73 L (4.30-5.90) m/uL Hgb 9.1 L (13.0-17.5) gm/dL Hct 30.5 L (39.0-53.0) % MCH 24.5 L (25.0-35.0) pg MCHC 30.0 L (31.0-37.0) g/dL RDW 20.5 H (11.5-15.5) % BUN 28.0 H (9.0-27.0) mg/dL Creatinine 5.5 H (0.6-1.5) mg/dL Est GFR (CKD-EPI)AfAm 11.0 L (60.0-200.0) Est GFR (CKD-EPI)NonAf 9.5 L (60.0-200.0) BUN/Creatinine Ratio 5.09 L (12.00-20.00) Ratio Glucose 152 H (70-110) mg/dL POC Glucose (mg/dL) 275 H (75-99) mg/dL Iron (65-175) ug/dL TIBC (228-460) ug/dL % Saturation (15.00-50.00) Ferritin (22.0-322.0) ng/mL C-Reactive Protein (0.0-0.8) mg/dL Procalcitonin (0.02-0.09) ng/mL 03/20/20 Range/Units 07:00 WBC (3.8-10.6) k/uL RBC (4.30-5.90) m/uL Hgb (13.0-17.5) gm/dL Hct (39.0-53.0) % MCH (25.0-35.0) pg MCHC (31.0-37.0) g/dL RDW (11.5-15.5) % BUN (9.0-27.0) mg/dL Creatinine (0.6-1.5) mg/dL Est GFR (CKD-EPI)AfAm (60.0-200.0) Est GFR (CKD-EPI)NonAf (60.0-200.0) BUN/Creatinine Ratio (12.00-20.00) Ratio Glucose (70-110) mg/dL POC Glucose (mg/dL) 160 H (75-99) mg/dL Iron (65-175) ug/dL TIBC (228-460) ug/dL % Saturation (15.00-50.00) Ferritin (22.0-322.0) ng/mL C-Reactive Protein (0.0-0.8) mg/dL Procalcitonin (0.02-0.09) ng/mL Microbiology - Last 24 Hours (Table) 03/19/20 14:40 Gram Stain - Preliminary Arm - Left Wound Culture - Preliminary 03/18/20 12:15 Blood Culture - Preliminary Blood No Growth after 24 hours Assessment and Plan Plan: -Missing hemodialysis leading to probably acute hypoxic respiratory failure chest x-ray is pending patient will undergo hemodialysis yesterday -Decubitus ulcer in the left heel -An ulcer left the arm for with some cellulitis patient is on vancomycin and cefepime. Wound cultures are still pending once we have the wound cultures patient can be discharged from and medics patient is presently on -Atrial fibrillation presently rate controlled -coronary artery disease -Dementia etiology is not known -Type 2 diabetes mellitus -Sleep apnea -Hypertension -Hyperlipidemia -End-stage renal disease Patient medications are not verified at once they're verified patient will be started on appropriate home medications.
[2020-03-20 11:38] LABS: Glucose,Whole Blood 145 mg/dL (75-99)
--- NOTE | 2020-03-20 12:50 | P.PN ---
Progress Note - Text 70-year-old failure on dialysis patient has a cephalic brachial fistula and and having dialysis there was concern about the third infection of the supraclavicular fistula. We placed a dialysis catheter right jugular approach having dialysis the blood culture came back negative patient is on IV antibiotic under care of infectious disease. Fistula has a good thrill no discharge or redness noted continue with the dialysis of the right IJ catheter
--- NOTE | 2020-03-20 13:59 | PN ---
PROGRESS NOTE Patient is seen for followup for end-stage renal disease. He is scheduled for hemodialysis today. PHYSICAL EXAMINATION: On examination, patient is comfortable, awake. He is not in any acute distress. Blood pressure is 103/42, heart rate 76 per minute. He is afebrile. EXAMINATION OF THE HEART: S1, S2. EXAMINATION OF THE LUNGS: Decreased breath sounds at bases. Abdomen is soft, nontender. Examination of lower extremities shows no significant edema. LABS: Labs show hemoglobin 9.1, white cell count 15.7, platelet count 268,000. Sodium 138, potassium 4.1. ASSESSMENT: 1. End-stage renal disease, on hemodialysis, on a Friday, Friday, Friday schedule. 2. Anemia of chronic disease maintained on Aranesp. 3. Infection at the site of the AV fistula in the left upper arm, being followed by Infectious Disease, maintained on antibiotics currently dialyzing with an IJ PermCath. 4. Generalized debility. PLAN: Hemodialysis today. Continue with Aranesp. Continue antibiotics. MMODL / IJN: [id number] /
[2020-03-20] MEDS: ASCORBIC ACID 500 MG TAB PO SCH (15:08)
[2020-03-20] MEDS: CHOLECALCIFEROL 1,000 UNIT TAB PO SCH (15:08)
[2020-03-20] MEDS: ZINC SULFATE 220 MG CAP PO SCH (15:09)
[2020-03-20 16:36] LABS: Glucose,Whole Blood 136 mg/dL (75-99)
[2020-03-20] MEDS ORDERED: GABAPENTIN 100 MG CAP PO SCH (17:00)
[2020-03-20 20:31] LABS: Glucose,Whole Blood 133 mg/dL (75-99)
[2020-03-20] MEDS: FINASTERIDE 5 MG TAB PO SCH (21:19)
[2020-03-20] MEDS: ATORVASTATIN 20 MG TAB PO SCH (21:19)
--- NOTE | 2020-03-20 23:27 | PN ---
PROGRESS NOTE DATE OF SERVICE: 03/20/2020 REASON FOR FOLLOWUP: Left arm AV fistula site infection. INTERVAL HISTORY: The patient is currently afebrile. The patient is more awake and alert. He is breathing comfortably. Denies having any chest pain or abdominal pain. No worsening pain in the left arm area. PHYSICAL EXAMINATION: Blood pressure 119/66, pulse of 97, temperature 98.9. He is 93% on 3 L nasal cannula. General description is an elderly male lying in bed in no distress. Respiratory system: Unlabored breathing, clear to auscultation anteriorly. Heart S1, S2. Regular rate and rhythm. Abdomen soft. Left arm AV fistula did have superficial wound, slowing drying out. Surrounding swelling and redness has improved. LABS: Hemoglobin 9.1, white count 15.7, creatinine 5.5. DIAGNOSTIC IMPRESSION AND PLAN: Patient with left arm AV fistula site wound with secondary cellulitis. Culture has been positive for presumptive MRSA. Patient is covered with vancomycin which will be continued for at least 2 weeks with dialysis. Monitor clinical course closely. MMCRISSL / ANIBALN: [id number] /
[2020-03-21 06:36] LABS: Glucose,Whole Blood 111 mg/dL (75-99)
[2020-03-21] MEDS: INSULIN ASPART (NovoLOG) 100 UNIT/ML VIAL SQ SCH ×4 (07:04→20:56)
[2020-03-21 07:58] LABS: African American GFR (CKD) 16 (>60 ml/min/1.73 sqM); Anion Gap 4 mmol/L; Blood Urea Nitrogen 20 mg/dL (9-20); Calcium 9.6 mg/dL (8.4-10.2); Carbon Dioxide 27 mmol/L (22-30); Chloride 108 mmol/L (98-107); Glucose 97 mg/dL (74-99); Non-African American GFR(CKD) 14 (>60 ml/min/1.73 sqM); Sodium 139 mmol/L (137-145)
[2020-03-21] MEDS: ARIPiprazole 10 MG TAB PO SCH (07:58)
[2020-03-21] MEDS: CEFEPIME 1 GM in SODIUM CHLORIDE 0.9% 50 ML IVPB SCH (07:58)
[2020-03-21] MEDS: DIVALPROEX SPRINKLE 125 MG CAP.SPRINK PO SCH ×3 (07:58→20:56)
[2020-03-21] MEDS: CLOPIDOGREL 75 MG TAB PO SCH (07:58)
[2020-03-21] MEDS: FOLIC ACID 1 MG TAB PO SCH (07:59)
[2020-03-21] MEDS: FAMOTIDINE 20 MG TAB PO SCH (07:59)
[2020-03-21] MEDS: FOLIC ACID-VIT B COMPLEX-VIT C 1 CAP PO SCH (07:59)
[2020-03-21] MEDS: ISOSORBIDE MONONITRATE ER 15 MG TAB PO SCH (08:00)
[2020-03-21] MEDS: SERTRALINE 25 MG TAB PO SCH (08:00)
[2020-03-21] MEDS: GABAPENTIN 100 MG CAP PO SCH (08:00)
[2020-03-21 10:05] LABS: Anisocytosis Moderate; HCT 29.7 % (39.0-53.0); HGB 9.2 gm/dL (13.0-17.5); Hypochromasia Marked; MCH 25.3 pg (25.0-35.0); MCHC 30.9 g/dL (31.0-37.0); MCV 81.9 fL (80.0-100.0); Mean Platelet Volume 8.5; Microcytosis Slight; Platelet Count 309 k/uL (150-450); RBC 3.62 m/uL (4.30-5.90); RDW 20.5 % (11.5-15.5); WBC 11.6 k/uL (3.8-10.6)
[2020-03-21 11:30] LABS: Glucose,Whole Blood 108 mg/dL (75-99)
[2020-03-21] MEDS: ASPIRIN 81 MG PO SCH (13:19)
[2020-03-21] MEDS: ASCORBIC ACID 500 MG TAB PO SCH (13:19)
[2020-03-21] MEDS: ZINC SULFATE 220 MG CAP PO SCH (13:19)
[2020-03-21] MEDS: CHOLECALCIFEROL 1,000 UNIT TAB PO SCH (13:19)
--- NOTE | 2020-03-21 14:39 | PN ---
PROGRESS NOTE DATE OF SERVICE: 03/21/2020 REASON FOR FOLLOWUP: 1. Left arm AV fistula site wound and cellulitis. 2. Left heel wound. INTERVAL HISTORY: The patient is currently afebrile. The patient is currently more awake and alert and was being fed by the nursing staff, was unable to provide any history. Minimal cough. No vomiting or diarrhea reported. PHYSICAL EXAMINATION: Blood pressure 111/46, pulse of 67, temperature 98.4. He is 95% on 2 L nasal cannula. General description is an elderly male up in the bed in no distress. RESPIRATORY SYSTEM: Unlabored breathing, clear to auscultation anteriorly. HEART: S1, S2. Regular rate and rhythm. ABDOMEN: Soft. No tenderness. Left arm AV fistula has small wound swelling has improved. LABS: Hemoglobin 9.2, white count 11.6. Wound culture with presumptive MRSA. Blood culture negative. DIAGNOSTIC IMPRESSION AND PLAN: 1. Patient's left arm wound with significant cellulitis in this patient with overall improvement in his white count is currently covered with to continue with dialysis for 2 weeks. Local wound care with dry Aquacel silver dressing. 2. Left heel wound with dry Aquacel dressing, keep the area off the pressure. MMODL / IJN: [id number] /
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
--- NOTE | 2020-03-21 16:25 | PN ---
PROGRESS NOTE Patient is seen for followup for end-stage renal disease. He is maintained on a Friday, Friday, Friday schedule. This morning patient is comfortable. He denies any significant complaints. PHYSICAL EXAMINATION: Blood pressure was 111/46, heart rate 67 per minute. He is afebrile. EXAMINATION OF THE HEART: S1, S2. EXAMINATION OF THE LUNGS: Bilateral breath sounds are heard. Abdomen is soft, nontender. Examination of lower extremities shows no significant edema. Scab near his AV fistula is healing and dry. LABS: Labs show sodium 139, potassium 4.0, chloride 108, BUN 20, serum creatinine 3.98, hemoglobin 9.2 g/dL. ASSESSMENT: 1. End-stage renal disease, on hemodialysis, on a Friday, Friday, Friday schedule. 2. Wound infection near AV fistula with wound culture growing MRSA, maintained on antibiotics. 3. Generalized debility. 4. Anemia of chronic disease. PLAN: Hemodialysis in a.m. Encourage increased oral intake. Continue antibiotics as per ID. MMODL / IJN: [id number] /
[2020-03-21 16:36] LABS: Glucose,Whole Blood 190 mg/dL (75-99)
--- NOTE | 2020-03-21 17:23 | PN ---
PROGRESS NOTE DATE OF SERVICE: 03/21/2020 This 70-year-old gentleman who was admitted with an ulcer as well as infection in the left arm fistula had presumptive MRSA grown from the culture. A Stone catheter has been inserted. The patient was started on IV vancomycin. Patient is being closely monitored at this time. Patient is slightly drowsy at this time. Multiple consultants are following the patient closely. Past medical history reviewed. REVIEW OF SYSTEMS: CARDIOVASCULAR SYSTEM: No angina, palpitations. RESPIRATORY SYSTEM: As mentioned earlier. GI: No nausea, vomiting, diarrhea. CURRENT MEDICATIONS: Reviewed. They include Tylenol, [place], Abilify, vitamin C, aspirin, Lipitor, Dulcolax, cefepime, Plavix, vancomycin, Neurontin. Doses are reviewed. PHYSICAL EXAMINATION: Patient is alert, oriented x2. Pulse is 88, blood pressure 116/52, respiration 18, temperature 98.3, pulse ox 98% on 2 L. HEENT: Conjunctivae normal. NECK: No jugular venous distention. CARDIOVASCULAR SYSTEM: S1, S2 muffled. RESPIRATORY SYSTEM: Breath sounds diminished at the bases. A few scattered rhonchi. ABDOMEN: Soft, non-tender. NERVOUS SYSTEM: No focal deficit. LABS: WBC 11.6, hemoglobin 9. creatinine 3.98. ASSESSMENT: 1. Acute hypoxic respiratory failure secondary to fluid overload and missing hemodialysis. 2. Ulcer on the left arm with methicillin-resistant Staphylococcus aeruginosa, on empiric cefepime as well as vancomycin. 3. Decubitus ulcer of the left heel. 4. Change in mental status, metabolic encephalopathy, multifactorial. 5. Atrial fibrillation, presently controlled. 6. Increased white count. 7. Anemia of chronic disease. 8. History of coronary artery disease. 9. Cerebrovascular accident, transient ischemic attack. 10.Dementia. 11.Diabetes mellitus, type 2. 12.End-stage renal disease, on hemodialysis. 13.Hyperlipidemia. 14.Hypertension. 15.Memory impairment. 16.History of degenerative joint disease. 17.Sleep apnea. 18.History of CRE, ESBL and MRSA. 19.History of cholecystectomy. 20.History of anxiety. RECOMMENDATIONS AND DISCUSSION: I recommend to continue current medications, continue with the monitoring, symptomatic treatment. Continue with IV antibiotics. PT/OT evaluation. Possible ECF rehab. Guarded prognosis because of multiple complex medical issues. Further recommendations to follow. MMODL / IJN: [id number] / SURESH
[2020-03-21] MEDS: COLLAGENASE 250 UNIT/GM OINTMENT 30 GM TUBE TOPICAL SCH (17:44)
[2020-03-21 20:17] LABS: Glucose,Whole Blood 139 mg/dL (75-99)
[2020-03-21] MEDS: ATORVASTATIN 20 MG TAB PO SCH (20:56)
[2020-03-21] MEDS: FINASTERIDE 5 MG TAB PO SCH (20:56)
[2020-03-22 07:19] LABS: Glucose,Whole Blood 120 mg/dL (75-99)
[2020-03-22] MEDS: INSULIN ASPART (NovoLOG) 100 UNIT/ML VIAL SQ SCH ×2 (07:25→11:49)
[2020-03-22] MEDS: DIVALPROEX SPRINKLE 125 MG CAP.SPRINK PO SCH ×2 (08:23→14:17)
[2020-03-22] MEDS: FOLIC ACID 1 MG TAB PO SCH (08:24)
[2020-03-22] MEDS: GABAPENTIN 100 MG CAP PO SCH (08:24)
[2020-03-22] MEDS: CLOPIDOGREL 75 MG TAB PO SCH (08:24)
[2020-03-22] MEDS: ASPIRIN 81 MG PO SCH (08:24)
[2020-03-22] MEDS: FAMOTIDINE 20 MG TAB PO SCH (08:24)
[2020-03-22] MEDS: CEFEPIME 1 GM in SODIUM CHLORIDE 0.9% 50 ML IVPB SCH (08:24)
[2020-03-22] MEDS: ISOSORBIDE MONONITRATE ER 15 MG TAB PO SCH (08:25)
[2020-03-22] MEDS: SERTRALINE 25 MG TAB PO SCH (08:25)
[2020-03-22] MEDS: ARIPiprazole 10 MG TAB PO SCH (08:25)
[2020-03-22] MEDS: FOLIC ACID-VIT B COMPLEX-VIT C 1 CAP PO SCH (08:25)
[2020-03-22] MEDS: MIDODRINE 5 MG TAB PO SCH (08:32)
[2020-03-22] MEDS: LIDOCAINE-PRILOCAINE 2.5-2.5% CREAM 5 GM TUBE TOPICAL SCH (08:34)
[2020-03-22 11:44] LABS: Glucose,Whole Blood 120 mg/dL (75-99)
[2020-03-22] MEDS: COLLAGENASE 250 UNIT/GM OINTMENT 30 GM TUBE TOPICAL SCH (11:49)
[2020-03-22 12:45] VITALS: BP 93/59; PULSE 103; RESP 20; TEMP 98.3
--- NOTE | 2020-03-22 13:35 | P.DS ---
Providers Date of admission: 03/18/20 11:38 Expected date of discharge: 03/22/20 Attending physician: Daniel Martinez Consults: 03/18/20 12:30 Consult Physician Routine Consulting Provider: Curtis Kirby Consult Reason/Comments: wound infection Do you want consulting provider notified?: Yes 03/18/20 13:03 Consult Physician Urgent Consulting Provider: Ivan Saravia Consult Reason/Comments: Dialysis Do you want consulting provider notified?: Yes 03/18/20 13:56 Consult Physician Routine Consulting Provider: Brijesh Olivares Consult Reason/Comments: fistula issues Do you want consulting provider notified?: Yes 03/18/20 16:55 Consult Physician Stat Consulting Provider: Daniel Castro Consult Reason/Comments: dialysis cath Do you want consulting provider notified?: Already Contacted Primary care physician: Narciso Low Hospital Course: Final diagnosis Acute hypoxic respiratory failure secondary to fluid overload and missing hemodialysis Ulcer on the left arm with MRSA, on empiric cefepime as well as vancomycin Decubitus ulcer of the left heel Change in mental status, metabolic encephalopathy, multifactorial Atrial fibrillation, presently controlled Increased white count Anemia of chronic disease History of coronary artery disease CVA, TIA Dementia Diabetes mellitus type 2 End-stage renal disease, on hemodialysis hyperlipidemia Hypertension Memory impairment history of degenerative joint disease Sleep apnea History of CRE, ESBL, and MRSA history of cholecystectomy History of anxiety no code Discharge disposition Patient is being discharged in a stable condition with guarded prognosis to [facility]. Patient will follow-up with Dr. Deidra Low in the outpatient setting upon discharge. Patient will continue on IV antibiotics in the form of cefepime per infectious disease recommendations during dialysis on Friday/Friday/Friday. Total time taken is greater than 35 minutes. History of present illness This is a 70-year-old male who was recently admitted with an ulcer along with infection noted of the left arm fistula with presumptive MRSA and was being closely monitored. Urology and infectious disease following. Patient had Yoselyn ton catheter placed for continue dialysis as he is receiving hemodialysis Friday/Friday/Friday. Patient was started on IV antibiotics in the form of Cefepime and will continue per infectious disease recommendations through dialysis. Patient continues to be drowsy and medication adjustments have been made. Changes to Zoloft as well. Patient does have a history of diabetes and will continue with Accu-Cheks before meals and at bedtime and sliding scale. Currently no reports of chest pain, shortness of breath, or palpitations. Patient is afebrile. No reports of nausea or vomiting and patient is tolerating diet. Patient will be going to [facility] today. Guarded prognosis On exam vital signs are stable. Temp is 98.0F, pulse is 66, respirations are 16, blood pressure is 119/62, oxygen saturation is 97% on 2 L via nasal cannula. Cardio S1, S2 are muffled. Respiratory system shows diminished breath sounds at the bases with no wheezing or rhonchi noted. Abdomen is soft and nontender. Nervous system shows diffuse weakness. Please refer to medication reconciliation sheet for a list of medications. Patient Condition at Discharge: Stable Plan - Discharge Summary Discharge Rx Participant: No New Discharge Prescriptions: New Darbepoetin Antonio [Aranesp] 40 mcg SQ Q7D syringe INSULIN ASPART (NovoLOG) [NovoLOG (formulary)] 0 unit SQ ACHS vial Collagenase [Santyl] 1 applic TOPICAL DAILY applic Continue Famotidine [Pepcid] 20 mg PO DAILY@0900 Divalproex Sodium [Depakote Sprinkle] 250 mg PO TID@0900,1300,2100 Aspirin 162 mg PO DAILY@0900 Finasteride [Proscar] 5 mg PO HS@2100 Folic Acid-Vit B Complex-Vit C [Nephrocaps] 1 mg PO DAILY@0900 Lidocaine-Prilocaine Cream [Emla Cream 2.5%/2.5%] 1 applic TOPICAL MOWEFR@0500 Folic Acid 0.8 mg PO DAILY@0900 Clopidogrel Bisulfate [Plavix] 75 mg PO DAILY@0900 guaiFENesin SYRUP 100MG/5ML [Robitussin] 200 mg PO Q6H PRN PRN Reason: Cough Lactulose 15 gm PO DAILY PRN PRN Reason: Constipation Sevelamer Carbonate 2.4 gm PO MOWEFR@ Cholecalciferol [Vitamin D3 (25 Mcg = 1000 Iu)] 5,000 unit PO DAILY@1300 Nepro 1 can PO DAILY@1700 Atorvastatin [Lipitor] 20 mg PO HS@2100 Magnesium Hydroxide [Milk of Magnesia] 2,400 mg PO DAILY PRN PRN Reason: Constipation bisacodyL [Dulcolax] 10 mg RECTAL Q48H PRN PRN Reason: Constipation Acetaminophen Suppository [Tylenol Suppository] 650 mg RECTAL Q6H PRN PRN Reason: Fever Sevelamer Carbonate 2.4 gm PO SUTUTHSA@ Sertraline [Zoloft] 25 mg PO DAILY@0900 Zinc 50 mg PO DAILY@1300 Ascorbic Acid [Vitamin C] 2,000 mg PO DAILY@1300 ARIPiprazole [Abilify] 10 mg PO DAILY@0900 Isosorbide Mononitrate ER [Imdur] 15 mg PO DAILY@0900 House Supplement 1 can PO BID@0900,1700 Midodrine HCl [ProAmatine] 10 mg PO MOWEFR@0530 LORazepam [Ativan] 0.5 mg PO Q2H PRN #4 tab PRN Reason: Anxiety Megestrol [Megace] 400 mg PO DAILY@0900 #4 dose Gabapentin [Neurontin] 200 mg PO MOWEFR@1700 #10 cap Gabapentin [Neurontin] 200 mg PO DAILY@0900 #10 cap HYDROcodone/APAP 5-325MG [[place] 5-325] 1 tab PO Q6HR PRN #6 tab PRN Reason: Breakthrough Pain Discontinued Sertraline [Zoloft] 50 mg PO DAILY@0900 Sertraline [Zoloft] 100 mg PO DAILY@0900 MORPHINE ORAL JOSE CARLOS CONC 20mg/mL [Roxanol Oral Soln Conc 20MG/ML] 5 mg PO Q6H PRN PRN Reason: Pain Discharge Medication List Aspirin 162 mg PO DAILY@0900 05/10/16 [History] Divalproex Sodium [Depakote Sprinkle] 250 mg PO TID@0900,1300,209905/10/16 [History] Famotidine [Pepcid] 20 mg PO DAILY@0905/10/16 [History] Finasteride [Proscar] 5 mg PO HS@209910/07/16 [History] Folic Acid 0.8 mg PO DAILY@0909/05/17 [History] Folic Acid-Vit B Complex-Vit C [Nephrocaps] 1 mg PO DAILY@0900 09/05/17 [History] Lidocaine-Prilocaine Cream [Emla Cream 2.5%/2.5%] 1 applic TOPICAL MOWEFR@0500 09/05/17 [History] Clopidogrel Bisulfate [Plavix] 75 mg PO DAILY@0900 01/20/19 [History] Lactulose 15 gm PO DAILY PRN 01/20/19 [History] Sevelamer Carbonate 2.4 gm PO MOWEFR@05,,17 01/20/19 [History] guaiFENesin SYRUP 100MG/5ML [Robitussin] 200 mg PO Q6H PRN 01/20/19 [History] Atorvastatin [Lipitor] 20 mg PO HS@2100 12/24/19 [History] Cholecalciferol [Vitamin D3 (25 Mcg = 1000 Iu)] 5,000 unit PO DAILY@1300 12/24/19 [History] Magnesium Hydroxide [Milk of Magnesia] 2,400 mg PO DAILY PRN 12/24/19 [History] Nepro 1 can PO DAILY@1700 12/24/19 [History] ARIPiprazole [Abilify] 10 mg PO DAILY@0900 03/13/20 [History] Acetaminophen Suppository [Tylenol Suppository] 650 mg RECTAL Q6H PRN 03/13/20 [History] Ascorbic Acid [Vitamin C] 2,000 mg PO DAILY@1300 03/13/20 [History] House Supplement 1 can PO BID@0900,1700 03/13/20 [History] Isosorbide Mononitrate ER [Imdur] 15 mg PO DAILY@0900 03/13/20 [History] Sertraline [Zoloft] 25 mg PO DAILY@0900 03/13/20 [History] Sevelamer Carbonate 2.4 gm PO SUTUTHSA@08,,03/13/20 [History] Zinc 50 mg PO DAILY@1300 03/13/20 [History] bisacodyL [Dulcolax] 10 mg RECTAL Q48H PRN 03/13/20 [History] Midodrine HCl [ProAmatine] 10 mg PO MOWEFR@0530 03/18/20 [History] Collagenase [Santyl] 1 applic TOPICAL DAILY applic 03/22/20 [Rx] Darbepoetin Antonio [Aranesp] 40 mcg SQ Q7D syringe 03/22/20 [Rx] Gabapentin [Neurontin] 200 mg PO DAILY@0900 #10 cap 03/22/20 [Rx] Gabapentin [Neurontin] 200 mg PO MOWEFR@1700 #10 cap 03/22/20 [Rx] HYDROcodone/APAP 5-325MG [[place] 5-325] 1 tab PO Q6HR PRN #6 tab 03/22/20 [Rx] INSULIN ASPART (NovoLOG) [NovoLOG (formulary)] 0 unit SQ ACHS vial 03/22/20 [Rx] LORazepam [Ativan] 0.5 mg PO Q2H PRN #4 tab 03/22/20 [Rx] Megestrol [Megace] 400 mg PO DAILY@0900 #4 dose 03/22/20 [Rx] Follow up Appointment(s)/Referral(s): Pollo Gonzalez, [NON-STAFF] - As Needed Narciso Low MD [Primary Care Provider] - 1-2 days Activity/Diet/Wound Care/Special Instructions: Wound care: Apply Santyl to coccyx wound daily, cover with gauze sponge and secure with paper tape. Apply Santyl to left heel daily, cover with sponge gauze and secure with paper tape. Offload coccyx, turn every 2 hours, offload left heel Patient will be going to [facility] Continue with IV antibiotics per infectious disease Continue with dysphagia to ground diet Continue dialysis Friday/Friday/Friday Continue to monitor blood sugars before meals at bedtime and treat accordingly with sliding scale Discharge Disposition: TRANSFER TO SNF/ECF
--- NOTE | 2020-03-22 14:12 | PN ---
PROGRESS NOTE Patient is seen for followup for end-stage renal disease. He is currently seen on hemodialysis, tolerating his treatment well. PHYSICAL EXAMINATION: Blood pressure was 119/62, heart rate 66 per minute. He is afebrile. Examination shows patient is euvolemic. No evidence of edema lower extremities. Site of the AV fistula looks intact. The small wound seems to have healed and there is a scab on it. Currently using IJ PermCath. PANTOGRAPH I ENGRAVER exam grossly intact. Patient is having some tremors of his left upper extremity, which is not new. LABS: Labs are not available from today. From yesterday, potassium was 4.0, sodium 139, serum creatinine 3.98. ASSESSMENT: 1. End-stage renal disease, on hemodialysis on a Friday, Friday, Friday schedule. 2. Cellulitis and wound infection with wound culture growing MRSA near the AV fistula, currently not in use and being dialyzed via IJ PermCath, status post antibiotics. 3. Chronic kidney disease mineral bone disorder. 4. Generalized debility. PLAN: Patient can be discharged from Nephrology standpoint with plans to continue antibiotics as outpatient. Next dialysis will be on Friday, which can be done as outpatient. MMODL / IJN: [id number] /
[2020-03-22] MEDS: ASCORBIC ACID 500 MG TAB PO SCH (14:17)
[2020-03-22] MEDS: CHOLECALCIFEROL 1,000 UNIT TAB PO SCH (14:17)
[2020-03-22] MEDS: ZINC SULFATE 220 MG CAP PO SCH (14:17)
--- NOTE | 2020-03-22 15:47 | PN ---
PROGRESS NOTE DATE OF SERVICE: 03/22/2020 REASON FOR FOLLOWUP: Left arm AV fistula site wound and cellulitis, MRSA. INTERVAL HISTORY: The patient was seen on rounds this morning. The patient has been afebrile, has been breathing comfortably. Denies having any chest pain or cough. No abdominal pain. No diarrhea has been reported. PHYSICAL EXAMINATION: Blood pressure 119/62 with a pulse of 66, temperature 98. He is 97% on 2 L cannula. General description is an elderly male lying in bed in no distress. RESPIRATORY SYSTEM: Unlabored breathing, clear to auscultation anteriorly. HEART: S1, S2. Regular rate and rhythm. ABDOMEN: Soft, no tenderness. Left arm AV fistula site wound is currently drying out, surrounding redness improved. DIAGNOSTIC IMPRESSION AND PLAN: Patient with left arm AV fistula site wound and cellulitis, culture with MRSA. Continue with pharmacy to dose with dialysis for another 7-10 days and close outpatient followup. MMODL / IJN: [id number] /
== END 2020-03-22 14:50 | DRG 640 ==
LOC: EC 11:08 → 4SSUR 11:38
PROVIDERS: ADMIT Internal Medicine; ATTEND Internal Medicine
PROC: 06H033Z Insertion of Infusion Device into Inferior Vena Cava, Percutaneous Approach (ICD-10-PCS; principal; 2020-03-20)
PROC: 5A1D70Z Performance of Urinary Filtration, Intermittent, Less than 6 Hours Per Day (ICD-10-PCS; principal; 2020-03-20)
DX: E87.70 Fluid overload, unspecified (principal); L89.154 Pressure ulcer of sacral region, stage 4; L89.623 Pressure ulcer of left heel, stage 3; G93.41 Metabolic encephalopathy; J96.01 Acute respiratory failure with hypoxia; N18.6 End stage renal disease; E46 Unspecified protein-calorie malnutrition; I12.0 Hypertensive chronic kidney disease with stage 5 chronic kidney disease or end stage renal disease; L03.114 Cellulitis of left upper limb; T82.7XXA Infection and inflammatory reaction due to other cardiac and vascular devices, implants and grafts, initial encounter; D63.1 Anemia in chronic kidney disease; E11.22 Type 2 diabetes mellitus with diabetic chronic kidney disease; E78.5 Hyperlipidemia, unspecified; F03.90 Unspecified dementia, unspecified severity, without behavioral disturbance, psychotic disturbance, mood disturbance, and anxiety; F41.9 Anxiety disorder, unspecified; G47.30 Sleep apnea, unspecified; I25.10 Atherosclerotic heart disease of native coronary artery without angina pectoris; I48.91 Unspecified atrial fibrillation; I95.89 Other hypotension; B95.62 Methicillin resistant Staphylococcus aureus infection as the cause of diseases classified elsewhere; Y83.2 Surgical operation with anastomosis, bypass or graft as the cause of abnormal reaction of the patient, or of later complication, without mention of misadventure at the time of the procedure; E83.9 Disorder of mineral metabolism, unspecified; Z79.02 Long term (current) use of antithrombotics/antiplatelets; Z79.82 Long term (current) use of aspirin; Z79.899 Other long term (current) drug therapy; Z82.49 Family history of ischemic heart disease and other diseases of the circulatory system; Z83.3 Family history of diabetes mellitus; Z86.73 Personal history of transient ischemic attack (TIA), and cerebral infarction without residual deficits; Z90.49 Acquired absence of other specified parts of digestive tract; Z99.2 Dependence on renal dialysis; Z74.01 Bed confinement status; Z87.828 Personal history of other (healed) physical injury and trauma; Z86.14 Personal history of Methicillin resistant Staphylococcus aureus infection; R41.3 Other amnesia; G20 Parkinson's disease; Z66 Do not resuscitate; M19.90 Unspecified osteoarthritis, unspecified site; Z87.891 Personal history of nicotine dependence
CPT/HCPCS: 36558; 71045; 71046; 76937; 77001; 80048; 80053; 80202; 82565; 82728; 83540; 83550; 84145; 85025; 85027; 85652; 86140; 86706; 87040; 87070; 87077; 87186; 87205; 87340; 90935; 99285